=== PATIENT | male | born 1945 | race Caucasian/White ===

== ENCOUNTER 2019-08-20 17:01 | Inpatient (IN) | payer MEDICARE, OTHER ==
[~2019-08-20] VITALS: Ht 167.6 cm; Wt 78.2 kg
[2019-08-20] MEDS ORDERED: ARTIDRO2 OU (17:12)
[2019-08-20] MEDS ORDERED: MM S100C PO (17:12)
[2019-08-20] MEDS ORDERED: TOBROPO OD (17:12)
[2019-08-20] MEDS ORDERED: FLOM0.4C39 PO (17:12)
[2019-08-20] MEDS ORDERED: SIMV40TA20 PO (17:12)
[2019-08-20] MEDS ORDERED: ASPI81TA85 PO (17:12)
[2019-08-20] MEDS ORDERED: WARF05TA PO (17:12)
[2019-08-20] MEDS ORDERED: NEUR600T PO (17:12)
[2019-08-20 18:06] LABS: BASO % 0.3 % (0.0-1.0); EOS % 0.3 % (0.0-3.0); HEMATOCRIT 36.8 % (42.0-52.0); HEMOGLOBIN 12.7 g/dl (13.5-17.5); LYMPH # 0.6 10^3/uL (1.5-5.0); LYMPH % 4.4 % (24.0-44.0); MEAN CORPUSCULAR HGB CONC 34.5 g/dl (32.0-36.5); MEAN CORPUSCULAR VOLUME 101.4 fl (80.0-96.0); MONO # 1.6 10^3/uL (0.0-0.8); MONO % 11.2 % (0.0-5.0); NEUTROPHILS # 11.7 10^3/uL (1.5-8.5); NEUTROPHILS % 82.3 % (36.0-66.0); PLATELET COUNT, AUTOMATED 171 10^3/uL (150-450); RED BLOOD COUNT 3.63 10^6/uL (4.30-6.10); WHITE BLOOD COUNT 14.3 10^3/uL (4.0-10.0)
[2019-08-20 18:32] LABS: ALBUMIN 3.8 GM/DL (3.2-5.2); ALT/SGPT 31 U/L (12-78); BILIRUBIN,DIRECT 0.4 MG/DL (0.0-0.2); BLOOD UREA NITROGEN 25 MG/DL (7-18); CALCIUM LEVEL 8.6 MG/DL (8.8-10.2); CARBON DIOXIDE LEVEL 26 MEQ/L (21-32); CHLORIDE LEVEL 95 MEQ/L (98-107); CREATININE FOR GFR 1.19 MG/DL (0.70-1.30); GLOMERULAR FILTRATION RATE > 60.0 (>42); GLUCOSE, FASTING 93 MG/DL (70-100); LIPASE 61 U/L (73-393); POTASSIUM SERUM 4.4 MEQ/L (3.5-5.1); SODIUM LEVEL 132 MEQ/L (136-145); TOTAL PROTEIN 7.9 GM/DL (6.4-8.2)
[2019-08-20] MEDS ORDERED: ONDANSETRON 4MG/2ML VIAL (J2405) IV ONE (19:00)
[2019-08-20] MEDS ORDERED: PANTOPRAZOLE 40MG INJ (PROTONIX) (C9113) IV ONE (19:00)
[2019-08-20] MEDS ORDERED: NS 1,000 ML IV SCH (19:00)
--- NOTE | 2019-08-20 20:05 | REPVR ---
PROCEDURE INFORMATION: Exam: CT Abdomen And Pelvis Without Contrast Exam date and time: 08/20/2019 7:15 PM Age: 74 years old Clinical indication: Abdominal pain; Generalized; Additional info: Obstruction TECHNIQUE: Imaging protocol: Computed tomography of the abdomen and pelvis without contrast. Radiation optimization: All CT scans at this facility use at least one of these dose optimization techniques: automated exposure control; mA and/or kV adjustment per patient size (includes targeted exams where dose is matched to clinical indication); or iterative reconstruction. COMPARISON: CT ABD PELVIS WITH CONTRAST 12/10/2014 7:39 PM FINDINGS: Limited evaluation without enteric or IV contrast. Lungs: Mild subpleural reticular fibrosis suspected in the lung bases. Mediastinum: Miniscule hiatal hernia measuring less than 3 cm. Liver: Noncontrast liver shows no obvious lesion. Gallbladder and bile ducts: Gallbladder is present and shows no evidence of gallstone. Pancreas: Noncontrast pancreas shows no obvious mass or adjacent fluid. Spleen: Noncontrast spleen shows no obvious focal deformity. Adrenals: Adrenal glands are normal in appearance. Kidneys and ureters: Kidneys demonstrate vascular calculi and left kidney demonstrates an exophytic 1 cm simple cyst anterior upper pole, and 2 cm simple cyst anterior lower pole. Stomach and bowel: Diverticular changes are present within the colon without inflammation. : Left paramedian ventral hernia at the craniocaudal level of the umbilicus is demonstrated, measuring 10 x 4 cm, containing bowel. The small bowel proximal to the hernia appears distended and fluid-filled, measuring up to 3.5 cm, and the exiting loops appear decompressed, suggesting obstruction at the level of the hernia. The neck of the hernia appears wide, measuring 3 cm. Appendix: Normal caliber appendix is identified, with no adjacent inflammation. Intraperitoneal space: No pneumoperitoneum. Vasculature: Atherosclerotic change present in the aorta, without aneurysm. Lymph nodes: No enlarged lymph nodes. No abnormal pelvic sidewall lymph nodes. Bladder: Urinary bladder appears normal. Bones/joints: Bony structures show no acute fracture or destructive process. IMPRESSION: 1. Left paramedian ventral hernia at the level of the umbilicus measuring 10 x 4 cm, with a 3 cm wide neck. There appears to be at least partial small bowel obstruction at this level with a transition point at the exit loop of the hernia. 2. Colonic diverticulosis without active inflammation.. Electronically signed by: Tommie Tukr On 08/20/2019 20:05:04 PM
[2019-08-20 20:15] LABS: INR 2.6; PROTHROMBIN TIME 27.7 SECONDS (11.8-14.0)
[2019-08-20] MEDS: SIMVASTATIN 20 MG TAB PO SCH (21:00)
[2019-08-20] MEDS: GABAPENTIN 300 MG CAP PO SCH (21:00)
[2019-08-20] MEDS: VITAMIN D 1,000 INTERNATIONAL UNITS TABLET PO SCH (21:00)
[2019-08-20] MEDS: ASPIRIN 81 MG ENTERIC TAB PO SCH (21:00)
[2019-08-20] MEDS: TAMSULOSIN 0.4 MG CAP PO SCH (21:00)
[2019-08-20] MEDS ORDERED: VITA100066 PO (21:58)
[2019-08-20] MEDS ORDERED: EQL50TAB2 PO (21:58)
[2019-08-20] MEDS ORDERED: POLYVINYL ALCOHOL OPHTH SOLN 15 ML(LIQUITEARS) OU PRN (22:15)
[2019-08-20] MEDS ORDERED: HEPARIN SOD (PORCINE) 5000 UNITS/ML VIAL SC SCH (22:15)
[2019-08-20 23:00] VITALS: BP 125/81
[2019-08-20] MEDS: TOBRADEX OPHTH OINT 3.5 GM OD SCH (23:58)
[2019-08-20] MEDS: WARFARIN SOD 1 MG TAB PO SCH (23:59)
[2019-08-21] MEDS ORDERED: diphenhydrAMINE INJ 50MG/ML VIAL (J1200) IV ONE (00:15)
--- NOTE | 2019-08-21 00:33 | HPEPDOC ---
[facility] Medical History & Physical Date of Admission Aug 21, 2019 Date of Service: Aug 21, 2019 Attending Physician: JABARI KILPATRICK MD History and Physical CHIEF COMPLAINT: Abdominal pain HISTORY OF PRESENT ILLNESS: 74-year-old male with past medical history of BPH, hyperlipidemia and peripheral vascular disease (on Coumadin), presents from home with abdominal pain for the past few days. He has a paraumbilical hernia which causes intermittent abdominal pain but this time the pain is lasted longer than usual along with associated nausea, vomiting, constipation. Patient reports symptoms ongoing for the past 5 days with inability to tolerate any oral intake without vomiting, and back. In the ED, he was found to have partial small bowel obstruction on CT scan. General surgery consulted and it was recommended the patient be admitted for medical management and if stable and tolerating oral in take, plan for hernia repair in an outpatient setting. 10 point review of system is negative except for above PAST MEDICAL HISTORY: 1. BPH. 2. Peripheral vascular disease. 3. , Hyperlipidemia. PAST SURGICAL HISTORY: 1. Right lower extremity stent placement. 2. Hernia repair. SOCIAL HISTORY: Smoked 1.5 pack per day for 60 years. Drinks 3-5 beers per day. Occasional marijuana use FAMILY HISTORY: Family history positive for heart disease ALLERGIES: Please see below. HOME MEDICATIONS: Please see below. PHYSICAL EXAMINATION: VITAL SIGNS: Please see below. GENERAL: No distress HEENT: Normocephalic, atraumatic, moist mucous membranes NECK: Supple CARDIOVASCULAR EXAMINATION: S1, S2, no murmurs RESPIRATORY EXAMINATION: Clear to auscultation, no wheezing ABDOMINAL EXAMINATION: Soft, large (large left paraumbilical hernia, reducible, mild tenderness to palpation, nondistended, positive bowel sounds EXTREMITIES: Range of motion intact SKIN: No rash NEUROLOGICAL EXAMINATION: Alert and oriented 3, no focal deficits PSYCHIATRIC EXAMINATION: Calm and cooperative LABORATORY DATA: See below. IMAGING: CT abdomen showing ventral hernia with partial small bowel obstruction MICROBIOLOGY: Please see below. ASSESSMENT: 74-year-old male with past medical history of peripheral vascular disease, hyperlipidemia, BPH and ventral hernia presents with partial small bowel obstruction. PLAN: 1. Small bowel obstruction. Nothing by mouth, IV fluids, official surgical consultation pending, no immediate plan for surgery. 2. Peripheral vascular disease. Continue aspirin, statin and Coumadin, INR therapeutic. 3. Hyperlipidemia. Continue simvastatin DVT prophylaxis: On Coumadin. GI prophylaxis: Not needed Vital Signs Vital Signs Date Time Temp Pulse Resp B/P (MAP) Pulse Ox O2 Delivery O2 Flow Rate FiO2 08/20/19 23:00 98.2 87 16 125/81 (96) 95 Room Air Laboratory Data Labs 24H Laboratory Tests 2 08/20/19 18:00: Immature Granulocyte % (Auto) 1.5, Neutrophils (%) (Auto) 82.3H, Lymphocytes (%) (Auto) 4.4L, Monocytes (%) (Auto) 11.2H, Eosinophils (%) (Auto) 0.3, Basophils (%) (Auto) 0.3, Neutrophils # (Auto) 11.7H, Lymphocytes # (Auto) 0.6L, Monocytes # (Auto) 1.6H, Eosinophils # (Auto) 0.0, Basophils # (Auto) 0.0, Nucleated Red Blood Cells % (auto) 0.0, Anion Gap 11, Glomerular Filtration Rate > 60.0, Calcium Level 8.6L, Total Bilirubin 1.0, Direct Bilirubin 0.4H, Aspartate Amino Transf (AST/SGOT) 35, Alanine Aminotransferase (ALT/SGPT) 31, Alkaline Phosphatase 61, Total Protein 7.9, Albumin 3.8, Albumin/Globulin Ratio 0.93L, Lipase 61L 08/20/19 19:47: Urine Color KATHERIN, Urine Appearance HAZY, Urine pH 5.0, Urine Specific Hewitt 1.029, Urine Protein 1+H, Urine Glucose (UA) NEGATIVE, Urine Ketones 1+H, Urine Blood NEGATIVE, Urine Nitrite NEGATIVE, Urine Bilirubin NEGATIVE, Urine Urobilinogen 0.2, Urine Leukocyte Esterase NEGATIVE, Urine WBC (Auto) 2, Urine RBC (Auto) 6H, Urine Hyaline Casts (Auto) 12, Urine Bacteria (Auto) NEGATIVE, Urine Squamous Epithelial Cells 0, Urine Transitional Epithelial Cells <1, Urine Mucus (Auto) SMALL, Urine Sperm (Auto) 08/20/19 19:50: Prothrombin Time 27.7H, Prothromb Time International Ratio 2.60 08/20/19 21:30: Lactic Acid Level 0.9 CBC/BMP Laboratory Tests 08/20/19 18:00 Home Medications Scheduled Aspirin (Aspir 81) 81 Mg Tablet.dr, 81 MG PO QHS Cholecalciferol (Vitamin D3) (Vitamin D3) 1,000 Unit Tablet, 1,000 UNIT PO QHS Docusate Sodium (Stool Softener) 100 Mg Capsule, 200 MG PO BID Gabapentin (Neurontin) 600 Mg Tablet, 900 TAB PO BID Simvastatin (Simvastatin) 40 Mg Tablet, 20 MG PO QHS Tamsulosin HCl (Flomax) 0.4 Mg Capsule, 0.4 MG PO QHS Tobramycin/Dexamethasone (Tobradex Eye Ointment) 3.5 Gm Oint...g., 1 APLCT OD BID Vitamin B Complex (Vitamin B Complex) 1 Each Tablet, 1 TAB PO QHS Warfarin Sod (Coumadin) 1 Mg Tablet, 1 MG PO QHS Scheduled PRN Polyvinyl Alcohol (Artificial Tears) 15 Ml Drops, 1 DROP OU QID PRN for DRY EYES Allergies Coded Allergies: No Known Allergies (Unverified , 08/20/19) A-FIB/CHADSVASC A-FIB History Current/History of A-Fib/PAF?: No JABARI KILPATRICK MD Aug 21, 2019 00:33
[2019-08-21] MEDS: NS 1,000 ML IV SCH ×2 (01:12→13:00)
[2019-08-21 05:27] VITALS: BP 124/81
[2019-08-21] MEDS: TOBRADEX OPHTH OINT 3.5 GM OD SCH ×2 (09:16→21:04)
[2019-08-21] MEDS: GABAPENTIN 300 MG CAP PO SCH ×2 (09:16→21:04)
--- NOTE | 2019-08-21 13:19 | CR ---
DATE OF CONSULTATION: 08/21/2019 REASON FOR CONSULTATION: Incarcerated hernia. HISTORY OF PRESENT ILLNESS: The patient is a 74-year-old male who presented to the emergency room with complaints of mild abdominal pain and nausea, vomiting and unable to tolerate food for the past five days. His last bowel movement was about three days ago. No flatus. He has had a known hernia on the left side of his belly button for the past two years. Recently it has gotten hard and he is not able to push it back inside. H did have a history of hernia repair, which developed into a complication of some sort and about three weeks afterwards he had a recurrent hernia repair. No problems since that up until about two years ago when he noticed this lump on the left side of his belly. He has had pain with it when he coughs; otherwise, it has been soft and it does not bother him. PAST MEDICAL HISTORY: 1. Benign prostatic hypertrophy (BPH). 2. Peripheral vascular disease. 3. Hyperlipidemia. PAST SURGICAL HISTORY: 1. Right lower extremity stent placement. 2. Umbilical hernia repair x2. SOCIAL HISTORY: Used to smoke a pack and half a day for over 60 years. Drinks 3-5 beers daily. He uses marijuana. FAMILY HISTORY: Noncontributory. ALLERGIES: None. HOME MEDICATIONS: Please see med rec. REVIEW OF SYSTEMS: Per positives and negatives in the history of present illness (HPI). PHYSICAL EXAMINATION: GENERAL: Alert and oriented x3. No acute stress. VITAL SIGNS: Temperature 98.7, pulse 86, respirations 18, blood pressure 124/81, pulse oximetry 98% room air. HEENT: Pupils equal round react to light accommodation. HEART: S1, S2. Regular rate and rhythm. LUNGS: Clear to auscultation bilaterally. ABDOMEN: Soft, nontender, nondistended. There is a palpable hernia defect just to left of the umbilicus, about 3 cm in dimension. Currently it is completely reduced but any coughing or movement and the bulge is back out again. EXTREMITIES: Bilateral lower extremity edema. LABORATORY DATA: White count 14.3, hemoglobin 12.7, platelets 171. Potassium 4.4, lactic acid 0.9, creatinine 1.19. INR 2.6. IMAGING STUDIES: CT abdomen and pelvis in the emergency room showed a left midabdomen ventral hernia that is low in the umbilicus, measuring 10 x 4 cm with a 3 cm. neck. There is some partial small bowel obstruction at this level with a transition point colonic diverticulosis ASSESSMENT AND PLAN: The patient is a 74-year-old male with a recurrent incarcerated left-sided periumbilical hernia that was also resulting in a small bowel obstruction. Overnight with nasogastric (NG) tube decompression, the obstruction has passed and the hernia has reduced itself. At this point, with his peripheral vascular disease, he is currently on Coumadin. The abdomen is soft. He has been passing tons of flatus this morning. Recommendation is to remove the NG tube, start him on a diet. As long as he tolerates a diet, we will plan to discharge him home tomorrow. He can get a referral to my office and also clearance from his primary, and we can plan for elective surgery once he has had a chance to get his coagulopathy under control. I explained this in detail with him. He understands and agrees, and I will continue to follow up with him in the morning to see if he is stable enough for discharge.
[2019-08-21 14:00] VITALS: BP 115/78
--- NOTE | 2019-08-21 15:00 | IPNPDOC ---
Text Note Date of Service The patient was seen on 08/21/19. NOTE Subjective: Patient stated that he feels better today, nausea or vomiting re solved. Intermittent suction was stopped. Objective: GENERAL: No distress HEENT: Normocephalic, atraumatic, moist mucous membranes NECK: Supple CARDIOVASCULAR EXAMINATION: S1, S2, no murmurs RESPIRATORY EXAMINATION: Clear to auscultation, no wheezing ABDOMINAL EXAMINATION: Nontender, nondistended, left paraumbilical reducible, no rigidity EXTREMITIES: Range of motion intact SKIN: No rash NEUROLOGICAL EXAMINATION: Alert and oriented 3, no focal deficits PSYCHIATRIC EXAMINATION: Calm and cooperative ASSESSMENT: 74-year-old male with past medical history of peripheral vascular disease, hyperlipidemia, BPH and ventral hernia presents with partial small bowel obstruction. PLAN: 1. Small bowel obstruction. Resolved after intermittent suction Dr Caldwell recommended regular diet. Anticipated discharge tomorrow, possible surgical intervention in the outpatient settings 2. Peripheral vascular disease. Continue home meds 3. Hyperlipidemia. Continue simvastatin VS,Fishbone, I+O VS, Fishbone, I+O Laboratory Tests 08/20/19 18:00 Vital Signs Date Time Temp Pulse Resp B/P (MAP) Pulse Ox O2 Delivery O2 Flow Rate FiO2 08/21/19 14:00 98.1 88 18 115/78 (90) 97 08/21/19 05:27 Room Air I&O- Last 24 Hours up to 6 AM 08/21/19 06:00 Intake Total 400 ml Output Total 375 ml Balance 25 ml KAROL SMALLS DO Aug 21, 2019 15:00
[2019-08-21] MEDS: WARFARIN SOD 1 MG TAB PO SCH (17:41)
[2019-08-21 19:59] LABS: ALBUMIN 3.7 GM/DL (3.2-5.2); ALT/SGPT 28 U/L (12-78); BILIRUBIN,TOTAL 0.6 MG/DL (0.2-1.0); BLOOD UREA NITROGEN 20 MG/DL (7-18); CALCIUM LEVEL 8.3 MG/DL (8.8-10.2); CARBON DIOXIDE LEVEL 25 MEQ/L (21-32); CHLORIDE LEVEL 99 MEQ/L (98-107); CREATININE FOR GFR 0.78 MG/DL (0.70-1.30); GLOMERULAR FILTRATION RATE > 60.0 (>42); GLUCOSE, FASTING 95 MG/DL (70-100); POTASSIUM SERUM 4.6 MEQ/L (3.5-5.1); SODIUM LEVEL 132 MEQ/L (136-145); TOTAL PROTEIN 7.7 GM/DL (6.4-8.2)
[2019-08-21] MEDS: SIMVASTATIN 20 MG TAB PO SCH (21:04)
[2019-08-21] MEDS: VITAMIN D 1,000 INTERNATIONAL UNITS TABLET PO SCH (21:04)
[2019-08-21] MEDS: ASPIRIN 81 MG ENTERIC TAB PO SCH (21:04)
[2019-08-21] MEDS: TAMSULOSIN 0.4 MG CAP PO SCH (21:04)
[2019-08-21 22:00] VITALS: BP 130/43
[2019-08-22 06:00] VITALS: BP 99/65
[2019-08-22 06:40] LABS: INR 2.05
[2019-08-22 07:26] LABS: HEMATOCRIT 37.3 % (42.0-52.0); HEMOGLOBIN 12.5 g/dl (13.5-17.5); MEAN CORPUSCULAR HEMOGLOBIN 35.1 pg (27.0-33.0); MEAN CORPUSCULAR HGB CONC 33.5 g/dl (32.0-36.5); MEAN CORPUSCULAR VOLUME 104.8 fl (80.0-96.0); PLATELET COUNT, AUTOMATED 161 10^3/uL (150-450); RED BLOOD COUNT 3.56 10^6/uL (4.30-6.10); WHITE BLOOD COUNT 12.2 10^3/uL (4.0-10.0)
[2019-08-22] MEDS: TOBRADEX OPHTH OINT 3.5 GM OD SCH (09:52)
[2019-08-22] MEDS: GABAPENTIN 300 MG CAP PO SCH (09:52)
--- NOTE | 2019-08-22 11:02 | IPNPDOC ---
Text Note Date of Service The patient was seen on 08/22/19. NOTE No acute events overnight. Tolerating diet. No nausea, emesis, or pain. Still passing lots of flatus, and feels like he has to have a BM this am. VSSAF NAD abd - soft, NT, ND, large reduced incisional hernia on the left abdomen lateral to the umbilicus A) 74 y/o male with incarcerated incisional hernia and SBO that has resolved with NG decompression P) reg diet ambulate ok for d/c f/u with me in office to schedule elective surgery in the near future Ron Caldwell DO VS,Rafi, I+O VS, Rafi, I+O Laboratory Tests 08/21/19 19:22 08/22/19 06:05 Vital Signs Date Time Temp Pulse Resp B/P (MAP) Pulse Ox O2 Delivery O2 Flow Rate FiO2 08/22/19 06:00 99.2 88 19 99/65 (76) 94 Room Air I&O- Last 24 Hours up to 6 AM 08/22/19 06:00 Intake Total 1080 ml Output Total 200 ml Balance 880 ml WALKER CALDWELL DO Aug 22, 2019 11:02
--- NOTE | 2019-08-22 20:44 | DS.PDOC ---
Discharge Summary General Date of Admission Aug 20, 2019 at 22:01 Date of Discharge 08/22/19 Discharge Summary PROCEDURES PERFORMED DURING STAY: [None]. ADMITTING DIAGNOSES: Small bowel obstruction. Peripheral vascular disease. Hyperlipidemia. DISCHARGE DIAGNOSES: Small bowel obstruction. Peripheral vascular disease. Hyperlipidemia. COMPLICATIONS/CHIEF COMPLAINT: Bph;Hld;Pvd;Sbo. HISTORY OF PRESENT ILLNESS: 74-year-old male with past medical history of BPH, hyperlipidemia and peripheral vascular disease (on Coumadin), presents from home with abdominal pain for the past few days. He has a paraumbilical hernia which causes intermittent abdominal pain but this time the pain is lasted longer than usual along with associated nausea, vomiting, constipation. Patient reports symptoms ongoing for the past 5 days with inability to tolerate any oral intake without vomiting, and back. In the ED, he was found to have partial small bowel obstruction on CT scan. General surgery consulted and it was recommended the patient be admitted for medical management and if stable and tolerating oral intake, plan for hernia repair in an outpatient setting. HOSPITAL COURSE: During hospital stay patient repeat intermittent suction, small bowel obstruction resolved. Dr. Caldwell recommended hernia repair in the outpatient settings DISCHARGE MEDICATIONS: Please see below. ALLERGIES: Please see below. PHYSICAL EXAMINATION ON DISCHARGE: VITAL SIGNS: Please see below. GENERAL: No distress HEENT: Normocephalic, atraumatic, moist mucous membranes NECK: Supple CARDIOVASCULAR EXAMINATION: S1, S2, no murmurs RESPIRATORY EXAMINATION: Clear to auscultation, no wheezing ABDOMINAL EXAMINATION: Soft, large (large left paraumbilical hernia, reducible, mild tenderness to palpation, nondistended, positive bowel sounds EXTREMITIES: Range of motion intact SKIN: No rash NEUROLOGICAL EXAMINATION: Alert and oriented 3, no focal deficits PSYCHIATRIC EXAMINATION: Calm and cooperative LABORATORY DATA: Please see below. IMAGING:PROCEDURE INFORMATION: Exam: CT Abdomen And Pelvis Without Contrast Exam date and time: 08/20/2019 7:15 PM Age: 74 years old Clinical indication: Abdominal pain; Generalized; Additional info: Obstruction TECHNIQUE: Imaging protocol: Computed tomography of the abdomen and pelvis without contrast. Radiation optimization: All CT scans at this facility use at least one of these dose optimization techniques: automated exposure control; mA and/or kV adjustment per patient size (includes targeted exams where dose is matched to clinical indication); or iterative reconstruction. COMPARISON: CT ABD PELVIS WITH CONTRAST 12/10/2014 7:39 PM FINDINGS: Limited evaluation without enteric or IV contrast. Lungs: Mild subpleural reticular fibrosis suspected in the lung bases. Mediastinum: Miniscule hiatal hernia measuring less than 3 cm. Liver: Noncontrast liver shows no obvious lesion. Gallbladder and bile ducts: Gallbladder is present and shows no evidence of gallstone. Pancreas: Noncontrast pancreas shows no obvious mass or adjacent fluid. Spleen: Noncontrast spleen shows no obvious focal deformity. Adrenals: Adrenal glands are normal in appearance. Kidneys and ureters: Kidneys demonstrate vascular calculi and left kidney demonstrates an exophytic 1 cm simple cyst anterior upper pole, and 2 cm simple cyst anterior lower pole. Stomach and bowel: Diverticular changes are present within the colon without inflammation. : Left paramedian ventral hernia at the craniocaudal level of the umbilicus is demonstrated, measuring 10 x 4 cm, containing bowel. The small bowel proximal to the hernia appears distended and fluid-filled, measuring up to 3.5 cm, and the exiting loops appear decompressed, suggesting obstruction at the level of the hernia. The neck of the hernia appears wide, measuring 3 cm. Appendix: Normal caliber appendix is identified, with no adjacent inflammation. Intraperitoneal space: No pneumoperitoneum. Vasculature: Atherosclerotic change present in the aorta, without aneurysm. Lymph nodes: No enlarged lymph nodes. No abnormal pelvic sidewall lymph nodes. Bladder: Urinary bladder appears normal. Bones/joints: Bony structures show no acute fracture or destructive process. IMPRESSION: 1. Left paramedian ventral hernia at the level of the umbilicus measuring 10 x 4 cm, with a 3 cm wide neck. There appears to be at least partial small bowel obstruction at this level with a transition point at the exit loop of the hernia. 2. Colonic diverticulosis without active inflammation.. PROGNOSIS: Favorable ACTIVITY: As tolerated DIET: Cardiac DISCHARGE PLAN: Home DISPOSITION: 01 Home, Self-Care. ITEMS TO FOLLOWUP ON ON OUTPATIENT: Follow-up with surgeon DISCHARGE CONDITION: Stable TIME SPENT ON DISCHARGE: Greater than 20 minutes. Vital Signs/I&Os Vital Signs Date Time Temp Pulse Resp B/P (MAP) Pulse Ox O2 Delivery O2 Flow Rate FiO2 08/22/19 06:00 99.2 88 19 99/65 (76) 94 Room Air I&O- Last 24 Hours up to 6 AM 08/22/19 06:00 Intake Total 1080 ml Output Total 200 ml Balance 880 ml Laboratory Data Labs 24H Laboratory Tests 2 08/22/19 06:05: Nucleated Red Blood Cells % (auto) 0.0, Prothrombin Time 23.0H, Prothromb Time International Ratio 2.05 CBC/BMP Laboratory Tests 08/22/19 06:05 Discharge Medications Scheduled Aspirin (Aspir 81) 81 Mg Tablet.dr, 81 MG PO QHS, (Reported) Cholecalciferol (Vitamin D3) (Vitamin D3) 1,000 Unit Tablet, 1,000 UNIT PO QHS, (Reported) Docusate Sodium (Stool Softener) 100 Mg Capsule, 200 MG PO BID, (Reported) Gabapentin (Neurontin) 600 Mg Tablet, 900 TAB PO BID, (Reported) Simvastatin (Simvastatin) 40 Mg Tablet, 20 MG PO QHS, (Reported) Tamsulosin HCl (Flomax) 0.4 Mg Capsule, 0.4 MG PO QHS, (Reported) Tobramycin/Dexamethasone (Tobradex Eye Ointment) 3.5 Gm Oint...g., 1 APLCT OD BID, (Reported) Vitamin B Complex (Vitamin B Complex) 1 Each Tablet, 1 TAB PO QHS, (Reported) Warfarin Sod (Coumadin) 1 Mg Tablet, 1 MG PO QHS, (Reported) Scheduled PRN Polyvinyl Alcohol (Artificial Tears) 15 Ml Drops, 1 DROP OU QID PRN for DRY EYES, (Reported) Allergies Coded Allergies: No Known Allergies (Unverified , 08/20/19) KAROL SMALLS DO Aug 22, 2019 20:44
== END 2019-08-22 11:30 | disposition home or self-care (01) | DRG 395 ==
LOC: M ED 17:01 → M ED INP 22:01 → M MS5PR 23:10
PROVIDERS: ADMIT Internal Medicine; ATTEND Internal Medicine
DX: K43.0 Incisional hernia with obstruction, without gangrene (principal); I73.9 Peripheral vascular disease, unspecified; E78.5 Hyperlipidemia, unspecified; N40.0 Benign prostatic hyperplasia without lower urinary tract symptoms; Z79.01 Long term (current) use of anticoagulants; K57.30 Diverticulosis of large intestine without perforation or abscess without bleeding; Z79.82 Long term (current) use of aspirin; Z79.899 Other long term (current) drug therapy; F17.200 Nicotine dependence, unspecified, uncomplicated; F12.90 Cannabis use, unspecified, uncomplicated

== ENCOUNTER 2019-10-18 09:27 | Day surgery (SDC) | payer OTHER ==
[~2019-10-18] VITALS: Ht 167.6 cm; Wt 81.2 kg
[~2019-10-18 09:27] MED LIST: ACET-683 PO; ASPI81TA85 PO; DIPH50CA PO; EQL50TAB2 PO; FLOM0.4C39 PO; GABA600T4 PO; LIDOCAINE 2% 100MG/5ML SDV (FOR ANES.) As Ordered ONE; LR 1,000 ML IV ONE; MIDAZOLAM INJ 2MG/2ML VIAL (J2250 PER 1MG) As Ordered ONE; MM S100C PO; NEUR600T PO; POLYOPD OU; ROCURONIUM BROMIDE 50 MG/5 ML VIAL As Ordered ONE; SIMV40TA20 PO; TOBROPO OD; VITA100054 PO; VITA100066 PO; VITATAB74 PO; WARF05TA PO; ceFAZolin SOD 2 GM in IV 1 EA IV ONE; fentaNYL 250 MCG/5 ML INJECTION (J3010) As Ordered ONE; propofoL 200 MG/20 ML VIAL As Ordered ONE
[2019-10-18 10:25] LABS: INR 1.32; PROTHROMBIN TIME 16.1 SECONDS (11.8-14.0)
[2019-10-18] MEDS ORDERED: BUPIVACAINE/EPIN 0.25% 30 ML VIAL As Ordered ONE ×2 (10:51→12:07)
[2019-10-18] MEDS ORDERED: ETOMIDATE INJ 20MG/10ML VIAL As Ordered ONE (11:05)
[2019-10-18] MEDS ORDERED: PHENYLephrine HCL 500 MCG/5 ML (100MCG/ML) SYRINGE (J2370) As Ordered ONE ×2 (11:53→12:28)
[2019-10-18] MEDS ORDERED: ROCURONIUM BROMIDE 50 MG/5 ML VIAL As Ordered ONE ×2 (12:17→13:19)
[2019-10-18] MEDS ORDERED: PHENYLEPHRINE 10MG/ML 1ML VIAL (J2370 PER 1) As Ordered ONE (12:31)
[2019-10-18] MEDS ORDERED: dexameTHASONE 4 MG/ML 1ML VIAL (J1100 PER 1MG) As Ordered ONE (13:48)
[2019-10-18] MEDS ORDERED: ONDANSETRON 4MG/2ML VIAL As Ordered ONE (13:48)
[2019-10-18] MEDS ORDERED: ACETAMINOPHEN 1000MG 100ML IV BTL (OFIRMEV) (J0131 PER 10MG) As Ordered ONE (13:48)
[2019-10-18] MEDS ORDERED: KETOROLAC 60 MG/2 ML VIAL As Ordered ONE (13:48)
[2019-10-18] MEDS ORDERED: METOCLOPRAMIDE INJ 10MG/2ML VIAL (J2765 PER 1) As Ordered ONE (13:54)
[2019-10-18] MEDS ORDERED: SUGAMMADEX SODIUM 500 MG/5 ML VIAL (BRIDION) As Ordered ONE (14:10)
[2019-10-18] MEDS ORDERED: fentaNYL 100 MCG/2 ML INJECTION (J3010) As Ordered ONE (14:18)
[2019-10-18] MEDS: fentaNYL 100 MCG/2 ML INJECTION (J3010) IV PRN ×4 (14:57→15:14)
[2019-10-18] MEDS: oxyCODONE 5MG TAB PO PRN ×2 (14:57→15:28)
[2019-10-18] MEDS ORDERED: LR 1,000 ML IV SCH (15:00)
[2019-10-18] MEDS ORDERED: ONDANSETRON 4MG/2ML VIAL IV PRN (15:00)
[2019-10-18] MEDS ORDERED: MORPHINE 2 MG/ML 1ML VIAL (J2270) IV PRN (16:00)
[2019-10-18 17:45] VITALS: BP 132/77
--- NOTE | 2019-10-19 07:39 | RO ---
DATE OF PROCEDURE: PREOPERATIVE DIAGNOSES: Incarcerated incisional and a recurrent incarcerated umbilical hernias. POSTOPERATIVE DIAGNOSES: Incarcerated recurrent umbilical and multiple incarcerated incisional hernias. PROCEDURE: Robotic repair of incarcerated recurrent umbilical and seven other incarcerated incisional hernias. SURGEON: Dr. Reinaldo Caldwell. FENCE BUILDER: WILY Estevez. ANESTHESIA: General. ESTIMATED BLOOD LOSS: 5 cc COMPLICATIONS: None. INDICATIONS FOR PROCEDURE: The patient is a 74-year-old male whom I met in the hospital when he was in a for small bowel obstruction that was secondary to this large incarcerated incisional hernia. Recommendation to proceed with robotic repair. Risks and benefits of procedure are not limited but including bleeding, infection, hernia formation, hernia recurrence, damage to surrounding structures, need for further surgery were discussed in detail with the patient. Informed was obtained and the procedure was planned. DESCRIPTION OF OPERATION: The patient brought back to operating room 7. After sufficient sedation, the abdomen sterilely prepped and draped. Next time-out was done to confirm proper patient and proper procedure. Following that a stab incision made in left lower quadrant, Veress needle inserted and was insufflated 2 mmHg. Once that was completed an 8 mm incision was made in the left upper quadrant. The 8 mm robotic OptiView port was used to gain access to the abdomen. Once the abdomen was entered, I was unable to see anything due to the extensive adhesions. Because of the concern for possible bowel injury, I left that port alone and attempted placement of another port, superior to that one. That port was placed. I was able to see inside the abdomen but could not see enough from there to the region another port. Using the camera was able to bluntly move enough of the adhesions away from the superior abdomen to reach a second port in the midline epigastric area through that 5 mm port and using scissors, I was able to take down adhesions along the left upper quadrant sufficient enough to get another port in where the Veress needle was. Once I had those two ports and I was able to continue taking down adhesions all on the left side to the point where I able to get three robotic ports in place along the left side. Once that was completed, the robot was docked. The adhesions were taken down from midline and superiorly down towards the right lower quadrant until I was able to find the initial port site that I had placed in the right midabdomen. That port was very close to a loop of small bowel. However, there was no signs of any injury to it. That port was then left in place at the time. The rest of the omentum and small bowel was dissected free. Once all of the adhesions and hernias had been completely reduced and freed up, the plan was made for closure. There were innumerable hernias ranging in size from 2 mm to 4 cm. The largest hernias of which were the initial ones that we planned on fixing at the umbilicus and just lateral to that. Those defects were both closed with running 0 Stratafix sutures. Once the two larger ones were closed, there was another larger one that was towards the right midabdomen that was closed using a Stratafix as well. There are three other small ones that were closed with interrupted [id number] 0 Vicryl sutures, all closed robotically and then there were three more medium sized ones in the row along the midline superior to the umbilicus that were all closed together with a low Stratafix. Once all those large holes were closed; I closed everyone that was larger than 5 mm. Once that was completed I took a 9 cm round Parietex mesh, placed over top of the two largest ones next to the umbilicus and then tacked that in place using two secure strap tackers. Once that was completed the abdomen was desufflated. Skin incisions were closed with #4-0 Vicryl subcuticular sutures. The abdomen was cleaned and dried, 4x4s and tape were applied thus ending the procedure.
== END 2019-10-18 17:45 | disposition home or self-care (01) ==
LOC: M SDC 09:27
PROVIDERS: ATTEND Surgery
DX: K43.0 Incisional hernia with obstruction, without gangrene (principal); K42.0 Umbilical hernia with obstruction, without gangrene; K66.0 Peritoneal adhesions (postprocedural) (postinfection); N40.0 Benign prostatic hyperplasia without lower urinary tract symptoms; I73.9 Peripheral vascular disease, unspecified; I48.91 Unspecified atrial fibrillation; K59.00 Constipation, unspecified; M19.90 Unspecified osteoarthritis, unspecified site; I25.2 Old myocardial infarction; I50.42 Chronic combined systolic (congestive) and diastolic (congestive) heart failure; I25.5 Ischemic cardiomyopathy; I49.3 Ventricular premature depolarization; E78.00 Pure hypercholesterolemia, unspecified; R94.31 Abnormal electrocardiogram [ECG] [EKG]; I08.0 Rheumatic disorders of both mitral and aortic valves; E66.3 Overweight; R55 Syncope and collapse; F10.10 Alcohol abuse, uncomplicated; Z87.891 Personal history of nicotine dependence; Z79.899 Other long term (current) drug therapy; Z79.01 Long term (current) use of anticoagulants; Z79.82 Long term (current) use of aspirin
CPT/HCPCS: 49652; 49654; 85610; C1781; J0131; J0690; J1100; J1885; J2250; J2370; J2405; J2765; J3010

== ENCOUNTER → 2020-08-20 | Outpatient (REF) | payer OTHER ==
[~2020-08-20] MED LIST changes: -ASPI81TA85 PO; +ASPI81TA86 PO; -LIDOCAINE 2% 100MG/5ML SDV (FOR ANES.) As Ordered ONE; -LR 1,000 ML IV ONE; -MIDAZOLAM INJ 2MG/2ML VIAL (J2250 PER 1MG) As Ordered ONE; -ROCURONIUM BROMIDE 50 MG/5 ML VIAL As Ordered ONE; -ceFAZolin SOD 2 GM in IV 1 EA IV ONE; -fentaNYL 250 MCG/5 ML INJECTION (J3010) As Ordered ONE; -propofoL 200 MG/20 ML VIAL As Ordered ONE
[2020-08-20 17:32] LABS: BASO % 0.3 % (0.0-1.0); EOS # 0.3 10^3/uL (0.0-0.5); EOS % 4.5 % (0.0-3.0); HEMATOCRIT 39.7 % (42.0-52.0); HEMOGLOBIN 13.1 g/dl (13.5-17.5); LYMPH # 0.7 10^3/uL (1.5-5.0); LYMPH % 10.8 % (24.0-44.0); MEAN CORPUSCULAR HEMOGLOBIN 30.5 pg (27.0-33.0); MEAN CORPUSCULAR VOLUME 92.3 fl (80.0-96.0); MONO # 0.9 10^3/uL (0.0-0.8); MONO % 14.4 % (0.0-5.0); NEUTROPHILS # 4.3 10^3/uL (1.5-8.5); NEUTROPHILS % 68.1 % (36.0-66.0); PLATELET COUNT, AUTOMATED 132 10^3/uL (150-450); WHITE BLOOD COUNT 6.4 10^3/uL (4.0-10.0)
[2020-08-20 17:44] LABS: PROTHROMBIN TIME 54.6 SECONDS (12.5-14.3)
[2020-08-20 17:56] LABS: INR 5.95
[2020-08-20 18:12] LABS: ALT/SGPT 35 U/L (12-78); BILIRUBIN,DIRECT 0.3 MG/DL (0.0-0.2); BILIRUBIN,TOTAL 0.7 MG/DL (0.2-1.0); BLOOD UREA NITROGEN 15 MG/DL (7-18); CALCIUM LEVEL 8.2 MG/DL (8.8-10.2); CARBON DIOXIDE LEVEL 26 MEQ/L (21-32); CHLORIDE LEVEL 99 MEQ/L (98-107); CREATININE FOR GFR 0.98 MG/DL (0.70-1.30); GLOMERULAR FILTRATION RATE > 60.0 (>42); GLUCOSE, FASTING 89 MG/DL (70-100); POTASSIUM SERUM 4.5 MEQ/L (3.5-5.1); SODIUM LEVEL 134 MEQ/L (136-145); TOTAL PROTEIN 6.8 GM/DL (6.4-8.2)
== END ==
LOC: M LAB REF 17:12
DX: I50.42 Chronic combined systolic (congestive) and diastolic (congestive) heart failure (principal)

== ENCOUNTER → 2020-08-22 | Outpatient (REF) | payer MEDICARE, OTHER ==
[2020-08-22 13:45] LABS: PROTHROMBIN TIME 73.7 SECONDS (12.5-14.3)
[2020-08-22 13:46] LABS: INR 8.71
== END ==
LOC: M LAB REF 12:11
PROVIDERS: ATTEND Nurse Practitioner Adult Health
DX: Z48.812 Encounter for surgical aftercare following surgery on the circulatory system (principal); Z79.01 Long term (current) use of anticoagulants

== ENCOUNTER 2020-09-13 15:58 | Emergency (ER) | payer MEDICARE, OTHER ==
[~2020-09-13] VITALS: Ht 167.6 cm; Wt 70.9 kg
--- OUTSIDE RECORDS SUMMARY | 2020-09-13 16:13 | CCD ---
Author Author [facility] Organization [facility] Address Unknown Phone Unavailable Care Team Providers Care Document Examiner Name Role Phone PETROFF, JERRY PA Unavailable Unavailable PETROFF, JERRY PA Unavailable Unavailable PETROFF, JERRY PA Unavailable Unavailable PETROFF, JERRY PA Unavailable Unavailable PETROFF, JERRY PA Unavailable Unavailable PETROFF, JERRY PA Unavailable Unavailable PETROFF, JERRY PA Unavailable Unavailable PETROFF, JERRY PA Unavailable Unavailable DEGRE, A NASIR CNC SERVICE ENGINEER Unavailable Unavailable DEGRE, A NASIR CNC SERVICE ENGINEER Unavailable Unavailable DEGRE, A NASIR CNC SERVICE ENGINEER Unavailable Unavailable KATHLEEN, E POLLO CNC SERVICE ENGINEER Unavailable Unavailable KATHLEEN, E POLLO CNC SERVICE ENGINEER Unavailable Unavailable KATHLEEN, E POLLO CNC SERVICE ENGINEER Unavailable Unavailable KATHLEEN, E POLLO CNC SERVICE ENGINEER Unavailable Unavailable KATHLEEN, E POLLO CNC SERVICE ENGINEER Unavailable Unavailable KATHLEEN, E POLLO CNC SERVICE ENGINEER Unavailable Unavailable KATHLEEN, E POLLO CNC SERVICE ENGINEER Unavailable Unavailable KATHLEEN, E POLLO CNC SERVICE ENGINEER Unavailable Unavailable KATHLEEN, E POLLO CNC SERVICE ENGINEER Unavailable Unavailable KATHLEEN, E POLLO CNC SERVICE ENGINEER Unavailable Unavailable KATHLEEN, E POLLO CNC SERVICE ENGINEER Unavailable Unavailable KATHLEEN, E POLLO CNC SERVICE ENGINEER Unavailable Unavailable KATHLEEN, E POLLO CNC SERVICE ENGINEER Unavailable Unavailable KATHLEEN, E POLLO CNC SERVICE ENGINEER Unavailable Unavailable KATHLEEN, E POLLO CNC SERVICE ENGINEER Unavailable Unavailable KATHLEEN, E POLLO CNC SERVICE ENGINEER Unavailable Unavailable KATHLEEN, E POLLO CNC SERVICE ENGINEER Unavailable Unavailable KATHLEEN, E POLLO CNC SERVICE ENGINEER Unavailable Unavailable KATHLEEN, E POLLO CNC SERVICE ENGINEER Unavailable Unavailable KATHLEEN, E POLLO CNC SERVICE ENGINEER Unavailable Unavailable KATHLEEN, E POLLO CNC SERVICE ENGINEER Unavailable Unavailable KATHLEEN, E POLLO CNC SERVICE ENGINEER Unavailable Unavailable KATHLEEN, E POLLO CNC SERVICE ENGINEER Unavailable Unavailable KATHLEEN, E POLLO CNC SERVICE ENGINEER Unavailable Unavailable KATHLEEN, E POLLO CNC SERVICE ENGINEER Unavailable Unavailable KATHLEEN, E POLLO CNC SERVICE ENGINEER Unavailable Unavailable KATHLEEN, E POLLO CNC SERVICE ENGINEER Unavailable Unavailable KATHLEEN, E POLLO CNC SERVICE ENGINEER Unavailable Unavailable KATHLEEN, E POLLO CNC SERVICE ENGINEER Unavailable Unavailable KATHLEEN, E POLLO CNC SERVICE ENGINEER Unavailable Unavailable MD LILO HERNÁNDEZ Unavailable Unavailable Sah, P Birendra Unavailable Unavailable Sah, P Birendra MD Unavailable Unavailable Sah, P Birendra MD Unavailable Unavailable Sah, P Birendra MD Unavailable Unavailable Sah, P Birendra MD Unavailable Unavailable Sah, P Birendra MD Unavailable Unavailable Sah, P Birendra MD Unavailable Unavailable Sah, P Birendra MD Unavailable Unavailable Sah, P Birendra MD Unavailable Unavailable Sah, P Birendra MD Unavailable Unavailable Sah, P Birendra MD Unavailable Unavailable Sah, P Birendra MD Unavailable Unavailable Sah, P Birendra MD Unavailable Unavailable Sah, P Birendra MD Unavailable Unavailable Sah, P Birendra MD Unavailable Unavailable Sah, P Birendra MD Unavailable Unavailable Sah, P Birendra MD Unavailable Unavailable Sah, P Birendra MD Unavailable Unavailable Sah, P Birendra MD Unavailable Unavailable Sah, P Birendra MD Unavailable Unavailable Sah, P Birendra MD Unavailable Unavailable Sah, P Birendra MD Unavailable Unavailable Sah, P Birendra MD Unavailable Unavailable Sah, P Birendra MD Unavailable Unavailable Sah, P Birendra MD Unavailable Unavailable Sah, P Birendra MD Unavailable Unavailable Sah, P Birendra MD Unavailable Unavailable Sah, P Birendra MD Unavailable Unavailable Sah, P Birendra MD Unavailable Unavailable Sah, P Birendra MD Unavailable Unavailable Sah, P Birendra MD Unavailable Unavailable Sah, P Birendra MD Unavailable Unavailable Sah, P Birendra MD Unavailable Unavailable Sah, P Birendra MD Unavailable Unavailable Sah, P Birendra MD Unavailable Unavailable Sah, P Birendra MD Unavailable Unavailable Sah, P Birendra MD Unavailable Unavailable Sah, P Birendra MD Unavailable Unavailable Sah, P Birendra MD Unavailable Unavailable Sah, P Birendra MD Unavailable Unavailable Sah, P Birendra MD Unavailable Unavailable Sah, P Birendra MD Unavailable Unavailable Sah, P Birendra MD Unavailable Unavailable Sah, P Birendra MD Unavailable Unavailable Sah, P Birendra MD Unavailable Unavailable VERWILY MARLOW Unavailable Unavailable Julia Hill MD Unavailable Unavailable Julia Hill MD Unavailable Unavailable Julia Hill MD Unavailable Unavailable Julia Hill MD Unavailable Unavailable Julia Hill MD Unavailable Unavailable Julia Hill MD Unavailable Unavailable Lalor, H Wagner MD Unavailable Unavailable Lalor, H Wagner MD Unavailable Unavailable Lalor, H Wagner MD Unavailable Unavailable Lalor, H Wagner MD Unavailable Unavailable Lalor, H Wagner MD Unavailable Unavailable Lalor, H Wagner MD Unavailable Unavailable Lalor, H Wagner MD Unavailable Unavailable Lalor, H Wagner MD Unavailable Unavailable Lalor, H Wagner MD Unavailable Unavailable Lalor, H Wagner MD Unavailable Unavailable Lalor, H Wagner MD Unavailable Unavailable Lalor, H Wagner MD Unavailable Unavailable Lalor, H Wagner MD Unavailable Unavailable Lalor, H Wagner MD Unavailable Unavailable Lalor, H Wagner MD Unavailable Unavailable Lalor, H Wagner MD Unavailable Unavailable Lalor, H Wagner MD Unavailable Unavailable Lalor, H Wagner MD Unavailable Unavailable Lalor, H Wagner MD Unavailable Unavailable Lalor, H Wagner MD Unavailable Unavailable Lalor, H Wagner MD Unavailable Unavailable Lalor, H Wagner MD Unavailable Unavailable Lalor, H Wagner MD Unavailable Unavailable Lalor, H Wagner MD Unavailable Unavailable Lalor, H Wagner MD Unavailable Unavailable Lalor, H Wagner MD Unavailable Unavailable Lalor, H Wagner MD Unavailable Unavailable Lalor, H Wagner MD Unavailable Unavailable Lalor, H Wagner MD Unavailable Unavailable Lalor, H Wagner MD Unavailable Unavailable Lalor, H Wagner MD Unavailable Unavailable Lalor, H Wagner MD Unavailable Unavailable Lalor, H Wagner MD Unavailable Unavailable Lalor, H Wagner MD Unavailable Unavailable Lalor, H Wagner MD Unavailable Unavailable Lalor, H Wagner MD Unavailable Unavailable Lalor, H Wagner MD Unavailable Unavailable Lalor, H Wagner MD Unavailable Unavailable Lalor, H Wagner MD Unavailable Unavailable Lalor, H Wagner MD Unavailable Unavailable Lalor, H Wagner MD Unavailable Unavailable Lalor, H Wagner MD Unavailable Unavailable Lalor, H Wagner MD Unavailable Unavailable Lalor, H Wagner MD Unavailable Unavailable NegritoOumou MD Unavailable Unavailable NegritoOumou MD Unavailable Unavailable NegritoOumou MD Unavailable Unavailable NegritoOumou MD Unavailable Unavailable NegritoOumou MD Unavailable Unavailable NegritoOumou MD Unavailable Unavailable NegritoOumou MD Unavailable Unavailable NegritoOumou MD Unavailable Unavailable NegritoOumou MD Unavailable Unavailable NegritoOumou MD Unavailable Unavailable NegritoOumou MD Unavailable Unavailable Negrito, Oumou MD Unavailable Unavailable Negrito, Oumou MD Unavailable Unavailable NegritoOumou MD Unavailable Unavailable Negrito, Noroderick MD Unavailable Unavailable Negrito, Noroderick GUEVARA Unavailable Unavailable Negrito Noroderick GUEVARA Unavailable Unavailable Negrito, Noroderick GUEVARA Unavailable Unavailable NegritoOumou MD Unavailable Unavailable Negrito, Noaman MD Unavailable Unavailable Oumou Mahan MD Unavailable Unavailable Oumou Mahan MD Unavailable Unavailable Oumou Mahan MD Unavailable Unavailable Oumou Mahan MD Unavailable Unavailable Oumou Mahan MD Unavailable Unavailable Oumou Mahan MD Unavailable Unavailable Oumou Mahan MD Unavailable Unavailable Oumou Mahan MD Unavailable Unavailable Oumou Mahan MD Unavailable Unavailable Dombek-Lang, V Nithya MD Unavailable Unavailable Dombek-Lang, V Nithya MD Unavailable Unavailable Dombek-Lang, V Nithya MD Unavailable Unavailable Dombek-Lang, V Nithya MD Unavailable Unavailable Dombek-Lang, V Nithya MD Unavailable Unavailable Dombek-Lang, V Nithya MD Unavailable Unavailable Dombek-Lang, V Nithya MD Unavailable Unavailable Dombek-Lang, V Nithya MD Unavailable Unavailable Dombek-Lang, V Nithya MD Unavailable Unavailable Dombek-Lang, V Nithya MD Unavailable Unavailable Dombek-Lang, V Nithya MD Unavailable Unavailable Dombek-Lang, V Nithya MD Unavailable Unavailable Dombek-Lang, V Nithya MD Unavailable Unavailable Dombek-Lang, V Nithya MD Unavailable Unavailable Dombek-Lang, V Nithya MD Unavailable Unavailable Dombek-Lang, V Nithya MD Unavailable Unavailable Dombek-Lang, V Nithya MD Unavailable Unavailable Dombek-Lang, V Nithya MD Unavailable Unavailable Dombek-Lang, V Nithya MD Unavailable Unavailable Dombek-Lang, V Nithya MD Unavailable Unavailable Dombek-Lang, V Nithya MD Unavailable Unavailable Dombek-Lang, V Nithya MD Unavailable Unavailable Dombek-Lang, V Nithya MD Unavailable Unavailable Dombek-Lang, V Nithya MD Unavailable Unavailable Dombek-Lang, V Nithya MD Unavailable Unavailable Dombek-Lang, V Nithya MD Unavailable Unavailable Dombek-Lang, V Nithya MD Unavailable Unavailable Dombek-Lang, V Nithya MD Unavailable Unavailable Dombek-Lang, V Nithya MD Unavailable Unavailable Dombek-Lang, V Nithya MD Unavailable Unavailable Dombek-Lang, V Nithya MD Unavailable Unavailable Dombek-Lang, V Nithya MD Unavailable Unavailable Dombek-Lang, V Nithya MD Unavailable Unavailable Tanner Lees MD Unavailable Unavailable Tanner Lees MD Unavailable Unavailable Tanner Lees MD Unavailable Unavailable ANTECOL, Julia YU MD Unavailable Unavailable ANTECOL, Julia YU MD Unavailable Unavailable ANTECOL, Julia YU MD Unavailable Unavailable ANTECOL, Julia YU MD Unavailable Unavailable ANTECOL, Julia YU MD Unavailable Unavailable ANTECOL, Julia YU MD Unavailable Unavailable ANTECOL, Julia YU MD Unavailable Unavailable ANTECOL, Julia YU MD Unavailable Unavailable ANTECOL, Julia YU MD Unavailable Unavailable ANTECOL, Julia YU MD Unavailable Unavailable ANTECOL, Julia YU MD Unavailable Unavailable ANTECOL, Julia YU MD Unavailable Unavailable ANTECOL, Julia YU MD Unavailable Unavailable ANTECOL, Julia YU MD Unavailable Unavailable ANTECOL, Julia YU MD Unavailable Unavailable ANTECOL, Julia YU MD Unavailable Unavailable ANTECOL, Julia YU MD Unavailable Unavailable ANTECOL, Julia YU MD Unavailable Unavailable ANTECOL, Julia YU MD Unavailable Unavailable ANTECOL, Julia YU MD Unavailable Unavailable ANTECOL, Julia YU MD Unavailable Unavailable ANTECOL, Julia YU MD Unavailable Unavailable ANTECOL, Julia YU MD Unavailable Unavailable ANTECOL, Julia YU MD Unavailable Unavailable ANTECOL, Julia YU MD Unavailable Unavailable ANTECOL, Julia YU MD Unavailable Unavailable ANTECOL, Julia YU MD Unavailable Unavailable ANTECOL, Julia YU MD Unavailable Unavailable ANTECOL, Julia YU MD Unavailable Unavailable ANTECOL, Julia YU MD Unavailable Unavailable ANTECOL, Julia YU MD Unavailable Unavailable ANTECOL, Julia YU MD Unavailable Unavailable ANTECOL, Julia YU MD Unavailable Unavailable ANTECOL, Julia YU MD Unavailable Unavailable ANTECOL, Julia YU MD Unavailable Unavailable ANTECOL, Julia YU MD Unavailable Unavailable ANTECOL, Julia YU MD Unavailable Unavailable ANTECOL, Julia YU MD Unavailable Unavailable ANTECOL, Julia YU MD Unavailable Unavailable ANTECOL, Julia YU MD Unavailable Unavailable ANTECOL, Julia YU MD Unavailable Unavailable ANTECOL, Julia YU MD Unavailable Unavailable ANTECOL, Julia YU MD Unavailable Unavailable ANTECOL, Julia YU MD Unavailable Unavailable ANTECOL, Julia YU MD Unavailable Unavailable ANTECOL, Julia YU MD Unavailable Unavailable ANTECOL, Julia YU MD Unavailable Unavailable ANTECOL, Julia YU MD Unavailable Unavailable ANTECOL, Julia YU MD Unavailable Unavailable ANTECOL, Julia YU MD Unavailable Unavailable ANTECOL, Julia YU MD Unavailable Unavailable ANTECOL, Julia YU MD Unavailable Unavailable ANTECOL, uJlia YU MD Unavailable Unavailable ANTECOL, Julia YU MD Unavailable Unavailable ANTECOL, Julia YU MD Unavailable Unavailable CASI MOYER JR Unavailable Unavailable Mbame, SILO EPOSI MD Unavailable Unavailable Mbame, SILO EPOSI MD Unavailable Unavailable Mbame, SILO EPOSI MD Unavailable Unavailable Mbame, SILO EPOSI MD Unavailable Unavailable Mbame, SILO EPOSI MD Unavailable Unavailable Mbame, SILO EPOSI MD Unavailable Unavailable DENISE, PRATISHTHA Unavailable Unavailable DEGRE, A NASIR CNC SERVICE ENGINEER Unavailable Unavailable DEGRE, A NASIR CNC SERVICE ENGINEER Unavailable Unavailable MIRI, R DORYS MD Unavailable Unavailable MIRI, R DORYS MD Unavailable Unavailable MIRI, R DORYS MD Unavailable Unavailable MIRI, R DORYS MD Unavailable Unavailable MIRI, R DORYS MD Unavailable Unavailable MIRI, R DORYS MD Unavailable Unavailable MIRI, R DORYS MD Unavailable Unavailable MIRI, R DORYS MD Unavailable Unavailable MIRI, R DORYS MD Unavailable Unavailable MD NANO IVERSON Unavailable Unavailable BRYDEN, A WALKER DO Unavailable Unavailable BRYDEN, A WALKER DO Unavailable Unavailable BRYDEN, A WALKER DO Unavailable Unavailable BRYDEN, A WALKER DO Unavailable Unavailable BRYDEN, A WALKER DO Unavailable Unavailable BRYDEN, A WALKER DO Unavailable Unavailable BRYDEN, A WALKER DO Unavailable Unavailable BRYDEN, A WALKER DO Unavailable Unavailable BRYDEN, A WALKER DO Unavailable Unavailable BRYDEN, A WALKER DO Unavailable Unavailable BRYDEN, A WALKER DO Unavailable Unavailable BRYDEN, A WALKER DO Unavailable Unavailable BRYDEN, A WALKER DO Unavailable Unavailable BRYDEN, A WALKER DO Unavailable Unavailable BRYDEN, A WALKER DO Unavailable Unavailable BRYDEN, A WALKER DO Unavailable Unavailable BRYDEN, A WALKER DO Unavailable Unavailable BRYDEN, A WALKER DO Unavailable Unavailable BRYDEN, A WALKER DO Unavailable Unavailable BRYDEN, A WALKER DO Unavailable Unavailable BRYDEN, A WALKER DO Unavailable Unavailable BRYDEN, A WALKER DO Unavailable Unavailable BRYDEN, A WALKER DO Unavailable Unavailable BRYDEN, A WALKER DO Unavailable Unavailable BRYDEN, A WALKER DO Unavailable Unavailable BRYDEN, A WALKER DO Unavailable Unavailable BRYDEN, A WALKER DO Unavailable Unavailable NO, PCP Unavailable Unavailable Re-disclosure Warning The records that you are about to access may contain information from federally-assisted alcohol or drug abuse programs. If such information is present, then the following federally mandated warning applies: This information has been disclosed to you from records protected by federal confidentiality rules (42 CFR part 2). The federal rules prohibit you from making any further disclosure of this information unless further disclosure is expressly permitted by the written consent of the person to whom it pertains or as otherwise permitted by 42 CFR part 2. A general authorization for the release of medical or other information is NOT sufficient for this purpose. The Federal rules restrict any use of the information to criminally investigate or prosecute any alcohol or drug abuse patient.The records that you are about to access may contain highly sensitive health information, the redisclosure of which is protected by Article 27-F of the [facility] Public Health law. If you continue you may have access to information: Regarding HIV / AIDS; Provided by facilities licensed or operated by the [facility] Office of Mental Health; or Provided by the [facility] Office for People With Developmental Disabilities. If such information is present, then the following [facility] mandated warning applies: This information has been disclosed to you from confidential records which are protected by state law. State law prohibits you from making any further disclosure of this information without the specific written consent of the person to whom it pertains, or as otherwise permitted by law. Any unauthorized further disclosure in violation of state law may result in a fine or assisted sentence or both. A general authorization for the release of medical or other information is NOT sufficient authorization for further disc losure. Allergies and Adverse Reactions Type Description Substance Reaction Status Data Source(s ) Drug Class NO KNOWN ALLERGIES NO KNOWN ALLERGIES [facility] No Known Drug Allergies No Known Drug Allergies [facility] No Known Environmental Allergies No Known Environmental Al [facility] No Known Food Allergies No Known Food Allergies [facility] Drug Class NO KNOWN ALLERGIES NO KNOWN ALLERGIES [facility] Encounters Encounter Providers Location Date Indications Data Source(s ) Outpatient Attender: NASIR Davis nder: NASIR SALCIDO NPReferrer: Wagner Hill MD EMERGENCY ROOM-LAB REFOTH 09/12/2020 10:13:00 AM EST - 09/12/2020 10:13:00 AM [facility] Outpatient Attender: NASIR Davis nder: NASIR SINGHeferrer: Wagner Hill MD EMERGENCY ROOM-LAB REFOTH 09/03/2020 10:31:00 AM EST - 09/03/2020 10:31:00 AM [facility] Outpatient Attender: NASIR Davis nder: NASIR SALCIDO NPReferrer: Wagner Hill MD EMERGENCY ROOM-LAB REFOTH 08/27/2020 12:18:00 PM EST - 08/27/2020 12:18:00 PM [facility] Outpatient Attender: MD PIPER HERNÁNDEZ [id number] 08/27 07:38:26 AM EST - 08/27/2020 10:36:22 AM [facility] Patient discharged. Inpatient Attender: MD NANO IVERSONAdmitter: MD NANO IVERSON [facility] 07/31/2020 10:31:00 AM EST - 08/12/2020 06:30:00 PM [facility] Patient discharged. Inpatient Admitter: MD NANO IVERSONReferrer: WILY Valerio 07/31/2020 10:31:00 AM [facility] Outpatient Attender: MD NANO IVERSON [id number] 11:31:09 AM [facility] - 07/16/2020 11:32:25 AM [facility] Patient discharged. Outpatient Attender: MD PIPER HERNÁNDEZ [facility]-[id number] 07/12 10:24:19 AM EST - 07/12/2020 12:20:09 PM [facility] Patient discharged. Outpatient Attender: Oumou Mahan MDConsultant: PCP NO 07/11/2020 10:41:44 AM EST - 07/31/2020 09:58:00 AM [facility] Patient discharged. Outpatient Attender: Oumou Mahan MDConsultant: PCP NO 07/11/2020 10:39:43 AM EST - 07/13/2020 10:15:00 AM [facility] Patient discharged. Emergency 06/03/2020 03:42:00 PM EDT - 020 04:25:19 PM EDT [facility] Stroke Emergency Attender: GUERDA MOYER JRReferrer: Wagner Hill MD EMERGENCY ROOM-ER 06/03/2020 03:09:00 PM EDT - 06/03/2020 04:15:00 PM EDT [facility] Patient discharged. Inpatient Attender: SYLVIA Ewing MDAtte nder: DORYS CHERY MDAttender: KEENA DENISEAttender: Raya Barnhart MDAdmitter: Raya Barnhart MDReferrer: Raya Barnhart MD [id number] 06/03/2020 12:00:00 AM EDT - 06/07/2020 06:01:00 PM EDT Chronic systolic (congestive) heart failure [facility] Chronic systolic (congestive) heart fail ure Patient discharged. Outpatient Attender: AIMEE RESENDIZ MD Main Office 05/15/2020 09:30:00 AM EDT [facility]) Outpatient Attender: AIMEE RESENDIZ MD Main Office 04/05/2020 12:15:00 PM EDT [facility] ([facility]) Outpatient Attender: AIMEE RESENDIZ MD Main Office 02/21/2020 12:00:00 PM EDT [facility] ([facility]) Outpatient Attender: AIMEE RESENDIZ MD Main Office 12/06/2019 11:30:00 AM EDT [facility] ([facility]) Outpatient Attender: AIMEE RESENDIZ MD Main Office 10/06/2019 11:30:00 AM EST [facility] ([facility]) Outpatient Referrer: POLLO WANG NP 09/23/2019 12:14:00 PM EST [facility] Outpatient Referrer: POLLO WANG NP 09/23/2019 12:13:00 PM EST [facility] Outpatient Referrer: POLLO WANG NP 09/23/2019 11:45:00 AM EST [facility] Outpatient Attender: WALKER Bishop/Lianna/Fre[place]/Mehdi nddavid 08/30/2019 10:30:00 AM EST [facility] ([facility] ) Inpatient Attender: Nithya Lees MDAdmitter: Nithya Lees MD EMERGENCY ROOM-2N 08/16/2017 11:00:00 AM [facility] - 08/19/2017 11:34:00 AM [facility] Inpatient Attender: JERRY RUBIO PAAdmitter: Jonah Lees MD EMERGENCY ROOM-2N 08/15/2017 06:11:00 PM [facility] - 08/16/2017 10:59:00 AM [facility] Medications Medication Brand Name Start Date Product Form Dose Route Admi nistrative Instructions Pharmacy Instructions Status Indications Reaction Description Data Source(s) Folic Acid 1 MG Oral Tablet Folic Acid 1 MG Oral Table t (FOLVITE) Folic Acid 1 MG Oral Tablet (FOLVITE) 06/08/2020 12:00:00 AM EDT 1 mg Oral aborted Take 1 tablet by mouth daily [facility] Thiamine 100 MG Oral Tablet Thiamine HCl 100 MG Oral T ablet (B-1) Thiamine HCl 100 MG Oral Tablet (B-1) 06/08/2020 12:00:00 AM EDT 100 mg Oral aborted Take 1 tablet by mouth daily [facility] Folic Acid 1 MG Oral Tablet Folic Acid 1 MG Oral Table t (FOLVITE) Folic Acid 1 MG Oral Tablet (FOLVITE) 06/08/2020 12:00:00 AM EDT 1 mg Oral active Take 1 tablet by mouth daily [facility] Thiamine 100 MG Oral Tablet Thiamine HCl 100 MG Oral T ablet (B-1) Thiamine HCl 100 MG Oral Tablet (B-1) 06/08/2020 12:00:00 AM EDT 100 mg Oral active Take 1 tablet by mouth daily [facility] NaCl infusion 0.9 % 6480-3642-64 06/07/2020 09:00:00 AM EDT Intravenous completed at 125 mL/hr, Intrav enous, Continuous, Starting Deandra 06/07/20 at 0900, For 4 hours [facility] Medication administered onsite potassium phosphate infusion 6 mmol/100 mL (premix) 06/07/2020 05:45:00 AM EDT 6 mmol Intravenous completed 6 mmol, Intravenous, at 25 mL/hr, Once, Deandra 06/07/20 at 0545, For 1 dose
Slower infusion rates (e.g. over 4 hours) are recommended in patients with renal impairment and/or less severe hypophosphatemia. Product contains 8.8 mEq of potassium.
[facility] Medication administered onsite magnesium sulfate in dextrose 5 % infusion (premix) 1 g 0409 -[id number] 06/07/2020 05:45:00 AM EDT 1 g Intravenous completed 1 g, Intravenous, Administer over 60 Minutes, Once, Deandra 06/07/20 at 0545, For 1 dose [facility] Medication administered onsite Metoprolol Succinate 25 MG Oral Capsule ER 24 Hour Sprinkle [id number] 06/07/2020 12:00:00 AM EDT 12.5 mg Oral aborted Take 1 2.5 mg by mouth daily [facility] Warfarin Sodium 1 MG Oral Tablet Warfarin Sodium 1 MG Oral Tablet (COUMADIN) Warfarin Sodium 1 MG Oral Tablet (COUMADIN) 06/07/2020 12:00:00 AM EDT 2.5 mg Oral aborted Take 2.5 tablets by mouth daily [facility] Docusate Sodium 100 MG Oral Capsule Docu sate Sodium 100 MG Oral Capsule (COLACE) Docusate Sodium 100 MG Oral Capsule (COLACE) 06/07/2020 12:00:00 AM EDT 100 mg Oral aborted Take 1 cap luana by mouth Two times daily as needed for Constipation [facility] Docusate Sodium 100 MG Oral Capsule Docu sate Sodium 100 MG Oral Capsule (COLACE) Docusate Sodium 100 MG Oral Capsule (COLACE) 06/07/2020 12:00:00 AM EDT 100 mg Oral active Take 1 cap luana by mouth Two times daily as needed for Constipation [facility] Metoprolol Succinate 25 MG Oral Capsule ER 24 Hour Sprinkle [id number] 06/07/2020 12:00:00 AM EDT 12.5 mg Oral active Take 12 .5 mg by mouth daily [facility] Warfarin Sodium 1 MG Oral Tablet Warfarin Sodium 1 MG Oral Tablet (COUMADIN) Warfarin Sodium 1 MG Oral Tablet (COUMADIN) 06/07/2020 12:00:00 AM EDT 2.5 mg Oral active Take 2.5 tablets by mouth daily [facility] gabapentin 600 MG Oral Tablet gabapentin (NEURONTIN) t ablet 600 mg gabapentin (NEURONTIN) tablet 600 mg 06/06/2020 09:00:00 PM EDT 600 mg Oral active 600 mg, Oral, Three Times Daily Standar d, First dose on Thu06/06/20 at 2100, For 3 days [facility] Medication administered onsite Warfarin Sodium 2.5 MG Oral Tablet warfarin (COUMADIN) tablet 2.5 mg warfarin (COUMADIN) tablet 2.5 mg 06/06/2020 09:00:00 PM EDT 2.5 mg Oral active Thromboembolic Disease 2.5 mg, Oral, Every evening, Indications: Thromboembolic Disease, First dose (after last modification) on Thu06/06/20 at 2100, For 4 doses [facility] Thromboembolic Disease Medication administered onsite Sodium Chloride 0.111 MEQ/ML Nasal Solut ion sodium chloride (OCEAN) 0.65 % nasal spray 2 spray sodium chloride (OCEAN) 0.65 % nasal spray 2 spray 12:16:32 PM EDT 2 {spray} Each Nare active 2 spray, Each Nare, Every 1 hour PRN, Congestion, Starting Thu06/06/20 at 1216, For 30 days [facility] Medication administered onsite 24 HR metoprolol succinate 25 MG Extende d Release Oral Tablet metoprolol (TOPROL-XL) 24 hr tablet 12.5 mg metoprolol (TOPROL-XL) 24 hr tablet 12.5 mg 06/06/2020 09:00:00 AM EDT 12.5 mg Oral active 12.5 mg, Oral, Daily Standard, First dose (after last modification) on Thu06/06/20 at 0900, For 28 doses [facility] Medication administered onsite POLYETHYLENE GLYCOL 3350 142 MG/ML Oral Solution polyethylene glycol (MIRALAX) packet 17 g polyethylene glycol (MIRALAX) packet 17 g 06/06/2020 0 9:00:00 AM EDT 17 g Oral active 17 g, Or al, Daily Standard, First dose on Thu06/06/20 at 0900, For 30 days
Mix in 8 ounces of water, juice or milk. Avoid use in patients who require thickened liquids due to potential increased risk for aspiration.
[facility] Medication administered onsite calcium gluconate in NaCl 0.9 % infusion 1 g/50 mL [id number] -[id number] 06/06/2020 06:00:00 AM EDT 1 g Intravenous completed 1 g, Intravenous, Administer over 1 Hours, Once, Thu06/06/20 at 0600, For 1 dose
1 g calcium gluconate = 90 mg elemental Ca++ = 4.5 mEq Ca++. Dosed on mg of calcium gluconate.
[facility] Medication administered onsite potassium phosphate infusion 6 mmol/100 mL (premix) 06/06/2020 05:15:00 AM EDT 6 mmol Intravenous completed 6 mmol, Intravenous, at 25 mL/hr, Once, Thu06/06/20 at 0515, For 1 dose
Slower infusion rates (e.g. over 4 hours) are recommended in patients with renal impairment and/or less severe hypophosphatemia. Product contains 8.8 mEq of potassium.
[facility] Medication administered onsite magnesium sulfate in dextrose 5 % infusion (premix) 1 g 0409 -[id number] 06/06/2020 02:15:00 AM EDT 1 g Intravenous completed 1 g, Intravenous, Administer over 60 Minutes, Once, Thu06/06/20 at 0215, For 1 dose [facility] Medication administered onsite sennosides, PENITENTIARY 8.6 MG Oral Tablet senna tablet 2 tablet sen na tablet 2 tablet 06/05/2020 10:00:00 PM EDT 2 {tbl} Oral active 2 tablet, Oral, Nightly, First dose on Thu06/05/20 at 2200, For 30 days [facility] Medication administered onsite Sodium Chloride 1000 MG Oral Tablet sodium chloride ta blet 1 g sodium chloride tablet 1 g 06/05/2020 09:00:00 AM EDT 1 g Oral active 1 g, Oral, 2 Times Daily With Meals, First dose (after last modification) on Thu06/05/20 at 0900, For 59 doses [facility] Medication administered onsite calcium gluconate in NaCl 0.9 % infusion 1 g/50 mL [id number] 06/05/2020 05:15:00 AM EDT 1 g Intravenous completed 1 g, Intravenous, Administer over 1 Hours, Once, Thu06/05/20 at 0515, For 1 dose
1 g calcium gluconate = 90 mg elemental Ca++ = 4.5 mEq Ca++. Dosed on mg of calcium gluconate.
[facility] Medication administered onsite magnesium sulfate in dextrose 5 % infusion (premix) 1 g 0409 -[id number] 06/05/2020 05:15:00 AM EDT 1 g Intravenous completed 1 g, Intravenous, Administer over 60 Minutes, Once, Thu06/05/20 at 0515, For 1 dose [facility] Medication administered onsite calcium gluconate in NaCl 0.9 % infusion 1 g/50 mL [id number] 06/04/2020 05:15:00 PM EDT 1 g Intravenous completed 1 g, Intravenous, Administer over 1 Hours, Once, [facility] 06/04/20 at 1715, For 1 dose
1 g calcium gluconate = 90 mg elemental Ca++ = 4.5 mEq Ca++. Dosed on mg of calcium gluconate.
[facility] Medication administered onsite sodium chloride 0.9 % bolus 250 mL [id number] 06/04/2020 01:30:00 PM EDT 250 mL Intravenous completed 250 mL, Intravenous, Once, Thu06/04/20 at 1330, For 1 dose [facility] Medication administered onsite Sodium Chloride 1000 MG Oral Tablet sodium chloride ta blet 1 g sodium chloride tablet 1 g 06/04/2020 11:00:00 AM EDT 1 g Oral aborted 1 g, Oral, 2 Times Daily With Meals, First dose (after last modification) on Thu06/04/20 at 1100, For 30 days [facility] Medication administered onsite Folic Acid 1 MG Oral Tablet folic acid (FOLVITE) table t 1 mg folic acid (FOLVITE) tablet 1 mg 06/04/2020 11:00:00 AM EDT 1 mg Oral active 1 mg, Oral, Daily Standard, First dose (after last modification) on Thu06/04/20 at 1100, For 30 days [facility] Medication administered onsite Thiamine 100 MG Oral Tablet thiamine (B-1) tablet 100 mg thiamine (B-1) tablet 100 mg 06/04/2020 11:00:00 AM EDT 100 mg Oral active 100 mg, Oral, Daily Standard, First dose on Thu06/04/20 at 1100, For 30 days [facility] Medication administered onsite atorvastatin 40 MG Oral Tablet atorvastatin (LIPITOR) tablet 80 mg atorvastatin (LIPITOR) tablet 80 mg 06/04/2020 09:00:00 AM EDT 80 mg Oral active 80 mg, Oral, Daily Standard, First dose on Thu06/04/20 at 0900, For 30 doses [facility] Medication administered onsite Aspirin 81 MG Chewable Tablet aspirin chewable tablet 81 mg aspirin chewable tablet 81 mg 06/04/2020 09:00:00 AM EDT 81 mg Oral activ e 81 mg, Oral, Daily Standard, First dose on Thu06/04/20 at 0900, For 30 days
Chew tablet before swallowing.
[facility] Medication administered onsite 24 HR metoprolol succinate 25 MG Extende d Release Oral Tablet metoprolol (TOPROL-XL) 24 hr tablet 25 mg metoprolol (TOPROL-XL) 24 hr tablet 25 mg 06/04/2020 09:00:00 AM EDT 25 mg Oral aborted 25 mg, Oral, Daily Standard, First dose on Thu06/04/20 at 0900, For 30 doses [facility] Medication administered onsite sacubitril 24 MG / valsartan 26 MG Oral Tablet sacubitril-valsartan (ENTRESTO) 24-26 MG per tablet 1 tablet sacubitril-valsartan (ENTRESTO) 24-26 MG per tablet 1 tablet 06/04/2020 09:00:00 AM EDT 1 {tbl} Oral active 1 tablet, Oral, 2 Times Daily, First dose on 06/04/20 at 0900, For 30 days [facility] Medication administered onsite warfarin (COUMADIN) partial tablet 1 mg [id number] 06/03/2020 09:45:00 PM EDT 1 mg Oral aborted Thromboembolic Disease 1 mg, Oral, Every evening, Indications: Thromboembolic Disease, First dose (after last modification) on [place] 06/03/20 at 2145, For 7 doses [facility] Thromboembolic Disease Medication administered onsite heparin (porcine) 5000 UNIT/ML injection 5,000 Units [id number] 06/03/2020 09:00:00 PM EDT 5000 U Subcutaneous aborted 5,000 Units, Subcutaneous, 2 Times Daily, First dose on [place] 06/03/20 at 2100, For 30 days [facility] Medication administered onsite NaCl infusion 0.9 % [id number] 06/03/2020 08:30:00 PM EDT Intravenous aborted at 75 mL/hr, Intrave nous, Continuous, Starting [place] 06/03/20 at 2030, For 30 days [facility] Medication administered onsite calcium gluconate in NaCl 0.9 % infusion 2 g/50 mL 06/03/2020 08:04:54 PM EDT 2 g Intravenous aborted 2 g, Intrave nous, Every 1 hour PRN, for ionized calcium < 1.13 mmol/L (4.51 mg/dL), Starting [place] 06/03/20 at 2004, For 7 days
Ionized Calcium 1 - 1.12 mmol/L (4.01 - 4.5 mg/dL): give 2 g q1h x 1
Ionized Calcium less than 1 mmol/L (less than 4.01 mg/dL): give 2 g q1h x2
[facility] Medication administered onsite 50 ML Magnesium Sulfate 40 MG/ML Injecti on magnesium sulfate infusion 2 g/50 mL (premix) magnesium sulfate infusion 2 g/50 mL (premix) 06/03/20 08:04:53 PM EDT 16 meq Intravenous aborted 16 m Eq, Intravenous, Every 1 hour PRN, for serum magnesium < 2 mEq/L, Starting 06/03/20 at 2004, For 7 days
Serum Magnesium 1.6 - 1.9: give 16 mEq (2 g) q1h x 2
Serum Magnesium 1.5 and less: give 16 mEq (2 g) q1h x 3
[facility] Medication administered onsite cefepime (MAXIPIME) 2 g - vancomycin (VA NCOCIN) 1 g in sodium chloride 0.9% 1,000 mL IVPB mixture 06/03/2020 06:30:00 PM EDT 1000 mL Intrave nous completed 1,000 mL, Intravenou s, Administer over 61 Minutes, Once, [place] 06/03/20 at 1830, For 1 dose [facility] Medication administered onsite sacubitril 49 MG / valsartan 51 MG Oral Tablet [Entresto] En tresto 05/20/2020 12:00:00 AM EDT ORAL active M [facility]ENT ([facility]) atorvastatin 80 MG Oral Tablet Atorvastatin Calcium 05/20/2020 1 2:00:00 AM EDT ORAL active [facility] ( [facility]) gabapentin 600 MG Oral Tablet Gabapentin 05/20/2020 12:00:00 AM EDT ORAL active [facility] ([facility] Spironolactone 25 MG Oral Tablet Spironolactone 05/20/2020 12:00:00 A M EDT ORAL active [facility] ([facility] 24-26 mg 04/11/2020 12:00:00 AM EDT tablet 60 TAKE ONE TABLET BY MOUTH TWICE A DAY TAKE ONE TABLET BY MOUTH TWICE A DAY SOLD: 04/11/2020 [facility] 25 mg 04/10/2020 12:00:00 AM EDT tablet 90 TAKE ONE TABLET BY MOUTH EVERY DAY TAKE ONE TABLET BY MOUTH EVERY DAY SOLD: 04/11/2020 [facility] atorvastatin 80 MG Oral Tablet ATORVASTATIN CALCIUM 04/09/2020 1 2:00:00 AM EDT tablet 90 TAKE ONE TABLET BY MOUTH AT BEDT HUY TAKE ONE TABLET BY MOUTH AT BEDTIME SOLD: 04/11/2020 [facility] 25 mg 04/05/2020 12:00:00 AM EDT tablet extended release 24 hr 30 TAKE ONE TABLET BY MOUTH EVERY DAY TAKE ONE TABLET BY MOUTH EVERY DAY SOLD: 05/09/2020 [facility] 25 mg 04/05/2020 12:00:00 AM EDT tablet extended release 24 hr 30 TAKE ONE TABLET BY MOUTH EVERY DAY TAKE ONE TABLET BY MOUTH EVERY DAY SOLD: 04/11/2020 [facility] 24 HR metoprolol succinate 25 MG Extended Release Oral Tablet Metoprolol Succinate ER 04/05/2020 12:00:00 AM EDT ORAL active [facility] ([facility]) 25 mg 02/22/2020 12:00:00 AM EDT tablet extended release 24 hr 30 TAKE ONE- HALF TABLET BY MOUTH EVERY DAY TAKE ONE-HALF TABLET BY MOUTH EVERY DAY SOLD: 02/29/2020 [facility] 2.5 mg 02/22/2020 12:00:00 AM EDT tablet 60 TAKE ONE TABLET BY MOUTH TWICE A DAY TAKE ONE TABLET BY MOUTH TWICE A DAY SOLD: 02/29/2020 [facility] 24 HR metoprolol succinate 25 MG Extended Release Oral Tablet Metoprolol Succinate ER 02/21/2020 12:00:00 AM EDT ORAL completed [facility] ([facility]) Enalapril Maleate 2.5 MG Oral Tablet Enalapril Maleate 12:00:00 AM EDT ORAL active [facility] ([facility] Enalapril Maleate 5 MG Oral Tablet Enalapril Maleate 12/09/2019 12:00:00 AM EDT ORAL completed [facility] ([facility]) 24 HR metoprolol succinate 25 MG Extended Release Oral Tablet Metoprolol Succinate ER 12/06/2019 12:00:00 AM EDT ORAL completed [facility] ([facility]) sacubitril 24 MG / valsartan 26 MG Oral Tablet [Entresto] En tresto 12/06/2019 12:00:00 AM EDT ORAL completed [facility] ([facility]) 5-325 mg 10/18/2019 12:00:00 AM EST tablet 10 TAKE ONE TABLET BY MOUTH EVERY 6 HOURS NEEDED FOR PAIN AFTER SURGERY MAXIMUM DAILY DOSE = 4 TAKE ONE TABLET BY MOUTH EVERY 6 HOURS NEEDED FOR PAIN AFTER SURGERY MAXIMUM DAILY DOSE = 4 SOLD: 10/18/2019 [facility] Docusate Sodium 100 MG Oral Capsule Docusate Sodium 10/05/2019 1 2:00:00 AM EST ORAL active [facility] ( [facility]) Cholecalciferol 1000 UNT Oral Tablet Vitamin D (Cholecalcife rol) 10/05/2019 12:00:00 AM EST ORAL active M EDENT ([facility]) Vitamin B Complex 10/05/2019 12:00:00 AM EST ORAL active [facility] ([facility]) Tamsulosin hydrochloride 0.4 MG Oral Capsule Tamsulosin HCL 10/05/2019 12:00:00 AM EST ORAL active [facility] ([facility] Warfarin Sodium 1 MG Oral Tablet Warfarin Sodium 10/05/2019 12:00:00 AM EST ORAL active [facility] ([facility] Aspirin 81 MG Delayed Release Oral Tablet Aspirin 81 2019 12:00:00 AM EST ORAL active [facility] ( [facility]) Simvastatin 40 MG Oral Tablet Simvastatin 10/05/2019 12:00:00 AM EST ORAL active [facility] ([facility]) gabapentin 600 MG Oral Tablet Gabapentin 10/05/2019 12:00:00 AM EST ORAL active [facility] ([facility]) Dexamethasone 0.001 MG/MG / Neomycin 0.0 035 MG/MG / Polymyxin B 10 UNT/MG Ophthalmic Ointment Neomycin/Polymyxin/Dexamethasone 10/05/2019 12:00:00 AM EST OPHTHALMIC active MEDEN T ([facility]) Glycerin 3 MG/ML / Propylene glycol 10 MG/ML Ophthalmi c Solution Artificial Tears 10/05/2019 12:00:00 AM EST active [facility] ([facility]) Acetaminophen 325 MG / Hydrocodone Bitartrate 5 MG Oral Tabl et [Solano] Solano 09/23/2019 12:00:00 AM EST ORAL completed [facility] ([facility]) Enalapril Maleate 2.5 MG Oral Tablet Claire lapril Maleate 2.5 MG Oral Tablet (VASOTEC) Enalapril Maleate 2.5 MG Oral Tablet (VASOTEC) 2.5 mg Oral aborted Take 2.5 mg by mouth daily [facility] Docusate Sodium 100 MG Oral Capsule Docu sate Sodium 100 MG Oral Capsule (COLACE) Docusate Sodium 100 MG Oral Capsule (COLACE) 100 mg Oral aborted Take 100 mg by mouth Two Times Daily [facility] Spironolactone 25 MG Oral Tablet Spironolactone 25 MG Oral Tablet (ALDACTONE) Spironolactone 25 MG Oral Tablet (ALDACTONE) 25 mg Oral aborted Take 25 mg by mouth daily [facility] Metoprolol Succinate 25 MG Oral Capsule ER 24 Hour Sprinkle [id number] Oral aborted Take by mouth [facility] Warfarin Sodium 1 MG Oral Tablet Warfarin Sodium 1 MG Oral Tablet (COUMADIN) Warfarin Sodium 1 MG Oral Tablet (COUMADIN) 1 mg Oral aborted Take 1 mg by mouth daily [facility] Insurance Providers Payer name Policy type / Coverage type Policy ID Covered alliance party ID Covered alliance party's relationship to heredia Policy Heredia Plan Information [facility] [id number] SP [id number] MEDICARE [id number] SP [id number] [employer] [id number] S [id number] [place] [id number] S [id number] [employer] [id number] S [id number] [place] [id number] S [id number] [employer] [id number] Self [id number] MEDICARE [id number] Self [id number] ADMINSTRATION -O/P [id number] 18 [id number] OTHER B [id number] Self [id number] MEDICARE A [id number] Self [id number] [employer] [id number] S [id number] [place] [id number] S [id number] [employer] [id number] S [id number] [place]IC[place] [id number] S [id number] ADMINISTRATION [id number] SP [id number] [facility] [id number] SP [id number] [facility] O [id number] S [id number] [facility] PART B C [id number] S [id number] [facility] [place] CHOICE O [id number] S [id number] MEDICARE [id number] SP [id number] [facility] [id number] S [id number] Problems, Conditions, and Diagnoses Code Display Name Description Problem Type Effective Dates Data Source(s) 434365121 Drug-induced hypotension Drug-induced hypotension Prob alexus 05/15/2020 12:00:00 AM EDT [facility] ([facility]) [id number] Syncope and collapse Syncope and collapse Problem 10/06/2019 12:00:00 AM EST [facility] ([facility]) [id number] Premature beats Premature beats Problem 10/06/2019 12:0 0:00 AM EST [facility] ([facility]) [id number] 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 Problem 10/06/2019 12:00:00 AM EST [facility] ([facility]) [id number] Dietary management surveillance Dietary manageme nt surveillance Problem 10/06/2019 12:00:00 AM EST [facility] ([facility] [id number] Overweight Overweight Problem 10/06/2019 12:00:00 AM ES T [facility] ([facility]) [id number] Pure hypercholesterolemia Pure hypercholesterolemia Pr oblem 10/06/2019 12:00:00 AM EST [facility] ([facility]) [id number] Preoperative cardiovascular examination Preoperative cardiovascular examination Problem 10/06/2019 12:00:00 AM EST [facility] ([facility] [id number] Chronic ischemic heart disease Chronic ischemic heart disease Problem 10/06/2019 12:00:00 AM EST [facility] ([facility]) [id number] 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 Problem 10/06/19 20 12:00:00 AM EST [facility] ([facility]) [id number] Old myocardial infarction Old myocardial infarction Pr oblem 10/06/2019 12:00:00 AM EST [facility] ([facility]) [id number] Electrocardiogram abnormal Electrocardiogram abnormal Problem 10/06/2019 12:00:00 AM EST [facility] ([facility]) Z79.01 FPC (current) use of anticoagulant s [facility] (CURRENT) USE OF ANTICOAGULANTS Diagnosis 09/12/2020 10:13:00 AM EST [facility] I48.0 Paroxysmal atrial fibrillation PAROXYSMAL ATRIAL FIBRI LLATION Diagnosis 09/03/2020 10:31:00 AM [facility] I50.23 Acute on chronic systolic (congestive) h eart failure Acute on chronic systolic (congestive) heart failure Diagnosis 08/27/2020 07:38:26 AM E [facility] Z95.1 Presence of aortocoronary bypass graft P resence of aortocoronary bypass graft Diagnosis 08/12/2020 11:27:25 AM EST [facility] CAD CAD Diagnosis 07/31/2020 10:31:00 AM [facility] I50.20 Unspecified systolic (congestive) heart failure Unspecified systolic (congestive) heart failure Diagnosis 07/31/2020 10:31:00 AM [facility] I50.22 Chronic systolic (congestive) heart fail ure Chronic systolic (congestive) heart failure Diagnosis 07/31/2020 10:31:00 AM [facility] R99 Ill-defined and unknown cause of mortali ty Ill-defined and unknown cause of mortality Diagnosis 07/31/2020 09:58:00 AM [facility] [id number] Encounter for other preprocedural examin ation Encounter for other preprocedural examination Diagnosis 07/13/2020 09:15:00 AM [facility] Follow-up Follow-up Diagnosis 07/12/2020 10:24:19 AM [facility] I21.9 Acute myocardial infarction, unspecified Acute myocardial infarction, unspecified Diagnosis 07/12/2020 10:24:19 AM [facility] Stroke Stroke Diagnosis 06/04/2020 04:25:19 PM ED [facility] I50.22 Chronic systolic (congestive) heart fail ure Chronic systolic (congestive) heart failure Diagnosis 06/04/2020 03:21:42 PM EDT [facility] E87.1 Hypo-osmolality and hyponatremia Hypo-osmolality and hyponatremia Diagnosis 06/03/2020 05:34:00 PM EDT [facility] AMS AMS Diagnosis 06/03/2020 05:34:00 PM ED [facility] Z79.899 Other oysterman (current) drug therapy O THER [facility] (CURRENT) DRUG THERAPY Diagnosis 06/03/2020 03:09:00 PM EDT [facility] 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 Z79.2 exterminator helper termite (current) use of antibiotics L IKM TERM (CURRENT) USE OF ANTIBIOTICS Diagnosis 06/03/2020 03:09:00 PM [facility] Z20.828 Contact with and (suspected) exposure to other viral communicable diseases CONTACT W AND EXPOSURE TO OTH VIRAL COMMUNICABLE D Diagnosis 06/03/2020 03:09:[address] [facility] E78.00 PURE HYPERCHOLESTEROLEMIA, UNSPECIFIED P URE HYPERCHOLESTEROLEMIA, UNSPECIFIED Diagnosis 06/03/2020 03:09:00 PM [facility] I10 Essential (primary) hypertension ESSENTIAL (PRIMARY) H YPERTENSION Diagnosis 06/03/2020 03:09:[address] 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 I63.50 Cerebral infarction due to u nspecified occlusion or stenosis of unspecified cerebral artery CEREB INFRC DUE TO UNSP OCCLS OR STENOS OF UNSP CE Diagnosis 06/03/2020 03:09:[address] [facility] R41.82 Altered mental status, unspecified ALTERED MENTA L STATUS, UNSPECIFIED Diagnosis 06/03/2020 03:09:[address] [facility] Surgeries/Procedures Procedure Description Date Indications Data Source(s) PROTHROMBIN TIME PROTIME INR Routine 06/07/2020 3:45 AM EDT 06/07/2020 03:45:00 AM [facility] PHOSPHORUS INORGANIC PHOSPHORUS LEVEL Routine 06/07/2020 3:45 AM E DT 06/07/2020 03:45:00 AM [facility] MAGNESIUM MAGNESIUM LEVEL Routine 06/07/2020 3:45 AM EDT 06/07/2020 03:45:00 AM [facility] CALCIUM IONIZED CALCIUM, IONIZED Routine 06/07/2020 3:45 AM EDT 06/07/2020 03:45:00 AM [facility] BASIC METABOLIC PANEL CALCIUM TOTAL BASIC METABOLIC PANEL Routi ne 06/07/2020 3:45 AM EDT 06/07/2020 03:45:00 AM EDT [facility] BASIC METABOLIC PANEL CALCIUM TOTAL BASIC METABOLIC PANEL Timed 06/06/2020 5:45 PM EDT 06/06/2020 05:45:00 PM EDT [facility] PROTHROMBIN TIME PROTIME INR Routine 06/06/2020 4:28 AM EDT 06/06/2020 04:28:00 AM [facility] BLOOD COUNT COMPLETE AUTOMATED CBC Routine 06/06/2020 4:28 A M EDT 06/06/2020 04:28:00 AM [facility] PHOSPHORUS INORGANIC PHOSPHORUS LEVEL Routine 06/06/2020 4:28 AM E DT 06/06/2020 04:28:00 AM [facility] MAGNESIUM MAGNESIUM LEVEL Routine 06/06/2020 4:28 AM EDT 06/06/2020 04:28:00 AM [facility] CALCIUM IONIZED CALCIUM, IONIZED Routine 06/06/2020 4:28 AM EDT 06/06/2020 04:28:00 AM [facility] HEPATIC FUNCTION PANEL HEPATIC FUNCTION PANEL A Routine 06/06/2020 4:28 AM EDT 06/06/2020 04:28:00 AM EDT [facility] PHOSPHORUS INORGANIC PHOSPHORUS LEVEL Routine 06/06/2020 12:35 AM E DT 06/06/2020 12:35:00 AM [facility] MAGNESIUM MAGNESIUM LEVEL Routine 06/06/2020 12:35 AM EDT 06/06/2020 12:35:00 AM [facility] CALCIUM IONIZED CALCIUM, IONIZED Routine 06/06/2020 12:35 AM EDT 06/06/2020 12:35:00 AM [facility] HEPATIC FUNCTION PANEL HEPATIC FUNCTION PANEL A Routine 06/06/2020 12:35 AM EDT 06/06/2020 12:35:00 AM EDT [facility] BASIC METABOLIC PANEL CALCIUM TOTAL BASIC METABOLIC PANEL Timed 06/06/2020 12:35 AM EDT 06/06/2020 12:35:00 AM EDT [facility] PHOSPHORUS INORGANIC PHOSPHORUS LEVEL Routine 06/05/2020 4:19 PM E DT 06/05/2020 04:19:00 PM [facility] MAGNESIUM MAGNESIUM LEVEL Routine 06/05/2020 4:19 PM EDT 06/05/2020 04:19:00 PM [facility] BASIC METABOLIC PANEL CALCIUM TOTAL BASIC METABOLIC PANEL Timed 06/05/2020 4:19 PM EDT 06/05/2020 04:19:00 PM EDT [facility] PHOSPHORUS INORGANIC PHOSPHORUS LEVEL Routine 06/05/2020 9:02 AM E DT 06/05/2020 09:02:00 AM [facility] BASIC METABOLIC PANEL CALCIUM TOTAL BASIC METABOLIC PANEL Timed 06/05/2020 9:02 AM EDT 06/05/2020 09:02:00 AM EDT [facility] PROTHROMBIN TIME PROTIME INR Routine 06/05/2020 4:13 AM EDT 06/05/2020 04:13:00 AM [facility] BLOOD COUNT COMPLETE AUTOMATED CBC Routine 06/05/2020 4:13 A M EDT 06/05/2020 04:13:00 AM [facility] PHOSPHORUS INORGANIC PHOSPHORUS LEVEL Routine 06/05/2020 4:13 AM E DT 06/05/2020 04:13:00 AM [facility] [facility] MAGNESIUM MAGNESIUM LEVEL Routine 06/05/2020 4:13 AM EDT 06/05/2020 04:13:00 AM [facility] CALCIUM IONIZED CALCIUM, IONIZED Routine 06/05/2020 4:13 AM EDT 06/05/2020 04:13:00 AM [facility] HEPATIC FUNCTION PANEL HEPATIC FUNCTION PANEL A Routine 06/05/2020 4:13 AM EDT 06/05/2020 04:13:00 AM EDT [facility] BASIC METABOLIC PANEL CALCIUM TOTAL BASIC METABOLIC PANEL Timed 06/05/2020 4:13 AM EDT 06/05/2020 04:13:00 AM EDT [facility] BASIC METABOLIC PANEL CALCIUM TOTAL BASIC METABOLIC PANEL Timed 06/04/2020 9:51 PM EDT 06/04/2020 09:51:00 PM EDT [facility] PHOSPHORUS INORGANIC PHOSPHORUS LEVEL Timed 06/04/2020 4:06 PM E DT 06/04/2020 04:06:00 PM [facility] MAGNESIUM MAGNESIUM LEVEL Timed 06/04/2020 4:06 PM EDT 06/04/2020 04:06:00 PM [facility] BASIC METABOLIC PANEL CALCIUM TOTAL BASIC METABOLIC PANEL Timed 06/04/2020 4:06 PM EDT 06/04/2020 04:06:00 PM EDT [facility] PHOSPHORUS INORGANIC PHOSPHORUS LEVEL Timed 06/04/2020 11:50 AM E DT 06/04/2020 11:50:00 AM [facility] MAGNESIUM MAGNESIUM LEVEL Timed 06/04/2020 11:50 AM EDT 06/04/2020 11:50:00 AM [facility] BASIC METABOLIC PANEL CALCIUM TOTAL BASIC METABOLIC PANEL Timed 06/04/2020 11:50 AM EDT 06/04/2020 11:50:00 AM EDT [facility] UREA NITROGEN URINE UREA NITROGEN, URINE Routine 06/04/2020 11:10 A M EDT 06/04/2020 11:10:00 AM [facility] SODIUM URINE SODIUM, URINE, RANDOM Routine 06/04/2020 11:10 AM EDT 06/04/2020 11:10:00 AM [facility] OSMOLALITY URINE OSMOLALITY, URINE Routine 06/04/2020 11:10 AM EDT 06/04/2020 11:10:00 AM [facility] CREATININE OTHER SOURCE CREATININE, URINE, RANDOM Routine 06/04/2020 11:10 AM EDT 06/04[facility] CHLORIDE, URINE, RANDOM Routine 06/04/2020 11:10 AM EDT 06/04/2020 11:10:00 AM [facility] PHOSPHORUS INORGANIC PHOSPHORUS LEVEL Timed 06/04/2020 8:22 AM E DT 06/04/2020 08:22:00 AM [facility] MAGNESIUM MAGNESIUM LEVEL Timed 06/04/2020 8:22 AM EDT 06/04/2020 08:22:00 AM [facility] BASIC METABOLIC PANEL CALCIUM TOTAL BASIC METABOLIC PANEL Timed 06/04/2020 8:22 AM EDT 06/04/2020 08:22:00 AM [facility] PROTHROMBIN TIME PROTIME INR Routine 06/04/2020 4:28 AM EDT 06/04/2020 04:28:00 AM [facility] BLOOD COUNT COMPLETE AUTOMATED CBC Routine 06/04/2020 4:28 A M EDT 06/04/2020 04:28:00 AM [facility] PHOSPHORUS INORGANIC PHOSPHORUS LEVEL Timed 06/04/2020 4:28 AM E DT 06/04/2020 04:28:00 AM [facility] MAGNESIUM MAGNESIUM LEVEL Timed 06/04/2020 4:28 AM EDT 06/04/2020 04:28:00 AM [facility] CYANOCOBALAMIN VITAMIN B-12 VITAMIN B12 Routine 06/04/2020 4:28 AM EDT 06/04/2020 04:28:00 AM [facility] CALCIUM IONIZED CALCIUM, IONIZED Routine 06/04/2020 4:28 AM EDT 06/04/2020 04:28:00 AM [facility] HEPATIC FUNCTION PANEL HEPATIC FUNCTION PANEL A Routine 06/04/2020 4:28 AM EDT 06/04/2020 04:28:00 AM EDT [facility] BASIC METABOLIC PANEL CALCIUM TOTAL BASIC METABOLIC PANEL Timed 06/04/2020 4:28 AM EDT 06/04/2020 04:28:00 AM EDT [facility] EKG 12-LEAD - CMAXX REPORT EKG 12-LEAD - CMAXX REPORT 06/04/2020 1:39 AM EDT 06/04/2020 01:39:13 AM EDT [facility] EKG 12-LEAD - CMAXX REPORT EKG 12-LEAD - CMAXX REPORT 06/04/2020 1:39 AM EDT 06/04/2020 01:39:13 AM EDT [facility] EKG 12-LEAD EKG 12-LEAD Routine 06/04/2020 1:39 AM EDT 06/04/2020 01:39:13 AM [facility] EKG 12-LEAD EKG 12-LEAD Routine 06/04/2020 1:39 AM EDT 06/04/2020 01:39:13 AM [facility] HEPATITIS C ANTIBODY HEPATITIS C ANTIBODY Routine 06/03/2020 11:41 PM EDT 06/03/2020 11:41:00 PM [facility] PHOSPHORUS INORGANIC PHOSPHORUS LEVEL Timed 06/03/2020 11:41 PM E DT 06/03/2020 11:41:00 PM [facility] MAGNESIUM MAGNESIUM LEVEL Timed 06/03/2020 11:41 PM EDT 06/03/2020 11:41:00 PM [facility] FOLIC ACID SERUM FOLATE Routine 06/03/2020 11:41 PM EDT 06/03/2020 11:41:00 PM [facility] BASIC METABOLIC PANEL CALCIUM TOTAL BASIC METABOLIC PANEL Timed 06/03/2020 11:41 PM EDT 06/03/2020 11:41:00 PM EDT [facility] CORTISOL TOTAL CORTISOL Routine 06/03/2020 9:47 PM EDT 06/03/2020 09:47:00 PM [facility] BASIC METABOLIC PANEL CALCIUM TOTAL BASIC METABOLIC PANEL Timed 06/03/2020 9:47 PM EDT 06/03/2020 09:47:00 PM EDT [facility] POCT GLUCOSE, DOCKED POCT GLUCOSE, DOCKED Routine 06/03/2020 9:19 PM EDT 06/03/2020 [facility]:19:[facility]INE SODIUM, URINE, RANDOM STAT 06/03/2020 6:22 PM EDT 06/03/2020 06:22:00 PM [facility] OSMOLALITY URINE OSMOLALITY, URINE STAT 06/03/2020 6:22 PM EDT 06/03/2020 06:22:00 PM [facility] CREATININE OTHER SOURCE CREATININE, URINE, RANDOM STAT 06/2020 6:22 PM EDT 06/03/2020 06:22:00 PM EDT [facility] CHLORIDE URINE CHLORIDE, URINE, RANDOM STAT 06/03/2020 6:22 PM EDT 06/03/2020 06:22:00 PM [facility] CULTURE BACTERIAL BLOOD AEROBIC W/ID ISOLATES BLOOD CULTURE S TAT 06/03/2020 6:22 PM EDT 06/03/2020 06:22:00 PM EDT [facility] CULTURE BACTERIAL BLOOD AEROBIC W/ID ISOLATES BLOOD CULTURE S TAT 06/03/2020 6:22 PM EDT 06/03/2020 06:22:00 PM EDT [facility] URNLS DIP STICK/TABLET REAGENT AUTO MICROSCOPY URINALYSIS W ITH MICROSCOPIC Routine 06/03/2020 6:22 PM EDT 06/03/2020 06:22:00 PM [facility] CULTURE BCT ISOL&PRSMPTV ID ISOLATE EA URINE URINE CULTURE Ro utine 06/03/2020 6:22 PM EDT 06/03/2020 06:22:00 PM EDT [facility] SEPSIS WORKUP SEPSIS WORKUP Routine 06/03/2020 6:14 PM EDT 06/03/2020 06:14:31 PM [facility] TROPONIN QUANTITATIVE POCT ISTAT TROPONIN Routine 06/03/2020 6:03 PM EDT 06/03/2020 06:03:00 PM [facility] LACTATE LACTIC ACID LEVEL, PLASMA STAT 06/03/2020 5:56 PM EDT 06/03/2020 05:56:00 PM [facility] BLOOD COUNT COMPLETE AUTO&AUTO DIFRNTL WBC COUNT CBC AND DIFFER ENTIAL Routine 06/03/2020 5:55 PM EDT 06/03/2020 05:55:00 PM [facility] TROPONIN QUANTITATIVE TROPONIN T Routine 06/03/2020 5:55 PM EDT 06/03/2020 05:55:[facility] THYROID STIMULATING HORMONE TSH TSH STAT 06/03/2020 5:55 PM EDT 06/03/2020 05:55:[facility] BILIRUBIN DIRECT BILIRUBIN, DIRECT STAT 06/03/2020 5:55 PM EDT 06/03/2020 05:55:[facility] COMPREHENSIVE METABOLIC PANEL COMPREHENSIVE METABOLIC PANEL STA T 06/03/2020 5:55 PM EDT 06/03/2020 05:55:00 PM EDT [facility] XR CHEST FRONTAL ONLY [id number] XR CHEST FRONTAL ONLY [id number] STAT 06/03/2020 5:53 PM EDT 06/03/2020 05:53:00 PM EDT [facility] BASIC METABOLIC PANEL CALCIUM IONIZED POCT ISTAT CHEM8 Routine 06/03/2020 5:52 PM EDT 06/03/2020 05:52:00 PM EDT [facility] BLOOD GASES ANY COMBINATION PH PCO2 PO2 CO2 HCO3 POCT ISTAT VBG /LAC Routine 06/03/2020 5:48 PM EDT 06/03/2020 05:48:00 PM EDT [facility] EKG 12 LEAD (UNSOLICITED COMPUTER ORDER) EKG 12 LEAD (UNSOLICITED COMPUTER ORDER) Routine 06/03/2020 5:41 PM EDT 06/03/2020 05:41 :[facility] - CMAXX REPORT EKG 12-LEAD - CMAXX REPORT 06/03/2020 5:41 PM EDT 06/03/2020 05:41:00 PM EDT [facility] EKG 12-LEAD - CMAXX REPORT EKG 12-LEAD - CMAXX REPORT 06/03/2020 5:41 PM EDT 06/03/2020 05:41:00 PM EDT [facility] EKG 12-LEAD - CMAXX REPORT EKG 12-LEAD - CMAXX REPORT 06/03/2020 5:41 PM EDT 06/03/2020 05:41:00 PM EDT [facility] EKG 12-LEAD EKG 12-LEAD STAT 06/03/2020 5:41 PM EDT 06/03/2020 05:41:00 PM [facility] Monitor 48HR-21Days; Recording(Connection+Recording) 05/21/2020 12:00:00 AM EDT [facility] ([facility]) [id number]; review + interpretation 05/21/2020 12:00:00 AM EDT [facility] ([facility]) MYOCRD IMAGE PET PERFUS MULTPL STUDY REST/STRESS 01/03 12:00:00 AM EDT [facility] ([facility]) CV STRS TST XERS&/OR RX CONT ECG I&R ONLY 01/04/2020 1 2:00:00 AM EDT [facility] ([facility]) Lap Repair Vent Umb Spig Epig W/ Mesh, Incarcerated 10/18/2019 12:00:00 AM EST [facility] ([facility], ) Lap Repair Incisional Hernia W/ Mesh, Incarcerated 10/18/2019 12:00:00 AM EST [facility] ([facility], ) ECG ROUTINE ECG W/LEAST 12 LDS W/I&R 10/06/2019 12:00: 00 AM EST [facility] ([facility]) Results ID Date Data Source [id number] 09/12/2020 10:38:00 AM EST [facility] FA[facility] [phone] Name Value Range Interpretation Code Description Data Danuta rce(s) Supporting Document(s) PROTHROMBIN TIME (PATIENT) 39.8 SECONDS 9.1-11.6 H [facility] INR 3.88 0.87-1.06 H [facility] ID Date Data Source [id number] 09/03/2020 11:13:00 AM EST [facility] FA[facility] Name Value Range Interpretation Code Description Data Danuta rce(s) Supporting Document(s) PROTHROMBIN TIME (PATIENT) 29.7 SECONDS 9.1-11.6 [facility] INR 2.89 0.87-1.06 [facility] ID Date Data Source [id number] 08/27/2020 12:33:00 PM EST [facility] Name Value Range Interpretation Code Description Data Danuta rce(s) Supporting Document(s) PROTHROMBIN TIME (PATIENT) 23.9 SECONDS 9.1-11.6 [facility] INR 2.32 0.87-1.06 [facility] ID Date Data Source [id number] 08/15/2020 10:38:17 AM [facility] PATIENT INFORMATIONPatient MRN Name Date of [id number] Montana Waller 1945 75 y.o. Weight Gender PT Class 77.1 kg M InpatientPT Location Admission Date/Time Visit ID Attending [id number] 07/31/20 1031 --- --- EPI ID CSN Admitting Provider [id number] Nano Iverson MD([id number])Patient Name: Montana JeanoDOB: 1945MRN: [id number]: [id number] of Admission: 07/31/2020Date of Discharge: 08/12/2020Surgeon: Nano Iverson MDSurgeries & Dates:RADHA PRE AND POST, CORONARY ARTERY BYPASS GRAFTNG, NAVA TO LAD, EVH OF RIGHT LEGGSV, GSVG TO DIAGONAL, GSVG TO PDA, RF MAZE PROCEDURE WITH CLIPPING OF LEFTATRIAL APPENDAGE, ON CARDIOPULMONARY BYPASS on 08/01/202011 Days Post-OpHPI: 75 yo male with hx of CAD, ischemic cardiomyopathy with EF 15%, PAF oncoumadin, PAD s/p stent to his right iliac has been following with the heartfailure team. He had angiogram with Dr. Stovall that shows significant CAD. Hehad a viability study which revealed significant areas of viability. Hes beenreferred for surgical revascularization.Home Medications:Medications Prior to AdmissionMedication Sig Dispense Refill aspirin 81 MG Oral EC tablet Take 81 mg by mouth daily. atorvastatin (LIPITOR) 80 MG Oral tablet Take 1 tablet by mouth at bedtime. 90tablet 3 cholecalciferol, Vitamin D3, 1000 Units Oral Tab Take by mouth daily. dextran 70-hypromellose (ARTIFICIAL TEARS,[id number],) 0.1-0.3 % Opht DropApply to eye 2 (two) times daily as needed. docusate sodium 100 MG Oral capsule Take 1 capsule by mouth 2 (two) timesdaily. 60 capsule 11 gabapentin 600 MG Oral tablet Take 600 mg by mouth 2 (two) times daily. 1/2tab QAM and 1 tab QHS ovqswywl-nsfzptqmh-wjgsukincwnmn Opht ophthalmic ointment Place 0.5 inchesinto the right eye 4 (four) times daily. spironolactone (ALDACTONE) 25 MG Oral tablet Take 1 tablet by mouth daily. 90tablet 11 tamsulosin 0.4 mg Oral 24 hr capsule Take 0.8 mg by mouth daily. vitamin B complex Oral capsule Take 1 capsule by mouth daily. warfarin 1 MG Oral tablet Take 1 mg by mouth daily. Or as directed [DISCONTINUED] metoprolol SUCCINATE 25 MG Oral 24 hr EXT REL tab Take 1 tabletby mouth 2 (two) times a day. 90 tablet 11 [DISCONTINUED] sacubitriL-valsartan (ENTRESTO) 49-51 mg Oral Tab Take 1 tabletby mouth 2 (two) times daily. 180 tablet 11 [DISCONTINUED] torsemide 10 MG Oral tablet Take 1 tablet by mouth as needed.For worsening breathing or leg swelling 90 tablet 11 (NOTE: Any meds labeled as "DISCONTD" are medications that the patient wastaking prior to admission, but will not be continued at discharge)Past Medical / Surgical History:Past Medical History:Diagnosis Date Arthritis Atrial fibrillation ([facility] HCC Code) BPH (benign prostatic hyperplasia) Clotting disorder ([facility] HCC Code) Dyslipidemia Ischemic cardiomyopathy EF 40% PAD (peripheral artery disease) ([facility] HCC Code) Smoking hx Varicose vein of legPast Surgical History:Procedure Laterality Date CORONARY ARTERY BYPASS GRAFT 08/01/2020 nava-lad, vg-rca, vg-diag HERNIA REPAIR umbilical x 3 SAPHENOUS VEIN GRAFT RESECTION Right 08/01/2020 stent Bilateral peripheral vascular diseaseSocial History:Social HistorySocioeconomic History Marital status: Spouse name: Not on file Number of children: Not on file Years of education: Not on file Highest education level: Not on fileOccupational History Not on fileSocial Needs Financial resource strain: Not on file Food insecurity Worry: Not on file Inability: Not on file Transportation needs Medical: Not on file Non-medical: Not on fileTobacco Use Smoking status: Former Smoker Packs/day: 2.00 Years: 53.00 Pack years: 106.00 Quit date: 04/09/2010 Years since quittin.3 Smokeless tobacco: Never Used Tobacco comment: quit 10 years agoSubstance and Sexual Activity Alcohol use: Yes Frequency: 2-3 times a week Drinks per session: 3 or 4 Binge frequency: Monthly Comment: 2-3 beers a day Drug use: Yes Types: Marijuana Comment: once in a while Sexual activity: Not on fileLifestyle Physical activity Days per week: Not on file Minutes per session: Not on file Stress: Not on fileRelationships Social connections Talks on phone: Not on file Gets together: Not on file Attends samaritan service: Not on file Active member of club or organization: Not on file Attends meetings of clubs or organizations: Not on file Relationship status: Not on file Intimate partner violence Fear of current or ex partner: Not on file Emotionally abused: Not on file Physically abused: Not on file Forced sexual activity: Not on fileOther Topics Concern Not on fileSocial History Narrative Not on fileHospital Course:HOSPITAL COURSE: The patient was admitted from home on the . He was seen byDr. Iverson on this day, was taken to the operating room the following day where heunderwent CABG with NAVA to the LAD, vein graft to the diagonal, vein graft tothe PDA. He had the RF maze procedure with clipping of the left atrialappendage. He weaned from bypass without difficulty, [facility] Upon admission in the ICU, he was intubatedand sedated. He remained hemodynamically stable on some pressor support. Herequired blood transfusions for acute postoperative bleeding secondary to acuteblood loss. He also required platelets for acute thrombocytopenia. Sedationwas weaned. He was noted to be awake and moving all extremities. He wasextubated later that evening and placed on supplemental oxygen. Epinephrine,Levophed and vasopressin were weaned as was milrinone. He has been followed bythe heart failure team. They have made recommendations for his medications. Hehad several chest tubes discontinued on the . He transferred to 4400 on [id number] to continue rehabilitation. On 4400, the patient has had a somewhatprolonged hospital course. He was seen by physical and occupational therapy andwas recommended for Home for home discharge pending progress. He has had someintermittent hypotension. All the remaining chest tubes and pacing wires werediscontinued. Repeat echocardiogram has continued to show a low ejectionfraction. He has been referred for LifeVest placement. This has been improved.He is on a heart failure regimen at this time. He unfortunately has testedpositive for COVID-19 as of 08/08/2020. A repeat test on the , continues toshow a positive test. He has diuresed nicely and is otherwise ready fordischarge to home today 08/12/2020. Upon discharge, he is ambulatingindependently, tolerating an oral diet well, remains in a sinus rhythm and is onroom air.Confirmation # [id number] Medication List: Montana Waller Medication Instructions VIKTORIYA:[id number] Printed on:08/12/20 1142Medication Informationamiodarone 200 MG Oral tabletTake 1 tablet by mouth daily.aspirin 81 MG Oral EC tabletTake 81 mg by mouth daily.atorvastatin (LIPITOR) 80 MG Oral tabletTake 1 tablet by mouth at bedtime.cholecalciferol, Vitamin D3, 1000 Units Oral TabTake by mouth daily.dapagliflozin (FARXIGA) 10 mg Oral TabTake 10 mg by mouth daily.dextran 70-hypromellose (ARTIFICIAL TEARS,[id number],) 0.1-0.3 % Opht DropApply to eye 2 (two) times daily as needed.digoxin 0.125 MG Oral tabletTake 1 tablet by mouth daily.docusate sodium 100 MG Oral capsuleTake 1 capsule by mouth 2 (two) times daily.gabapentin 600 MG Oral tabletTake 600 mg by mouth 2 (two) times daily. 1/2 tab QAM and 1 tab QHSmetoprolol SUCCINATE 25 MG Oral 24 hr EXT REL tabTake 0.5 tablets by mouth 2 (two) times a day.xdgnmflg-pcpjdbewl-lglwmwzvamewa Opht ophthalmic ointmentPlace 0.5 inches into the right eye 4 (four) times daily.sacubitriL-valsartan 24-26 mg OralTake 0.5 tablets by mouth 2 (two) times daily.spironolactone (ALDACTONE) 25 MG Oral tabletTake 1 tablet by mouth daily.tamsulosin 0.4 mg Oral 24 hr capsuleTake 0.8 mg by mouth daily.torsemide 10 MG Oral tabletTake 2 tablets by mouth daily. For worsening breathing or leg swellingvitamin B complex Oral capsuleTake 1 capsule by mouth daily.warfarin 1 MG Oral tabletTake 1 mg by mouth daily. Or as directedFollow UP appiontments:Aimee Resendiz MD[address] [phone] be seen this weekSpecial Considerations:See discharge instructionsCoumadin Information:Last INR date: 08/12/20Last INR result: 2.8Goal INR range: 2.0-3.0Suggested Coumadin (Warfarin) dose: 0.5-1mgAnticipated duration of Coumadin: indefinitelyNext lab draw: 08/13/2020MD to manage Coumadin: Dr. Resendiz Fax#: [phone] Confirmed by: not confirmedDate Dose Coumadin INR Hflimdg22/11 3mg 1.812/12 3mg 1.712/13 0 2.912/14 0 3.612/15 2mg 2.212/16 2mg 1.912/17 0.5mg 2.812/18 0 4.5 Amiodarone unzqdtp13/19 0 3.9Core Measure Checklist: 1. Aspirin: Yes 2. Beta Jayda: Yes 3. Statin: Yes 4. MARIA DE JESUS-I / ARB: Yes 5. Smoking: N/A Patient is not a smoker 6. Beta Jayda Recieved within 48 hrs of OR: Antonio Coyne NP Name Value Range Interpretation Code Description Data Danuta rce(s) Supporting Document(s) ID Date Data Source [id number] 08/12/2020 03:37:00 AM [facility] Release to patient->ImmediateUnit [facility] Name Value Range Interpretation Code Description Data Danuta rce(s) Supporting Document(s) PROTIME 10.2-12.9 Above high normal [facility] INR 0.9-1.1 Above high normal [facility] [Therapeutic Range 2 .0-3.0]The INR should be used to monitor patients on long termWarfarin. Selected patients may require higher levels ofanticoagulation.The PT/INR should not be used to monitor the coagulationstatus of patients taking Pradaxa, Eliquis, Xarelto or Savaysa. ID Date Data Source [id number] 08/12/2020 04:03:00 AM [facility] Release to patient->ImmediateUnit [facility] Name Value Range Interpretation Code Description Data Danuta rce(s) Supporting Document(s) MAGNESIUM 1.5-2.4 Normal (applies to non-numeric resul ts) [facility] ID Date Data Source [id number] 08/12/2020 04:03:00 AM EST [facility] Release to patient->ImmediateUnit [facility] Name Value Range Interpretation Code Description Data Danuta rce(s) Supporting Document(s) SODIUM 135-145 Below low normal [facility] POTASSIUM 3.5-5.1 Normal (applies to non-numeric resul ts) [facility] CHLORIDE 98-108 Below low normal [facility] CO2 22-30 Normal (applies to non-numeric results) [facility] ANION GAP 4-16 Normal (applies to non-numeric resul ts) [facility] BUN 8-20 Above high normal [facility] CREATININE 0.7-1.2 Normal (applies to non-numeric resul ts) [facility] GLUCOSE 65-100 Normal (applies to non-numeric resul ts) [facility] CALCIUM 8.5-10.2 Below low normal [facility] ID Date Data Source [id number] 08/12/2020 04:03:00 AM EST [facility] Release to patient->ImmediateUnit [facility] t Name Value Range Interpretation Code Description Data Danuta rce(s) Supporting Document(s) eGFR [facility] ID Date Data Source [id number] 08/12/2020 04:03:00 AM EST [facility] Release to patient->ImmediateUnit [facility] t Name Value Range Interpretation Code Description Data Danuta rce(s) Supporting Document(s) eGFR BLACK [facility] For both eGFR and eGFR BLACK, the accuracy of theeGFR calculation is contingent on a stable level of serumcreatinine. The eGFR calculation is based on an IDMS-Traceablecreatinine assay and is normalized to 1.73 "meters squared"body surface area. An eGFR less than 60 may alter clinicalmanagement decisions. An eGFR greater than or equal to 60 doesnot exclude kidney disease. ID Date Data Source [id number] 08/12/2020 03:25:00 AM EST [facility] Unit Collect Name Value Range Interpretation Code Description Data Danuta rce(s) Supporting Document(s) PH 7.32-7.42 Above high normal [facility] CA, IONIZED (joe) 4.5-5.3 Below low normal [facility] The Ionized Calcium is normalized to pH 7.40. ID Date Data Source [id number] 08/11/2020 01:54:00 AM EST [facility] Name Value Range Interpretation Code Description Data Danuta rce(s) Supporting Document(s) SARS coronavirus 2 RNA [Presence] in Uns pecified specimen by F[facility]HAT with probe detection [facility] This lab was ordered by [facility] and reported by [facility] ID Date Data Source [id number] 08/11/2020 01:55:00 PM EST [facility] Release to patient->ImmediateUnit [facility] tSource->NasalReason for COVID-19 test- >Previously COVID-19 positivepatientUnit Collect Name Value Range Interpretation Code Description Data Danuta rce(s) Supporting Document(s) SOURCE NASAL [facility] ealth SARS-CoV-2 BY RT-PCR Detected Abnormal (applies to non-n umeric results) [facility] POSITIVE RESULTA negative ("Not detected ") result does not baempzueWBSX-ZeJ-2 infection, and a negative result should not beused as the only basis for patient management decisions.A positive ("Detected") result indicates the presenceof SARS-CoV-2 RNA, the virus linked to COVID-19 disease.Patient guidance: If your result is positive, self-isolateuntil you receive further instructions. Even if your resultis negative you should continue to follow all public healthmandates for social distancing, masking etc. If you havequestions about your result, contact your health care provider;if at any time you develop severe symptoms, go to an EmergencyDepartment or call 911. For additional information please [email or web address] es: Coronavirus in [facility]www.[email or web address]’s hospitalGet the latest reopening updates, travel guidelines, and learn howbuscommunity hospital of san bernardinoes and schools are impacted.[email or web address] was performed on the [employer] System using the[employer] SARS-CoV-2 Reagents. This is a real-time RT-PCR assaywhich qualitatively detects nucleic acid from severe acuterespiratory syndrome coronavirus 2 (SARS-CoV-2) in suitablerespiratory specimens such as nasopharyngeal swabs.This assay has been approved for use under anEmergency Use Authorization (EUA) by the Food and DrugAdministration (FDA). ID Date Data Source [id number] 08/11/2020 03:15:00 AM [facility] Release to patient->ImmediateUnit Colle tSource->NasalReason for COVID-19 test- >Previously COVID-19 positivepatientUnit Collect Name Value Range Interpretation Code Description Data Danuta rce(s) Supporting Document(s) eGFR BLACK [facility] For both eGFR and eGFR BLACK, the accuracy of theeGFR calculation is contingent on a stable level of serumcreatinine. The eGFR calculation is based on an IDMS-Traceablecreatinine assay and is normalized to 1.73 "meters squared"body surface area. An eGFR less than 60 may alter clinicalmanagement decisions. An eGFR greater than or equal to 60 doesnot exclude kidney disease. ID Date Data Source [id number] 08/11/2020 03:15:00 AM [facility] Release to patient->ImmediateUnit [facility] tSource->NasalReason for COVID-19 test- >Previously COVID-19 positivepatientUnit Collect Name Value Range Interpretation Code Description Data Danuta rce(s) Supporting Document(s) eGFR [facility] ID Date Data Source [id number] 08/11/2020 03:15:00 AM [facility] Release to patient->ImmediateUnit [facility] tSource->NasalReason for COVID-19 test- >Previously COVID-19 positivepatientUnit Collect Name Value Range Interpretation Code Description Data Danuta rce(s) Supporting Document(s) MAGNESIUM 1.5-2.4 Normal (applies to non-numeric resul ts) [facility] ID Date Data Source [id number] 08/11/2020 03:15:00 AM [facility] Release to patient->ImmediateUnit [facility] tSource->NasalReason for COVID-19 test- >Previously COVID-19 positivepatientUnit Collect Name Value Range Interpretation Code Description Data Danuta rce(s) Supporting Document(s) SODIUM 135-145 Below low normal [facility] POTASSIUM 3.5-5.1 Below low normal [facility] CHLORIDE 98-108 Below low normal [facility] CO2 22-30 Above high normal [facility] ANION GAP 4-16 Normal (applies to non-numeric resul ts) [facility] BUN 8-20 Above high normal [facility] CREATININE 0.7-1.2 Normal (applies to non-numeric resul ts) [facility] GLUCOSE 65-100 Normal (applies to non-numeric resul ts) [facility] CALCIUM 8.5-10.2 Below low normal [facility] ID Date Data Source [id number] 08/11/2020 02:30:00 AM EST [facility] Unit Collect Name Value Range Interpretation Code Description Data Danuta rce(s) Supporting Document(s) PROTIME 10.2-12.9 Above high normal [facility] INR 0.9-1.1 Above high normal [facility] [Therapeutic Range 2 .0-3.0]The INR should be used to monitor patients on long termWarfarin. Selected patients may require higher levels ofanticoagulation.The PT/INR should not be used to monitor the coagulationstatus of patients taking Pradaxa, Eliquis, Xarelto or Savaysa. ID Date Data Source [id number] 08/11/2020 02:21:00 AM EST [facility] Unit Collect Name Value Range Interpretation Code Description Data Danuta rce(s) Supporting Document(s) PH 7.32-7.42 Above high normal [facility] CA, IONIZED (joe) 4.5-5.3 Below low normal [facility] The Ionized Calcium is normalized to pH 7.40. ID Date Data Source [id number] 08/11/2020 02:21:00 AM EST [facility] Unit Collect Name Value Range Interpretation Code Description Data Danuta rce(s) Supporting Document(s) WBC 4.0-11.0 Below low normal [facility] RBC 4.40-6.20 Below low normal [facility] HGB 13.0-18.0 Normal (applies to non-numeric resul ts) [facility] HCT 40-52 Below low normal [facility] MCV 80-100 Normal (applies to non-numeric resul ts) [facility] MCH 26.0-34.0 Normal (applies to non-numeric resul ts) [facility] MCHC 32.0-37.5 Normal (applies to non-numeric resul ts) [facility] RDW 0.0-15.2 Above high normal [facility] PLATELET COUNT 150-450 Below low normal [facility] ID Date Data Source [id number] 08/10/2020 06:46:00 AM EST [facility] Release to patient->ImmediateUnit [facility] t Name Value Range Interpretation Code Description Data Danuta rce(s) Supporting Document(s) eGFR BLACK [facility] For both eGFR and eGFR BLACK, the accuracy of theeGFR calculation is contingent on a stable level of serumcreatinine. The eGFR calculation is based on an IDMS-Traceablecreatinine assay and is normalized to 1.73 "meters squared"body surface area. An eGFR less than 60 may alter clinicalmanagement decisions. An eGFR greater than or equal to 60 doesnot exclude kidney disease. ID Date Data Source [id number] 08/10/2020 06:46:00 AM EST [facility] Name Value Range Interpretation Code Description Data Daunta rce(s) Supporting Document(s) SODIUM 135-145 Below low normal [facility] POTASSIUM 3.5-5.1 Normal (applies to non-numeric resul ts) [facility] CHLORIDE 98-108 Below low normal [facility] CO2 22-30 Above high normal [facility] ANION GAP 4-16 Normal (applies to non-numeric resul ts) [facility] BUN 8-20 Above high normal [facility] CREATININE 0.7-1.2 Normal (applies to non-numeric resul ts) [facility] GLUCOSE 65-100 Normal (applies to non-numeric resul ts) [facility] CALCIUM 8.5-10.2 Below low normal [facility] ID Date Data Source [id number] 08/10/2020 06:46:00 AM EST [facility] Release to patient->Immediateit [facility] t Name Value Range Interpretation Code Description Data Danuta rce(s) Supporting Document(s) MAGNESIUM 1.5-2.4 Normal (applies to non-numeric resul ts) [facility] ID Date Data Source [id number] 08/10/2020 06:46:00 AM EST [facility] Release to patient->ImmediateUnit [facility] t Name Value Range Interpretation Code Description Data Danuta rce(s) Supporting Document(s) eGFR [facility] ID Date Data Source [id number] 08/10/2020 06:46:00 AM [facility] Release to patient->[facility] t Name Value Range Interpretation Code Description Data Danuta rce(s) Supporting Document(s) PROTIME 10.2-12.9 Above high normal [facility] INR 0.9-1.1 Above high normal [facility] [Therapeutic Range 2 .0-3.0]The INR should be used to monitor patients on long termWarfarin. Selected patients may require higher levels ofanticoagulation.The PT/INR should not be used to monitor the coagulationstatus of patients taking Pradaxa, Eliquis, Xarelto or Savaysa. ID Date Data Source [id number] 08/09/2020 04:01:00 PM [facility] Release to patient->[facility] Name Value Range Interpretation Code Description Data Danuta rce(s) Supporting Document(s) CRP HIGH SENSITIVITY 0.0-3.0 Above high normal [facility] CRP Level Relative Car diac Riskless than 1.0 mg/L Low1.0 to 3.0 mg/L Averagegreater than 3.0 mg/L HighMinor elevations in CRP are associated with risk of myocardialinfarction (AL) in patients with stable and unstable angina,and are an independent risk factor for future AL and ischemicstroke in apparently healthy individuals. The higher the CRPvalue, the greater the risk, starting at about 1.0 mg/L.Values above 10.0 mg/L are indicative of an acuteinflammatory response. ID Date Data Source [id number] 08/09/2020 04:01:00 PM [facility] Release to patient->[facility] t Name Value Range Interpretation Code Description Data Danuta rce(s) Supporting Document(s) LDH 120-246 Above high normal [facility] ID Date Data Source [id number] 08/09/2020 03:55:00 PM [facility] Release to patient->[facility] t Name Value Range Interpretation Code Description Data Danuta rce(s) Supporting Document(s) PROCALCITONIN 0.00-1.99 Normal (applies to non-numeric re sults) [facility] The normal value corresponding to the 99 th percentile cutofffor procalcitonin is considered to be 0.1 ng/mL.A concentration of < 0.5 ng/mL represents a low risk of severesepsis and/or septic shock.A concentration of > 2.0 ng/mL represents a high risk of severesepsis and/or septic shock.Concentrations of < 0.5 ng/mL do not exclude an infection,procalcitonin levels should be interpreted taking into accountthe patient's clinical situation. ID Date Data Source [id number] 08/09/2020 02:34:00 PM EST [facility] Release to patient->[facility]mediate[facility] t Name Value Range Interpretation Code Description Data Danuta rce(s) Supporting Document(s) SEDIMENTATION RATE 0-23 Normal (applies to non-numer ic results) [facility] ID Date Data Source [id number] 08/09/2020 01:58:00 PM EST [facility] Release to patient->[facility]mediate[facility] t Name Value Range Interpretation Code Description Data Danuta rce(s) Supporting Document(s) D-DIMER <500 Above high normal [facility] This d-dimer test has been demonstrated to effectively excludevenous thromboembolism (VTE) in outpatients with low andintermediate clinical probability for VTE. Its efficacy hasnot been shown in outpatients with high probability of VTEor in any inpatients. ID Date Data Source [id number] 08/09/2020 02:53:00 AM EST [facility] Release to patient->[facility] t Name Value Range Interpretation Code Description Data Danuta rce(s) Supporting Document(s) eGFR [facility] ID Date Data Source [id number] 08/09/2020 02:53:00 AM EST [facility] Release to patient->[facility]mediate[facility] t Name Value Range Interpretation Code Description Data Danuta rce(s) Supporting Document(s) SODIUM 135-145 Below low normal [facility] POTASSIUM 3.5-5.1 Normal (applies to non-numeric resul ts) [facility] CHLORIDE 98-108 Below low normal [facility] CO2 22-30 Normal (applies to non-numeric results) [facility] ANION GAP 4-16 Normal (applies to non-numeric resul ts) [facility] BUN 8-20 Normal (applies to non-numeric results) [facility] CREATININE 0.7-1.2 Normal (applies to non-numeric resul ts) [facility] GLUCOSE 65-100 Normal (applies to non-numeric resul ts) [facility] CALCIUM 8.5-10.2 Below low normal [facility] ID Date Data Source [id number] 08/09/2020 02:53:00 AM EST [facility] Release to patient->[facility]mediate[facility] t Name Value Range Interpretation Code Description Data Danuta rce(s) Supporting Document(s) eGFR BLACK [facility] For both eGFR and eGFR BLACK, the accuracy of theeGFR calculation is contingent on a stable level of serumcreatinine. The eGFR calculation is based on an IDMS-Traceablecreatinine assay and is normalized to 1.73 "meters squared"body surface area. An eGFR less than 60 may alter clinicalmanagement decisions. An eGFR greater than or equal to 60 doesnot exclude kidney disease. ID Date Data Source [id number] 08/09/2020 02:53:00 AM [facility] Release to patient->[facility]mediate[facility] t Name Value Range Interpretation Code Description Data Danuta rce(s) Supporting Document(s) MAGNESIUM 1.5-2.4 Normal (applies to non-numeric resul ts) [facility] ID Date Data Source [id number] 08/09/2020 02:40:00 AM [facility] Release to patient->[facility] t Name Value Range Interpretation Code Description Data Danuta rce(s) Supporting Document(s) PROTIME 10.2-12.9 Above high normal [facility] INR 0.9-1.1 Above high normal [facility] [Therapeutic Range 2 .0-3.0]The INR should be used to monitor patients on long termWarfarin. Selected patients may require higher levels ofanticoagulation.The PT/INR should not be used to monitor the coagulationstatus of patients taking Pradaxa, Eliquis, Xarelto or Savaysa. ID Date Data Source [id number] 08/08/2020 04:56:00 PM EST [facility] Unit Collect Name Value Range Interpretation Code Description Data Danuta rce(s) Supporting Document(s) eGFR BLACK [facility] For both eGFR and eGFR BLACK, the accuracy of theeGFR calculation is contingent on a stable level of serumcreatinine. The eGFR calculation is based on an IDMS-Traceablecreatinine assay and is normalized to 1.73 "meters squared"body surface area. An eGFR less than 60 may alter clinicalmanagement decisions. An eGFR greater than or equal to 60 doesnot exclude kidney disease. ID Date Data Source [id number] 08/08/2020 04:56:00 PM EST [facility] Unit Collect Name Value Range Interpretation Code Description Data Danuta rce(s) Supporting Document(s) SODIUM 135-145 Below low normal [facility] POTASSIUM 3.5-5.1 Normal (applies to non-numeric resul ts) [facility] CHLORIDE 98-108 Below low normal [facility] CO2 22-30 Normal (applies to non-numeric results) [facility] ANION GAP 4-16 Normal (applies to non-numeric resul ts) [facility] BUN 8-20 Normal (applies to non-numeric results) [facility] CREATININE 0.7-1.2 Normal (applies to non-numeric resul ts) [facility] GLUCOSE 65-100 Normal (applies to non-numeric resul ts) [facility] CALCIUM 8.5-10.2 Below low normal [facility] ID Date Data Source [id number] 08/08/2020 04:56:00 PM EST [facility] Unit Collect Name Value Range Interpretation Code Description Data Danuta rce(s) Supporting Document(s) eGFR [facility] ID Date Data Source [id number] 08/08/2020 04:56:00 PM EST [facility] Unit Collect Name Value Range Interpretation Code Description Data Danuta rce(s) Supporting Document(s) MAGNESIUM 1.5-2.4 Normal (applies to non-numeric resul ts) [facility] ID Date Data Source [id number] 08/08/2020 04:55:00 PM [facility] Release to patient->ImmediateUnit Collec t Name Value Range Interpretation Code Description Data Danuta rce(s) Supporting Document(s) WBC 4.0-11.0 Normal (applies to non-numeric resul ts) [facility] RBC 4.40-6.20 Below low normal [facility] HGB 13.0-18.0 Normal (applies to non-numeric resul ts) [facility] HCT 40-52 Normal (applies to non-numeric results) [facility] MCV 80-100 Normal (applies to non-numeric resul ts) [facility] MCH 26.0-34.0 Normal (applies to non-numeric resul ts) [facility] MCHC 32.0-37.5 Normal (applies to non-numeric resul ts) [facility] RDW 0.0-15.2 Above high normal [facility] PLATELET COUNT 150-450 Below low normal [facility] ID Date Data Source [id number] 08/08/2020 07:49:00 AM EST [facility] Name Value Range Interpretation Code Description Data Danuta rce(s) Supporting Document(s) SARS coronavirus 2 RNA [Presence] in Uns pecified specimen by FARAHT with probe detection [facility] This lab was ordered by [facility] and reported by [facility] ID Date Data Source [id number] 08/09/2020 12:13:00 AM EST [facility] Release to patient->Immediate[facility] tSource->NasopharyngealUnit CollectSource->NasopharyngealReason for COVID-19 test->Symptomatic patientUnit Collect Name Value Range Interpretation Code Description Data Danuta rce(s) Supporting Document(s) INFLUENZA A PCR Not detected Not detected Normal (applies to non-numeric results) [facility] Influenza A Sensitivity: >90% Specificit y: >90%The performance characteristics of the PCR assay aredependent on the circulating strain of Influenza virus.The PCR assay compares closely to culture. INFLUENZA B PCR Not detected Not detected Normal (applies to non-numeric results) [facility] Influenza B Sensitivity: >80% Specificit y: >90%The performance characteristics of the PCR assay aredependent on the circulating strain of Influenza virus.The PCR assay compares closely to culture. ID Date Data Source [id number] 08/08/2020 12:12:00 PM EST [facility] Release to patient->ImmediateUnit Colle tSource->NasopharyngealUnit CollectSource->NasopharyngealReason for COVID-19 test->Symptomatic patientUnit Collect Name Value Range Interpretation Code Description Data Danuta rce(s) Supporting Document(s) SOURCE Nasopharyngeal [facility] SARS-CoV-2 BY RT-PCR Detected Abnormal (applies to non-n umeric results) [facility] POSITIVE RESULTA negative ("not detected ") result does not jpmwbygmIYGI-AcO-3 infection, and a negative result should not beused as the only basis for patient management decisions.A positive ("detected") result indicates the presenceof SARS-CoV-2 RNA, the virus linked to COVID-19 disease.Patient guidance: If your result is positive, self-isolateuntil you receive further instructions. Even if your resultis negative you should continue to follow all public healthmandates for social distancing, masking etc. If you havequestions about your result, contact your health care provider;if at any time you develop severe symptoms, go to an EmergencyDepartment or call 911. For additional information please [email or web address] es: Coronavirus in [email or web address]’s hospitalGet the latest reopening updates, travel guidelines, and learn howel camino hospitales and schools are impacted.[email or web address] was performed on the [employer]?COVID-19 Direct real-time RT-PCR assay. This is a qhxk-wirsGA-MGK assay which qualitatively detects nucleic acid fromsevere acute respiratory syndrome coronavirus 2 (SARS-CoV-2)in suitable respiratory specimens such as nasopharyngeal swabs.This assay has been approved for use under an Emergency UseAuthorization (EUA) by the Food and Drug Administration (FDA). ID Date Data Source [id number] 08/08/2020 08:31:00 AM EST [facility] Release to patient->ImmediateUnit Colle tSource->NasopharyngealUnit CollectSource->NasopharyngealReason for COVID-19 test->Symptomatic patientUnit Collect Name Value Range Interpretation Code Description Data Danuta rce(s) Supporting Document(s) eGFR [facility] ID Date Data Source [id number] 08/08/2020 08:31:00 AM EST [facility] Release to patient->[facility]mediate[facility] tSource->NasopharyngealUnit CollectSource->NasopharyngealReason for COVID-19 test->Symptomatic patientUnit Collect Name Value Range Interpretation Code Description Data Danuta rce(s) Supporting Document(s) eGFR BLACK [facility] For both eGFR and eGFR BLACK, the accuracy of theeGFR calculation is contingent on a stable level of serumcreatinine. The eGFR calculation is based on an IDMS-Traceablecreatinine assay and is normalized to 1.73 "meters squared"body surface area. An eGFR less than 60 may alter clinicalmanagement decisions. An eGFR greater than or equal to 60 doesnot exclude kidney disease. ID Date Data Source [id number] 08/08/2020 08:31:00 AM EST [facility] Release to patient->ImmediateUnit Collec tSource->NasopharyngealUnit CollectSource->NasopharyngealReason for COVID-19 test->Symptomatic patientUnit Collect Name Value Range Interpretation Code Description Data Danuta rce(s) Supporting Document(s) SODIUM 135-145 Below low normal [facility] POTASSIUM 3.5-5.1 Normal (applies to non-numeric resul ts) [facility] CHLORIDE 98-108 Normal (applies to non-numeric resul ts) [facility] CO2 22-30 Normal (applies to non-numeric results) [facility] ANION GAP 4-16 Normal (applies to non-numeric resul ts) [facility] BUN 8-20 Normal (applies to non-numeric results) [facility] CREATININE 0.7-1.2 Normal (applies to non-numeric resul ts) [facility] GLUCOSE 65-100 Normal (applies to non-numeric resul ts) [facility] CALCIUM 8.5-10.2 Below low normal [facility] ID Date Data Source [id number] 08/08/2020 07:28:00 AM EST [facility] 1 hour after packed red blood cell trans fusionRelease to patient->ImmediateUnit Collect Name Value Range Interpretation Code Description Data Danuta rce(s) Supporting Document(s) WBC 4.0-11.0 Normal (applies to non-numeric resul ts) [facility] RBC 4.40-6.20 Below low normal [facility] HGB 13.0-18.0 Below low normal [facility] HCT 40-52 Below low normal [facility] MCV 80-100 Normal (applies to non-numeric resul ts) [facility] MCH 26.0-34.0 Normal (applies to non-numeric resul ts) [facility] MCHC 32.0-37.5 Normal (applies to non-numeric resul ts) [facility] RDW 0.0-15.2 Above high normal [facility] PLATELET COUNT 150-450 Below low normal [facility] ID Date Data Source [id number] 08/08/2020 04:51:00 AM [facility] Release to patient->ImmediateUnit Colle t Name Value Range Interpretation Code Description Data Danuta rce(s) Supporting Document(s) PROTIME 10.2-12.9 Above high normal [facility] INR 0.9-1.1 Above high normal [facility] [Therapeutic Range 2 .0-3.0]The INR should be used to monitor patients on long termWarfarin. Selected patients may require higher levels ofanticoagulation.The PT/INR should not be used to monitor the coagulationstatus of patients taking Pradaxa, Eliquis, Xarelto or Savaysa. ID Date Data Source [id number] 08/08/2020 04:39:00 AM [facility] 1 hour after packed red blood cell trans fusionRelease to patient->ImmediateUnit Collect Name Value Range Interpretation Code Description Data Danuta rce(s) Supporting Document(s) HCT 40-52 Below low normal [facility] ID Date Data Source [id number] 08/08/2020 07:04:00 AM [facility] TxHx UNKUnit CollectPRBC's will be held in Blood Bank until a Nursing Order toTransfuse has been placed. In CRISIS (near code) situationBlood Bank will prepare crossmatched if available, or typespecific or un-crossmatched.Reason for Transfusion->Hemoglobin => 8, symptomaticUnit Collect Name Value Range Interpretation Code Description Data Danuta rce(s) Supporting Document(s) BLOOD BANK SEE BELOW Normal (applies to non-numeric resul ts) [facility] Product: RBC LR, Status: Transfused, Uni t: [id number], Type: A Pos, Code:[id number].Product: RBC LR, Status: Transfused, Unit: [id number], Type: A Pos, Code:[id number]. ID Date Data Source [id number] 08/07/2020 09:11:00 AM EST [facility] TxHx UNKUnit CollectPRBC's will be held in Blood Bank until a Nursing Order toTransfuse has been placed. In CRISIS (near code) situationBlood Bank will prepare crossmatched if available, or typespecific or un-crossmatched.Reason for Transfusion->Hemoglobin => 8, symptomaticUnit Collect Name Value Range Interpretation Code Description Data Danuta rce(s) Supporting Document(s) ABO RH A Rh Positive Normal (applies to non-numeric re sults) [facility] ANTIBODY SCREEN Negative Normal (applies to non-numeric results) [facility] ID Date Data Source [id number] 08/07/2020 08:48:00 AM EST [facility] TxHx UNKUnit CollectPRBC's will be held in Blood Bank until a Nursing Order toTransfuse has been placed. In CRISIS (near code) situationBlood Bank will prepare crossmatched if available, or typespecific or un-crossmatched.Reason for Transfusion->Hemoglobin => 8, symptomaticUnit Collect Name Value Range Interpretation Code Description Data Danuta rce(s) Supporting Document(s) PACKED RBC UNITS [facility] DATE REQUIRED, PRBC 08/07/2020 Normal (applies to non-nume heydi results) [facility] ID Date Data Source [id number] 08/08/2020 07:48:00 AM [facility] Release to patient->ImmediateUnit Collec t Name Value Range Interpretation Code Description Data Danuta rce(s) Supporting Document(s) PROCALCITONIN 0.00-1.99 Normal (applies to non-numeric re sults) [facility] The normal value corresponding to the 99 th percentile cutofffor procalcitonin is considered to be 0.1 ng/mL.A concentration of < 0.5 ng/mL represents a low risk of severesepsis and/or septic shock.A concentration of > 2.0 ng/mL represents a high risk of severesepsis and/or septic shock.Concentrations of < 0.5 ng/mL do not exclude an infection,procalcitonin levels should be interpreted taking into accountthe patient's clinical situation. ID Date Data Source [id number] 08/07/2020 05:22:00 AM EST [facility] Name Value Range Interpretation Code Description Data Danuta rce(s) Supporting Document(s) eGFR [facility] ID Date Data Source [id number] 08/07/2020 05:22:00 AM EST [facility] t Name Value Range Interpretation Code Description Data Danuta rce(s) Supporting Document(s) eGFR BLACK [facility] For both eGFR and eGFR BLACK, the accuracy of theeGFR calculation is contingent on a stable level of serumcreatinine. The eGFR calculation is based on an IDMS-Traceablecreatinine assay and is normalized to 1.73 "meters squared"body surface area. An eGFR less than 60 may alter clinicalmanagement decisions. An eGFR greater than or equal to 60 doesnot exclude kidney disease. ID Date Data Source [id number] 08/07/2020 05:22:00 AM EST [facility] Release to patient->[facility] t Name Value Range Interpretation Code Description Data Danuta rce(s) Supporting Document(s) SODIUM 135-145 Below low normal [facility] POTASSIUM 3.5-5.1 Normal (applies to non-numeric resul ts) [facility] CHLORIDE 98-108 Below low normal [facility] CO2 22-30 Normal (applies to non-numeric results) [facility] ANION GAP 4-16 Normal (applies to non-numeric resul ts) [facility] BUN 8-20 Normal (applies to non-numeric results) [facility] CREATININE 0.7-1.2 Normal (applies to non-numeric resul ts) [facility] GLUCOSE 65-100 Normal (applies to non-numeric resul ts) [facility] CALCIUM 8.5-10.2 Below low normal [facility] ID Date Data Source [id number] 08/07/2020 05:04:00 AM EST [facility] Release to patient->ImmediateUnit [facility] t Name Value Range Interpretation Code Description Data Danuta rce(s) Supporting Document(s) PROTIME 10.2-12.9 Above high normal [facility] INR 0.9-1.1 Above high normal [facility] [Therapeutic Range 2 .0-3.0]The INR should be used to monitor patients on long termWarfarin. Selected patients may require higher levels ofanticoagulation.The PT/INR should not be used to monitor the coagulationstatus of patients taking Pradaxa, Eliquis, Xarelto or Savaysa. ID Date Data Source [id number] 08/07/2020 04:52:00 AM [facility] Release to patient->ImmediateUnit [facility] t Name Value Range Interpretation Code Description Data Danuta rce(s) Supporting Document(s) WBC 4.0-11.0 Normal (applies to non-numeric resul ts) [facility] RBC 4.40-6.20 Below low normal [facility] HGB 13.0-18.0 Below low normal [facility] HCT 40-52 Below low normal [facility] MCV 80-100 Normal (applies to non-numeric resul ts) [facility] MCH 26.0-34.0 Normal (applies to non-numeric resul ts) [facility] MCHC 32.0-37.5 Normal (applies to non-numeric resul ts) [facility] RDW 0.0-15.2 Above high normal [facility] PLATELET COUNT 150-450 Below low normal [facility] ID Date Data Source [id number] 08/06/2020 05:53:00 AM [facility] Release to patient->ImmediateUnit [facility] t Name Value Range Interpretation Code Description Data Danuta rce(s) Supporting Document(s) eGFR [facility] ID Date Data Source [id number] 08/06/2020 05:53:00 AM [facility] Release to patient->ImmediateUnit [facility] t Name Value Range Interpretation Code Description Data Danuta rce(s) Supporting Document(s) eGFR BLACK [facility] For both eGFR and eGFR BLACK, the accuracy of theeGFR calculation is contingent on a stable level of serumcreatinine. The eGFR calculation is based on an IDMS-Traceablecreatinine assay and is normalized to 1.73 "meters squared"body surface area. An eGFR less than 60 may alter clinicalmanagement decisions. An eGFR greater than or equal to 60 doesnot exclude kidney disease. ID Date Data Source [id number] 08/06/2020 05:53:00 AM EST [facility] Release to patient->ImmediateUnit Colle t Name Value Range Interpretation Code Description Data Danuta rce(s) Supporting Document(s) SODIUM 135-145 Below low normal [facility] POTASSIUM 3.5-5.1 Normal (applies to non-numeric resul ts) [facility] CHLORIDE 98-108 Normal (applies to non-numeric resul ts) [facility] CO2 22-30 Normal (applies to non-numeric results) [facility] ANION GAP 4-16 Normal (applies to non-numeric resul ts) [facility] BUN 8-20 Normal (applies to non-numeric results) [facility] CREATININE 0.7-1.2 Normal (applies to non-numeric resul ts) [facility] GLUCOSE 65-100 Normal (applies to non-numeric resul ts) [facility] CALCIUM 8.5-10.2 Below low normal [facility] ID Date Data Source [id number] 08/06/2020 05:19:00 AM EST [facility] Release to patient->ImmediateUnit [facility] t Name Value Range Interpretation Code Description Data Danuta rce(s) Supporting Document(s) PROTIME 10.2-12.9 Above high normal [facility] INR 0.9-1.1 Above high normal [facility] [Therapeutic Range 2 .0-3.0]The INR should be used to monitor patients on long termWarfarin. Selected patients may require higher levels ofanticoagulation.The PT/INR should not be used to monitor the coagulationstatus of patients taking Pradaxa, Eliquis, Xarelto or Savaysa. ID Date Data Source [id number] 08/06/2020 05:11:00 AM EST [facility] Release to patient->ImmediateUnit [facility] t Name Value Range Interpretation Code Description Data Danuta rce(s) Supporting Document(s) WBC 4.0-11.0 Normal (applies to non-numeric resul ts) [facility] RBC 4.40-6.20 Below low normal [facility] HGB 13.0-18.0 Below low normal [facility] HCT 40-52 Below low normal [facility] MCV 80-100 Normal (applies to non-numeric resul ts) [facility] MCH 26.0-34.0 Normal (applies to non-numeric resul ts) [facility] MCHC 32.0-37.5 Normal (applies to non-numeric resul ts) [facility] RDW 0.0-15.2 Above high normal [facility] PLATELET COUNT 150-450 Below low normal [facility] ID Date Data Source [id number] 08/05/2020 05:38:00 AM EST [facility] Release to patient->ImmediateUnit [facility] t Name Value Range Interpretation Code Description Data Danuta rce(s) Supporting Document(s) eGFR [facility] ID Date Data Source [id number] 08/05/2020 05:38:00 AM EST [facility] Release to patient->ImmediateUnit [facility] t Name Value Range Interpretation Code Description Data Danuta rce(s) Supporting Document(s) eGFR BLACK [facility] For both eGFR and eGFR BLACK, the accuracy of theeGFR calculation is contingent on a stable level of serumcreatinine. The eGFR calculation is based on an IDMS-Traceablecreatinine assay and is normalized to 1.73 "meters squared"body surface area. An eGFR less than 60 may alter clinicalmanagement decisions. An eGFR greater than or equal to 60 doesnot exclude kidney disease. ID Date Data Source [id number] 08/05/2020 05:38:00 AM EST [facility] Release to patient->Immediate[facility] t Name Value Range Interpretation Code Description Data Danuta rce(s) Supporting Document(s) SODIUM 135-145 Below low normal [facility] POTASSIUM 3.5-5.1 Normal (applies to non-numeric resul ts) [facility] CHLORIDE 98-108 Normal (applies to non-numeric resul ts) [facility] CO2 22-30 Normal (applies to non-numeric results) [facility] ANION GAP 4-16 Normal (applies to non-numeric resul ts) [facility] BUN 8-20 Normal (applies to non-numeric results) [facility] CREATININE 0.7-1.2 Normal (applies to non-numeric resul ts) [facility] GLUCOSE 65-100 Normal (applies to non-numeric resul ts) [facility] CALCIUM 8.5-10.2 Below low normal [facility] ID Date Data Source [id number] 08/05/2020 04:59:00 AM [facility] Release to patient->ImmediateUnit [facility] t Name Value Range Interpretation Code Description Data Danuta rce(s) Supporting Document(s) WBC 4.0-11.0 Normal (applies to non-numeric resul ts) [facility] RBC 4.40-6.20 Below low normal [facility] HGB 13.0-18.0 Below low normal [facility] HCT 40-52 Below low normal [facility] MCV 80-100 Normal (applies to non-numeric resul ts) [facility] MCH 26.0-34.0 Normal (applies to non-numeric resul ts) [facility] MCHC 32.0-37.5 Normal (applies to non-numeric resul ts) [facility] RDW 0.0-15.2 Above high normal [facility] PLATELET COUNT 150-450 Below low normal [facility] ID Date Data Source [id number] 08/05/2020 05:15:00 AM [facility] Release to patient->ImmediateUnit [facility] t Name Value Range Interpretation Code Description Data Danuta rce(s) Supporting Document(s) PROTIME 10.2-12.9 Above high normal [facility] INR 0.9-1.1 Above high normal [facility] [Therapeutic Range 2 .0-3.0]The INR should be used to monitor patients on long termWarfarin. Selected patients may require higher levels ofanticoagulation.The PT/INR should not be used to monitor the coagulationstatus of patients taking Pradaxa, Eliquis, Xarelto or Savaysa. ID Date Data Source [id number] 08/06/2020 07:04:00 AM [facility] PRBC's will be held in Blood Bank until a Nursing Order toTransfuse has been placed. In CRISIS (near code) situationBlood Bank will prepare crossmatched if available, or typespecific or un-crossmatched.Reason for Transfusion->Other (specify)Unit Collect Name Value Range Interpretation Code Description Data Danuta rce(s) Supporting Document(s) BLOOD BANK SEE BELOW Normal (applies to non-numeric resul ts) [facility] Product: RBC LR, Status: Transfused, Uni t: [id number], Type: A Pos, Code:[id number]. ID Date Data Source [id number] 08/05/2020 04:21:00 AM [facility] PRBC's will be held in Blood Bank until a Nursing Order toTransfuse has been placed. In CRISIS (near code) situationBlood Bank will prepare crossmatched if available, or typespecific or un-crossmatched.Reason for Transfusion->Other (specify)Unit Collect Name Value Range Interpretation Code Description Data Danuta rce(s) Supporting Document(s) PACKED RBC UNITS Normal (applies to non-numeric results) [facility] DATE REQUIRED, PRBC 08/04/2020 Normal (applies to non-nume heydi results) [facility] ID Date Data Source [id number] 08/04/2020 11:02:08 AM [facility] Indication: SOB; evaluate for pneumotho rax s/p chest tube removal. Comparison: 08/03/2020.Technique: AP portable chest radiograph is obtained at approximately 0937 hours.Findings: The patient is status post median sternotomy. There are midline surgical dina. Left atrial appendage closure device is again evident. Right jugular catheter terminates in the region of the superior vena cava.Left chest tube has been removed without convincing pneumothorax.There is mild vascular congestion, moderate cardiomegaly, and small bilateral pleural effusions.Impression: 1. Left chest tube has been removed without convincing pneumothorax.2. Unchanged mild pulmonary vascular congestion.Signed by Attending: Rolly Underwood MD, PhD, FACR on 08/04/2020 11:02 AM Name Value Range Interpretation Code Description Data Danuta rce(s) Supporting Document(s) ID Date Data Source [id number] 08/04/2020 06:11:00 AM [facility] Release to patient->ImmediateUnit Collec t Name Value Range Interpretation Code Description Data Danuta rce(s) Supporting Document(s) SODIUM 135-145 Below low normal [facility] POTASSIUM 3.5-5.1 Normal (applies to non-numeric resul ts) [facility] CHLORIDE 98-108 Normal (applies to non-numeric resul ts) [facility] CO2 22-30 Normal (applies to non-numeric results) [facility] ANION GAP 4-16 Normal (applies to non-numeric resul ts) [facility] BUN 8-20 Above high normal [facility] CREATININE 0.7-1.2 Normal (applies to non-numeric resul ts) [facility] GLUCOSE 65-100 Normal (applies to non-numeric resul ts) [facility] CALCIUM 8.5-10.2 Below low normal [facility] ID Date Data Source [id number] 08/04/2020 06:11:00 AM EST [facility] Release to patient->ImmediateUnit [facility] t Name Value Range Interpretation Code Description Data Danuta rce(s) Supporting Document(s) MAGNESIUM 1.5-2.4 Normal (applies to non-numeric resul ts) [facility] ID Date Data Source [id number] 08/04/2020 06:11:00 AM EST [facility] Release to patient->ImmediateUnit [facility] t Name Value Range Interpretation Code Description Data Danuta rce(s) Supporting Document(s) eGFR [facility] ID Date Data Source [id number] 08/04/2020 06:11:00 AM EST [facility] Release to patient->ImmediateUnit [facility] t Name Value Range Interpretation Code Description Data Danuta rce(s) Supporting Document(s) eGFR BLACK [facility] For both eGFR and eGFR BLACK, the accuracy of theeGFR calculation is contingent on a stable level of serumcreatinine. The eGFR calculation is based on an IDMS-Traceablecreatinine assay and is normalized to 1.73 "meters squared"body surface area. An eGFR less than 60 may alter clinicalmanagement decisions. An eGFR greater than or equal to 60 doesnot exclude kidney disease. ID Date Data Source [id number] 08/04/2020 05:39:00 AM EST [facility] Release to patient->Immediate[facility] t Name Value Range Interpretation Code Description Data Danuta rce(s) Supporting Document(s) PROTIME 10.2-12.9 Above high normal [facility] INR 0.9-1.1 Above high normal [facility] [Therapeutic Range 2 .0-3.0]The INR should be used to monitor patients on long termWarfarin. Selected patients may require higher levels ofanticoagulation.The PT/INR should not be used to monitor the coagulationstatus of patients taking Pradaxa, Eliquis, Xarelto or Savaysa. ID Date Data Source [id number] 08/03/2020 04:24:00 PM EST [facility] Name Value Range Interpretation Code Description Data Danuta rce(s) Supporting Document(s) GLUCOSE,METER 65-100 Normal (applies to non-numeric re sults) [facility] ID Date Data Source [id number] 08/03/2020 03:05:00 PM EST [facility] Release to patient->ImmediateUnit Colle t Name Value Range Interpretation Code Description Data Danuta rce(s) Supporting Document(s) HPLT4 PATIENT [facility] HPLT4 CUTOFF [facility] HPLT4 INTERPRETATION NEG [NEGATIVE] Normal (applies to non-nu meric results) [facility] ID Date Data Source [id number] 08/03/2020 09:24:47 AM [facility] Indication: Pulmonary Congestion. Andrew rison: 08/02/2020Technique: AP portable chest radiographFindings: Interval removal of the pulmonary artery catheter and a mediastinal drain. Right IJ catheter terminates in the region of the SVC. Left chest tube is stable. There is mild opacity in the left lower lung zone along the chest tube. Mild pulmonaryvascular congestion. Tiny left pleural effusion with associated airspace opacity. No pneumothorax is identified. The cardiomediastinal silhouette is stable. The osseous structures are unchanged. Median sternotomy wires remain aligned.Impression: Mild pulmonary vascular congestion, decreased from prior.Signed by Attending: Bradley Osorio MD on 08/03/2020 9:24 AM Name Value Range Interpretation Code Description Data Danuta rce(s) Supporting Document(s) ID Date Data Source [id number] 08/10/2020 03:26:00 PM EST [facility] Source->SputumRelease to patient->Immedi ateUnit Collect Name Value Range Interpretation Code Description Data Danuta rce(s) Supporting Document(s) LEGIONELLA CULTURE [facility] ID Date Data Source [id number] 08/05/2020 10:20:00 AM EST [facility] Source->SputumRelease to patient->Immedi ateUnit Collect Name Value Range Interpretation Code Description Data Danuta rce(s) Supporting Document(s) RESPIRATORY CULTURE [facility] GRAM STAIN [facility] ID Date Data Source [id number] 08/03/2020 06:37:00 AM EST [facility] Name Value Range Interpretation Code Description Data Danuta rce(s) Supporting Document(s) GLUCOSE,METER 65-100 Normal (applies to non-numeric re sults) [facility] ID Date Data Source [id number] 08/03/2020 03:51:00 AM [facility] 1 hour after packed red blood cell trans fusionRelease to patient->ImmediateUnit Collect Name Value Range Interpretation Code Description Data Danuta rce(s) Supporting Document(s) HCT 40-52 Below low normal [facility] ID Date Data Source [id number] 08/04/2020 07:04:00 AM [facility] PRBC's will be held in Blood Bank until a Nursing Order toTransfuse has been placed. In CRISIS (near code) situationBlood Bank will prepare crossmatched if available, or typespecific or un-crossmatched.Reason for Transfusion->Hemoglobin => 8, symptomaticUnit Collect Name Value Range Interpretation Code Description Data Danuta rce(s) Supporting Document(s) BLOOD BANK SEE BELOW Normal (applies to non-numeric resul ts) [facility] Product: RBC LR, Status: Transfused, Uni t: [id number], Type: A Pos, Code:[id number]. ID Date Data Source [id number] 08/03/2020 07:39:00 AM [facility] PRBC's will be held in Blood Bank until a Nursing Order toTransfuse has been placed. In CRISIS (near code) situationBlood Bank will prepare crossmatched if available, or typespecific or un-crossmatched.Reason for Transfusion->Hemoglobin => 8, symptomaticUnit Collect Name Value Range Interpretation Code Description Data Danuta rce(s) Supporting Document(s) PACKED RBC UNITS Normal (applies to non-numeric results) [facility] DATE REQUIRED, PRBC 08/03/20 Normal (applies to non-nume heydi results) [facility] ID Date Data Source [id number] 08/03/2020 12:53:00 AM EST [facility] For anticoagulation patientsUnit Collect Name Value Range Interpretation Code Description Data Danuta rce(s) Supporting Document(s) eGFR BLACK [facility] For both eGFR and eGFR BLACK, the accuracy of theeGFR calculation is contingent on a stable level of serumcreatinine. The eGFR calculation is based on an IDMS-Traceablecreatinine assay and is normalized to 1.73 "meters squared"body surface area. An eGFR less than 60 may alter clinicalmanagement decisions. An eGFR greater than or equal to 60 doesnot exclude kidney disease. ID Date Data Source [id number] 08/03/2020 12:53:00 AM EST [facility] For anticoagulation patientsUnit Collect Name Value Range Interpretation Code Description Data Danuta rce(s) Supporting Document(s) eGFR [facility] ID Date Data Source [id number] 08/03/2020 12:53:00 AM EST [facility] For anticoagulation patientsUnit Collect Name Value Range Interpretation Code Description Data Danuta rce(s) Supporting Document(s) MAGNESIUM 1.5-2.4 Normal (applies to non-numeric resul ts) [facility] ID Date Data Source [id number] 08/03/2020 12:53:00 AM EST [facility] For anticoagulation patientsUnit Collect Name Value Range Interpretation Code Description Data Danuta rce(s) Supporting Document(s) SODIUM 135-145 Normal (applies to non-numeric resul ts) [facility] POTASSIUM 3.5-5.1 Normal (applies to non-numeric resul ts) [facility] CHLORIDE 98-108 Normal (applies to non-numeric resul ts) [facility] CO2 22-30 Normal (applies to non-numeric results) [facility] ANION GAP 4-16 Normal (applies to non-numeric resul ts) [facility] BUN 8-20 Normal (applies to non-numeric results) [facility] CREATININE 0.7-1.2 Normal (applies to non-numeric resul ts) [facility] GLUCOSE 65-100 Above high normal [facility] CALCIUM 8.5-10.2 Below low normal [facility] ID Date Data Source [id number] 08/03/2020 12:40:00 AM EST [facility] For anticoagulation patientsUnit Collect Name Value Range Interpretation Code Description Data Danuta rce(s) Supporting Document(s) PROTIME 10.2-12.9 Above high normal [facility] INR 0.9-1.1 Above high normal [facility] [Therapeutic Range 2 .0-3.0]The INR should be used to monitor patients on long termWarfarin. Selected patients may require higher levels ofanticoagulation.The PT/INR should not be used to monitor the coagulationstatus of patients taking Pradaxa, Eliquis, Xarelto or Savaysa. ID Date Data Source [id number] 08/03/2020 12:27:00 AM [facility] Two hours after potassium supplement inf usion has beencompleted.Release to patient->ImmediateUnit Collect Name Value Range Interpretation Code Description Data Danuta rce(s) Supporting Document(s) POTASSIUM, WHOLE BLOOD 3.2-4.7 Normal (applies to non-n umeric results) [facility] ID Date Data Source [id number] 08/03/2020 12:33:00 AM [facility] For anticoagulation patientsUnit Collect Name Value Range Interpretation Code Description Data Danuta rce(s) Supporting Document(s) WBC 4.0-11.0 Above high normal [facility] RBC 4.40-6.20 Below low normal [facility] HGB 13.0-18.0 Below low normal [facility] HCT 40-52 Below low normal [facility] MCV 80-100 Normal (applies to non-numeric resul ts) [facility] MCH 26.0-34.0 Normal (applies to non-numeric resul ts) [facility] MCHC 32.0-37.5 Normal (applies to non-numeric resul ts) [facility] RDW 0.0-15.2 Above high normal [facility] PLATELET COUNT 150-450 Below low [facility] Date Data Source [id number] 08/02/2020 08:41:00 PM EST [facility] Name Value Range Interpretation Code Description Data Danuta rce(s) Supporting Document(s) GLUCOSE,METER 65-100 Normal (applies to non-numeric re sults) [facility] ID Date Data Source [id number] 08/02/2020 07:43:00 PM EST [facility] Two hours after magnesium supplement inf usion has beencompletedRelease to patient->ImmediateUnit Collect Name Value Range Interpretation Code Description Data Danuta rce(s) Supporting Document(s) MAGNESIUM 1.5-2.4 Normal (applies to non-numeric resul ts) [facility] ID Date Data Source [id number] 08/02/2020 05:05:00 PM EST [facility] 30 minutes after any ventilator change e xcept after PEEPincrease for bleeding.Unit Collect Name Value Range Interpretation Code Description Data Danuta rce(s) Supporting Document(s) FIO2 1L [facility] ealth DELIVERY MODE [facility] PH 7.36-7.45 Above high normal [facility] PCO2 35-45 Below low normal [facility] PO2 80-100 Below low normal [facility] BICARBONATE 21-28 Normal (applies to non-numeric resu lts) [facility] BASE EXCESS -2.0-3.0 Normal (applies to non-numeric resu lts) [facility] The base excess calculation assumes a he moglobinconcentration of 15.0 g/dL. When hemoglobin concentrationssignificantly vary from 15.0 g/dL, the base excesscalculation may be erroneous. O2 SAT.(calc) 95-99 Normal (applies to non-numeric re sults) [facility] ID Date Data Source [id number] 08/02/2020 04:24:00 PM [facility] Name Value Range Interpretation Code Description Data Danuta rce(s) Supporting Document(s) GLUCOSE,METER 65-100 Above high normal [facility] ID Date Data Source [id number] 08/02/2020 03:12:00 PM EST [facility] Two hours after potassium supplement inf usion has beencompleted.Release to patient->ImmediateUnit CollectTwo hours after magnesium supplement infusion has beencompletedRelease to patient->ImmediateUnit Collect Name Value Range Interpretation Code Description Data Danuta rce(s) Supporting Document(s) MAGNESIUM 1.5-2.4 Normal (applies to non-numeric resul ts) [facility] ID Date Data Source [id number] 08/02/2020 02:46:00 PM EST [facility] Two hours after potassium supplement inf usion has beencompleted.Release to patient->ImmediateUnit CollectTwo hours after magnesium supplement infusion has beencompletedRelease to patient->ImmediateUnit Collect Name Value Range Interpretation Code Description Data Danuta rce(s) Supporting Document(s) POTASSIUM, WHOLE BLOOD 3.2-4.7 Normal (applies to non-n umeric results) [facility] ID Date Data Source [id number] 08/02/2020 12:18:00 PM [facility] Name Value Range Interpretation Code Description Data Danuta rce(s) Supporting Document(s) GLUCOSE,METER 65-100 Above high normal [facility] ID Date Data Source [id number] 08/02/2020 11:08:00 AM [facility] Name Value Range Interpretation Code Description Data Danuta rce(s) Supporting Document(s) GLUCOSE,METER 65-100 Normal (applies to non-numeric re sults) [facility] ID Date Data Source [id number] 08/02/2020 10:13:00 AM [facility] Name Value Range Interpretation Code Description Data Danuta rce(s) Supporting Document(s) GLUCOSE,METER 65-100 Normal (applies to non-numeric re sults) [facility] ID Date Data Source [id number] 08/02/2020 09:06:00 AM [facility] Name Value Range Interpretation Code Description Data Danuta rce(s) Supporting Document(s) GLUCOSE,METER 65-100 Above high normal [facility] ID Date Data Source [id number] 08/02/2020 08:51:00 AM [facility] Name Value Range Interpretation Code Description Data Danuta rce(s) Supporting Document(s) GLUCOSE,METER 65-100 Above high normal [facility] ID Date Data Source [id number] 08/02/2020 08:28:38 AM [facility] PATIENT INFORMATIONPatient MRN Name Date of [id number] Montana Waller 1945 75 y.o. Weight Gender PT Class 78 kg M InpatientPT Location Admission Date/Time Visit ID Attending ProviderCTIC-03 07/31/20 1031 --- Nano Iverson MD([id number]) EPI ID CSN Admitting Provider [id number] Nano Iverson MD([id number])Surgeon:DATE OF SERVICE: 08/01/2020SURGEON: Nano Iverson M.D.TELESCOPE MAINTENANCE: JOAQUINA Glass and Jagdeep Fink N.P.PREOPERATIVE DIAGNOSES:1. Ischemic cardiomyopathy with LVEF of about 30%.2. Acute on chronic congestive heart failure secondary to #1. 3. Ischemicheart disease.4. History of myocardial infarction.5. Atrial fibrillation, chronic.6. Peripheral vascular disease.POSTOPERATIVE DIAGNOSES:1. Ischemic cardiomyopathy with LVEF of about 30%.2. Acute on chronic congestive heart failure secondary to #1. 3. Ischemicheart disease.4. History of myocardial infarction.5. Atrial fibrillation, chronic6. Peripheral vascular disease.PROCEDURE PERFORMED:1. Coronary bypass grafting surgery x3, left internal mammary artery to leftanterior descending artery, saphenous vein graft to the diagonal and saphenousvein graft to the posterior descending artery. 2. Pulmonary vein isolationwith radiofrequency catheter and obliteration of the left atrial appendage withepicardial TigerPaw device.BRIEF HISTORY: The patient is a very pleasant 75-year-old gentleman patienthaving acute on chronic congestive heart failure. The patient was referred too advanced heart failure clinic. Upon evaluation, patient was found to haveischemic heart disease. Upon review of the patient's coronary angiogram, thepatient is seen to have significant disease involving large proximal leftanterior descending artery. The patient also had a totally occluded rightcoronary artery. Given the coronary anatomy, the patient was recommended toundergo surgical correction. Risks and benefits were discussed and his informedconsent was obtained.OPERATIVE FINDINGS: The patient's left internal mammary artery was procured aspedicle. He had good pulse and flow. Left anterior descending artery wasidentified at the distal third. The vessel measured about 1.75 mm in diameter.The beveled end of internal mammary artery was anastomosed to this. We wereable to identify diagonal branch and the vessel measured about 1.25 mm indiameter. Beveled end of saphenous vein graft was anastomosed to this. Thepatient's posterior descending artery was identified. The vessel measured about1.25 mm in diameter. Beveled end of saphenous vein graft was anastomosed tothis and 2 proximal anastomoses were constructed to the ascending aorta.Patient's obtuse marginal branch was heavily calcified and was leading intosmall branch vessels, therefore it was left alone.Pulmonary veins were bluntly dissected and we were able to apply radiofrequencycatheter to isolate pulmonary veins. Left atrial appendage was identified andmeasured and we placed a 40 mm TigerPaw epicardial left atrial appendageocclusion device. The patient was able to be weaned off cardiopulmonary bypass.OPERATIVE PROCEDURE: Under satisfactory endotracheal tube general anesthetic,the patient was prepped and draped in the usual fashion. Vein was procured fromthe patient's right leg using endoscopic vein harvesting tools and vein wasacceptable.Median sternotomy incision was made and the patient's left internal mammary wasprocured as pedicle. Pericardium was incised. Patient's ascending aorta andright atrium were cannulated and cardiopulmonary bypass was initiated. Targetvessels were identified. Ascending aorta was crossclamped and antegradecardioplegia was delivered. We were able to arrest the heart well.Patient had the infarct involving the right coronary artery territory. Thepatient had some patchy areas of myocardium interspersed with scar tissue. Weproceeded with 3 bypass grafts as mentioned above. We also isolate pulmonaryveins with a radiofrequency catheter and applied left atrial appendage occlusiondevice. The aortic crossclamp was released. Myocardium was restored toorganized rhythm. The patient was still in atrial fibrillation with junctionalrate of about 70 to 80. We were able to wean the patient off cardiopulmonarybypass well. Protamine was given and cannulas were removed. Left pleural spaceand mediastinum were drained with chest tubes. Sternum was approximatedtogether with sternal wires and soft tissues were closed. Given his very [place] quality, skin was stapled. Name Value Range Interpretation Code Description Data Danuta rce(s) Supporting Document(s) ID Date Data Source [id number] 08/02/2020 08:31:00 AM EST [facility] For anticoagulation patientsUnit Collect Name Value Range Interpretation Code Description Data Danuta rce(s) Supporting Document(s) WBC 4.0-11.0 Above high normal [facility] RBC 4.40-6.20 Below low normal [facility] HGB 13.0-18.0 Below low normal [facility] HCT 40-52 Below low normal [facility] MCV 80-100 Normal (applies to non-numeric resul ts) [facility] MCH 26.0-34.0 Normal (applies to non-numeric resul ts) [facility] MCHC 32.0-37.5 Normal (applies to non-numeric resul ts) [facility] RDW 0.0-15.2 Above high normal [facility] PLATELET COUNT 150-450 Below low normal [facility] ID Date Data Source [id number] 08/02/2020 08:06:00 AM [facility] Name Value Range Interpretation Code Description Data Danuta rce(s) Supporting Document(s) GLUCOSE,METER 65-100 Above high normal [facility] ID Date Data Source [id number] 08/02/2020 08:29:41 AM [facility] Indication: Pulmonary Congestion. Andrew rison: Chest radiograph from 08/01/2020.Technique: Single frontal portable chest radiograph is obtained.Findings: There is a right internal jugular line with tip at the cavoatrial junction. There is a right [place] catheter with tip at the right main pulmonary outflow tract. Endotracheal tube has been removed. Multiple mediastinal drains are unchanged.The lungs are less well-expanded when compared to the prior exam. There is mild diffuse interstitial opacity which appears slightly progressed suggestive of mild edema. There are trace bilateral pleural effusions with adjacent airspace disease, likelynot significantly changed.The cardiomediastinal silhouette is stable. There are sequela of median sternotomy with multiple intact sternal wires and surgical dian again seen in placeThere is no acute osseous abnormality.Impression: 1. Less well-expanded lungs with compared to the prior exam.2. Mild diffuse bilateral interstitial opacity, slightly progressed and suggestive of mild edema.3. Trace bilateral pleural effusions with adjacent airspace disease, likely not significantly changed.Signed by Attending: Radha Smith MD on 08/02/2020 8:29 AM Name Value Range Interpretation Code Description Data Danuta rce(s) Supporting Document(s) ID Date Data Source [id number] 08/02/2020 06:56:00 AM [facility] Name Value Range Interpretation Code Description Data Danuta rce(s) Supporting Document(s) GLUCOSE,METER 65-100 Above high normal [facility] ID Date Data Source [id number] 08/02/2020 06:39:00 AM [facility] Name Value Range Interpretation Code Description Data Danuta rce(s) Supporting Document(s) GLUCOSE,METER 65-100 Above high normal [facility] ID Date Data Source [id number] 08/02/2020 04:13:00 AM EST [facility] Release to patient->ImmediateUnit [facility] Name Value Range Interpretation Code Description Data Danuta rce(s) Supporting Document(s) HCT 40-52 Below low normal [facility] ID Date Data Source [id number] 08/02/2020 05:05:00 AM [facility] Name Value Range Interpretation Code Description Data Danuta rce(s) Supporting Document(s) GLUCOSE,METER 65-100 Normal (applies to non-[facility] re [facility]) [facility] ID Date Data Source [id number] 08/02/2020 03:34:00 AM EST [facility] Release to patient->ImmediateUnit [facility] Name Value Range Interpretation Code Description Data Danuta rce(s) Supporting Document(s) O2 SAT., CARLOS MX, SVO2 70-80 Below low normal [facility] ID Date Data Source [id number] 08/02/2020 02:21:00 AM EST [facility] Release to patient->ImmediateUnit [facility] Name Value Range Interpretation Code Description Data Dantua rce(s) Supporting Document(s) O2 SAT., CARLOS MX, SVO2 70-80 Above high normal [facility] ID Date Data Source [id number] 08/02/2020 02:17:00 AM [facility] Name Value Range Interpretation Code Description Data Danuta rce(s) Supporting Document(s) GLUCOSE,METER 65-100 Above high [facility] Date Data Source [id number] 08/02/2020 12:25:00 AM [facility] Name Value Range Interpretation Code Description Data Danuta rce(s) Supporting Document(s) GLUCOSE,METER 65-100 Above high normal [facility] ID Date Data Source [id number] 08/02/2020 12:43:00 AM [facility] 30 minutes after any ventilator change e xcept after PEEPincrease for bleeding.Unit CollectTwo hours after potassium supplement infusion has beencompleted.Release to patient->ImmediateUnit Collect Name Value Range Interpretation Code Description Data Danuta rce(s) Supporting Document(s) FIO2 NOT SPECIFIED [facility] DELIVERY MODE NOT SPECIFIED [facility] PH 7.36-7.45 Normal (applies to non-numeric resul ts) [facility] PCO2 35-45 Normal (applies to non-numeric resul ts) [facility] PO2 80-100 Normal (applies to non-numeric resul ts) [facility] BICARBONATE 21-28 Normal (applies to non-numeric resu lts) [facility] BASE EXCESS -2.0-3.0 Normal (applies to non-numeric resu lts) [facility] The base excess calculation assumes a he moglobinconcentration of 15.0 g/dL. When hemoglobin concentrationssignificantly vary from 15.0 g/dL, the base excesscalculation may be erroneous. O2 SAT.(calc) 95-99 Normal (applies to non-numeric re sults) [facility] ID Date Data Source [id number] 08/02/2020 12:43:00 AM EST [facility] 30 minutes after any ventilator change e xcept after PEEPincrease for bleeding.Unit CollectTwo hours after potassium supplement infusion has beencompleted.Release to patient->ImmediateUnit Collect Name Value Range Interpretation Code Description Data Danuta rce(s) Supporting Document(s) POTASSIUM, WHOLE BLOOD 3.2-4.7 Normal (applies to non-n umeric results) [facility] ID Date Data Source [id number] 08/02/2020 01:33:00 AM EST [facility] For anticoagulation patientsUnit Collect Name Value Range Interpretation Code Description Data Danuta rce(s) Supporting Document(s) SODIUM 135-145 Normal (applies to non-numeric resul ts) [facility] POTASSIUM 3.5-5.1 Normal (applies to non-numeric resul ts) [facility] CHLORIDE 98-108 Normal (applies to non-numeric resul ts) [facility] CO2 22-30 Normal (applies to non-numeric results) [facility] ANION GAP 4-16 Normal (applies to non-numeric resul ts) [facility] BUN 8-20 Normal (applies to non-numeric results) [facility] CREATININE 0.7-1.2 Below low normal [facility] GLUCOSE 65-100 Above high normal [facility] CALCIUM 8.5-10.2 Below low normal [facility] ID Date Data Source [id number] 08/02/2020 01:33:00 AM EST [facility] For anticoagulation patientsUnit Collect Name Value Range Interpretation Code Description Data Danuta rce(s) Supporting Document(s) MAGNESIUM 1.5-2.4 Normal (applies to non-numeric resul ts) [facility] ID Date Data Source [id number] 08/02/2020 01:33:00 AM EST [facility] For anticoagulation patientsUnit Collect Name Value Range Interpretation Code Description Data Danuta rce(s) Supporting Document(s) eGFR [facility] ID Date Data Source [id number] 08/02/2020 01:33:00 AM EST [facility] For anticoagulation patientsUnit Collect Name Value Range Interpretation Code Description Data Danuta rce(s) Supporting Document(s) eGFR BLACK [facility] For both eGFR and eGFR BLACK, the accuracy of theeGFR calculation is contingent on a stable level of serumcreatinine. The eGFR calculation is based on an IDMS-Traceablecreatinine assay and is normalized to 1.73 "meters squared"body surface area. An eGFR less than 60 may alter clinicalmanagement decisions. An eGFR greater than or equal to 60 doesnot exclude kidney disease. ID Date Data Source [id number] 08/02/2020 01:11:00 AM [facility] For anticoagulation patientsUnit Collect Name Value Range Interpretation Code Description Data Danuta rce(s) Supporting Document(s) WBC 4.0-11.0 Above high normal [facility] RBC 4.40-6.20 Below low normal [facility] HGB 13.0-18.0 Below low normal [facility] HCT 40-52 Below low normal [facility] MCV 80-100 Normal (applies to non-numeric resul ts) [facility] MCH 26.0-34.0 Normal (applies to non-numeric resul ts) [facility] MCHC 32.0-37.5 Normal (applies to non-numeric resul ts) [facility] RDW 0.0-15.2 Above high normal [facility] PLATELET COUNT 150-450 Below low normal [facility] ID Date Data Source [id number] 08/02/2020 12:37:00 AM EST [facility] For anticoagulation patientsUnit Collect Name Value Range Interpretation Code Description Data Danuta rce(s) Supporting Document(s) PROTIME 10.2-12.9 Above high normal [facility] INR 0.9-1.1 Above high normal [facility] [Therapeutic Range 2 .0-3.0]The INR should be used to monitor patients on long termWarfarin. Selected patients may require higher levels ofanticoagulation.The PT/INR should not be used to monitor the coagulationstatus of patients taking Pradaxa, Eliquis, Xarelto or Savaysa. ID Date Data Source [id number] 08/01/2020 10:16:00 PM [facility] Name Value Range Interpretation Code Description Data Danuta rce(s) Supporting Document(s) GLUCOSE,METER 65-100 Above high normal [facility] ID Date Data Source [id number] 08/01/2020 09:02:00 PM [facility] Name Value Range Interpretation Code Description Data Danuta rce(s) Supporting Document(s) GLUCOSE,METER 65-100 Above high normal [facility] ID Date Data Source [id number] 08/01/2020 08:14:00 PM [facility] 30 minutes after extubationUnit Collect Name Value Range Interpretation Code Description Data Danuta rce(s) Supporting Document(s) FIO2 4L [facility] ealth DELIVERY MODE Canceled [facility] PH 7.36-7.45 Normal (applies to non-numeric resul ts) [facility] PCO2 35-45 Normal (applies to non-numeric resul ts) [facility] PO2 80-100 Above high normal [facility] BICARBONATE 21-28 Normal (applies to non-numeric resu lts) [facility] BASE EXCESS -2.0-3.0 Normal (applies to non-numeric resu lts) [facility] The base excess calculation assumes a he moglobinconcentration of 15.0 g/dL. When hemoglobin concentrationssignificantly vary from 15.0 g/dL, the base excesscalculation may be erroneous. O2 SAT.(calc) 95-99 Normal (applies to non-numeric re sults) [facility] ID Date Data Source [id number] 08/01/2020 08:14:00 PM [facility] 30 minutes after extubationUnit Collect Name Value Range Interpretation Code Description Data Danuta rce(s) Supporting Document(s) POTASSIUM, WHOLE BLOOD 3.2-4.7 Normal (applies to non-n umeric results) [facility] ID Date Data Source [id number] 08/01/2020 08:40:00 PM EST [facility] Two hours after magnesium supplement inf usion has beencompletedRelease to patient->ImmediateUnit Collect Name Value Range Interpretation Code Description Data Danuta rce(s) Supporting Document(s) MAGNESIUM 1.5-2.4 Normal (applies to non-numeric resul ts) [facility] ID Date Data Source [id number] 08/01/2020 08:31:00 PM EST [facility] Two hours after magnesium supplement inf usion has beencompletedRelease to patient->ImmediateUnit Collect Name Value Range Interpretation Code Description Data Danuta rce(s) Supporting Document(s) WBC 4.0-11.0 Above high normal [facility] RBC 4.40-6.20 Below low normal [facility] HGB 13.0-18.0 Below low normal [facility] HCT 40-52 Below low normal [facility] MCV 80-100 Normal (applies to non-numeric resul ts) [facility] MCH 26.0-34.0 Normal (applies to non-numeric resul ts) [facility] MCHC 32.0-37.5 Normal (applies to non-numeric resul ts) [facility] RDW 0.0-15.2 Above high normal [facility] PLATELET COUNT 150-450 Below low normal [facility] Date Data Source [id number] 08/01/2020 06:23:00 PM EST [facility] On admissionUnit Collect Name Value Range Interpretation Code Description Data Danuta rce(s) Supporting Document(s) FIO2 NOT SPECIFIED [facility] DELIVERY MODE NOT SPECIFIED [facility] PH 7.36-7.45 Normal (applies to non-numeric resul ts) [facility] PCO2 35-45 Normal (applies to non-numeric resul ts) [facility] PO2 80-100 Above high normal [facility] BICARBONATE 21-28 Normal (applies to non-numeric resu lts) [facility] BASE EXCESS -2.0-3.0 Normal (applies to non-numeric resu lts) [facility] The base excess calculation assumes a he moglobinconcentration of 15.0 g/dL. When hemoglobin concentrationssignificantly vary from 15.0 g/dL, the base excesscalculation may be erroneous. O2 SAT.(calc) 95-99 Normal (applies to non-numeric re sults) [facility] ID Date Data Source [id number] 08/01/2020 05:41:00 PM [facility] Name Value Range Interpretation Code Description Data Danuta rce(s) Supporting Document(s) GLUCOSE,METER 65-100 Above high normal [facility] ID Date Data Source [id number] 08/01/2020 04:19:00 PM [facility] Name Value Range Interpretation Code Description Data Danuta rce(s) Supporting Document(s) GLUCOSE,METER 65-100 Above high normal [facility] ID Date Data Source [id number] 08/01/2020 04:39:00 PM [facility] Two hours after potassium supplement inf usion has beencompleted.Release to patient->ImmediateUnit Collect1 hour after packed red blood cell transfusionRelease to patient->ImmediateUnit [id number] minutes after any ventilator change except after PEEPincrease for bleeding.Unit Collect Name Value Range Interpretation Code Description Data Danuta rce(s) Supporting Document(s) HCT 40-52 Below low normal [facility] ID Date Data Source [id number] 08/01/2020 04:26:00 PM [facility] Two hours after potassium supplement inf usion has beencompleted.Release to patient->ImmediateUnit Collect1 hour after packed red blood cell transfusionRelease to patient->ImmediateUnit [id number] minutes after any ventilator change except after PEEPincrease for bleeding.Unit Collect Name Value Range Interpretation Code Description Data Dnauta rce(s) Supporting Document(s) POTASSIUM, WHOLE BLOOD 3.2-4.7 Normal (applies to non-n umeric results) [facility] ID Date Data Source [id number] 08/01/2020 04:26:00 PM [facility] Two hours after potassium supplement inf usion has beencompleted.Release to patient->ImmediateUnit Collect1 hour after packed red blood cell transfusionRelease to patient->ImmediateUnit Sqfslxc42 minutes after any ventilator change except after PEEPincrease for bleeding.Unit Collect Name Value Range Interpretation Code Description Data Danuta rce(s) Supporting Document(s) FIO2 NOT SPECIFIED [facility] DELIVERY MODE NOT SPECIFIED [facility] PH 7.36-7.45 Normal (applies to non-numeric resul ts) [facility] PCO2 35-45 Normal (applies to non-numeric resul ts) [facility] PO2 80-100 Above high normal [facility] BICARBONATE 21-28 Normal (applies to non-numeric resu lts) [facility] BASE EXCESS -2.0-3.0 Normal (applies to non-numeric resu lts) [facility] The base excess calculation assumes a he moglobinconcentration of 15.0 g/dL. When hemoglobin concentrationssignificantly vary from 15.0 g/dL, the base excesscalculation may be erroneous. O2 SAT.(calc) 95-99 Normal (applies to non-numeric re sults) [facility] ID Date Data Source [id number] 08/01/2020 02:26:00 PM EST [facility] Name Value Range Interpretation Code Description Data Danuta rce(s) Supporting Document(s) GLUCOSE,METER 65-100 Normal (applies to non-numeric [facility] ID Date Data Source [id number] 08/01/2020 02:00:00 PM [facility] You must also place a Nursing Order to T [facility].Reason for Transfusion->50- 100K Active BleedingUnit Collect Name Value Range Interpretation Code Description Data Danuta rce(s) Supporting Document(s) SINGLE DONOR PLATELETS BLOOD BANK Normal (applies to non-n umeric results) [facility] ID Date Data Source [id number] 08/02/2020 07:04:00 AM [facility] You must also place a Nursing Order to T [facility].Reason for Transfusion->50- 100K Active BleedingUnit Collect Name Value Range Interpretation Code Description Data Danuta rce(s) Supporting Document(s) BLOOD BANK SEE BELOW Normal (applies to non-numeric resul ts) [facility] Product: SDP PASC LR-2, Status: Transfus ed, Unit: [id number], Type: B Pos,Code: [id number].Product: SDP PASC LR-3, Status: Transfused, Unit: [id number], Type: O Pos,Code: [id number]. ID Date Data Source [id number] 08/01/2020 01:30:00 PM [facility] Release to patient->ImmediateUnit Colle t Name Value Range Interpretation Code Description Data Danuta rce(s) Supporting Document(s) HCT 40-52 Below low normal [facility] ID Date Data Source [id number] 08/01/2020 12:36:00 PM [facility] 30 minutes after any ventilator change e xcept after PEEPincrease for bleeding.Unit Collect Name Value Range Interpretation Code Description Data Danuta rce(s) Supporting Document(s) FIO2 40% [facility]alt DELIVERY MODE VENT [facility] PH 7.36-7.45 Normal (applies to non-numeric resul ts) [facility] PCO2 35-45 Normal (applies to non-numeric resul ts) [facility] PO2 80-100 Above high normal [facility] BICARBONATE 21-28 Normal (applies to non-numeric resu lts) [facility] BASE EXCESS -2.0-3.0 Below low normal [facility] The base excess calculation assumes a he moglobinconcentration of 15.0 g/dL. When hemoglobin concentrationssignificantly vary from 15.0 g/dL, the base excesscalculation may be erroneous. O2 SAT.(calc) 95-99 Normal (applies to non-numeric re sults) [facility] ART/ALVEO RATIO [facility] ID Date Data Source [id number] 08/01/2020 01:03:00 PM EST [facility] Name Value Range Interpretation Code Description Data Danuta rce(s) Supporting Document(s) GLUCOSE,METER 65-100 Normal (applies to non-numeric re sults) [facility] ID Date Data Source [id number] 08/01/2020 11:53:07 AM [facility] On admissionIndication: Line/tube place ment. ET tube. Comparison: 07/31/2020Technique: Single frontal portable chest radiograph is obtained.Findings: Endotracheal tube is noted just below the level of the clavicular head 6.1 cm above the mauro. There is a right-sided central venous catheter with tip in the SVC. There is a right-sided pulmonary arterial catheter with tip projecting in theregion of the right hilum. There are midline surgical drains. Sternotomy wires are midline. Overlying cutaneous dina are noted. There is a left atrial appendage clip. There is a left-sided chest tube, which p rojects in the lateral left midlung zone.There is a catheter, which projects in the region of the right axillary vasculature. There is no unexpected radiopaque foreign body.There are minimal interstitial opacities. There is bibasilar atelectasis. There is a small left pleural effusion. There is no pneumothorax. There is suspected postoperative appearance of the mediastinal silhouette. Cardiac silhouette is stable. Osseousstructures are stable.Impression: 1. No pneumothorax.2. Lines and tubes as above.3. Minimal pulmonary edema. Bibasilar atelectasis. Small left pleural effusion.Corrected by: Mckayla Duncan on 08/01/2020 11:23 AMSigned by Attending: Basil Cagle MD on 08/01/2020 11:53 AM Name Value Range Interpretation Code Description Data Danuta rce(s) Supporting Document(s) ID Date Data Source [id number] 08/01/2020 01:03:00 PM [facility] Name Value Range Interpretation Code Description Data Danuta rce(s) Supporting Document(s) GLUCOSE,METER 65-100 Normal (applies to non-[facility]) [facility] ID Date Data Source [id number] 08/01/2020 11:33:00 AM [facility] Release to patient->ImmediateUnit [facility] Name Value Range Interpretation Code Description Data Danuta rce(s) Supporting Document(s) APTT 25.1-36.5 Above high normal [facility] Dosage guidelines for full dose heparin are available on theContinuous Intravenous Heparin Anticoagulation Patient CareOrder Form.The aPTT should not be used to monitor the coagulation statusof patients taking Pradaxa, Eliquis, Xarelto or Savaysa. ID Date Data Source [id number] 08/01/2020 11:44:00 AM [facility] After 30 minutes on CPAPUnit CollectOn a dmissionRelease to patient- >ImmediateUnit CollectObtain 6 hours post-opRelease to patient->ImmediateUnit CollectUpon admissionRelease to patient->ImmediateUnit Collect Name Value Range Interpretation Code Description Data Danuta rce(s) Supporting Document(s) MAGNESIUM 1.5-2.4 Normal (applies to non-numeric resul ts) [facility] ID Date Data Source [id number] 08/01/2020 11:44:00 AM EST [facility] After 30 minutes on CPAPUnit CollectOn a dmissionRelease to patient- >ImmediateUnit CollectObtain 6 hours post-opRelease to patient->ImmediateUnit CollectUpon admissionRelease to patient->ImmediateUnit Collect Name Value Range Interpretation Code Description Data Danuta rce(s) Supporting Document(s) GLUCOSE 65-100 Normal (applies to non-numeric resul ts) [facility] SODIUM 135-145 Normal (applies to non-numeric resul ts) [facility] POTASSIUM 3.5-5.1 Normal (applies to non-numeric resul ts) [facility] Slightly Hemolyzed Specimen CHLORIDE 98-108 Above high normal [facility] CO2 22-30 Normal (applies to non-numeric results) [facility] ANION GAP 4-16 Normal (applies to non-numeric resul ts) [facility] BUN 8-20 Normal (applies to non-numeric results) [facility] CREATININE 0.7-1.2 Normal (applies to non-numeric resul ts) [facility] CALCIUM 8.5-10.2 Normal (applies to non-numeric resul ts) [facility] ID Date Data Source [id number] 08/01/2020 11:44:00 AM EST [facility] After 30 minutes on CPAPUnit CollectOn a dmissionRelease to patient- >ImmediateUnit CollectObtain 6 hours post-opRelease to patient->ImmediateUnit CollectUpon admissionRelease to patient->ImmediateUnit Collect Name Value Range Interpretation Code Description Data Danuta rce(s) Supporting Document(s) LDL DIRECT 30-100 Normal (applies to non-numeric resul ts) [facility] ID Date Data Source [id number] 08/01/2020 11:44:00 AM EST [facility] After 30 minutes on CPAPUnit CollectOn a dmissionRelease to patient- >ImmediateUnit CollectObtain 6 hours post-opRelease to patient->ImmediateUnit CollectUpon admissionRelease to patient->ImmediateUnit Collect Name Value Range Interpretation Code Description Data Danuta rce(s) Supporting Document(s) eGFR [facility] ID Date Data Source [id number] 08/01/2020 11:44:00 AM [facility] After 30 minutes on CPAPUnit CollectOn a dmissionRelease to patient- >ImmediateUnit CollectObtain 6 hours post-opRelease to patient->ImmediateUnit CollectUpon admissionRelease to patient->ImmediateUnit Collect Name Value Range Interpretation Code Description Data Danuta rce(s) Supporting Document(s) eGFR BLACK [facility] For both eGFR and eGFR BLACK, the accuracy of theeGFR calculation is contingent on a stable level of serumcreatinine. The eGFR calculation is based on an IDMS-Traceablecreatinine assay and is normalized to 1.73 "meters squared"body surface area. An eGFR less than 60 may alter clinicalmanagement decisions. An eGFR greater than or equal to 60 doesnot exclude kidney disease. ID Date Data Source [id number] 08/01/2020 11:28:00 AM [facility] Release to patient->ImmediateUnit Collec t Name Value Range Interpretation Code Description Data Danuta rce(s) Supporting Document(s) PROTIME 10.2-12.9 Above high normal [facility] INR 0.9-1.1 Above high normal [facility] [Therapeutic Range 2 .0-3.0]The INR should be used to monitor patients on long termWarfarin. Selected patients may require higher levels ofanticoagulation.The PT/INR should not be used to monitor the coagulationstatus of patients taking Pradaxa, Eliquis, Xarelto or Savaysa. ID Date Data Source [id number] 08/01/2020 11:20:00 AM [facility] After 30 minutes on CPAPUnit CollectOn a dmissionRelease to patient- >ImmediateUnit CollectObtain 6 hours post-opRelease to patient->ImmediateUnit CollectUpon admissionRelease to patient->ImmediateUnit Collect Name Value Range Interpretation Code Description Data Danuta rce(s) Supporting Document(s) WBC 4.0-11.0 Above high normal [facility] RBC 4.40-6.20 Normal (applies to non-numeric resul ts) [facility] HGB 13.0-18.0 Normal (applies to non-numeric resul ts) [facility] HCT 40-52 Normal (applies to non-numeric results) [facility] MCV 80-100 Normal (applies to non-numeric resul ts) [facility] MCH 26.0-34.0 Normal (applies to non-numeric resul ts) [facility] MCHC 32.0-37.5 Normal (applies to non-numeric resul ts) [facility] RDW 0.0-15.2 Above high normal [facility] PLATELET COUNT 150-450 Below low normal [facility] ID Date Data Source [id number] 08/01/2020 11:11:00 AM EST [facility] After 30 minutes on CPAPUnit CollectOn a dmissionRelease to patient- >ImmediateUnit CollectObtain 6 hours post-opRelease to patient->ImmediateUnit CollectUpon admissionRelease to patient->ImmediateUnit Collect Name Value Range Interpretation Code Description Data Danuta rce(s) Supporting Document(s) POTASSIUM, WHOLE BLOOD 3.2-4.7 Normal (applies to non-n umeric results) [facility] ID Date Data Source [id number] 08/01/2020 11:11:00 AM EST [facility] After 30 minutes on CPAPUnit CollectOn a dmissionRelease to patient- >ImmediateUnit CollectObtain 6 hours post-opRelease to patient->ImmediateUnit CollectUpon admissionRelease to patient->ImmediateUnit Collect Name Value Range Interpretation Code Description Data Danuta rce(s) Supporting Document(s) FIO2 [facility] ealth DELIVERY MODE PRVC [facility] PH 7.36-7.45 Normal (applies to non-numeric resul ts) [facility] PCO2 35-45 Normal (applies to non-numeric resul ts) [facility] PO2 80-100 Above high normal [facility] BICARBONATE 21-28 Normal (applies to non-numeric resu lts) [facility] BASE EXCESS -2.0-3.0 Normal (applies to non-numeric resu lts) [facility] The base excess calculation assumes a he moglobinconcentration of 15.0 g/dL. When hemoglobin concentrationssignificantly vary from 15.0 g/dL, the base excesscalculation may be erroneous. O2 SAT.(calc) 95-99 Normal (applies to non-numeric re sults) [facility] ART/ALVEO RATIO [facility] ID Date Data Source [id number] 08/01/2020 10:14:00 AM [facility] Name Value Range Interpretation Code Description Data Danuta rce(s) Supporting Document(s) HPT Hep Conc [facility] R PERF HPT Pt Prot [facility] ACT Avg [facility] R PERFHR-ACT (POC) Normal/Therapeutic Re ference Ranges: Cardiac Air Chipper...........................200-300 secs OR Vascular................................200-400 secs OR Pump.................. ...............> or = 400 secs OR Insertion of Impella....................200- 300 secs Interventional Radiology...................200-300 secs Impella Management.........................160-180 secs Sheath Stevan bobby..............................70-170 secs OR Baseline/No OR Therapeutic Heparin On Board.......................................80-180 secs ID Date Data Source [id number] 08/01/2020 10:11:00 AM EST [facility] Name Value Range Interpretation Code Description Data Danuta rce(s) Supporting Document(s) PH -POC 7.36-7.45 Normal (applies to non-numeric resul ts) [facility] PCO2 -POC 35-45 Below low normal [facility] PO2 -POC 80-100 Above high normal [facility] BICARBONATE -POC 21-28 Normal (applies to non-numeric results) [facility] BASE EXCESS -POC -2.0-3.0 Normal (applies to non-numeric results) [facility] OXYHEMOGLOBIN -POC 95.0-99.0 Above high normal [facility] CARBOXYHGB -POC 0.5-1.5 Below low normal [facility] METHEMOGLOBIN, -POC 0.4-1.2 Below low normal [facility] HEMATOCRIT -POC 40-52 Below low normal [facility] HEMOGLOBIN -POC 13.0-18.0 Below low normal [facility] SODIUM, WB -POC 135-145 Normal (applies to non-numeric results) [facility] POTASSIUM, WB -POC 3.2-4.7 Normal (applies to non-numer ic results) [facility] CALCIUM, IONIZED -POC 4.5-5.3 Normal (applies to non-nu meric results) [facility] CHLORIDE, WB -POC 98-108 Normal (applies to non-numeri c results) [facility] GLUCOSE, WB -POC 65-100 Above high normal [facility] LACTATE -POC 0.5-2.2 Above high normal [facility] ID Date Data Source [id number] 08/01/2020 10:01:00 AM EST [facility] Name Value Range Interpretation Code Description Data Danuta rce(s) Supporting Document(s) PH -POC 7.36-7.45 Above high normal [facility] PCO2 -POC 35-45 Below low normal [facility] PO2 -POC 80-100 Above high normal [facility] BICARBONATE -POC 21-28 Normal (applies to non-numeric results) [facility] BASE EXCESS -POC -2.0-3.0 Normal (applies to non-numeric results) [facility] OXYHEMOGLOBIN -POC 95.0-99.0 Normal (applies to non-numer ic results) [facility] CARBOXYHGB -POC 0.5-1.5 Below low normal [facility] METHEMOGLOBIN, -POC 0.4-1.2 Below low normal [facility] HEMATOCRIT -POC 40-52 Below low normal [facility] HEMOGLOBIN -POC 13.0-18.0 Below low normal [facility] SODIUM, WB -POC 135-145 Normal (applies to non-numeric results) [facility] POTASSIUM, WB -POC 3.2-4.7 Normal (applies to non-numer ic results) [facility] CALCIUM, IONIZED -POC 4.5-5.3 Normal (applies to non-nu meric results) [facility] CHLORIDE, WB -POC 98-108 Normal (applies to non-numeri c results) [facility] GLUCOSE, WB -POC 65-100 Above high normal [facility] LACTATE -POC 0.5-2.2 Above high normal [facility] ID Date Data Source [id number] 08/01/2020 09:39:00 AM EST [facility] Name Value Range Interpretation Code Description Data Danuta rce(s) Supporting Document(s) PH -POC 7.36-7.45 Normal (applies to non-numeric resul ts) [facility] PCO2 -POC 35-45 Normal (applies to non-numeric resul ts) [facility] PO2 -POC 80-100 Above high normal [facility] BICARBONATE -POC 21-28 Normal (applies to non-numeric results) [facility] BASE EXCESS -POC -2.0-3.0 Below low normal [facility] OXYHEMOGLOBIN -POC 95.0-99.0 Normal (applies to non-numer ic results) [facility] CARBOXYHGB -POC 0.5-1.5 Below low normal [facility] METHEMOGLOBIN, -POC 0.4-1.2 Below low normal [facility] HEMATOCRIT -POC 40-52 Below low normal [facility] HEMOGLOBIN -POC 13.0-18.0 Below low normal [facility] SODIUM, WB -POC 135-145 Below low normal [facility] POTASSIUM, WB -POC 3.2-4.7 Normal (applies to non-numer ic results) [facility] CALCIUM, IONIZED -POC 4.5-5.3 Below low normal [facility] CHLORIDE, WB -POC 98-108 Normal (applies to non-numeri c results) [facility] GLUCOSE, WB -POC 65-100 Above high normal [facility] LACTATE -POC 0.5-2.2 Above high normal [facility] ID Date Data Source [id number] 08/01/2020 09:36:00 AM [facility] Name Value Range Interpretation Code Description Data Danuta rce(s) Supporting Document(s) ACT Avg [facility] e[facility] R PERFHR-ACT (POC) Normal/Therapeutic Re ference Ranges: Cardiac Air Chipper...........................200-300 secs OR Vascular................................200-400 secs OR Pump.................. ...............> or = 400 secs OR Insertion of Impella....................200- 300 secs Interventional Radiology...................200-300 secs Impella Management.........................160-180 secs Sheath Stevan bobby..............................70-170 secs OR Baseline/No OR Therapeutic Heparin On Board.......................................80-180 secs ID Date Data Source [id number] 08/01/2020 09:24:00 AM EST [facility] Name Value Range Interpretation Code Description Data Danuta rce(s) Supporting Document(s) HPT Hep Conc [facility] R PERFError Hep Conc may be < indicated value HPT Pt Prot [facility] ID Date Data Source [id number] 08/01/2020 09:22:00 AM [facility] Name Value Range Interpretation Code Description Data Danuta rce(s) Supporting Document(s) PH -POC 7.36-7.45 Normal (applies to non-numeric resul ts) [facility] PCO2 -POC 35-45 Normal (applies to non-numeric resul ts) [facility] PO2 -POC 80-100 Above high normal [facility] BICARBONATE -POC 21-28 Normal (applies to non-numeric results) [facility] BASE EXCESS -POC -2.0-3.0 Normal (applies to non-numeric results) [facility] OXYHEMOGLOBIN -POC 95.0-99.0 Normal (applies to non-numer ic results) [facility] CARBOXYHGB -POC 0.5-1.5 Below low normal [facility] METHEMOGLOBIN, -POC 0.4-1.2 Below low normal [facility] HEMATOCRIT -POC 40-52 Below low normal [facility] HEMOGLOBIN -POC 13.0-18.0 Below low normal [facility] SODIUM, WB -POC 135-145 Normal (applies to non-numeric results) [facility] POTASSIUM, WB -POC 3.2-4.7 Normal (applies to non-numer ic results) [facility] CALCIUM, IONIZED -POC 4.5-5.3 Below low normal [facility] CHLORIDE, WB -POC 98-108 Normal (applies to non-numeri c results) [facility] GLUCOSE, WB -POC 65-100 Above high normal [facility] LACTATE -POC 0.5-2.2 Above high normal [facility] ID Date Data Source [id number] 08/01/2020 09:20:00 AM EST [facility] Name Value Range Interpretation Code Description Data Danuta rce(s) Supporting Document(s) ACT Avg [facility] ealth R PERFHR-ACT (POC) Normal/Therapeutic Re ference Ranges: Cardiac Air Chipper...........................200-300 secs OR Vascular................................200-400 secs OR Pump.................. ...............> or = 400 secs OR Insertion of Impella....................200- 300 secs Interventional Radiology...................200-300 secs Impella Management.........................160-180 secs Sheath Stevan bobby..............................70-170 secs OR Baseline/No OR Therapeutic Heparin On Board.......................................80-180 secs ID Date Data Source [id number] 08/01/2020 09:06:00 AM [facility] Name Value Range Interpretation Code Description Data Danuta rce(s) Supporting Document(s) PH -POC 7.36-7.45 Normal (applies to non-numeric resul ts) [facility] PCO2 -POC 35-45 Normal (applies to non-numeric resul ts) [facility] PO2 -POC 80-100 Above high normal [facility] BICARBONATE -POC 21-28 Normal (applies to non-numeric results) [facility] BASE EXCESS -POC -2.0-3.0 Normal (applies to non-numeric results) [facility] OXYHEMOGLOBIN -POC 95.0-99.0 Normal (applies to non-numer ic results) [facility] CARBOXYHGB -POC 0.5-1.5 Below low normal [facility] METHEMOGLOBIN, -POC 0.4-1.2 Below low normal [facility] HEMATOCRIT -POC 40-52 Below low normal [facility] HEMOGLOBIN -POC 13.0-18.0 Below low normal [facility] SODIUM, WB -POC 135-145 Below low normal [facility] POTASSIUM, WB -POC 3.2-4.7 Normal (applies to non-numer ic results) [facility] CALCIUM, IONIZED -POC 4.5-5.3 Below low normal [facility] CHLORIDE, WB -POC 98-108 Normal (applies to non-numeri c results) [facility] GLUCOSE, WB -POC 65-100 Above high normal [facility] LACTATE -POC 0.5-2.2 Above high normal [facility] ID Date Data Source [id number] 08/01/2020 08:51:00 AM EST [facility] Name Value Range Interpretation Code Description Data Danuta rce(s) Supporting Document(s) HR ACT Average [facility] R PERFHR-ACT (POC) Normal/Therapeutic Re ference Ranges: Cardiac Air Chipper...........................200-300 secs OR Vascular................................200-400 secs OR Pump.................. ...............> or = 400 secs OR Insertion of Impella....................200- 300 secs Interventional Radiology...................200-300 secs Impella Management.........................160-180 secs Sheath Stevan bobby..............................70-170 secs OR Baseline/No OR Therapeutic Heparin On Board.......................................80-180 secs ID Date Data Source [id number] 08/01/2020 09:04:00 AM EST [facility] Name Value Range Interpretation Code Description Data Danuta rce(s) Supporting Document(s) ACT Avg [facility] ealth R PERFHR-ACT (POC) Normal/Therapeutic Re ference Ranges: Cardiac Air Chipper...........................200-300 secs OR Vascular................................200-400 secs OR Pump.................. ...............> or = 400 secs OR Insertion of Impella....................200- 300 secs Interventional Radiology...................200-300 secs Impella Management.........................160-180 secs Sheath Stevan bobby..............................70-170 secs OR Baseline/No OR Therapeutic Heparin On Board.......................................80-180 secs ID Date Data Source [id number] 08/01/2020 08:51:00 AM [facility] Name Value Range Interpretation Code Description Data Danuta rce(s) Supporting Document(s) PH -POC 7.36-7.45 Normal (applies to non-numeric resul ts) [facility] PCO2 -POC 35-45 Normal (applies to non-numeric resul ts) [facility] PO2 -POC 80-100 Above high normal [facility] BICARBONATE -POC 21-28 Normal (applies to non-numeric results) [facility] BASE EXCESS -POC -2.0-3.0 Normal (applies to non-numeric results) [facility] OXYHEMOGLOBIN -POC 95.0-99.0 Normal (applies to non-numer ic results) [facility] CARBOXYHGB -POC 0.5-1.5 Below low normal [facility] METHEMOGLOBIN, -POC 0.4-1.2 Below low normal [facility] HEMATOCRIT -POC 40-52 Below low normal [facility] HEMOGLOBIN -POC 13.0-18.0 Below low normal [facility] SODIUM, WB -POC 135-145 Below low normal [facility] POTASSIUM, WB -POC 3.2-4.7 Normal (applies to non-numer ic results) [facility] CALCIUM, IONIZED -POC 4.5-5.3 Below low normal [facility] CHLORIDE, WB -POC 98-108 Normal (applies to non-numeri c results) [facility] GLUCOSE, WB -POC 65-100 Above high normal [facility] LACTATE -POC 0.5-2.2 Above high normal [facility] ID Date Data Source [id number] 08/01/2020 09:06:00 AM [facility] PRBC's will be held in Blood Bank until an Order to Transfusehas been placed. In CRISIS (near code) situation Blood Bankwill prepare crossmatched if available, or type specific orun-crossmatched.Reason for Transfusion->Surgical Blood LossUnit Collect Name Value Range Interpretation Code Description Data Danuta rce(s) Supporting Document(s) PACKED RBC UNITS Normal (applies to non-numeric results) [facility] DATE REQUIRED, PRBC 08/01/2020 Normal (applies to non-nume heydi results) [facility] ID Date Data Source [id number] 08/02/2020 05:54:00 PM EST [facility] PRBC's will be held in Blood Bank until an Order to Transfusehas been placed. In CRISIS (near code) situation Blood Bankwill prepare crossmatched if available, or type specific orun-crossmatched.Reason for Transfusion->Surgical Blood LossUnit Collect Name Value Range Interpretation Code Description Data Danuta rce(s) Supporting Document(s) BLOOD BANK SEE BELOW Normal (applies to non-numeric resul ts) [facility] Product: RBC LR, Status: Canceled, Unit: [id number], Type: A Pos, Code:Q2422S54.Product: RBC LR, Status: Canceled, Unit: [id number], Type: A Pos, Code:V9736Y11.Product: RBC LR, Status: Canceled, Unit: [id number], Type: A Pos, Code:T6483L04.Product: RBC LR, Status: Transfused, Unit: [id number], Type: A Pos, Code:[id number]. ID Date Data Source [id number] 08/01/2020 08:36:00 AM EST [facility] Name Value Range Interpretation Code Description Data Danuta rce(s) Supporting Document(s) PH -POC 7.36-7.45 Below low normal [facility] -POC 35-45 Normal (applies to non-numeric resul ts) [facility] PO2 -POC 80-100 Above high normal [facility] BICARBONATE -POC 21-28 Normal (applies to non-numeric results) [facility] BASE EXCESS -POC -2.0-3.0 Below low normal [facility] OXYHEMOGLOBIN -POC 95.0-99.0 Normal (applies to non-numer ic results) [facility] CARBOXYHGB -POC 0.5-1.5 Below low normal [facility] METHEMOGLOBIN, -POC 0.4-1.2 Below low normal [facility] HEMATOCRIT -POC 40-52 Below low normal [facility] HEMOGLOBIN -POC 13.0-18.0 Below low normal [facility] SODIUM, WB -POC 135-145 Below low normal [facility] POTASSIUM, WB -POC 3.2-4.7 Normal (applies to non-numer ic results) [facility] CALCIUM, IONIZED -POC 4.5-5.3 Below low normal [facility] CHLORIDE, WB -POC 98-108 Normal (applies to non-numeri c results) [facility] GLUCOSE, WB -POC 65-100 Above high normal [facility] LACTATE -POC 0.5-2.2 Above high normal [facility] ID Date Data Source [id number] 08/01/2020 08:23:00 AM EST [facility] Name Value Range Interpretation Code Description Data Danuta rce(s) Supporting Document(s) PH -POC 7.36-7.45 Below low normal [facility] PCO2 -POC 35-45 Normal (applies to non-numeric resul ts) [facility] PO2 -POC 80-100 Above high normal [facility] BICARBONATE -POC 21-28 Normal (applies to non-numeric results) [facility] BASE EXCESS -POC -2.0-3.0 Normal (applies to non-numeric results) [facility] OXYHEMOGLOBIN -POC 95.0-99.0 Above high normal [facility] CARBOXYHGB -POC 0.5-1.5 Below low normal [facility] METHEMOGLOBIN, -POC 0.4-1.2 Below low normal [facility] HEMATOCRIT -POC 40-52 Below low normal [facility] HEMOGLOBIN -POC 13.0-18.0 Below low normal [facility] SODIUM, WB -POC 135-145 Below low normal [facility] POTASSIUM, WB -POC 3.2-4.7 Normal (applies to non-numer ic results) [facility] CALCIUM, IONIZED -POC 4.5-5.3 Below low normal [facility] CHLORIDE, WB -POC 98-108 Normal (applies to non-numeri c results) [facility] GLUCOSE, WB -POC 65-100 Above high normal [facility] LACTATE -POC 0.5-2.2 Above high normal [facility] ID Date Data Source [id number] 08/01/2020 08:20:00 AM [facility] Name Value Range Interpretation Code Description Data Danuta rce(s) Supporting Document(s) PH, MILANA -POC 7.32-7.42 Below low normal [facility] PCO2, MILANA -POC 40-52 Above high normal [facility] PO2, MILANA -POC 40-50 Above high normal [facility] BICARBONATE, MILANA -POC 23-28 Normal (applies to non-nu meric results) [facility] BASE EXCESS, MILANA -POC -2.0-3.0 Normal (applies to non-nu meric results) [facility] OXYHEMOGLOBIN, MILANA-POC [facility] There is no established Oxyhemoglobin re ference range for venous samples.Interpretation of results is at the discretion of the ordering physician. CARBOXYHGB, MILANA-POC [facility] There is no established Carboxyhemoglobi n reference range for venoussamples. Interpretation of results is at the discretion of the orderingphysician METHEMOGLOBIN, MILANA-POC [facility] There is no established Methemoglobin re ference range for venous samples.Interpretation of results is at the discretion of the ordering physician. HEMATOCRIT -POC 40-52 Below low normal [facility] HEMOGLOBIN -POC 13.0-18.0 Below low normal [facility] SODIUM, WB -POC 135-145 Below low normal [facility] POTASSIUM, WB -POC 3.2-4.7 Normal (applies to non-numer ic results) [facility] CALCIUM, IONIZED -POC 4.5-5.3 Below low [facility] CHL[facility], [facility] -POC 98-108 Normal (applies to non-numeri c results) [facility] GLUCOSE, WB -POC 65-100 Above high normal [facility] LACTATE -POC 0.5-2.2 Above high normal [facility] ID Date Data Source [id number] 08/01/2020 08:17:00 AM EST [facility] Name Value Range Interpretation Code Description Data Danuta rce(s) Supporting Document(s) ACT Avg [facility] ealth R PERFHR-ACT (POC) Normal/Therapeutic Re ference Ranges: Cardiac Air Chipper...........................200-300 secs OR Vascular................................200-400 secs OR Pump.................. ...............> or = 400 secs OR Insertion of Impella....................200- 300 secs Interventional Radiology...................200-300 secs Impella Management.........................160-180 secs Sheath Stevan bobby..............................70-170 secs OR Baseline/No OR Therapeutic Heparin On Board.......................................80-180 secs ID Date Data Source [id number] 08/01/2020 07:21:00 AM [facility] Name Value Range Interpretation Code Description Data Danuta rce(s) Supporting Document(s) ACT Avg [facility] ealth R PERFHR-ACT (POC) Normal/Therapeutic Re ference Ranges: Cardiac Air Chipper...........................200-300 secs OR Vascular................................200-400 secs OR Pump.................. ...............> or = 400 secs OR Insertion of Impella....................200- 300 secs Interventional Radiology...................200-300 secs Impella Management.........................160-180 secs Sheath Stevan bobby..............................70-170 secs OR Baseline/No OR Therapeutic Heparin On Board.......................................80-180 secs ID Date Data Source [id number] 08/01/2020 07:19:00 AM [facility] Name Value Range Interpretation Code Description Data Danuta rce(s) Supporting Document(s) PH -POC 7.36-7.45 Normal (applies to non-numeric resul ts) [facility] PCO2 -POC 35-45 Normal (applies to non-numeric resul ts) [facility] PO2 -POC 80-100 Above high normal [facility] BICARBONATE -POC 21-28 Normal (applies to non-numeric results) [facility] BASE EXCESS -POC -2.0-3.[address] low [address] [facility] OXYHEMOGLOBIN -POC 95.0-99.0 Above high normal [facility] CARBOXYHGB -POC 0.5-1.5 Below low normal [facility] METHEMOGLOBIN, -POC 0.4-1.2 Below low normal [facility] HEMATOCRIT -POC 40-52 Below low normal [facility] HEMOGLOBIN -POC 13.0-18.0 Below low normal [facility] SODIUM, WB -POC 135-145 Normal (applies to non-numeric results) [facility] POTASSIUM, WB -POC 3.2-4.7 Normal (applies to non-numer ic results) [facility] CALCIUM, IONIZED -POC 4.5-5.3 Normal (applies to non-nu meric results) [facility] CHLORIDE, WB -POC 98-108 Normal (applies to non-numeri c results) [facility] GLUCOSE, WB -POC 65-100 Normal (applies to non-numeric results) [facility] LACTATE -POC 0.5-2.2 Normal (applies to non-numeric res ults) [facility] ID Date Data Source [id number] 07/31/2020 05:23:00 PM EST [facility] Provider/service name (and contact chaparrita posadas if possible) tocall, if results will be delayed due to need for repeattesting->gino fink [phone] for COVID- 19 test->Surgery or other invasive procedure(Emergent, unscheduled)Unit Collect Name Value Range Interpretation Code Description Data Danuta rce(s) Supporting Document(s) SOURCE Nasopharyngeal [facility] SARS-CoV-2 BY RT-PCR Not Detected Normal (applies to non-n umeric results) [facility] NEGATIVE RESULTA negative ("Not detected ") result does not hswmmsvzEVLS-RsJ-9 infection, and a negative result should not beused as the only basis for patient management decisions.A positive ("Detected") result indicates the presenceof SARS-CoV-2 RNA, the virus linked to COVID-19 disease.Patient guidance: If your result is positive, self-isolateuntil you receive further instructions. Even if your resultis negative you should continue to follow all public healthmandates for social distancing, masking etc. If you havequestions about your result, contact your health care provider;if at any time you develop severe symptoms, go to an EmergencyDepartment or call 911. For additional information please [email or web address] es: Coronavirus in [email or web address] the latest reopening updates, travel guidelines, and learn howel camino hospitales and schools are impacted.[email or web address] was performed on the My[employer]ia?COVID-19 Direct real-time RT-PCR assay. This is a iwty-pvfvIT-DEQ assay which qualitatively detects nucleic acid fromsevere acute respiratory syndrome coronavirus 2 (SARS-CoV-2)in suitable respiratory specimens such as nasopharyngeal swabs.This assay has been approved for use under an Emergency UseAuthorization (EUA) by the Food and Drug Administration (FDA). ID Date Data Source [id number] 07/31/2020 03:08:00 PM [facility] Txx NOUnit CollectPRBC's will be held i n Blood Bank until a Nursing Order toTransfuse has been placed. In CRISIS (near code) situationBlood Bank will prepare crossmatched if available, or typespecific or un-crossmatched.Reason for Transfusion->Other (specify)Unit CollectRelease to patient->ImmediateUnit Collect Name Value Range Interpretation Code Description Data Danuta rce(s) Supporting Document(s) FERRITIN 22-322 Normal (applies to non-numeric resul ts) [facility] ID Date Data Source [id number] 07/31/2020 03:00:00 PM [facility] Txx NOUnit CollectPRBC's will be held i n Blood Bank until a Nursing Order toTransfuse has been placed. In CRISIS (near code) situationBlood Bank will prepare crossmatched if available, or typespecific or un-crossmatched.Reason for Transfusion->Other (specify)Unit CollectRelease to patient->ImmediateUnit Collect Name Value Range Interpretation Code Description Data Danuta rce(s) Supporting Document(s) IRON 65-175 Normal (applies to non-numeric resul ts) [facility] IRON and TIBC values may be falsely elev ated in the presence oftherapeutic iron- containing compounds such as iron dextranor in the presence of heparin. TIBC 250-450 Normal (applies to non-numeric resul ts) [facility] IRON SAT 15-55 Normal (applies to non-numeric resul ts) [facility] ID Date Data Source [id number] 07/31/2020 01:50:00 PM EST [facility] Name Value Range Interpretation Code Description Data Danuta rce(s) Supporting Document(s) SARS coronavirus 2 RNA [Presence] in Uns pecified specimen by [facility]AT with probe detection [facility] This lab was ordered by [facility] and reported by [facility] ID Date Data Source [id number] 08/01/2020 07:04:00 AM EST [facility] Txx NOUnit CollectPRBC's will be held i n Blood Bank until a Nursing Order toTransfuse has been placed. In CRISIS (near code) situationBlood Bank will prepare crossmatched if available, or typespecific or un-crossmatched.Reason for Transfusion->Other (specify)Unit CollectRelease to patient->ImmediateUnit Collect Name Value Range Interpretation Code Description Data Danuta rce(s) Supporting Document(s) BLOOD BANK SEE BELOW Normal (applies to non-numeric resul ts) [facility] Product: RBC LR, Status: Transfused, Uni t: [id number], Type: A Pos, Code:H4929O62.Product: RBC LR, Status: Transfused, Unit: [id number], Type: A Pos, Code:U0515H09. ID Date Data Source [id number] 07/31/2020 01:18:00 PM EST [facility] Txx NOUnit CollectPRBC's will be held i n Blood Bank until a Nursing Order toTransfuse has been placed. In CRISIS (near code) situationBlood Bank will prepare crossmatched if available, or typespecific or un-crossmatched.Reason for Transfusion->Other (specify)Unit CollectRelease to patient->ImmediateUnit Collect Name Value Range Interpretation Code Description Data Danuta rce(s) Supporting Document(s) PACKED RBC UNITS [facility] DATE REQUIRED, PRBC 07/31/2020 Normal (applies to non-nume heydi results) [facility] ID Date Data Source [id number] 07/31/2020 12:00:45 PM EST [facility] If not done in the past 30 daysIndicatio n: Congestive heart failure. Comparison: None.Technique: Single frontal portable chest radiograph is obtained.Findings: The lungs are underinflated. There is bibasilar atelectasis. There is no pneumothorax. There is no pleural effusion. There is mild cardiomegaly. There are degenerative changes of the shoulders and spine. There is no acute bony abnormality.Impression: Cardiomegaly. Bibasilar atelectasis.Corrected by: Mckayla Duncan on 07/31/2020 11:47 AMSigned by Attending: Basil Cagle MD on 07/31/2020 12:00 PM Name Value Range Interpretation Code Description Data Danuta rce(s) Supporting Document(s) ID Date Data Source [id number] 08/01/2020 11:44:00 AM [facility] On admission and every Tuesdayspecimen T ype->NasalUnit Collect Name Value Range Interpretation Code Description Data Danuta rce(s) Supporting Document(s) MRSA SURVEILLANCE [facility] ID Date Data Source [id number] 07/31/2020 10:05:00 PM [facility] TxHx NOUnit CollectRelease to patient->I mmediateUnit CollectSpecify reason for transfusion->Pre-opUnit CollectAll patients with congestive heart failureRelease to patient->ImmediateUnit Collect Name Value Range Interpretation Code Description Data Danuta rce(s) Supporting Document(s) eAVERAGE GLUCOSE 68-126 [facility] Testing Performed By:[facility] [employer] [place] [id number] HEMOGLOBIN A1C 4.2-5.6 [facility] VERIFIED BY REPEAT ANALYSIS.Per ADA 2018 Guidelines, HbA1c values should be interpreted as follows: Normal: less than 5.7% Prediabetes: 5.7%- 6.4% Diabetes: 6.5% or higherSamples containing high amounts of HbF (>7%) may yield lower inrwwozhqflaGmW2U results. Additional testing that is not affected by HbF can beconsidered and requested if clinically indicated. Please [id number] for more information.Please note new reference range effective 2018. Previous range4.0% - 6.0% changed to 4.2% - 5.6%. ID Date Data Source [id number] 07/31/2020 12:09:00 PM EST [facility] TxHx NOUnit CollectRelease to patient->I mmediateUnit CollectSpecify reason for transfusion->Pre-opUnit CollectAll patients with congestive heart failureRelease to patient->ImmediateUnit Collect Name Value Range Interpretation Code Description Data Danuta rce(s) Supporting Document(s) ABO RH A Rh Positive Normal (applies to non-numeric re sults) [facility] ANTIBODY SCREEN Negative Normal (applies to non-numeric results) [facility] ID Date Data Source [id number] 07/31/2020 11:50:00 AM [facility] TxHx NOUnit CollectRelease to patient->I mmediateUnit CollectSpecify reason for transfusion->Pre-opUnit CollectAll patients with congestive heart failureRelease to patient->ImmediateUnit Collect Name Value Range Interpretation Code Description Data Danuta rce(s) Supporting Document(s) PREALBUMIN 18.0-35.7 Below low normal [facility] ID Date Data Source [id number] 07/31/2020 11:50:00 AM [facility] Txx NOUnit CollectRelease to patient->I mmediateUnit CollectSpecify reason for transfusion->Pre-opUnit CollectAll patients with congestive heart failureRelease to patient->ImmediateUnit Collect Name Value Range Interpretation Code Description Data Danuta rce(s) Supporting Document(s) eGFR BLACK [facility] For both eGFR and eGFR BLACK, the accuracy of theeGFR calculation is contingent on a stable level of serumcreatinine. The eGFR calculation is based on an IDMS-Traceablecreatinine assay and is normalized to 1.73 "meters squared"body surface area. An eGFR less than 60 may alter clinicalmanagement decisions. An eGFR greater than or equal to 60 doesnot exclude kidney disease. ID Date Data Source [id number] 07/31/2020 11:50:00 AM [facility] TxHx NOUnit CollectRelease to patient->I mmediateUnit CollectSpecify reason for transfusion->Pre-opUnit CollectAll patients with congestive heart failureRelease to patient->ImmediateUnit Collect Name Value Range Interpretation Code Description Data Danuta rce(s) Supporting Document(s) eGFR [facility] ID Date Data Source [id number] 07/31/2020 11:50:00 AM EST [facility] TxHx NOUnit CollectRelease to patient->I mmediateUnit CollectSpecify reason for transfusion->Pre-opUnit CollectAll patients with congestive heart failureRelease to patient->ImmediateUnit Collect Name Value Range Interpretation Code Description Data Danuta rce(s) Supporting Document(s) SODIUM 135-145 Below low normal [facility] POTASSIUM 3.5-5.1 Normal (applies to non-numeric resul ts) [facility] CHLORIDE 98-108 Normal (applies to non-numeric resul ts) [facility] CO2 22-30 Normal (applies to non-numeric results) [facility] ANION GAP 4-16 Normal (applies to non-numeric resul ts) [facility] BUN 8-20 Above high normal [facility] CREATININE 0.7-1.2 Normal (applies to non-numeric resul ts) [facility] GLUCOSE 65-100 Normal (applies to non-numeric resul ts) [facility] CALCIUM 8.5-10.2 Normal (applies to non-numeric resul ts) [facility] TOTAL PROTEIN 5.7-8.2 Normal (applies to non-numeric re sults) [facility] ALBUMIN 3.2-4.8 Normal (applies to non-numeric resul ts) [facility] GLOBULIN 2.4-4.3 Normal (applies to non-numeric resul ts) [facility] A/G RATIO 1.1-1.8 Normal (applies to non-numeric resul ts) [facility] BILI, TOTAL 0.3-1.2 Normal (applies to non-numeric resu lts) [facility] AST 7-37 Normal (applies to non-numeric results) [facility] ALT 10-49 Normal (applies to non-numeric results) [facility] ALK PHOS 46-116 Normal (applies to non-numeric resul ts) [facility] ID Date Data Source [id number] 07/31/2020 11:50:00 AM EST [facility] TxHx NOUnit CollectRelease to patient->I mmediateUnit CollectSpecify reason for transfusion->Pre-opUnit CollectAll patients with congestive heart failureRelease to patient->ImmediateUnit Collect Name Value Range Interpretation Code Description Data Danuta rce(s) Supporting Document(s) LDH 120-246 Normal (applies to non-numeric resul ts) [facility] ID Date Data Source [id number] 07/31/2020 11:46:00 AM [facility] TxHx NOUnit CollectRelease to patient->I mmediateUnit CollectSpecify reason for transfusion->Pre-opUnit CollectAll patients with congestive heart failureRelease to patient->ImmediateUnit Collect Name Value Range Interpretation Code Description Data Danuta rce(s) Supporting Document(s) BNP 0-100 Above high normal [facility] BNP Ref. Range:..pg/mLNegative:......... <=100Positive:........>100High correlation with left heart failure:........>200 ID Date Data Source [id number] 07/31/2020 11:40:00 AM [facility] TxHx NOUnit CollectRelease to patient->I mmediateUnit CollectSpecify reason for transfusion->Pre-opUnit CollectAll patients with congestive heart failureRelease to patient->ImmediateUnit Collect Name Value Range Interpretation Code Description Data Danuta rce(s) Supporting Document(s) PROTIME 10.2-12.9 Above high normal [facility] INR 0.9-1.1 Above high normal [facility] [Therapeutic Range 2 .0-3.0]The INR should be used to monitor patients on long termWarfarin. Selected patients may require higher levels ofanticoagulation.The PT/INR should not be used to monitor the coagulationstatus of patients taking Pradaxa, Eliquis, Xarelto or Savaysa. ID Date Data Source [id number] 07/31/2020 11:40:00 AM [facility] TxHx NOUnit CollectRelease to patient->I mmediateUnit CollectSpecify reason for transfusion->Pre-opUnit CollectAll patients with congestive heart failureRelease to patient->ImmediateUnit Collect Name Value Range Interpretation Code Description Data Danuta rce(s) Supporting Document(s) APTT 25.1-36.5 Below low normal [facility] Dosage guidelines for full dose heparin are available on theContinuous Intravenous Heparin Anticoagulation Patient CareOrder Form.The aPTT should not be used to monitor the coagulation statusof patients taking Pradaxa, Eliquis, Xarelto or Savaysa. ID Date Data Source [id number] 07/31/2020 11:32:00 AM EST [facility] TxHx NOUnit CollectRelease to patient->I mmediateUnit CollectSpecify reason for transfusion->Pre-opUnit CollectAll patients with congestive heart failureRelease to patient->ImmediateUnit Collect Name Value Range Interpretation Code Description Data Danuta rce(s) Supporting Document(s) WBC 4.0-11.0 Normal (applies to non-numeric resul ts) [facility] RBC 4.40-6.20 Below low normal [facility] HGB 13.0-18.0 Below low normal [facility] HCT 40-52 Below low normal [facility] MCV 80-100 Above high normal [facility] MCH 26.0-34.0 Above high normal [facility] MCHC 32.0-37.5 Normal (applies to non-numeric resul ts) [facility] RDW 0.0-15.2 Above high normal [facility] PLATELET COUNT 150-450 Normal (applies to non-numeric r esults) [facility] ID Date Data Source [id number] 07/31/2020 11:30:00 AM EST [facility] TxHx NOUnit CollectRelease to patient->I mmediateUnit CollectSpecify reason for transfusion->Pre-opUnit CollectAll patients with congestive heart failureRelease to patient->ImmediateUnit Collect Name Value Range Interpretation Code Description Data Danuta rce(s) Supporting Document(s) PACKED RBC UNITS Normal (applies to non-numeric results) [facility] DATE REQUIRED, PRBC 08/01/20 Normal (applies to non-nume heydi results) [facility] ID Date Data Source [id number] 08/02/2020 03:09:00 PM EST [facility] TxHx NOUnit CollectRelease to patient->I mmediateUnit CollectSpecify reason for transfusion->Pre-opUnit CollectAll patients with congestive heart failureRelease to patient->ImmediateUnit Collect Name Value Range Interpretation Code Description Data Danuta rce(s) Supporting Document(s) BLOOD BANK SEE BELOW Normal (applies to non-numeric resul ts) [facility] Product: RBC LR, Status: Canceled, Unit: [id number], Type: A Pos, Code:U8025H32.Product: RBC LR, Status: Transfused, Unit: [id number], Type: A Pos, Code:E8702M62.Product: RBC LR, Status: Transfused, Unit: [id number], Type: A Pos, Code:J4396R13.Product: RBC LR, Status: Transfused, Unit: [id number], Type: A Pos, Code:B4192M64. ID Date Data Source [id number] 06/13/2020 06:46:38 AM EDT [facility] Name Value Range Interpretation Code Description Data Danuta rce(s) Supporting Document(s) ED Provider Note [facility] RAZSLr2dTgRAYzMo05/ALRjjUCPjq7MyARapLDi6WNkzCFHaM9WfWPX3uD8fEJZ9VUuAKlLgFqFjHWIy lbm [file] AgICAgICAgICAgICAgICAgICAgICAgICAgICAgICAgICAgICAgICAgICAgICAgICAgICAgICAgICAgIC AgICAgICAgICAgICAgICAgICAgICAgICAgICAgDQogICAgICAgICAgICAgICAgICAgICAgICAgICAgIC AgICAgICAgICAgICAgICAgICAgICAgICAgICAgICAg ICAgICAgICAgICAgICAgICAgICAgICAgICAgICAgICAgICAgICAgDQogICAgICAgICAgICAgICAgICAg ICAgICAgICAgICAgICAgICAgICAgICAgICAgICAgICAgICAgICAgICAgICAgICAgICAgICAgICAgICAg ICAgICAgICAgICAgICAgICAgICAgDQogICAgICAgIC AgICAgICAgICAgICAgICAgICAgICAgICAgICAgICAgICAgICAgICAgICAgICAgICAgICAgICAgICAgIC AgICAgICAgICAgICAgICAgICAgICAgICAgICAgICAgDQogICAgICAgICAgICAgICAgICAgICAgICAgIC AgICAgICAgICAgICAgICAgICAgICAgICAgICAgICAg ICAgICAgICAgICAgICAgICAgICAgICAgICAgICAgICAgICAgICAgICAgDQogICAgICAgICAgICAgICAg ICAgICAgICAgICAgICAgICAgICAgICAgICAgICAgICAgICAgICAgICAgICAgICAgICAgICAgICAgICAg ICAgICAgICAgICAgICAgICAgICAgICAgDQogICAgIC AgICAgICAgICAgICAgICAgICAgICAgICAgICAgICAgICAgICAgICAgICAgICAgICAgICAgICAgICAgIC AgICAgICAgICAgICAgICAgICAgICAgICAgICAgICAgICAgDQogICAgICAgICAgICAgICAgICAgICAgIC AgICAgICAgICAgICAgICAgICAgICAgICAgICAgICAg ICAgICAgICAgICAgICAgICAgICAgICAgICAgICAgICAgICAgICAgICAgICAgDQogICAgICAgICAgICAg ICAgICAgICAgICAgICAgICAgICAgICAgICAgICAgICAgICAgICAgICAgICAgICAgICAgICAgICAgICAg ICAgICAgICAgICAgICAgICAgICAgICAgICAgDQogIC AgICAgICAgICAgICAgICAgICAgICAgICAgICAgICAgICAgICAgICAgICAgICAgICAgICAgICAgICAgIC FcICZjRWSkMUNqYJCsEAMvSNEvBPCnSRQrCEJdROKxKTKsOUAzDKd5Y8jrCKYhVLMfKH4mPIw6Vy2+DQ pQCcXzRIE6ulWxgV9OXN6bf0GjASsdEIBln9LbYKs3 HN8SXWBlQYdhSU4ILLrheu0DZRXzDEQgjCBYl0dhPaBlQBP2XHNuRjchAG3OEIGzC1ofpaYaGVUyTTZJ WBlpACVVZVgwAKTWZMKuQFXcYdBcSbBqKFVhKOJnCDAIRWC8YZUvMoEzMMOjVUEbMjUjVTSPLGFoDGLb NgXmYEUhTSLcElhpNQSXEAU6MJObAvNeSKwsXA3Ja1 SklWUmTc1MFn7ZAzGnPE4xhu6VRGpgVRQcMesRSfi2WHalIT3QnLTobMT9FTHhLFXRSwIrX6zjp1HsMm CtFHXLARtaJA2Ic8ChjCMbCU8OMa1MPiQkQT8zwx3IKKJrBJDrExkQCkk6TLefSC6PuDXeVYeAUEXWfp 69aWKlegSFf2XyjhRyzYQQTVUdcVWwSAXkLYSrb0Xe IIFBFZBswGIbEM4xWT0rBQBnAQF2HdI2WJRMFW7HWIIoQXFhwAZiVPRzWDKLPW9FAMgpHBS6HwFoceTj rRZnHHxsST6QCWMoufWoKMurXQMXUBciLN2PpIDtbHU2CPUjZZYBAhBeV5yac7VtQTYrHMEUBLaiYI6D r1ZamVAqNR9FIUUrLyI6uPG0QrJxTVDAEg6+DQplbm QvEhjXKrRgVQJbs9HxSZr0DP0PNEHcBIk2tAQaOiUwx3zttcPdBP2QRJKcCSWvqXHpFCGdLUIkSfQvMI qgZDXtDeN2IL73rFalKD7PSINvATRnYE65ULEeWIJqOo9NHw9VWwLmOY7nlq0VECUdWIAkBcaVKhf3DU maXR8LoXLwZXeYVGNTth87jBAkrbGSv4FurzQbfJUL MTEhzNQuZNCxFQPbp7WyVODYIWRxpKFlET0iGW7pQMApJSH3LqY1SJMQCX8NTLAvSOTyrGMbHKW9MGAk KuKoRDsvAKUgGcu9KG49oWhzPC7XKUUlAOIcIP09DLS2WSRfIb9OTROxRLIsnuU4JOHvKFELNhExQ34g eHQgNTMgMCBSDQo+Cl7NVP8oi5GsSBb0ZgDqGG7mal 6BOXxEWkChD0DtvYqfKQBWFE9icXCsNSP3TWdpwc5aLhKwIPfsTvFgNK0rjkmmXi5aKVOpWMGjGYJoVw VnHENlKWsdHVYSRMiQYfIeD9Mps1SdJrZtWfUlNZVtP2nODiQxUMA7WrDyqVtiVB4EAgPnH6ZsktFfjB Y2BUXgVJLNIxVjF9ZoITPxZDSjVOIVKEwvVN8JTIl9 HRO7MKXjBe4HUv4BSrNcKV3aba9RFHDvZSCeRomNPub4SReiBN1UuHCyDViCBIMWg8AjkiVqwTKFIE1n mTHowiMEPQJdAPEeCJ6vARAVMIU7GVFjRvBzIiZoJjUwZUo6JXEsZG9bMSarPN9HAPD1MOltThjiHDDM WJ3ZLCysHAMaPYhaxqDoeDEbNDttQQ6GTFJkyeRaHF hpTUVGAEpwMG1TupX4WPLmDLNkJa5IMSDfLqS9tNW3HFJsGCIFSw1+URxngbCzUgiKLwL2ELNad7XjFE b6IM3CMGPxXSp3hUShDLQiLg63TGIhQulqFrCumeafQLOmCZDFifSqtTEnWMHBMzMgfROcGN7tBE7qIC QqWLL7DsQ6SOUCSH9HHEItULZcfXQoMHY7WJNjRoLz TTkiUNOtRgDaWH04qEnrTY6LWBRhBIDoVS92MCK4OQRhLo6OUELuYAQjuoR7ZKCsPUASThZgZ96pcSRp NTYgMCBSDQo+Qn2IRS8wl2YeAZn2OdXdBR2xxi5XOEiKRyBbR6VolUgtVZNGAK2ygUPnLDO5QSsukn2f IpNhPPrkItOcBR5hqznpMw8cCECbPLSvEVJbJpIwQN RbBkdkCLLSKUyDGpXzF7Qdm0HpDzYlZbKaDDHdY7hMUwTyXWU9WMDwhWkzIK1MEgUcH2YiiyIyoGZ1PR EgWSFSNiVpS5OxUKGzTNMzEWYPJUeuIY5PMOp8IGN5BRHqPh0BEz3ZIpCdNK6zrk7ATLjpKMGlBvbIFm m8BThyWO2IcGYuOSwKSLPAc3ZjmgJnnSBDRW4xvNCn slCAMOEjUYOdMT8fWQCUCZV3GKQmKcWoLbUiFqDbWWk4JTIfLJ9vDLacYT0UDBU6WDxvNfvwAHMWLZ4L URbvKWQ0EWDlvFdiFJ3KOnFvX7TcuhFsrUJ8GAZpZKYJWlQiB4PhMNKoIOAaBWXZORsjNH1FGRb3FYZ6 QUXwDh3HBp3YSyYwZS3eka8OIWzpRBZpVftSJto1FV kuYT7KtWHgUBoSFIOCg9XpjrBexIZFGV7nlwWbSHEDvXMoeKjodkndRd0vZIVhDCWwBGVoAvRcCJGrIt uvIAIZITnDInUuN7Umm9OcUvAdBAWsPTNzN5uBKbUvWXKwWKJmlJbgHG4TAdWiN5GwsbJrfUP4DOKsAK GUWlKyA9PxFHFgMSjhIAKPDWmoVF3KRLl6FWL6BPAx Xu2RNw7WPpTiYW7fuy6HJHzoJZBdMioMRrx5VVegGL9CzSKyYBiXYHDZzyecS8NrOw49JIUiYmscQBpd bILjcMXzAUundTIbVCBWVkXjyTViFG0eDK2aHMKzKLV6XbX6MHASYH4DFLIiDKDecKKrMTX4COFyQaKc ROfpRLIcWSB6EX56qAxdSP3MZFJwJRMaKX05OCZ9JU OiIo2PVNRtCUGchzR1HQWhLXPGBxUoS52ysWYjTxRwTYTSLAv+Fs4AYZ1ms2FpMBs1BKInBV8yqr8VGE dZAlEqN4HbhBvjCJPKXI4yoBNcZCB4DObafGPwPUXvlFLkb9cxpcuyUf0bGLBrDZVcMCZwAqKbMDYlGR ixWZFLEFrREzHaL8Bmq2YcNjUaFGKeGOJuX0dSDaFl YYC9RWYmpMjtES9DXjQhM2QvayBfmBG9VDNjYUKAHfZuY3DcYAHrRUgzNDJVPAt+Sp4KAQ6ju9NtWYj5 OKAvCX8thz7XJXuQFcZiL9O6xSUhG1E1WJaaSi6TEAJmKWQzMHeeOAEMSFolWD3MII6euzX0MA9IbIAo KDTbLHXdtMEuXAt7J37llUJcBJcfXZ7WWMN+Gian+Pg 5HMDEpCTPdWYMbUkVqDQWDDqSnS7ZjS0ITj0IyZ2YuME27fEeopfYpFNlnEY2DGH7vSYYrUXRZHP3InZ MbcW8looM7NUVfGMPLZoKqZ51lfXIdSXXrXZV4RXItBq5HZMFeA1LwssHzeCjprkUaPZDgKHLPVF0YQE twrsNdiHPbfBetPO78pYfwNN1DIp3LGvWsTU4ivz2X cFBiZr4CBFR4Ox3UMTZsLXAiTCClOZP2WMRmZqVdPWusNZJsTQKaJUK8YXObNAFfWF9XBxFvKTWoLqNf TOLyAKLfJZGouq0QWCCjKZQ3VzVqHNCsJMQvHMEhRQqdPBDbVJUfTGZ2FIYpWKElLH8CVbVzNWLcGWI0 DtSrJAKzGMXbzl8ZQCCfOMDxTrShLnIlCLErTLNqCN jjQUWoFDH2GdD3MFYaVLUjQH5VNpYnOAMnMET5AmIhIMIhFIZhok1QTXMdVHSoGEK8DwGfFKMlYOVtZQ tgULTmGKShZUk4FPOxYNIaZI4MNsLoCMSgGOR4IsMrDINwBBAojc4BSCCvZCSsSeb0MXNqSQTmDJCjKB rsGPYbJIU9JnJ3WSFtTYMlDO3WXrEdZYAaLPW3GmIn XVPwESEobk1WMGTiGMVgUUCvVLVgYROsCKVqIKevBZOsKQEjNGX0VBXuPNDnYQ1LRwByBOHrZnW7ZGCu GDJcHZWlti9GRDNdWYHmSEQpDtFsWPHrDAKnKVynEIZeRTX3CBe9QZWsXTDzOA3GKyBbRATgLno9WKWy HFUmPWCvsv6PRPIqSXGdXNR1YEYtCSZjFCRaXJfnDB NhWJYcXca5UIQgIOMtXE8NKeToCFWwWwH5ZzPcJBZoMTChit9GRPRcZXJyVdG5QBGoVRRyHAOdIPmkSM JsJMO7IIu8ZORcTVTzXE8HKdEeVISqPhU0HVJeFSSwBOKdjj0OYYEkTGQsIFE3JRQiCULkWNStAOxwDJ AwRCD2EST3RCEyQHMwYC2UYbJfWZWeWRM9CzYfVTDs ILOdji2KPEAmVWJ4PqU4AzVlLBEpMSKdSSyvIGWuRCZsZuH6ZDUdWLGfHK9EGlTgXRYjSNZ5CxAwJYZa QNVzar7GDPZvOOB4DPVeOaSzBPEhMFCyWNhkMTGdXEM3WFv1KTUxCDYcKE9ATnRmIVBwCRFlPhzxFLOl OIHabi6BTEElIRY4LZP4RfMhOKJgODTsQDijGGTfRO J9Qps5WMDcSZIzJT7KMkHeDCYmKJniUvTsGBBgWWAvmi2ZXSNyILR1DlGwVSBeRMXdPVReOEpmZAPxGU L2EMgpGREnPEGsQO5PYeQhJVAsLEt1AqExZBEdFKNqks4JGTOgTWN6XOB5QZNmUQElMWEuKGlfNCGdDA I8KEIwPXNvYWLqPG6FJsKkRQBpJTimTuIcKCMaZSYw bz6NXALrCGL5QTg3GyRtXJRxMAZtGKpoTOXhOQRlAVL7XZEiEECyIM7MRcGcLFYdXoQcBdZzUWPwGVNo za4PJEPpLWT0WLm4VJNwXKCvJSViBYqbVWYmBJNbWgp1AMOhAMElJB5FBaVfEUVjTfPgSOefTYQjZUKj sr2SUNEhPUJ5GeJ1DLKhBREjLGXwVLeyTBEfHABcRb k8OQBdCHUiBX9TUeNsQMLzUmB8HpKiBAXoNZCgbh2YMPBtOIV3FsJ2WRGpOTFtMAKpFXesMTIsRGGsTp R1SPFkNNTdZX8AQyDjBQJaMnG5QIrqHHMvOBJmox5VXSYvKDU8IuY4HHLkNQUjUATtJYemTGYhVHVwEh I2WMOhGESfEK3RIoXqPEJzCiB6QHjcDCHsIWXwrb6Y OMWtSBH2HPWuWdWbMSFpHJGmMTzlRKGgJKG7Tmn3NFYwUPMtTH8XWmMaFFupMMPKDbt8YCyiZ3v0QYO2 Gq3EJ0Ezz6YmLzYyJXHRXXkgTR0ohiFsIAVvAu3QS9bBYyscDBqiDKPfQJc2TnfpIxC4ScH6WDjdSPA3 TFJ1NFrcRp8xQVQtAuQxV0O2YBs0PXDuBqKlAlCaH7 T4SeUlVdI4LXD7AvZkPV5BUs7PVdS7PRC7jZYxSz8TQnA4OztZRsLyJZ7IMSa= ID Date Data Source [id number] 06/08/2020 06:01:10 PM EDT [facility] Name Value Range Interpretation Code Description Data Danuta rce(s) Supporting Document(s) Discharge Summary [facility] IYVWKm4vJrIPToDv15/YQMucEPDom1QiDWidQSk2NDjeMFKtT7FvKAW3dQ7nFKI3DFdHRpXpPfFzNVM9 lbm [file] BLr8mn+lqU/S3di9yMKfwckwkzP7purylOj+ [file] 7jBOQZDv6+HOkmtTLefJesGJORRiG7GBU6VLbcXMKWJw6W ID Date Data Source [id number] 06/07/2020 04:38:36 AM EDT [facility] Name Value Range Interpretation Code Description Data Danuta rce(s) Supporting Document(s) Prothrombin time (PT) 17.4 s 12.5-14.9 [facility] INR in Platelet poor plasma by Coagulation assay 1.40 [facility] Routine intensity oral anticoagulation I NR is typically 2.0-3.0. Target INR must be clinically individualized. ID Date Data Source [id number] 06/07/2020 04:47:24 AM EDT [facility] Name Value Range Interpretation Code Description Data Danuta rce(s) Supporting Document(s) Magnesium [Mass/volume] in Serum or Plasma 1.6 mg/dL 1.6-2.4 [facility] ID Date Data Source [id number] 06/07/2020 04:47:24 AM [facility] Name Value Range Interpretation Code Description Data Danuta rce(s) Supporting Document(s) Phosphate [Mass/volume] in Serum or Plasma 2.6 mg/dL 2.5-4.5 [facility] ID Date Data Source [id number] 06/07/2020 09:34:15 AM [facility] Name Value Range Interpretation Code Description Data Danuta rce(s) Supporting Document(s) Bicarbonate [Moles/volume] in Serum 21 mmol/L 22-29 L [facility] Chloride [Moles/volume] in Serum or Plasma 94 mmol/L 98-107 L [facility] Creatinine [Mass/volume] in Serum or Plasma 0.62 mg/dL 0.70-1.20 L [facility] Glucose [Mass/volume] in Serum or Plasma 95 mg/dL 70-140 [facility] Potassium [Moles/volume] in Serum or Plasma 4.4 mmol/L 3.4-5.1 [facility] Sodium [Moles/volume] in Serum or Plasma 123 mmol/L 136-145 L [facility] Urea nitrogen [Mass/volume] in Serum or Plasma 7 mg/dL 8-23 L [facility] Anion gap 3 in Serum or Plasma 8 mmol/L 8-15 [facility] Osmolality of Serum or Plasma by calculation 254 mosm/kg 275-300 L [facility] Creatinine/Urea nitrogen [Mass Ratio] in Serum or Plasma 11 [facility] Calcium [Mass/volume] in Serum or Plasma 7.8 mg/dL 8.8-10.2 L [facility] Glomerular filtration rate/1.73 sq M pre dicted among non-blacks [Volume Rate/Area] in Serum or Plasma by Creatinine-based formula (MDRD) >6 0 [facility] Glomerular filtration rate/1.73 sq M pre dicted among blacks [Volume Rate/Area] in Serum or Plasma by Creatinine-based formula (MDRD) >60 [facility] ID Date Data Source [id number] 06/07/2020 04:37:58 AM [facility] Name Value Range Interpretation Code Description Data Danuta rce(s) Supporting Document(s) Calcium.ionized [Moles/volume] in Arterial blood 1.12 mmol/L 1.13-1.3 2 L [facility] ID Date Data Source [id number] 06/06/2020 06:45:12 PM [facility] Name Value Range Interpretation Code Description Data Danuta rce(s) Supporting Document(s) Bicarbonate [Moles/volume] in Serum 22 mmol/L 22-29 [facility] Chloride [Moles/volume] in Serum or Plasma 93 mmol/L 98-107 [facility] Creatinine [Mass/volume] in Serum or Plasma 0.69 mg/dL 0.70-1.20 [facility] Glucose [Mass/volume] in Serum or Plasma 121 mg/dL 70-140 [facility] Potassium [Moles/volume] in Serum or Plasma 4.2 mmol/L 3.4-5.1 [facility] Hemolyzed Sodium [Moles/volume] in Serum or Plasma 124 mmol/L 136-145 [facility] Urea nitrogen [Mass/volume] in Serum or Plasma 6 mg/dL 8-23 [facility] Anion gap 3 in Serum or Plasma 9 mmol/L 8-15 [facility] Osmolality of Serum or Plasma by calculation 257 mosm/kg 275-300 [facility] Creatinine/Urea nitrogen [Mass Ratio] in Serum or Plasma 9 [facility] Calcium [Mass/volume] in Serum or Plasma 7.8 mg/dL 8.8-10.2 [facility] Glomerular filtration rate/1.73 sq M pre dicted among non-blacks [Volume Rate/Area] in Serum or Plasma by Creatinine-based formula (MDRD) >6 0 [facility] Glomerular filtration rate/1.73 sq M pre dicted among blacks [Volume Rate/Area] in Serum or Plasma by Creatinine-based formula (MDRD) >60 [facility] ID Date Data Source [id number] 06/06/2020 05:11:35 AM [facility] Name Value Range Interpretation Code Description Data Danuta rce(s) Supporting Document(s) Leukocytes [#/volume] in Blood by Automated count 9.6 10*3/uL 4-10 [facility] Erythrocytes [#/volume] in Blood by Automated count 2.29 10*6/uL 4.6- 6.1 [facility] Hemoglobin [Mass/volume] in Blood 8.1 g/dL 13.5-18 L [facility] Hematocrit [Volume Fraction] of Blood by Automated count 22.8 % 4 1-53 [facility] Erythrocyte mean corpuscular volume [Entitic volume] b y Automated count 100.0 fL 80-96 [facility] Erythrocyte mean corpuscular hemoglobin [Entitic mass] by Automated count 35.5 pg 27-33 [facility] Erythrocyte mean corpuscular hemoglobin concentration [Mass/volume] by Automated count 35.5 g/dL 32.0-36.0 [facility] Erythrocyte distribution width [Ratio] by Automated count 16.3 % 11.5-14.5 [facility] Platelets [#/volume] in Blood by Automated count 135 10*3/uL 150-400 L [facility] ID Date Data Source [id number] 06/06/2020 05:18:11 AM [facility] Name Value Range Interpretation Code Description Data Danuta rce(s) Supporting Document(s) Prothrombin time (PT) 16.9 s 12.5-14.9 [facility] INR in Platelet poor plasma by Coagulation assay 1.35 [facility] Routine intensity oral anticoagulation I NR is typically 2.0-3.0. Target INR must be clinically individualized. ID Date Data Source [id number] 06/06/2020 05:28:23 AM [facility] Value Range Interpretation Code Description Data Danuta rce(s) Supporting Document(s) Albumin [Mass/volume] in Serum or Plasma by Bromocresol green (BCG) dye binding method 3.4 g/dL 3.5-5.2 L [facility] Bilirubin.total [Mass/volume] in Serum or Plasma 1.1 mg/dL <1.2 [facility] Bilirubin.direct [Mass/volume] in Serum or Plasma 0.2 mg/dL <0.3 [facility] Hemolyzed Alkaline phosphatase [Enzymatic activity/volume] in Serum or Plasma 48 U/L 40-129 [facility] Aspartate aminotransferase [Enzymatic activity/volume] in Serum or Plasma 29 U/L <40 [facility] Hemolyzed Alanine aminotransferase [Enzymatic activity/volume] in Seru m or Plasma 16 U/L <41 [facility] Hemolyzed Protein [Mass/volume] in Serum or Plasma 6.2 g/dL 6.4-8.3 [facility] ID Date Data Source [id number] 06/06/2020 05:28:23 AM [facility] Name Value Range Interpretation Code Description Data Danuta rce(s) Supporting Document(s) Phosphate [Mass/volume] in Serum or Plasma 2.5 mg/dL 2.5-4.5 [facility] ID Date Data Source [id number] 06/06/2020 05:28:23 AM [facility] Value Range Interpretation Code Description Data Danuta rce(s) Supporting Document(s) Magnesium [Mass/volume] in Serum or Plasma 2.1 mg/dL 1.6-2.4 [facility] ID Date Data Source [id number] 06/06/2020 05:03:26 AM [facility] Value Range Interpretation Code Description Data Danuta rce(s) Supporting Document(s) Calcium.ionized [Moles/volume] in Arterial blood 1.05 mmol/L 1.13-1.3 2 L [facility] ID Date Data Source [id number] 06/06/2020 01:14:57 AM [facility] Value Range Interpretation Code Description Data Danuta rce(s) Supporting Document(s) Albumin [Mass/volume] in Serum or Plasma by Bromocresol green (BCG) dye binding method 3.4 g/dL 3.5-5.[address] [facility] Bilirubin.total [Mass/volume] in Serum or Plasma 1.1 mg/dL <1.2 [facility] Bilirubin.direct [Mass/volume] in Serum or Plasma 0.3 mg/dL <0.3 [facility] Alkaline phosphatase [Enzymatic activity/volume] in Serum or Plasma 49 U/L 40-129 [facility] Aspartate aminotransferase [Enzymatic activity/volume] in Serum or Plasma 21 U/L <40 [facility] Alanine aminotransferase [Enzymatic activity/volume] in Seru m or Plasma 14 U/L <41 [facility] Protein [Mass/volume] in Serum or Plasma 5.6 g/dL 6.4-8.3 L [facility] ID Date Data Source [id number] 06/06/2020 01:14:57 AM [facility] Value Range Interpretation Code Description Data Danuta rce(s) Supporting Document(s) Phosphate [Mass/volume] in Serum or Plasma 2.5 mg/dL 2.5-4.5 [facility] ID Date Data Source [id number] 06/06/2020 01:14:57 AM [facility] Value Range Interpretation Code Description Data Danuta rce(s) Supporting Document(s) Bicarbonate [Moles/volume] in Serum 23 mmol/L 22-29 [facility] Chloride [Moles/volume] in Serum or Plasma 93 mmol/L 98-107 [facility] Creatinine [Mass/volume] in Serum or Plasma 0.58 mg/dL 0.70-1.20 [facility] Glucose [Mass/volume] in Serum or Plasma 106 mg/dL 70-140 [facility] Potassium [Moles/volume] in Serum or Plasma 4.1 mmol/L 3.4-5.1 [facility] Sodium [Moles/volume] in Serum or Plasma 123 mmol/L 136-145 [facility] Urea nitrogen [Mass/volume] in Serum or Plasma 5 mg/dL 8-23 [facility] Anion gap 3 in Serum or Plasma 7 mmol/L 8-15 [facility] Osmolality of Serum or Plasma by calculation 254 mosm/kg 275-300 [facility] Creatinine/Urea nitrogen [Mass Ratio] in Serum or Plasma 9 [facility] Calcium [Mass/volume] in Serum or Plasma 7.7 mg/dL 8.8-10.2 L [facility] Glomerular filtration rate/1.73 sq M pre dicted among non-blacks [Volume Rate/Area] in Serum or Plasma by Creatinine-based formula (MDRD) >6 0 [facility] Glomerular filtration rate/1.73 sq M pre dicted among blacks [Volume Rate/Area] in Serum or Plasma by Creatinine-based formula (MDRD) >60 [facility] ID Date Data Source [id number] 06/06/2020 01:14:57 AM [facility] Name Value Range Interpretation Code Description Data Danuta rce(s) Supporting Document(s) Magnesium [Mass/volume] in Serum or Plasma 1.6 mg/dL 1.6-2.4 [facility] ID Date Data Source [id number] 06/06/2020 12:53:56 AM [facility] Value Range Interpretation Code Description Data Danuta rce(s) Supporting Document(s) Calcium.ionized [Moles/volume] in Arterial blood 1.07 mmol/L 1.13-1.3 2 [facility] ID Date Data Source [id number] 06/05/2020 05:25:29 PM [facility] Name Value Range Interpretation Code Description Data Danuta rce(s) Supporting Document(s) Bicarbonate [Moles/volume] in Serum 22 mmol/L 22-29 [facility] Chloride [Moles/volume] in Serum or Plasma 95 mmol/L 98-107 L [facility] Creatinine [Mass/volume] in Serum or Plasma 0.59 mg/dL 0.70-1.20 [facility] Glucose [Mass/volume] in Serum or Plasma 105 mg/dL 70-140 [facility] Potassium [Moles/volume] in Serum or Plasma 3.8 mmol/L 3.4-5.1 [facility] Sodium [Moles/volume] in Serum or Plasma 127 mmol/L 136-145 [facility] Urea nitrogen [Mass/volume] in Serum or Plasma 5 mg/dL 8-23 [facility] Anion gap 3 in Serum or Plasma 10 mmol/L 8-15 [facility] Osmolality of Serum or Plasma by calculation 261 mosm/kg 275-300 [facility] Creatinine/Urea nitrogen [Mass Ratio] in Serum or Plasma 8 [facility] Calcium [Mass/volume] in Serum or Plasma 8.0 mg/dL 8.8-10.2 [facility] Glomerular filtration rate/1.73 sq M pre dicted among non-blacks [Volume Rate/Area] in Serum or Plasma by Creatinine-based formula (MDRD) >6 0 [facility] Glomerular filtration rate/1.73 sq M pre dicted among blacks [Volume Rate/Area] in Serum or Plasma by Creatinine-based formula (MDRD) >60 [facility] ID Date Data Source [id number] 06/05/2020 06:42:36 PM [facility] Value Range Interpretation Code Description Data Danuta rce(s) Supporting Document(s) Magnesium [Mass/volume] in Serum or Plasma 1.6 mg/dL 1.6-2.4 [facility] ID Date Data Source [id number] 06/05/2020 06:42:36 PM [facility] Value Range Interpretation Code Description Data Danuta rce(s) Supporting Document(s) Phosphate [Mass/volume] in Serum or Plasma 2.7 mg/dL 2.5-4.5 [facility] ID Date Data Source [id number] 06/05/2020 01:28:13 PM EDT [facility] Name Value Range Interpretation Code Description Data Danuta rce(s) Supporting Document(s) Consultation [facility] [id number]/CPUzaJCDbr6AoSZjlRNt9OBpdDFMaB0UzIQA1nO0mPRM0OUlFUeUdNlWmPDDe lbm [file] [id number] ID Date Data Source [id number] 06/05/2020 10:07:33 AM EDT [facility] Name Value Range Interpretation Code Description Data Danuta rce(s) Supporting Document(s) [facility] IELYMp6zCkZMAgAvs6LhNpLyVPGgXA6wwdq7L6A8yVRdH0FbfVEcj8mlX5GlU7OsPCVeXTXRGM1UfVBm jb2 [file] yTgr3EiLqIkC+z3/cy+7X/j6//bxmUzoaK3K++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 pP/0Xf7+vfW/dr9/vp4DIcjszB1tq+CwLw89J/H8jEdP+u8uyYJP67VwdootLPgE/aPnz/i1EJ/X0TfG v6A0qfM70Kyos+PasjveLb/j4Zl1Ttqq+cTzGH+jDRh/F/RdR9+ycS4XrbjwO9+61t2h17pX+2942th8 ++1fu99+tMftX/dfj4xNpfGilLT2pqcJgjf++uZv5h 2i5bB1M797dx/3+TlDnuWcI+RZ/jlBnrqfA+Rpk3N+PG11jo+nDc/p9OvD50Jqy90uD/hQ7nu5A2Wes9 2L31gjbmUaiP3qqIy6oMPe/H2+14n8Rti/eQ+/etNvnDynxZ+8Im8/PWfFbxq/3ozou9N1lIP/2nz41Z F9jm6xfI/fdh5+9aSh7+UJC35B2gzlj+d0+K5m19if 5sfxtR94qzw9z5+dCHpQo5XfSTnmMM3F5fS5bLXU29Ke4IyE+dv1dfoN81/xRBxhU5ffeJc1b5czjywA pV5bNhE3/Op5Lq//n9Sed666dpa5FKA++PcAZ1q5j8s/M226fC1QRa/78eeiX16+0Z47/thlz6oe+977 tpzo7It11sn00vhaa7BteSEyhQ7Y3Qn28dH4cov5+N Wbxu/zmhObhWlL8APXM5OzMkol7pvm8d2pRkS+n1z0krnGnkGhmumjaYOOl5/5wqpqoocHggNnpllTZ9 5w+Zh83u9gdQEwL+iJ97Q8zj5vvndQftiTg/7pO0ec/s4yO9QtM2+K+xt00v5g/jp0zKf57hfaotN9/C mJjLlqG13B1W1eM1J708qIla2+1Z9z3b/ue7jsd0ii 85++W5hkNP76ky01/GNbPyIi7WvZ016y0E1Imf3/ivnjOcCd4+85v/2005Nk0z842y/hV+kbh1+lPxx+ tcImh1+48si19Ga1g0qjhU8ud59lfn1Czo/nesuZeus9/Ak3uQ99eXHtzdGi6G9J/know7EoEomoR8u1 ifbM42/MCycoyn2xpxP3IRllni/wq/Srw6/Srw6/et Jy/zIlw2n9wk0h/fIlBb/S4Fdhh+BXlumrb/NhnEPAajuMWC7Qx2ytf3196GnZhCc7uLzMzqB8fm1hh7 Joni+tL27E4bp49Gf2q+FXmPfxq5+lnueUffhUc+opRzfAsSDrx26x+q22bt1ZGf+OLer6bsttfB85mpu abdjx3/P7o+1ZoqJY9Qrx2zXLE2+/04c2u5TVCe+f7 kWU8DBM2/F0iZSdl5+D094b1P/eb1Vgsk4pALJ7669Cj1fj0qE++WebRN+aq3St8ZxG7fEwGlGqRs+cW 5W883/a93r14Gr6Kdq7m9DvdoOgh7rgkeext0o7oy7n427R46GiyO67tjB/LnQ/22SlDf3vdirwDVidw TqbKennXOVad/aKDX/SaIjiTdK60yIr/HyNJ7og/6s Aj9n0EydgdwudDyzpmbW0ofEY1wyAdq1R1AYrv3/xRM50N2n/7OgIcZHRr6sEpmX0Z+75dEdaP7Hu9Ir bUpgws5jWve0zue2/24SfK6u7+puP3A+AjjpRDpxs4GD6+8mAqeDC7npYOov+0Z6Od+l9amx5Jx71N1a T6X29htBgld/7bg1/Fuwh+sloffr7g/ZpsS3nTokKW Hn/5cA9+jdW8E2v+0IQ2Rh7a8/O1Ht7q0QP+DTyuhOWn7O6Oze5S23+B2LjM265oRf/xfg3v9/CrtK3d +e85C/23K6hudM78o68gM2A+/Moxh759pnEqPW/xaknI9f/6ZI/1qyd9y/i6QhzDe870j/SS3rAMP99s kwy8e6Mqh/OJ39/5Qg9+Fe89+FW8R7/z/e53vt/nnS +g046fOl0st1p+9QUrOX3Wx38xvpB6l+3NNtjRYe6T7MnFubwHejB/UzJtGS4Jz3S2Lpm8Vjd8Qez9Bz q0Vod4SX+LYsn3Hd4A+wS/CpuvO98/A3gcm9F37JDI+259u8vaF/271fc4umbz4AK+PbfV6BkHBNk/3/ lXj/JcFFc53FMIv+y719mUw/YjyH6Di+yJx8tp1Wxv 93c+2LehXrtxbF/+5DU7FdKfpbPvatPKgZDx7nAZoLm33ckwjUr20LqhbYFtd1Z2t4+cA7pn/crPezwH yp6DuEx7q7q97anH3eK2al7dCW64ez/mR3m6+Kfv8+fAf/r2GfX+1X3oMxsh2wQj3n56r8I4t+849j+H xC1ocOfLV+M00Fm/5mdOjL312y1WK5T42Le+NfNA8u 60aGp2viQqh7/Oux5y+uQFwlXYhmNN38tc0cfT/GpF+hNuTptr13y/ZQS/djDA9dol4/nCkIXn++XV5z Trd0M6tzwls6oQ4w5/xxeEZ5SGj6/FvGDE+dV4wz03fVCpB1exioN7exG87JnmNgD+nhwu6Oi/B9avht 70fKH4h3p12Ymrjlt+MmJ/HRb94N0Fwuwvx868bG63 OvSN/pIK3h8i2aix8fW39/d76ev4s3eW/qBm+tHQk0Ua3JgpR/2u141+07Hgu57iOY/Y9BdpS52R620M KoeTVrlNisJAG7i6+9HdGV54/H0Zw5Rn+r9Hufog355/v2CZxpQochxWdxfU+s0sO4Fr9m/GuHxyjMsn h10+FpDqfx172uH3/X0Yu155pF/wqzNejOBXoWPwqx MDg5036vSIa6i9L25gqa/bRiRnT93pz9/mFj4O90REk9/p4Yzt5/BunvSA1oJA3lcb3Xs+63Uj+FX+/q 1drKJZge596dH38KiZUNX1HqL3ta/6qHT5pqLNU4S58vnV291na/1qzDs/BmLuAc11Otfd558xiqlWbY KCOl94sywOM583z01oS15jO+8X/GrMu/05jg00aWfW P0/03+SX7MlXmeS87pn1yMdwZ/Bi1WvnY9jPUEy11ytcb/y7/jxi/Gt5iqWgH78ea744HT/K4UQkty5T 3wV9F/gn1qkC6z1dBw2wlak3gh/GvvuhI/xKLJbi1l/Vn6YLlu180ofkcc3dz2a4T+2k12FgOIazke76 X3i+0vlfV5fOT5c2lGIbc2Cy+tXLYn/wSb/tNOwPGv PWPjdA9xojX1+2dt+vtTv/csM4InR31cy7fivgH7e3u/0l0xoigD6/mjQ8v/Mjk+yYDb2a1Dm/45dhf9 QykqAYB73Fgig3bb6GnHm5r8ez2HQyCC/kAtlo8DyD3i/Dtl314l3eOH/1IVh8BoP+oGF/0LA/aKoop+ P3/bZf7/iclb7cYJ7bEFr+zmyzv5aaloS9P3Tvcun7 g+GTsT+A2ysWqgm/Wr/jr/U7/loXPBf8/v6RTsJNVidDhv8Gb/Wr+M1dr7N+38DeM783vowfOguskG7/ Z7B+x1/rG/Wi/l1849L+O+73hDbu+DxV7js80bbNl/Wtpyd836vQadw/NKkpri4jWZKDo+tB2uA4JpqN 5QfbijG5d+egfW3aVaWn1hxeDEi9+2X3LG5+E3iO4v dmuMarv6JwUE822h5Zs+1KP5dVu1WJl51jmx7En//gV5xa4scsC+hjT0zP9MjGZmkeuqERfbF+4JlHGN avLL6/mu/D06qNy5/7bmmg9pI3kpdX6i12b4J3r/E59MsjF4a5q05/yol6z/lu5gj3v7/gHLnN+d05cZ dl4PtZsg46ijme33fwlG3Z8/0GQ49M04n/poF5fr0p GqulIN4g/GnZ59344Fc/M4rskK7m/arqnf7fkJX8w3U7rh8Gj2kwc8SKswdogU79lsT0epk9ZyhrmtMQ 1Jmss2UcexqzjfzbgSegI5UXS+itU21QaYa/Z7swuckRJ83/a35042yvVd/8Txi84Kfj9V0Cb5Lzir/X /I8M8b8ozCl3AAy84wBng5uLnBDOlcfo8xs6J4aabk 2kg35kzr5RY7N7+cYlo29kOMnmzY28o12q/lu55rqWbfB/E12PMw3Q/f39J6j6mUzO4Oy+1Mff9u85LI O/bl0G106P4110P3ko5mbG40bO/QvCd3m4RnZwF8s8cqjjsw9eax9LwQE6qdbe4FoM0tpud2lAyte35N 78KtP4/pPKOl3bwxG4s5+3+4248czvst3efi33O+dM pFy9CQo48srB1/0Ap13IjeFfz38Zv8f3GEXbxv6/bc9+omy29zn6v+ZLS0t483GI1eqWh6/lc0N7/Lbz 7HahnPdfN1d//uzBr+IvOwa/NgzZt3a28Oty/fYvx/3nX72rMe7dpofGk2arkkk0a3w0x1mnvpmX810p Jsqf+J9W8uwuuqc/dBS83DamW80M5535q8sz/TLvd/ 7rwa+e9LUb+JXn/mCk4c+4Tkobg8CT90z9k//2drjb5b/45sscM97V52U/V/Oz97VWd2pRvN58/f1+ww z8QxuEjq+iGdsx6IjgEky01QaFi527zvTm+gOQ3Z5AzVpf30yjDf55jl7gO+h2x1+B2naeau8OFwS6qj j93V/wNG3a7Qg7Q3NnHyeBl7sKgp5NJt1jwoihkKtC 4L438J300lya+4Oe+4Maabtpub+S49bhrAun+D1wR1FrG9i6411/Pom12pbN6+596S4WBr2Nz538db/7 [file] bLTq4Cd3DgkzT6tbNnMbv7WYS5AmXxKT3C ID Date Data Source [id number] 06/05/2020 10:07:11 AM EDT [facility] Name Value Range Interpretation Code Description Data Danuta rce(s) Supporting Document(s) [facility] RHAKKb0cHoLUHqCbw9EzYzRsGHOhZK5xuta4M6X0aFHaV3ClzEHah6ezH7DnB7PkOJFbNXCVGC4EaOIv jb2 [file] TtvMPDWodCwRUBT9ZFq4xrbBjPuLKT4GQxV+hDXAB1GkH5mTXG3sr1JVo1axDPLof/[facility]//hf/2iKe/sT [file] D62f4r4c80J4/jW56Wa9F3FyEHvir+g0aoY3q5/X99 ++r7D+++/Qo/9BKn+ctvvvqirrs+4xZxwk67ha1Y+5L8F706vw/avYyGV6J/group home//xq5Fn7/w28+/O7t N7/+4dO7T+/fvnv/1Esgxby91Izdlgii+48/rMVrm90KI3+9vX38/jefvvnw/u3j+08fv3n/23ff/qw1 tzN7n+9nF1x7uaev+JW++fCbH94+sv90X38/91d+dn +AvZUf/v79x+9/5u2fty1+hsUwqpf81vsgsq/w9s//6biqSy0/6u11+P3Ht1+9//vvP75//fnT3n/+27 9y2hLt/PD9hx9+/f7Lb/7+my/nyjn02f8NV3+d4w1f6V/ex0442YjtE1134enKe4/+69746/77X79/99 /fn7/20u86a3/71etP3/Nnj3114/Gbdx8+iS714tPU 7z+9ffzNt+/fXjZ7+/p3v37/8b+/+/b9d9+8+zsid72J++BeBi3rt/kPf+Vndze/f/ZPX7//8Pbl99/9 +k4Y29593zjklz7/1D16e1mR3yd3lqG/+vPTeFFameLth2/+4cNtCr/nr999+If3f+X3t3tz//7LP//p 337/lz/+9K9v/+N/v/3293/4w49/+ctPP/7h1WF//N Pvf/aD35dE0a5/+/ecW478/S9L/sDz3wikdd//6i016068golL6zr8/sc//nKrhyP3RlZnksS//C3wul 9w7ZA50+v/D6BHdA+4/+15H94cxiOMd9WdhbVhAblrgT7H9h2ji1uH4+tZ86t1ug7aYd0Wm//g40//9t YJQgc5wby4+2/vfvjufnd+eHW5r3/zWWvrZ3+WZv7V /Svn5DM0/3Ia1fEQ+jZexLFfGWEs2wRG++yd/O1Pf/dAm3k6m8//1jHgF8641i9R3Kj+0R/4zDfyZYx8 88Nk1Nzq629/p//46S//73+6eZ3+4XAwpe13ZXR8+ekP+F7hp8b66//5uvnf//lPPz+/82z64xd9jpr2 x0+//MdP/3LAyZ1FBws8in4ZyzpFp8eSE4Wv+8z0L0 5weG6CPoSLd+Koy7CjN//i4y8+qx07f5659//78geT2bb/+G+/+sDP41s7dfWkmk///stn49/nT+K7H/ /q6PZzf8Ny/vg//+XHf//9j3/31b2qH5/x+5+Bj5E+/vnPf/ac1opM0yXaiUD3++d/+ZXimkzgO6xRLT 799C//959+/y+vW/drNoUBcw1rg418pb/++3+8+tW/ ajXj7Xvg/+7Ldx+/+vtj0Fv8L+NN+/79686/+PTDF/ys3h/r//XR4tYF5hTJ+3/8a228E97//ar9AtJk IxgefNJ90d34EQdco/imqweEt95swUdhv//xq/jtK9W5tiJjX/fdl19+/5sPr9++pkO7GtcmGlzm//9R XYT5LgXaADY8fpFzaBjtksGwMseJZZsjSYAqLni3KY 7YaRVdXOZfK0I8UREqum3kSSMiBYZtxLEsSqXwCYYBTV8UtHMaFN1BRRz2FOXrJVRdUgQgCSYxxtV7ZD WlJTJtLYJiN7JsmxVwsMCaYFAvZf9+TS5we7OeZdJgXJHpRdh3GN1KnLLmTF3TeNOvwM3qwiGoK919bl AtWNPdJymfs7FjGAgyIKNOGX3WWAM2FFA5OQJlIq5+ HH0st3TpNoObLRRpVzq0TM0LrFQxl1RdWV9CD0KfLCFiXHYPQCX4d9MdULEsbnwylasaN3UcJZN5jG4m PSH0BNAzDLljNYHrIXMsDyVkIKivJKjgHQXmMJElLDDzKISrQRt6cXJsCN2CK9VvJDPnVLDMKHCdumRr Ig6lGC5OMbUWGjJYXHIZL74GLETaQgw9ExK3PgizK9 I1VrleA6VuKU4OE2KuQTCiPNITPHNhmsSqFE9AfpBviM5wPXlLXRUVBHrNDAppHlZ7k25zycNPAFCbSN KnTArlRFAuGZUiKQDiOUSuRCCnUIBqMMBaZV4GF6GmYWTsXJZRMGS0p4VlCOTehgpmvavjJf8lmvUgWe o+MjphCEFle2PhAKerZ3Y3pUPrC9NmU1GpPG9BoDVx VKiaGAClYCDdFREsT782qxSpDF1+LM2yj8YmDqvvXJOOZDDtUJIdRMAgHGS3ZhWyXGJzNQCjHMAlXyZ2 FjLnMmXAFIWlLCI9CVN6OpAhUCXrVRZjENlgPHZmJSC5PfY2FRMzBDPbOH7qCxEpXZJbVutxIFLvAUMw KOKfrhMLTVFeMADaXKBhMQK7WNYpPARbOAzfOWJoWY ZpIGR6YGRkXWCmXR9nKhEkPPYgMRXrJynyBWPrRWEfjeZCNGXmJYSbCFL4VcJlLHJtIMCrCXfvBYPdIY KwSqt9BIDkYMZoLF0aOwUnJESdCIB2GSncRSWrITMfbfSPMIEkDRAbZJUmUcVgPTJeHKIsUEslVQIqXZ FvBeXhOGQuBYGkBN8mFxVuWZGuYTU4MZNyGOKfDUXx rjPOLOCpUDApCUz0XAWmPVLpBMSvCKeiINDtZYAuRBC0RRMfDPMzIN4iKbFkQZJlJDQmCBFcYEPtCGDh zkLUHIXoPYPbXJG2LNPoDRGrGKRgIMhqXEYeOPSxQhf4TUTjTDUuKB8kShSiNKRcGFQ8WESqZOXqECEv ioCZXQQyARK5ZXIfYTDeJLYnDRJtNFdjZYPoDUCeCo C1HLZfBHEvFU8vYeFtYDVjTVJ2MzIdIUHuCDOfkyGOXGQzKVRzVBY4XcEzPPLdXWBzHBwtIDSgISIhMG KlUTG6WGX1ACBqTgUpXCftXUANDIkDG5AfqaSvPxJHG2blId4jPbRwNCNYI7Fsm5RuFEJhFKQASn3+Cn M9EKZ6mFNiBxi5YJckXQiwXEFMJc== ID Date Data Source [id number] [facility]2020 09[facility]52[facility] Value Range Interpretation Code Description Data Danuta rce(s) Supporting Document(s) Bicarbonate [Moles/volume] in Serum 21 mmol/L 22-29 [facility] Chloride [Moles/volume] in Serum or Plasma 94 mmol/L 98-107 [facility] Creatinine [Mass/volume] in Serum or Plasma 0.64 mg/dL 0.70-1.20 [facility] Glucose [Mass/volume] in Serum or Plasma 157 mg/dL 70-140 [facility] Potassium [Moles/volume] in Serum or Plasma 4.0 mmol/L 3.4-5.1 [facility] Sodium [Moles/volume] in Serum or Plasma 124 mmol/L 136-145 [facility] Urea nitrogen [Mass/volume] in Serum or Plasma 5 mg/dL 8-23 [facility] Anion gap 3 in Serum or Plasma 9 mmol/L 8-15 [facility] Osmolality of Serum or Plasma by calculation 259 mosm/kg 275-300 [facility] Creatinine/Urea nitrogen [Mass Ratio] in Serum or Plasma 8 [facility] Calcium [Mass/volume] in Serum or Plasma 7.6 mg/dL 8.8-10.2 [facility] Glomerular filtration rate/1.73 sq M pre dicted among non-blacks [Volume Rate/Area] in Serum or Plasma by Creatinine-based formula (MDRD) >6 0 [facility] Glomerular filtration rate/1.73 sq M pre dicted among blacks [Volume Rate/Area] in Serum or Plasma by Creatinine-based formula (MDRD) >60 [facility] ID Date Data Source [id number] 06/05/2020 11:46:45 AM [facility] Name Value Range Interpretation Code Description Data Danuta rce(s) Supporting Document(s) Phosphate [Mass/volume] in Serum or Plasma 2.0 mg/dL 2.5-4.5 [facility] ID Date Data Source [id number] 06/05/2020 04:39:55 AM [facility] Value Range Interpretation Code Description Data Danuta rce(s) Supporting Document(s) Leukocytes [#/volume] in Blood by Automated count 9.0 10*3/uL 4-10 [facility] Erythrocytes [#/volume] in Blood by Automated count 2.23 10*6/uL 4.6- 6.1 [facility] Hemoglobin [Mass/volume] in Blood 7.9 g/dL 13.5-18 [facility] Hematocrit [Volume Fraction] of Blood by Automated count 22.3 % 4 1-53 [facility] Erythrocyte mean corpuscular volume [Entitic volume] b y Automated count 100.2 fL 80-96 [facility] Erythrocyte mean corpuscular hemoglobin [Entitic mass] by Automated count 35.3 pg 27-33 [facility] Erythrocyte mean corpuscular hemoglobin concentration [Mass/volume] by Automated count 35.2 g/dL 32.0-36.0 [facility] Erythrocyte distribution width [Ratio] by Automated count 15.9 % 11.5-14.5 [facility] Platelets [#/volume] in Blood by Automated count 95 10*3/uL 150-400 [facility] ID Date Data Source [id number] 06/05/2020 04:50:20 AM [facility] Value Range Interpretation Code Description Data Danuta rce(s) Supporting Document(s) Prothrombin time (PT) 19.4 s 12.5-14.9 [facility] INR in Platelet poor plasma by Coagulation assay 1.61 [facility] Routine intensity oral anticoagulation I NR is typically 2.0-3.0. Target INR must be clinically individualized. ID Date Data Source [id number] 06/05/2020 05:00:22 AM [facility] Value Range Interpretation Code Description Data Danuta rce(s) Supporting Document(s) Albumin [Mass/volume] in Serum or Plasma by Bromocresol green (BCG) dye binding method 3.1 g/dL 3.5-5.2 [facility] Bilirubin.total [Mass/volume] in Serum or Plasma 1.1 mg/dL <1.2 [facility] Bilirubin.direct [Mass/volume] in Serum or Plasma 0.3 mg/dL <0.3 [facility] Alkaline phosphatase [Enzymatic activity/volume] in Serum or Plasma 47 U/L 40-129 [facility] Aspartate aminotransferase [Enzymatic activity/volume] in Serum or Plasma 22 U/L <40 [facility] Alanine aminotransferase [Enzymatic activity/volume] in Seru m or Plasma 15 U/L <41 [facility] Protein [Mass/volume] in Serum or Plasma 5.6 g/dL 6.4-8.3 [facility] ID Date Data Source [id number] 06/05/2020 05:00:22 AM [facility] Name Value Range Interpretation Code Description Data Danuta rce(s) Supporting Document(s) Magnesium [Mass/volume] in Serum or Plasma 1.7 mg/dL 1.6-2.4 [facility] ID Date Data Source [id number] 06/05/2020 05:00:22 AM [facility] Name Value Range Interpretation Code Description Data Danuta rce(s) Supporting Document(s) Bicarbonate [Moles/volume] in Serum 21 mmol/L 22-29 [facility] Chloride [Moles/volume] in Serum or Plasma 93 mmol/L 98-107 [facility] Creatinine [Mass/volume] in Serum or Plasma 0.60 mg/dL 0.70-1.20 [facility] Glucose [Mass/volume] in Serum or Plasma 100 mg/dL 70-140 [facility] Potassium [Moles/volume] in Serum or Plasma 4.2 mmol/L 3.4-5.1 [facility] Sodium [Moles/volume] in Serum or Plasma 122 mmol/L 136-145 [facility] Urea nitrogen [Mass/volume] in Serum or Plasma 6 mg/dL 8-23 [facility] Anion gap 3 in Serum or Plasma 8 mmol/L 8-15 [facility] Osmolality of Serum or Plasma by calculation 252 mosm/kg 275-300 [facility] Creatinine/Urea nitrogen [Mass Ratio] in Serum or Plasma 10 [facility] Calcium [Mass/volume] in Serum or Plasma 8.0 mg/dL 8.8-10.2 [facility] Glomerular filtration rate/1.73 sq M pre dicted among non-blacks [Volume Rate/Area] in Serum or Plasma by Creatinine-based formula (MDRD) >6 0 [facility] Glomerular filtration rate/1.73 sq M pre dicted among blacks [Volume Rate/Area] in Serum or Plasma by Creatinine-based formula (MDRD) >60 [facility] ID Date Data Source [id number] 06/05/2020 05:00:22 AM [facility] Name Value Range Interpretation Code Description Data Danuta rce(s) Supporting Document(s) Phosphate [Mass/volume] in Serum or Plasma 2.7 mg/dL 2.5-4.5 [facility] ID Date Data Source [id number] 06/05/2020 04:34:39 AM [facility] Name Value Range Interpretation Code Description Data Danuta rce(s) Supporting Document(s) Calcium.ionized [Moles/volume] in Arterial blood 1.05 mmol/L 1.13-1.3 2 [facility] ID Date Data Source [id number] 06/04/2020 10:25:20 PM [facility] Name Value Range Interpretation Code Description Data Danuta rce(s) Supporting Document(s) Bicarbonate [Moles/volume] in Serum 23 mmol/L 22-29 [facility] Chloride [Moles/volume] in Serum or Plasma 92 mmol/L 98-107 [facility] Creatinine [Mass/volume] in Serum or Plasma 0.60 mg/dL 0.70-1.20 [facility] Glucose [Mass/volume] in Serum or Plasma 103 mg/dL 70-140 [facility] Potassium [Moles/volume] in Serum or Plasma 4.3 mmol/L 3.4-5.1 [facility] Sodium [Moles/volume] in Serum or Plasma 122 mmol/L 136-145 [facility] Urea nitrogen [Mass/volume] in Serum or Plasma 7 mg/dL 8-23 [facility] Anion gap 3 in Serum or Plasma 7 mmol/L 8-15 [facility] Osmolality of Serum or Plasma by calculation 252 mosm/kg 275-300 [facility] Creatinine/Urea nitrogen [Mass Ratio] in Serum or Plasma 12 [facility] Calcium [Mass/volume] in Serum or Plasma 7.5 mg/dL 8.8-10.2 [facility] Glomerular filtration rate/1.73 sq M pre dicted among non-blacks [Volume Rate/Area] in Serum or Plasma by Creatinine-based formula (MDRD) >6 0 [facility] Glomerular filtration rate/1.73 sq M pre dicted among blacks [Volume Rate/Area] in Serum or Plasma by Creatinine-based formula (MDRD) >60 [facility] ID Date Data Source [id number] 06/04/2020 07:00:13 PM EDT [facility] Name Value Range Interpretation Code Description Data Danuta [facility](s) Supporting Document(s) History and Physical [facility] [id number] [facility] [file] DQo= ID Date Data Source [id number] 06/04/2020 04:52:40 PM EDT [facility] Name Value Range Interpretation Code Description Data Danuta e(s) Supporting Document(s) Bicarbonate [Moles/volume] in Serum 21 mmol/L 22-29 [facility] Chloride [Moles/volume] in Serum or Plasma 95 mmol/L 98-107 [facility] Creatinine [Mass/volume] in Serum or Plasma 0.64 mg/dL 0.70-1.20 [facility] Glucose [Mass/volume] in Serum or Plasma 113 mg/dL 70-140 [facility] Potassium [Moles/volume] in Serum or Plasma 4.4 mmol/L 3.4-5.1 [facility] Sodium [Moles/volume] in Serum or Plasma 123 mmol/L 136-145 [facility] Urea nitrogen [Mass/volume] in Serum or Plasma 7 mg/dL 8-23 [facility] Anion gap 3 in Serum or Plasma 7 mmol/L 8-15 [facility] Osmolality of Serum or Plasma by calculation 255 mosm/kg 275-300 [facility] Creatinine/Urea nitrogen [Mass Ratio] in Serum or Plasma 11 [facility] Calcium [Mass/volume] in Serum or Plasma 7.4 mg/dL 8.8-10.2 [facility] Glomerular filtration rate/1.73 sq M pre dicted among non-blacks [Volume Rate/Area] in Serum or Plasma by Creatinine-based formula (MDRD) >6 0 [facility] Glomerular filtration rate/1.73 sq M pre dicted among blacks [Volume Rate/Area] in Serum or Plasma by Creatinine-based formula (MDRD) >60 [facility] ID Date Data Source [id number] 06/04/2020 04:52:40 PM [facility] Name Value Range Interpretation Code Description Data Danuta rce(s) Supporting Document(s) Magnesium [Mass/volume] in Serum or Plasma 2.1 mg/dL 1.6-2.4 [facility] ID Date Data Source [id number] 06/04/2020 04:52:40 PM [facility] Name Value Range Interpretation Code Description Data Danuta rce(s) Supporting Document(s) Phosphate [Mass/volume] in Serum or Plasma 3.1 mg/dL 2.5-4.5 [facility] ID Date Data Source [id number] 06/04/2020 12:33:57 PM [facility] Name Value Range Interpretation Code Description Data Danuta rce(s) Supporting Document(s) Bicarbonate [Moles/volume] in Serum 21 mmol/L 22-29 [facility] Chloride [Moles/volume] in Serum or Plasma 96 mmol/L 98-107 [facility] Creatinine [Mass/volume] in Serum or Plasma 0.60 mg/dL 0.70-1.20 [facility] Glucose [Mass/volume] in Serum or Plasma 94 mg/dL 70-140 [facility] Potassium [Moles/volume] in Serum or Plasma 4.4 mmol/L 3.4-5.1 [facility] Sodium [Moles/volume] in Serum or Plasma 124 mmol/L 136-145 [facility] Urea nitrogen [Mass/volume] in Serum or Plasma 8 mg/dL 8-23 [facility] Anion gap 3 in Serum or Plasma 7 mmol/L 8-15 [facility] Osmolality of Serum or Plasma by calculation 256 mosm/kg 275-300 [facility] Creatinine/Urea nitrogen [Mass Ratio] in Serum or Plasma 14 [facility] Calcium [Mass/volume] in Serum or Plasma 7.9 mg/dL 8.8-10.2 [facility] Glomerular filtration rate/1.73 sq M pre dicted among non-blacks [Volume Rate/Area] in Serum or Plasma by Creatinine-based formula (MDRD) >6 0 [facility] Glomerular filtration rate/1.73 sq M pre dicted among blacks [Volume Rate/Area] in Serum or Plasma by Creatinine-based formula (MDRD) >60 [facility] ID Date Data Source [id number] 06/04/2020 12:33:57 PM [facility] Value Range Interpretation Code Description Data Danuta rce(s) Supporting Document(s) Magnesium [Mass/volume] in Serum or Plasma 2.4 mg/dL 1.6-2.4 [facility] ID Date Data Source [id number] 06/04/2020 12:33:57 PM [facility] Value Range Interpretation Code Description Data Danuta rce(s) Supporting Document(s) Phosphate [Mass/volume] in Serum or Plasma 2.3 mg/dL 2.5-4.5 [facility] ID Date Data Source [id number] 06/04/2020 11:52:33 AM [facility] Value Range Interpretation Code Description Data Danuta rce(s) Supporting Document(s) Osmolality of Urine 439 mosm/kg 300-1000 [facility] ID Date Data Source [id number] 06/04/2020 12:13:07 PM [facility] Value Range Interpretation Code Description Data Danuta rce(s) Supporting Document(s) Creatinine [Mass/volume] in Urine 50.0 mg/dl [facility] ID Date Data Source [id number] 06/04/2020 12:13:07 PM [facility] Value Range Interpretation Code Description Data Danuta rce(s) Supporting Document(s) Sodium [Moles/volume] in Urine 110 mmol/L [facility] ID Date Data Source [id number] 06/04/2020 12:13:07 PM [facility] Name Value Range Interpretation Code Description Data Danuta rce(s) Supporting Document(s) Chloride [Moles/volume] in Urine 130 mmol/L [facility] ID Date Data Source [id number] 06/04/2020 12:13:07 PM [facility] Name Value Range Interpretation Code Description Data Danuta rce(s) Supporting Document(s) Urea nitrogen [Mass/volume] in Urine 307 mg/dL [facility] ID Date Data Source [id number] 06/04/2020 09:14:17 AM [facility] Name Value Range Interpretation Code Description Data Danuta rce(s) Supporting Document(s) Bicarbonate [Moles/volume] in Serum 20 mmol/L 22-29 L [facility] Chloride [Moles/volume] in Serum or Plasma 92 mmol/L 98-107 L [facility] Creatinine [Mass/volume] in Serum or Plasma 0.60 mg/dL 0.70-1.20 [facility] Glucose [Mass/volume] in Serum or Plasma 90 mg/dL 70-140 [facility] Potassium [Moles/volume] in Serum or Plasma 4.5 mmol/L 3.4-5.1 [facility] Hemolyzed Sodium [Moles/volume] in Serum or Plasma 121 mmol/L 136-145 L [facility] Urea nitrogen [Mass/volume] in Serum or Plasma 6 mg/dL 8-23 [facility] Anion gap 3 in Serum or Plasma 9 mmol/L 8-15 [facility] Osmolality of Serum or Plasma by calculation 249 mosm/kg 275-300 L [facility] Creatinine/Urea nitrogen [Mass Ratio] in Serum or Plasma 10 [facility] Calcium [Mass/volume] in Serum or Plasma 7.4 mg/dL 8.8-10.2 L [facility] Glomerular filtration rate/1.73 sq M pre dicted among non-blacks [Volume Rate/Area] in Serum or Plasma by Creatinine-based formula (MDRD) >6 0 [facility] Glomerular filtration rate/1.73 sq M pre dicted among blacks [Volume Rate/Area] in Serum or Plasma by Creatinine-based formula (MDRD) >60 [facility] ID Date Data Source [id number] 06/04/2020 09:14:17 AM [facility] Name Value Range Interpretation Code Description Data Danuta rce(s) Supporting Document(s) Magnesium [Mass/volume] in Serum or Plasma 2.8 mg/dL 1.6-2.4 H [facility] ID Date Data Source [id number] 06/04/2020 09:14:17 AM [facility] Value Range Interpretation Code Description Data Danuta rce(s) Supporting Document(s) Phosphate [Mass/volume] in Serum or Plasma 2.8 mg/dL 2.5-4.5 [facility] ID Date Data Source [id number] 06/04/2020 04:51:07 AM [facility] Value Range Interpretation Code Description Data Danuta rce(s) Supporting Document(s) Leukocytes [#/volume] in Blood by Automated count 15.2 10*3/uL 4-10 H [facility] Erythrocytes [#/volume] in Blood by Automated count 2.31 10*6/uL 4.6- 6.1 L [facility] Hemoglobin [Mass/volume] in Blood 8.1 g/dL 13.5-18 L [facility] Hematocrit [Volume Fraction] of Blood by Automated count 23.2 % 4 1-53 [facility] Erythrocyte mean corpuscular volume [Entitic volume] b y Automated count 100.7 fL 80-96 [facility] Erythrocyte mean corpuscular hemoglobin [Entitic mass] by Automated count 35.0 pg 27-33 H [facility] Erythrocyte mean corpuscular hemoglobin concentration [Mass/volume] by Automated count 34.8 g/dL 32.0-[facility] [place] [facility] Erythrocyte distribution width [Ratio] by Automated count 15.5 % 11.5-14.5 [facility] Platelets [#/volume] in Blood by Automated count 95 10*3/uL 150-400 L [facility] ID Date Data Source [id number] 06/04/2020 05:00:16 AM [facility] Value Range Interpretation Code Description Data Danuta rce(s) Supporting Document(s) Prothrombin time (PT) 22.8 s 12.5-14.9 H [facility] INR in Platelet poor plasma by Coagulation assay 1.97 [facility] Routine intensity oral anticoagulation I NR is typically 2.0-3.0. Target INR must be clinically individualized. ID Date Data Source [id number] 06/04/2020 05:10:55 AM [facility] Value Range Interpretation Code Description Data Danuta rce(s) Supporting Document(s) Albumin [Mass/volume] in Serum or Plasma by Bromocresol green (BCG) dye binding method 3.3 g/dL 3.5-5.[address] [facility] [place] Bilirubin.total [Mass/volume] in Serum or Plasma 1.2 mg/dL <1.2 H [facility] Bilirubin.direct [Mass/volume] in Serum or Plasma 0.4 mg/dL <0.3 H [facility] Alkaline phosphatase [Enzymatic activity/volume] in Serum or Plasma 49 U/L 40-129 [facility] Aspartate aminotransferase [Enzymatic activity/volume] in Serum or Plasma 27 U/L <40 [facility] Alanine aminotransferase [Enzymatic activity/volume] in Seru m or Plasma 14 U/L <41 [facility] Protein [Mass/volume] in Serum or Plasma 5.5 g/dL 6.4-8.3 L [facility] ID Date Data Source [id number] 06/04/2020 05:10:55 AM [facility] Value Range Interpretation Code Description Data Danuta rce(s) Supporting Document(s) Phosphate [Mass/volume] in Serum or Plasma 2.7 mg/dL 2.5-4.5 [facility] ID Date Data Source [id number] 06/04/2020 05:10:55 AM [facility] Value Range Interpretation Code Description Data Danuta rce(s) Supporting Document(s) Bicarbonate [Moles/volume] in Serum 19 mmol/L 22-29 L [facility] Chloride [Moles/volume] in Serum or Plasma 92 mmol/L 98-107 L [facility] Creatinine [Mass/volume] in Serum or Plasma 0.62 mg/dL 0.70-1.20 L [facility] Glucose [Mass/volume] in Serum or Plasma 90 mg/dL 70-140 [facility] Potassium [Moles/volume] in Serum or Plasma 4.8 mmol/L 3.4-5.1 [facility] Hemolyzed Sodium [Moles/volume] in Serum or Plasma 120 mmol/L 136-145 [facility] Urea nitrogen [Mass/volume] in Serum or Plasma 7 mg/dL 8-23 [facility] Anion gap 3 in Serum or Plasma 9 mmol/L 8-15 [facility] Osmolality of Serum or Plasma by calculation 247 mosm/kg 275-300 [facility] Creatinine/Urea nitrogen [Mass Ratio] in Serum or Plasma 12 [facility] Calcium [Mass/volume] in Serum or Plasma 7.9 mg/dL 8.8-10.2 L [facility] Glomerular filtration rate/1.73 sq M pre dicted among non-blacks [Volume Rate/Area] in Serum or Plasma by Creatinine-based formula (MDRD) >6 0 [facility] Glomerular filtration rate/1.73 sq M pre dicted among blacks [Volume Rate/Area] in Serum or Plasma by Creatinine-based formula (MDRD) >60 [facility] ID Date Data Source [id number] 06/04/2020 05:10:55 AM [facility] Name Value Range Interpretation Code Description Data Danuta rce(s) Supporting Document(s) Magnesium [Mass/volume] in Serum or Plasma 3.9 mg/dL 1.6-2.4 H [facility] ID Date Data Source [id number] 06/04/2020 07:23:07 AM [facility] Value Range Interpretation Code Description Data Danuta rce(s) Supporting Document(s) Cobalamin (Vitamin B12) [Mass/volume] in Serum or Plasma 649 pg/ml 2 11-946 [facility] ID Date Data Source [id number] 06/04/2020 04:47:13 AM [facility] Value Range Interpretation Code Description Data Danuta rce(s) Supporting Document(s) Calcium.ionized [Moles/volume] in Arterial blood 1.04 mmol/L 1.13-1.3 2 L [facility] ID Date Data Source [id number] 06/04/2020 09:52:56 AM [facility] Value Range Interpretation Code Description Data Danuta rce(s) Supporting Document(s) Folate [Mass/volume] in Serum or Plasma 19.40 ng/mL >4.77 [facility] ID Date Data Source [id number] 06/04/2020 12:22:32 AM [facility] Value Range Interpretation Code Description Data Danuta rce(s) Supporting Document(s) Hepatitis C virus Ab [Presence] in Serum or Plasma by Immuno assay Non Reactive [facility] No serological evidence of active infect ion. If recent exposure is suspected, test for HCV RNA. ID Date Data Source [id number] 06/04/2020 12:13:43 AM [facility] Name Value Range Interpretation Code Description Data Danuta rce(s) Supporting Document(s) Bicarbonate [Moles/volume] in Serum 19 mmol/L 22-29 L [facility] Chloride [Moles/volume] in Serum or Plasma 95 mmol/L 98-107 [facility] Creatinine [Mass/volume] in Serum or Plasma 0.55 mg/dL 0.70-1.20 [facility] Glucose [Mass/volume] in Serum or Plasma 89 mg/dL 70-140 [facility] Potassium [Moles/volume] in Serum or Plasma 4.8 mmol/L 3.4-5.1 [facility] Sodium [Moles/volume] in Serum or Plasma 121 mmol/L 136-145 [facility] Urea nitrogen [Mass/volume] in Serum or Plasma 7 mg/dL 8-23 [facility] Anion gap 3 in Serum or Plasma 7 mmol/L 8-15 [facility] Osmolality of Serum or Plasma by calculation 249 mosm/kg 275-300 [facility] Creatinine/Urea nitrogen [Mass Ratio] in Serum or Plasma 13 [facility] Calcium [Mass/volume] in Serum or Plasma 7.0 mg/dL 8.8-10.2 [facility] Glomerular filtration rate/1.73 sq M pre dicted among non-blacks [Volume Rate/Area] in Serum or Plasma by Creatinine-based formula (MDRD) >6 0 [facility] Glomerular filtration rate/1.73 sq M pre dicted among blacks [Volume Rate/Area] in Serum or Plasma by Creatinine-based formula (MDRD) >60 [facility] ID Date Data Source [id number] 06/04/2020 12:13:43 AM [facility] Value Range Interpretation Code Description Data Danuta rce(s) Supporting Document(s) Phosphate [Mass/volume] in Serum or Plasma 2.6 mg/dL 2.5-4.5 [facility] ID Date Data Source [id number] 06/04/2020 12:13:43 AM [facility] Name Value Range Interpretation Code Description Data Danuta rce(s) Supporting Document(s) Magnesium [Mass/volume] in Serum or Plasma 1.4 mg/dL 1.6-2.4 L [facility] ID Date Data Source [id number] 06/03/2020 10:38:43 PM [facility] Name Value Range Interpretation Code Description Data Danuta rce(s) Supporting Document(s) Cortisol [Mass/volume] in Serum or Plasma 16.3 ug/dL [facility] Ref range for 6-10 am samples: 6.0-18.4 ug/dLRef range for 4-8 pm samples: 2.7- 10.5 ug/dLRef range not established for other times. ID Date Data Source [id number] 06/03/2020 10:38:43 PM [facility] Value Range Interpretation Code Description Data Danuta rce(s) Supporting Document(s) Bicarbonate [Moles/volume] in Serum 20 mmol/L 22-29 [facility] Chloride [Moles/volume] in Serum or Plasma 92 mmol/L 98-107 [facility] Creatinine [Mass/volume] in Serum or Plasma 0.58 mg/dL 0.70-1.20 [facility] Glucose [Mass/volume] in Serum or Plasma 94 mg/dL 70-140 [facility] Potassium [Moles/volume] in Serum or Plasma 4.9 mmol/L 3.4-5.1 [facility] Sodium [Moles/volume] in Serum or Plasma 120 mmol/L 136-145 [facility] Urea nitrogen [Mass/volume] in Serum or Plasma 8 mg/dL 8-23 [facility] Anion gap 3 in Serum or Plasma 8 mmol/L 8-15 [facility] Osmolality of Serum or Plasma by calculation 248 mosm/kg 275-300 [facility] Creatinine/Urea nitrogen [Mass Ratio] in Serum or Plasma 14 [facility] Calcium [Mass/volume] in Serum or Plasma 7.5 mg/dL 8.8-10.2 L [facility] Glomerular filtration rate/1.73 sq M pre dicted among non-blacks [Volume Rate/Area] in Serum or Plasma by Creatinine-based formula (MDRD) >6 0 [facility] Glomerular filtration rate/1.73 sq M pre dicted among blacks [Volume Rate/Area] in Serum or Plasma by Creatinine-based formula (MDRD) >60 [facility] ID Date Data Source [id number] 06/03/2020 09:32:17 PM T [facility] Value Range Interpretation Code Description Data Danuta rce(s) Supporting Document(s) Glucose [Mass/volume] in Capillary blood by Glucometer 97 mg/dL 70- 140 [facility] ID Date Data Source [id number] 06/08/2020 11:47:42 AM EDT [facility] Service Cmnt XXX-Imp : R HANDMicroorgani sm XXX Cult : No growth 5 days Name Value Range Interpretation Code Description Data Danuta rce(s) Supporting Document(s) ID Date Data Source [id number] 06/08/2020 11:47:42 AM [facility] Cmnt XXX-Imp : L ARMMicroorganis m XXX Cult : No growth 5 days Name Value Range Interpretation Code Description Data Danuta rce(s) Supporting Document(s) ID Date Data Source [id number] 06/03/2020 09:31:51 PM [facility] Value Range Interpretation Code Description Data Danuta rce(s) Supporting Document(s) Creatinine [Mass/volume] in Urine 11.0 mg/dl [facility] ID Date Data Source [id number] 06/03/2020 08:10:53 PM [facility] Value Range Interpretation Code Description Data Danuta rce(s) Supporting Document(s) Osmolality of Urine 175 mosm/kg 300-1000 L [facility] ID Date Data Source [id number] 06/03/2020 09:31:51 PM [facility] Value Range Interpretation Code Description Data Danuta rce(s) Supporting Document(s) Sodium [Moles/volume] in Urine 55 mmol/L [facility] Confirmed ID Date Data Source [id number] 06/03/2020 09:31:51 PM [facility] Value Range Interpretation Code Description Data Danuta rce(s) Supporting Document(s) Chloride [Moles/volume] in Urine 63 mmol/L [facility] ID Date Data Source [id number] 06/03/2020 07:09:40 PM [facility] Value Range Interpretation Code Description Data Danuta rce(s) Supporting Document(s) Color of Urine [facility] Clarity of Urine [facility] Specific gravity of Urine by Refractometry automated 1.003 1.003 -1.030 [facility] pH of Urine by Automated test strip 5.0 5.0-8.0 [facility] Protein [Mass/volume] in Urine by Automated test strip Neg [facility] Glucose [Mass/volume] in Urine by Automated test strip Neg [facility] Ketones [Mass/volume] in Urine by Automated test strip 5 [facility] Bilirubin.total [Presence] in Urine by Automated test strip Negative [facility] Hemoglobin [Presence] in Urine by Automated test strip Neg [facility] Leukocyte esterase [Presence] in Urine by Automated test strip Negative [facility] Nitrite [Presence] in Urine by Automated test strip Negati ve [facility] Leukocytes [#/area] in Urine sediment by Automated count 0 -5 [facility] Erythrocytes [#/area] in Urine sediment by Automated count 0-3 [facility] Bacteria [#/area] in Urine sediment by Automated count Non e A [facility] ID Date Data Source [id number] 06/05/2020 07:46:21 AM [facility] Service Cmnt XXX-Imp : NoneMicroorganism XXX Cult : No growth 1 day Name Value Range Interpretation Code Description Data Danuta rce(s) Supporting Document(s) ID Date Data Source [id number] 06/03/2020 07:13:02 PM [facility] Value Range Interpretation Code Description Data Danuta rce(s) Supporting Document(s) Bilirubin.direct [Mass/volume] in Serum or Plasma 0.4 mg/dL <0.3 H [facility] ID Date Data Source [id number] 06/03/2020 07:07:53 PM [facility] Name Value Range Interpretation Code Description Data Danuta rce(s) Supporting Document(s) Leukocytes [#/volume] in Blood by Automated count 16.5 10*3/uL 4-10 [facility] Erythrocytes [#/volume] in Blood by Automated count 2.53 10*6/uL 4.6- 6.1 L [facility] Hemoglobin [Mass/volume] in Blood 8.9 g/dL 13.5-18 L [facility] Hematocrit [Volume Fraction] of Blood by Automated count 25.4 % 4 1-53 [facility] Erythrocyte mean corpuscular volume [Entitic volume] b y Automated count 100.3 fL 80-96 [facility] Erythrocyte mean corpuscular hemoglobin [Entitic mass] by Automated count 35.3 pg 27-33 H [facility] Erythrocyte mean corpuscular hemoglobin concentration [Mass/volume] by Automated count 35.2 g/dL 32.0-36.0 [facility] Erythrocyte distribution width [Ratio] by Automated count 15.8 % 11.5-14.5 [facility] Platelets [#/volume] in Blood by Automated count 106 10*3/uL 150-400 [facility] Differential cell count method - Blood [facility] Neutrophils/100 leukocytes in Blood by Automated count 91 % [facility] Lymphocytes/100 leukocytes in Blood by Automated count 2 % [facility] Monocytes/100 leukocytes in Blood by Automated count 7 % [facility] Eosinophils/100 leukocytes in Blood by Automated count 0 % [facility] Basophils/100 leukocytes in Blood by Automated count 0 % [facility] Neutrophils [#/volume] in Blood by Automated count 14.95 10*3/uL 1.8- 7.0 H [facility] Lymphocytes [#/volume] in Blood by Automated count 0.35 10*3/uL 1.2-4 .0 L [facility] Monocytes [#/volume] in Blood by Automated count 1.16 10*3/uL 0-0.8 H [facility] Eosinophils [#/volume] in Blood by Automated count 0.00 10*3/uL 0-0.5 [facility] Basophils [#/volume] in Blood by Automated count 0.03 10*3/uL 0-0.2 [facility] Nucleated erythrocytes/100 leukocytes [Ratio] in Blood by Automated count 0 /100{WBCs} 0-0 [facility] ID Date Data Source [id number] 06/03/2020 07:13:02 PM EDT [facility] Name Value Range Interpretation Code Description Data Danuta rce(s) Supporting Document(s) Albumin [Mass/volume] in Serum or Plasma by Bromocresol green (BCG) dye binding method 3.9 g/dL 3.5-5.2 [facility] al Bilirubin.total [Mass/volume] in Serum or Plasma 1.3 mg/dL <1.2 H [facility] Calcium [Mass/volume] in Serum or Plasma 8.0 mg/dL 8.8-10.2 L [facility] QA FLAGS AND/OR RANGES MODIFIED BY DEMOG RAPHIC UPDATE ON 06/03 AT 2116 Chloride [Moles/volume] in Serum or Plasma 87 mmol/L 98-107 [facility] Creatinine [Mass/volume] in Serum or Plasma 0.65 mg/dL 0.70-1.20 [facility] Glucose [Mass/volume] in Serum or Plasma 96 mg/dL 70-140 [facility] Alkaline phosphatase [Enzymatic activity/volume] in Serum or Plasma 56 U/L 40-129 [facility] Potassium [Moles/volume] in Serum or Plasma 5.3 mmol/L 3.4-5.1 [facility] Protein [Mass/volume] in Serum or Plasma 6.1 g/dL 6.4-8.3 [facility] Sodium [Moles/volume] in Serum or Plasma 116 mmol/L 136-145 [facility] Results called to and read back by [employer] INVESTIGATORMELISSA FERNANDES AT [phone]. [phone] Aspartate aminotransferase [Enzymatic activity/volume] in Serum or Plasma 29 U/L <40 [facility] Urea nitrogen [Mass/volume] in Serum or Plasma 8 mg/dL 8-23 [facility] Osmolality of Serum or Plasma by calculation 240 mosm/kg 275-300 [facility] Creatinine/Urea nitrogen [Mass Ratio] in Serum or Plasma 12 [facility] Bicarbonate [Moles/volume] in Serum 20 mmol/L 22-29 [facility] Alanine aminotransferase [Enzymatic activity/volume] in Seru m or Plasma 16 U/L <41 [facility] Anion gap 3 in Serum or Plasma 9 mmol/L 8-15 [facility] Glomerular filtration rate/1.73 sq M pre dicted among non-blacks [Volume Rate/Area] in Serum or Plasma by Creatinine-based formula (MDRD) >6 0 [facility] Glomerular filtration rate/1.73 sq M pre dicted among blacks [Volume Rate/Area] in Serum or Plasma by Creatinine-based formula (MDRD) >60 [facility] ID Date Data Source [id number] 06/03/2020 07:13:02 PM EDT [facility] Name Value Range Interpretation Code Description Data Danuta rce(s) Supporting Document(s) Troponin T.cardiac [Mass/volume] in Serum or Plasma <0.01 [facility] ID Date Data Source [id number] 06/03/2020 08:20:00 PM EDT [facility] Name Value Range Interpretation Code Description Data Danuta rce(s) Supporting Document(s) Thyrotropin [Units/volume] in Serum or Plasma 3.040 u[IU]/mL 0.270-4. 200 [facility] ID Date Data Source [id number] 06/03/2020 04:24:00 PM EDT [facility] Patient: MON[place]NA WALLER n Report - Physicians[facility].VisitID: [id number] [place] [address] [phone], MRegistration Date/Time: 06/03/2020 14:30 Weight:78.9 kg (E). Height/Length:66 inches (E). BMI:28.1 FAMILY HISTORYUnable to obtain family medical history. (Electronically signed by Guerda Moyer MD 06/03/2020 16:03) Name Value Range Interpretation Code Description Data [facility] rce(s) Supporting Document(s) ID Date Data Source [id number] 06/03/2020 04:21:00 PM EDT [facility] TSYSORDER [id number] Name Value Range Interpretation Code Description Data [facility] rce(s) Supporting Document(s) URINE AMPHETAMINES NEGATIVE <1000 ng/mL [facility] pital THC,URINE POSITIVE <50 ng/mL H [facility] URINE BARBITURATES NEGATIVE <300 ng/mL [facility] ital PCP,URINE NEGATIVE <25 ng/mL [facility] COCAINE, URINE NEGATIVE <300 ng/mL [facility] URINE,OPIATES NEGATIVE <300 ng/mL [facility] URINE,TCA NEGATIVE <1000 ng/mL [facility] IF A NEGATIVE RESULT IS OBTAINED AND ING ESTION OF TRICYCLICANTIDEPRESSANTS IS SUSPECTED, A SERUM SAMPLE SHOULD BEOBTAINED AND TESTED USING AN APPROPRIATE METHOD. URINE BENZODIAZEPINES NEGATIVE <300 ng/mL [facility] ospital THESE TESTS ARE PERFORMED USING AN IMMU NOASSAY FOR THEQUALITATIVE DETERMINATION OF THE PRESENCE OF THE MAJORMETABOLITES OF DRUGS OF ABUSE. THESE TESTS ARE ONLY ASCREENING AND NOT CONFIRMATORY. CLINICAL CONSIDERATION ANDPROFESSIONAL JUDGMENT MUST BE APPLIED TO ANY DRUG OF ABUSETEST RESULT. ID Date Data Source [id number] 06/03/2020 04:12:00 PM EDT [facility] ital TSYSORDER [id number] Name Value Range Interpretation Code Description Data Danuta rce(s) Supporting Document(s) URINE COLOR. YELLOW [facility] URINE APPEARANCE CLEAR [facility] l URINE GLUCOSE (UA) NEGATIVE mg/dL NEGATIVE [facility] URINE BILIRUBIN NEGATIVE NEGATIVE [facility] URINE KETONE NEGATIVE mg/dL NEGATIVE [facility] SPECIFIC GRAVITY,URINE 1.015 1.001-1.035 [facility] URINE BLOOD NEGATIVE NEGATIVE [facility] PH,URINE 5.5 5.0-9.0 [facility] URINE PROTEIN NEGATIVE mg/dL NEGATIVE [facility] yan URINE UROBILINOGEN NORMAL(0.2-1) mg/dL 0-1 [facility] URINE NITRATE NEGATIVE NEGATIVE [facility] URINE LEUKOCYTE ESTERASE NEGATIVE NEGATIVE [facility] ID Date Data Source [id number] 06/03/2020 03:18:[address] [facility] Name Value Range Interpretation Code Description Data Danuta rce(s) Supporting Document(s) SARS COV2 TRP [facility] This lab was ordered by [facility] and reported by [facility]. ID Date Data Source [id number] 06/03/2020 04:14:[address] [facility] l TSYSORDER [id number] Name Value Range Interpretation Code Description Data Danuta rce(s) Supporting Document(s) Adenovirus Not Detected Detected Not [facility] Coronavirus 229E Not Detected Detected Not [facility] Coronavirus HKU1 Not Detected Detected Not [facility] Coronavirus NL63 Not Detected Detected Not [facility] Coronavirus OC43 Not Detected Detected Not [facility] Sars Cov 2 Not Detected Detected Not [facility] Metapneumovirus Not Detected Detected [facility] Human Rhinovirus Not Detected Detected Not [facility] Influenza A Not Detected Detected [facility] Influenza B Not Detected Detected [facility] Parainfluenza Virus 1 Not Detected Detected [facility] Parainfluenza Virus 2 Not Detected Detected [facility] Parainfluenza Virus 3 Not Detected Detected [facility] Parainfluenza Virus 4 Not Detected Detected [facility] Respiratory Syncytial Virus Not Detected Detected Not [facility] Bordetella parapertus ([id number]) Not Detected Detected Not [facility] Bordetella pertussis (ptxP) Not Detected Detected Not [facility] Chlamydia pneumoniae Not Detected Detected Not [facility] Mycoplasma pneumoniae Not Detected Detected Not [facility] The Above results have been determined b y using the [facility] system.FilmArray is an automated in vitro diagnostic system thatutilizes nested multiplex Polymerase Chain Reaction (PCR)and high-resolution melting analysis to detect and identifymultiple nucleic acid targets from clinical specimens. ID Date Data Source [id number] 06/03/2020 02:53:00 PM EDT [facility] DATE OF EXAMINATION: 06/03/2020 14:37 E DT BRAIN W/O CONTRAST HISTORY: Altered mental status COMPARISON: 08/15/2017 TECHNIQUE: This CT exam was performed using the following dose reduction techniques:automatic exposure control, adjustment of mA and/or kV according to thepatient's size, and use of iterative reconstruction technique. Standard contiguous axial spiral imaging was obtained from the skull basethrough the vertex without contrast. FINDINGS: A small area of decreased attenuation is present in the posterior medial rightfrontal lobe. There is dilatation of the overlying cortical sulci. Thisrepresents encephalomalacia. Areas of decreased attenuation are present in theperiventricular white matter. This represents small vessel ischemic disease.There is no intraparenchymal hemorrhage, mass or midline shift. The ventricularsystem and cortical sulci are dilated consistent with moderate volume loss.There is no extracerebral fluid collection. There is no fracture. There isscalloping of the inner table of the left frontal bone unchanged compared to theprevious study. The visualized sinuses are clear. IMPRESSION: 1. Right frontal lobe encephalomalacia.2. Small vessel ischemic disease.3. Moderate volume loss. Electronically signed in PS360 by: Wagner Pelayo M.D. 06/03/2020 14:47 EDT Name Value Range Interpretation Code Description Data Danuta rce(s) Supporting Document(s) ID Date Data Source [id number] 06/03/2020 03:53:00 PM EDT [facility] [id number] Name Value Range Interpretation Code Description Data Danuta rce(s) Supporting Document(s) ETHYL ALCOHOL 0.00 % 0-0.01 [facility] ID Date Data Source [id number] 06/03/2020 03:31:00 PM EDT [facility] TSYSORDER [id number] Name Value Range Interpretation Code Description Data Danuta rce(s) Supporting Document(s) TROPONIN I 0.026 ng/mL 0.0-0.056 [facility] ID Date Data Source [id number] 06/03/2020 03:31:00 PM EDT [facility] TSYSORDER [id number] Name Value Range Interpretation Code Description Data Danuta rce(s) Supporting Document(s) CKMB 3.4 ng/ml 0.0-3.6 [facility] ID Date Data Source [id number] 06/03/2020 03:31:00 PM EDT [facility] TSYSORDER [id number] Name Value Range Interpretation Code Description Data Danuta rce(s) Supporting Document(s) CREATINE PHOSPHOKINASE 209 U/L 39-308 [facility] ID Date Data Source [id number] 06/03/2020 03:23:00 PM EDT [facility] TSYSORDER [id number] Name Value Range Interpretation Code Description Data Danuta rce(s) Supporting Document(s) LIPASE 96 U/L 73-393 [facility] ID Date Data Source [id number] 06/03/2020 03:23:00 PM EDT [facility] TSYSORDER [id number] Name Value Range Interpretation Code Description Data Danuta rce(s) Supporting Document(s) AST 31 U/L 15-37 [facility] ALT 28 U/L 12-78 [facility] ALKALINE PHOSPHATASE 66 U/L 46-116 [facility] pital TOTAL BILIRUBIN 1.3 mg/dL 0.2-1.0 H [facility] TOTAL PROTEIN 7.6 g/dl 6.4-8.2 [facility] ALBUMIN 4.5 gm/dL 3.4-5.0 [facility] ID Date Data Source [id number] 06/03/2020 03:23:00 PM EDT [facility] TSYSORDER [id number] Name Value Range Interpretation Code Description Data Danuta rce(s) Supporting Document(s) AMYLASE 109 U/L 25-115 [facility] ID Date Data Source [id number] 06/03/2020 03:23:00 PM EDT [facility] [id number] Name Value Range Interpretation Code Description Data Danuta rce(s) Supporting Document(s) MAGNESIUM 1.6 mg/dL 1.8-2.4 L [facility] ID Date Data Source [id number] 06/03/2020 03:23:[address] [facility] l TSYSORDER [id number] Name Value Range Interpretation Code Description Data Danuta rce(s) Supporting Document(s) GLUCOSE 152 mg/dL 74-106 H [facility] BLOOD UREA NITROGEN 9 mg/dL 7-18 [facility] [facility] CREATININE 1.2 mg/dL 0.7-1.3 [facility] SODIUM 119 mmol/L 136-145 *L [facility] CALLED TO ER (VERENA), BY Sena Alvarez, AT 1523. POTASSIUM 5.1 mmol/L 3.5-5.1 [facility] CHLORIDE 86 mmol/L 98-107 *L [facility] CO2 19 mmol/L 21-32 L [facility] CALCIUM 8.7 mg/dL 8.5-10.1 [facility] ANION GAP 14.0 mmol/L 5-12 H [facility] GLOMERULAR FILTRATION RATE 59 mL/min [facility] GFR IS CALCULATED IN mL/min/1.73m2 YAEL L FUNCTION: >90MILDLY DECREASED: 60-89MILDY TO MODERATELY DECREASED: 45-59 MODERATELY TO SEVERELY DECREASED: 30-44SEVERELY DECREASED: 15-29RENAL FAILURE: <15 ID Date Data Source [id number] 06/03/2020 03:13:00 PM EDT [facility] [id number] Name Value Range Interpretation Code Description Data Danuta rce(s) Supporting Document(s) AMMONIA 22 umol/L 11-32 [facility] ID Date Data Source [id number] 06/03/2020 03:13:00 PM EDT [facility] T[facility] [id number] Name Value Range Interpretation Code Description Data Danuta rce(s) Supporting Document(s) PARTIAL THROMBOPLASTIN TIME 30.5 SECONDS 21.4-30.2 H [facility] ID Date Data Source [id number] 06/03/2020 03:13:00 PM EDT [facility] T[facility] [id number] Name Value Range Interpretation Code Description Data Danuta rce(s) Supporting Document(s) PROTHROMBIN TIME (PATIENT) 22.5 SECONDS 9.2-11.6 H [facility] INR 2.21 0.87-1.06 H [facility] ID Date Data Source [id number] 06/03/2020 02:58:[address] [facility] l TSYSORDER [id number] Name Value Range Interpretation Code Description Data Danuta rce(s) Supporting Document(s) WHITE BLOOD COUNT 11.1 K/mm3 4.0-10.0 [facility] RED BLOOD COUNT 2.71 M/mm3 4.50-6.00 L [facility] HEMOGLOBIN 9.4 gm/dL 14.0-18.0 L [facility] HEMATOCRIT 25.4 % 42.0-54.0 L [facility] MEAN CELL VOLUME 93.7 fl 80-96 [facility] MEAN CORPUSCULAR HEMOGLOBIN 34.7 pg 27.0-31.0 H [facility] MEAN CORPUSCULAR HGB CONC 37.0 g/dl 32.0-36.0 H [facility] RED CELL DISTRIBUTION WIDTH 14.2 % 10.0-14.5 [facility] PLATELET COUNT 132 K/mm3 172-450 L [facility] MEAN PLATELET VOLUME 11.7 fl 9.0-13.0 [facility] pital GRAN % 84.0 % 50-80.0 H [facility] IG% 1.4 % 0.0-0.2 *H [facility] LYMPH % 5.2 % 25.0-50.0 L [facility] MONO % 8.8 % 2.0-10.0 [facility] EOS % 0.1 % 0-5.0 [facility] BASO % 0.5 % 0.0-2.0 [facility] GRAN # 9.3 K/mm3 2.0-8.00 H [facility] IG# 0.2 K/mm3 0.0-0.2 [facility] LYMPH # 0.6 K/mm3 1.0-5.0 L [facility] MONO # 1.0 K/mm3 0.10-1.20 [facility] EOS # 0.0 K/mm3 0.0-0.5 [facility] BASO # 0.1 K/mm3 0.0-0.2 [facility] ID Date Data Source [id number] 06/03/2020 12:00:[address] [facility] l Name Value Range Interpretation Code Description Data Danuta rce(s) Supporting Document(s) 2019 Novel Coronavirus RNA [facility] This lab was ordered by [facility] L aboratory and reported by [facility] Laboratory. ID Date Data Source [id number] 04/05/2020 01:02:00 PM EDT [facility] ([facility]) Name Value Range Interpretation Code Description Data Danuta rce(s) Supporting Document(s) Laboratory test finding (navigational concept) Laboratory test result [facility] ([facility]) ID Date Data Source [id number] 04/05/2020 01:02:00 PM EDT [facility] ([facility]) Name Value Range Interpretation Code Description Data Danuta rce(s) Supporting Document(s) Bilirubin.total [Mass/volume] in Serum or Plasma 0.9 mg/dL 0.0-1.2 [facility] ([facility]) Bilirubin.direct [Mass/volume] in Serum or Plasma 0.33 mg/dL 0.00-0.4 0 [facility] ([facility]) Bilirubin.indirect [Mass/volume] in Serum or Plasma 0.57 mg/dL 0.10-0 .80 [facility] ([facility]) ID Date Data Source [id number] 04/05/2020 01:02:00 PM EDT [facility] ([facility]) Name Value Range Interpretation Code Description Data Danuta rce(s) Supporting Document(s) Magnesium [Mass/volume] in Serum or Plasma 1.9 mg/dL 1.6-2.3 [facility] ([facility]) ID Date Data Source [id number] 04/05/2020 01:02:00 PM EDT [facility] ([facility]) Name Value Range Interpretation Code Description Data Danuta rce(s) Supporting Document(s) Glucose 84 mg/dL 65-99 [facility] ([facility]) Creatinine 0.77 mg/dL 0.76-1.27 [facility] ([facility]) Urea nitrogen [Mass/volume] in Serum or Plasma 8 mg/dL 8-27 [facility] ([facility]) eGFR If NonAfricn Am 89 mL/min/1.73 MEDE NT ([facility]) eGFR If Africn Am 103 mL/min/1.73 [facility] ([facility]) Sodium 127 mmol/L 134-144 [facility] ([facility]) Urea nitrogen/Creatinine [Mass Ratio] in Serum or Plasma 10 1 0-24 [facility] ([facility]) Chloride [Moles/volume] in Serum or Plasma 91 mmol/L 96-106 [facility] ([facility]) Carbon dioxide, total [Moles/volume] in Serum or Plasma 19 mmol/L 20 -29 [facility] ([facility]) Potassium [Moles/volume] in Serum or Plasma 5.2 mmol/L 3.5-5.2 [facility] ([facility]) Albumin [Mass/volume] in Serum or Plasma 4.7 g/dL 3.7-4.7 [facility] ([facility]) Calcium [Mass/volume] in Serum or Plasma 9.0 mg/dL 8.6-10.2 [facility] ([facility]) Phosphate [Moles/volume] in Serum or Plasma 3.8 mg/dL 2.8-4.1 [facility] ([facility]) ID Date Data Source [id number] 04/05/2020 01:02:00 PM EDT [facility] ([facility]) Name Value Range Interpretation Code Description Data Danuta rce(s) Supporting Document(s) Natriuretic peptide.B prohormone N-Terminal [Mass/volu me] in Serum or Plasma 2777 pg/mL 0-376 [facility] ([facility]) <content>The following cut-points have b een suggested for the</content>
<content>use of proBNP for the diagnostic evaluation of heart</content>
<content>failure (HF) in patients with acute dy spnea:</content>
<content>Modality Age Optimal Cut</content>
<content>(years) Point</content>
<content> ---</content>
<content>Diagnosis (rule in HF) <50 450 pg/mL</content>
<content>50 - 75 900 pg/mL</content>
<content>>75 1800 pg/mL</content>
<content> Exclusion (rule out HF) Age independent 300 pg/mL</content>
<content></content> ID Date Data Source [id number] 04/06/2020 08:06:00 AM EDT [facility] Name Value Range Interpretation Code Description Data Danuta rce(s) Supporting Document(s) Glucose 84 mg/dL 65-99 [facility] BUN 8 mg/dL 8-27 [facility] Creatinine 0.77 mg/dL 0.76-1.27 [facility] eGFR If NonAfricn Am 89 mL/min/1.73 >59 [facility] eGFR If Africn Am 103 mL/min/1.73 >59 [facility] BUN/Creatinine Ratio 10 10-24 [facility] Sodium 127 mmol/L 134-144 Below low normal [facility] Potassium 5.2 mmol/L 3.5-5.2 [facility] Chloride 91 mmol/L 96-106 Below low normal [facility] Carbon Dioxide, Total 19 mmol/L 20-29 Below low normal L [facility] Calcium 9.0 mg/dL 8.6-10.2 [facility] Phosphorus 3.8 mg/dL 2.8-4.1 [facility] Albumin 4.7 g/dL 3.7-4.7 [facility] ID Date Data Source [id number] 04/07/2020 06:05:00 AM EDT [facility] Name Value Range Interpretation Code Description Data Danuta rce(s) Supporting Document(s) NT-proBNP 2777 pg/mL 0-376 Above high normal [facility] The following cut-points have been suggested for the use of proBNP for the diagnostic evaluation of heart failure (HF) in patients with acute dyspnea: Modality Age Optimal Cut (years) Point Diagnosis (rule in HF) <50 450 pg/mL 50 - 75 900 pg/mL > 75 1800 pg/mL Exclusion (rule out HF) Age independent 300 pg/mL ID Date Data Source [id number] 04/06/2020 08:06:00 AM EDT [facility] Name Value Range Interpretation Code Description Data [facility] rce(s) Supporting Document(s) Bilirubin, Total 0.9 mg/dL 0.0-1.2 [facility] Bilirubin, Direct 0.33 mg/dL 0.00-0.40 [facility] Bilirubin, Indirect 0.57 mg/dL 0.10-0.80 [facility] ID Date Data Source [id number] 04/06/2020 08:06:00 AM EDT [facility] Name Value Range Interpretation Code Description Data Danuta e(s) Supporting Document(s) Magnesium 1.9 mg/dL 1.6-2.3 [facility] ID Date Data Source [id number] 10/18/2019 09:38:00 AM EST [facility] ([facility], ) Name Value Range Interpretation Code Description Data Danuta rce(s) Supporting Document(s) Prothrombin Time 16.1 s 11.8-14.0 Above high normal M EDENT ([facility], ) Inr 1.32 Normal (applies to non-numeric resul ts) [facility] ([facility]) THERAPUTIC HUMAN INR VALUES INDICATIONS NORMAL RANGES PROPHYLAXIS/TREATMENT OF: VENOUS THROMBOSIS 2.0-3.0 PULMONARY EMBOLISM 2.0-3.0 PREVENTION OF SYSTEMIC EMBOLISM FROM: TISSUE HEART VALVES 2.0-3.0 ACUTE MYOCARDIAL INFARCTION 2.0-3.0 VALVULAR HEART DISEASE 2.0-3.0 ATRIAL FIBRILLATION 2.0-3.0 MECHANICAL VALVES(HIGH RISK) 2.5-3.5 RECURRENT MYOCARDIAL INFARCTION 2.5-3.5 ID Date Data Source [id number] 10/03/2019 10:23:00 AM EST [facility] ([facility] Name Value Range Interpretation Code Description Data Danuta rce(s) Supporting Document(s) Albumin [Mass/volume] in Serum or Plasma 2.8 [facility] ([facility]) Alanine aminotransferase [Enzymatic activity/volume] in Serum or Pl asma 25 [facility] ([facility]) Carbon dioxide, total [Moles/volume] in Serum or Plasma 25 [facility] ([facility]) Chloride [Moles/volume] in Serum or Plasma 98 [facility] ([facility]) Calcium [Mass/volume] in Serum or Plasma 8.9 [facility] ([facility]) Potassium [Moles/volume] in Serum or Plasma 4.1 [facility] ([facility]) Alkaline phosphatase [Enzymatic activity/volume] in Serum or Plasma 6 3 [facility] ([facility]) Sodium 132 [facility] ([facility] Protein [Mass/volume] in Serum or Plasma 7.4 [facility] ([facility]) Urea nitrogen [Mass/volume] in Serum or Plasma 5 [facility] ([facility]) Aspartate aminotransferase [Enzymatic activity/volume] in Serum or Plasma 27 [facility] ([facility]) Glucose 75 [facility] ([facility] Creatinine For GFR 0.7 [facility] ([facility]) ID Date Data Source [id number] 10/03/2019 10:23:00 AM EST [facility] ([facility]) Name Value Range Interpretation Code Description Data Danuta rce(s) Supporting Document(s) Red Blood Count 3.30 [facility] ([facility]) White Blood Count 6.9 [facility] ([facility]) Hematocrit 33.8 [facility] ([facility]) Platelets 196 [facility] Hemoglobin 11.6 [facility] ([facility]) ID Date Data Source [id number] 08/20/2019 09:30:00 PM EST [facility] ([facility], ) Name Value Range Interpretation Code Description Data Danuta rce(s) Supporting Document(s) Lactate [Mass/volume] in Serum or Plasma 0.9 mmol/L 0.4-2.0 Normal (applies to non-numeric results) MEDKATHARINE ([facility], ) Comments: now please Comments: now please Y/N query for Sepsis Lactate Rule: Y ID Date Data Source [id number] 07/22/2019 10:30:00 AM EST [facility] ([facility]) Name Value Range Interpretation Code Description Data Danuta rce(s) Supporting Document(s) Triglycerides 66 [facility] ([facility]) Cholesterol 169 [facility] ([facility]) Cholesterol in LDL [Mass/volume] in Serum or Plasma by calculation 67 .8 [facility] ([facility]) HDL 88 [facility] Chol/HDL Ratio Laboratory test result [facility] ([facility]) ID Date Data Source [id number] 07/22/2019 10:30:00 AM EST [facility] Name Value Range Interpretation Code Description Data Danuta rce(s) Supporting Document(s) Thyroid Stimulating Hormone 4.05 ME DENT ([facility]) Procedure Social History Code Duration Value Status Description Data Source(s ) Alcohol intake 06/03/2020 12:00:00 AM EDT Current drinker of al cohol (finding) completed Current drinker of alcohol (finding) [facility] Tobacco use and exposure 06/03/2020 12:00:00 AM EDT Never used co mpleted Never used [facility] Smoking 06/03/2020 12:00:00 AM EDT Unknown if ever smoked comp leted Unknown if ever smoked [facility] Smoking 05/15/2020 12:00:00 AM EDT Patient is a former smoker completed Patient is a former smoker [facility] ([facility]) Vital Signs ID Date Data Source [id number] Name Value Range Interpretation Code Description Data Source(s) Diastolic blood pressure--standing 51 mm[Hg] 5 1 mm[Hg] [facility] ([facility]) Omron large cuff, Ra Systolic blood pressure--standing 72 mm[Hg] 72 mm[Hg] [facility] ([facility]) Omron large cuff, Ra Diastolic blood pressure--supine 58 mm[Hg] 58 mm[Hg] [facility] ([facility]) Omron large cuff, Ra Systolic blood pressure--supine 101 mm[Hg] 101 mm[Hg] [facility] ([facility]) Omron large cuff, Ra Diastolic blood pressure--sitting 57 mm[Hg] 57 mm[Hg] [facility] ([facility]) Omron large cuff, Ra Systolic blood pressure--sitting 112 mm[Hg] 112 mm[Hg] [facility] ([facility]) Omron large cuff, Ra Heart rate 67 /min 67 /min [facility] ([facility]) Body mass index (BMI) [Ratio] 27.3 kg/m2 27.3 k g/m2 [facility] ([facility]) Body height 66 [in_i] 66 [in_i] [facility] ([facility]) 5'6" Body weight 169.00 [lb_av] 169.00 [lb_av] MEDEN T ([facility]) Diastolic blood pressure--standing 62 mm[Hg] 6 2 mm[Hg] [facility] ([facility]) Omron, adult cuff/Ra HR: 78 bpm Systolic blood pressure--standing 105 mm[Hg] 10 5 mm[Hg] [facility] ([facility]) Omron, adult cuff/Ra HR: 78 bpm Diastolic blood pressure--supine 66 mm[Hg] 66 mm[Hg] [facility] ([facility]) Omron, adult cuff/Ra HR: 75 bpm Systolic blood pressure--supine 118 mm[Hg] 118 mm[Hg] [facility] ([facility]) Omron, adult cuff/Ra HR: 75 bpm Diastolic blood pressure--sitting 66 mm[Hg] 66 mm[Hg] [facility] ([facility]) Omron, adult cuff/Ra HR: 73 bpm Systolic blood pressure--sitting 117 mm[Hg] 117 mm[Hg] [facility] ([facility]) Omron, adult cuff/Ra HR: 73 bpm Heart rate 73 /min 73 /min [facility] ([facility]) Body mass index (BMI) [Ratio] 27.0 kg/m2 27.0 k g/m2 [facility] ([facility]) Body height 66 [in_i] 66 [in_i] [facility] 5'6" Body weight 167.00 [lb_av] 167.00 [lb_av] MEDEN T ([facility]) Diastolic blood pressure--standing 50 mm[Hg] 5 0 mm[Hg] [facility] ([facility]) Omron adult cuff, [place] HR 101 Systolic blood pressure--standing 69 mm[Hg] 69 mm[Hg] [facility] ([facility]) Omron adult cuff, [place] HR 101 Diastolic blood pressure--supine 62 mm[Hg] 62 mm[Hg] [facility] ([facility]) Omron adult cuff, [place] HR 87 Systolic blood pressure--supine 102 mm[Hg] 102 mm[Hg] [facility] ([facility]) Omron adult cuff, [place] HR 87 Diastolic blood pressure--sitting 75 mm[Hg] 75 mm[Hg] [facility] ([facility]) Omron adult cuff, [place] Systolic blood pressure--sitting 113 mm[Hg] 113 mm[Hg] [facility] ([facility]) Omron adult cuff, [place] Heart rate 83 /min 83 /min [facility] ([facility]) Body mass index (BMI) [Ratio] 27.0 kg/m2 27.0 k g/m2 [facility] ([facility]) Body height 66 [in_i] 66 [in_i] [facility] ([facility]) 5'6" Body weight 167.00 [lb_av] 167.00 [lb_av] MEDEN T ([facility]) Diastolic blood pressure--sitting 70 mm[Hg] 70 mm[Hg] [facility] ([facility]) Omron adult cuff, [place] Systolic blood pressure--sitting 112 mm[Hg] 112 mm[Hg] [facility] ([facility]) Omron adult cuff, [place] Heart rate 69 /min 69 /min [facility] ([facility] Body mass index (BMI) [Ratio] 28.4 kg/m2 28.4 k g/m2 [facility] ([facility]) Body height 66 [in_i] 66 [in_i] [facility] ([facility]) 5'6" Body weight 176.00 [lb_av] 176.00 [lb_av] [facility] T ([facility]) Body weight 79.097 kg 79.097 kg [facility]) Body mass index (BMI) [Ratio] 26.5 kg/m2 26.5 k g/m2 [facility]) Body weight 174.38 [lb_av] 174.38 [lb_av] MEDEN T ([facility]) Body height 68 [in_i] 68 [in_i] [facility] ([facility]) 5'8" Diastolic blood pressure 80 mm[Hg] 80 mm[Hg] [facility]) Systolic blood pressure 120 mm[Hg] 120 mm[Hg] M [facility]ENT ([facility]) Diastolic blood pressure--sitting 71 mm[Hg] 71 mm[Hg] [facility] ([facility]) Omron adult cuff, [place] Systolic blood pressure--sitting 119 mm[Hg] 119 mm[Hg] [facility] ([facility]) Omron adult cuff, [place] Heart rate 64 /min 64 /min [facility] ([facility]) Body mass index (BMI) [Ratio] 28.2 kg/m2 28.2 k g/m2 [facility] ([facility]) Body height 66 [in_i] 66 [in_i] [facility] ([facility]) 5'6" Body weight 175.00 [lb_av] 175.00 [lb_av] MED[facility] T ([facility]) Body weight 80.344 kg 80.344 kg [facility]) Body mass index (BMI) [Ratio] 26.9 kg/m2 26.9 k g/m2 [facility] ([facility]) Body weight 177.12 [lb_av] 177.12 [lb_av] MEDEN T ([facility]) Body height 68 [in_i] 68 [in_i] [facility]) 5'8" Diastolic blood pressure 64 mm[Hg] 64 mm[Hg] [facility] ([facility]) Systolic blood pressure 112 mm[Hg] 112 mm[Hg] M MICHAELA ([facility]) ID Date Data Source [id number] 06/04/2020 04:25:19 PM [facility] Name Value Range Interpretation Code Description Data Source(s) TRANSFER FROM [facility] ID Date Data Source [id number] 06/13/2020 06:46:38 AM [facility] Name Value Range Interpretation Code Description Data Source(s) WEIGHT RECORDED 173.94 lb 173.94 lb [facility] Body height Measured 66 in 66 in [facility] TRANSFER FROM [facility] ID Date Data Source [id number] 06/03/2020 03:09:00 PM [facility] Name Value Range Interpretation Code Description Data Source(s) WEIGHT 79.1 kilos 79.1 [facility] HEIGHT 168.91 centimeters 168.91 centimeter [facility] WEIGHT 79.1 kilos 79.1 [facility] HEIGHT 168.91 centimeters 168.91 centimeter [facility] Patient Treatment Plan of Care Planned Activity Planned Date Details Description Data Source (s) Thiamine 100 MG Oral Tablet 06/08/2020 12:00:00 AM [facility] Folic Acid 1 MG Oral Tablet 06/08/2020 12:00:00 AM [facility] Thiamine 100 MG Oral Tablet 06/08/2020 12:00:00 AM [facility] Folic Acid 1 MG Oral Tablet 06/08/2020 12:00:00 AM [facility] Warfarin Sodium 1 MG Oral Tablet 06/07/2020 12:00:00 AM [facility] Metoprolol Succinate 25 MG Oral Capsule ER 24 Hour Spr inkle 06/07/2020 12:00:00 AM [facility] Docusate Sodium 100 MG Oral Capsule 06/07/2020 12:00:00 AM [facility] Warfarin Sodium 1 MG Oral Tablet 06/07/2020 12:00:00 AM [facility] Metoprolol Succinate 25 MG Oral Capsule ER 24 Hour Spr inkle 06/07/2020 12:00:00 AM [facility] Docusate Sodium 100 MG Oral Capsule 06/07/2020 12:00:00 AM [facility] Warfarin Sodium 1 MG Oral Tablet [facility] Spironolactone 25 MG Oral Tablet [facility] Metoprolol Succinate 25 MG Oral Capsule ER 24 Hour Sprinkle [facility] Enalapril Maleate 2.5 MG Oral Tablet [facility] Docusate Sodium 100 MG Oral Capsule [facility]
[2020-09-13] MEDS ORDERED: DIGO0.123 PO (16:40)
[2020-09-13] MEDS ORDERED: METO1TAB32 PO (16:40)
[2020-09-13] MEDS ORDERED: SPIR-10 PO (16:40)
[2020-09-13] MEDS ORDERED: NEOM10OI OS (16:40)
[2020-09-13] MEDS ORDERED: DOCU100C16 PO (16:40)
[2020-09-13] MEDS ORDERED: ECOT81TA5 PO (16:40)
[2020-09-13] MEDS ORDERED: HYDR-3713 PO (16:40)
[2020-09-13] MEDS ORDERED: VITATAB74 PO (16:40)
[2020-09-13] MEDS ORDERED: FLOM0.4C39 PO (16:40)
[2020-09-13] MEDS ORDERED: FARX1TAB3 PO (16:40)
[2020-09-13] MEDS ORDERED: GRAL600T PO (16:40)
[2020-09-13] MEDS ORDERED: WARF4TAB52 PO ×2 (16:40)
[2020-09-13] MEDS ORDERED: ATOR80TA59 PO (16:40)
[2020-09-13] MEDS ORDERED: GNPSOL OP (16:40)
[2020-09-13] MEDS ORDERED: ENTR1TAB PO (16:40)
[2020-09-13] MEDS ORDERED: AMIO200T3 PO (16:40)
[2020-09-13] MEDS ORDERED: TORS10TA3 PO (16:40)
--- OUTSIDE RECORDS SUMMARY | 2020-09-13 17:05 | CCD ---
Author Author [facility] Organization [facility] Address Unknown Phone Unavailable Care Team Providers Care Construction Analyst Name Role Phone PETROFF, JERRY PA Unavailable Unavailable PETROFF, JERRY PA Unavailable Unavailable PETROFF, JERRY PA Unavailable Unavailable PETROFF, JERRY PA Unavailable Unavailable PETROFF, JERRY PA Unavailable Unavailable PETROFF, JERRY PA Unavailable Unavailable PETROFF, JERRY PA Unavailable Unavailable PETROFF, JERRY PA Unavailable Unavailable DEGRE, A NASIR ENVIRONMENTAL HEALTH INSPECTOR Unavailable Unavailable DEGRE, A NASIR ENVIRONMENTAL HEALTH INSPECTOR Unavailable Unavailable DEGRE, A NASIR ENVIRONMENTAL HEALTH INSPECTOR Unavailable Unavailable KATHLEEN, E POLLO ENVIRONMENTAL HEALTH INSPECTOR Unavailable Unavailable KATHLEEN, E POLLO ENVIRONMENTAL HEALTH INSPECTOR Unavailable Unavailable KATHLEEN, E POLLO ENVIRONMENTAL HEALTH INSPECTOR Unavailable Unavailable KATHLEEN, E POLLO ENVIRONMENTAL HEALTH INSPECTOR Unavailable Unavailable KATHLEEN, E POLLO ENVIRONMENTAL HEALTH INSPECTOR Unavailable Unavailable KATHLEEN, E POLLO ENVIRONMENTAL HEALTH INSPECTOR Unavailable Unavailable KATHLEEN, E POLLO ENVIRONMENTAL HEALTH INSPECTOR Unavailable Unavailable KATHLEEN, E POLLO ENVIRONMENTAL HEALTH INSPECTOR Unavailable Unavailable KATHLEEN, E POLLO ENVIRONMENTAL HEALTH INSPECTOR Unavailable Unavailable KATHLEEN, E POLLO ENVIRONMENTAL HEALTH INSPECTOR Unavailable Unavailable KATHLEEN, E POLLO ENVIRONMENTAL HEALTH INSPECTOR Unavailable Unavailable KATHLEEN, E POLLO ENVIRONMENTAL HEALTH INSPECTOR Unavailable Unavailable KATHLEEN, E POLLO ENVIRONMENTAL HEALTH INSPECTOR Unavailable Unavailable KATHLEEN, E POLLO ENVIRONMENTAL HEALTH INSPECTOR Unavailable Unavailable KATHLEEN, E POLLO ENVIRONMENTAL HEALTH INSPECTOR Unavailable Unavailable KATHLEEN, E POLLO ENVIRONMENTAL HEALTH INSPECTOR Unavailable Unavailable KATHLEEN, E POLLO ENVIRONMENTAL HEALTH INSPECTOR Unavailable Unavailable KATHLEEN, E POLLO ENVIRONMENTAL HEALTH INSPECTOR Unavailable Unavailable KATHLEEN, E POLLO ENVIRONMENTAL HEALTH INSPECTOR Unavailable Unavailable KATHLEEN, E POLLO ENVIRONMENTAL HEALTH INSPECTOR Unavailable Unavailable KATHLEEN, E POLLO ENVIRONMENTAL HEALTH INSPECTOR Unavailable Unavailable KATHLEEN, E POLLO ENVIRONMENTAL HEALTH INSPECTOR Unavailable Unavailable KATHLEEN, E POLLO ENVIRONMENTAL HEALTH INSPECTOR Unavailable Unavailable KATHLEEN, E POLLO ENVIRONMENTAL HEALTH INSPECTOR Unavailable Unavailable KATHLEEN, E POLLO ENVIRONMENTAL HEALTH INSPECTOR Unavailable Unavailable KATHLEEN, E POLLO ENVIRONMENTAL HEALTH INSPECTOR Unavailable Unavailable KATHLEEN, E POLLO ENVIRONMENTAL HEALTH INSPECTOR Unavailable Unavailable KATHLEEN, E POLLO ENVIRONMENTAL HEALTH INSPECTOR Unavailable Unavailable KATHLEEN, E POLLO ENVIRONMENTAL HEALTH INSPECTOR Unavailable Unavailable KATHLEEN, E POLLO ENVIRONMENTAL HEALTH INSPECTOR Unavailable Unavailable MD LILO HERNÁNDEZ Unavailable Unavailable [...] H Wagner MD Unavailable Unavailable Lalor, H Wagenr MD Unavailable Unavailable Lalor, H Wagner MD Unavailable Unavailable Lalor, H Wagner MD Unavailable Unavailable Lalor, H Wagner MD Unavailable Unavailable Lalor, H Wagner MD Unavailable Unavailable Lalor, H Wagner MD Unavailable Unavailable Lalor, H Wagner MD Unavailable Unavailable Lalor, H Wanger MD Unavailable Unavailable Lalor, H Wagner MD [...] DENISE, PRATISHTHA Unavailable Unavailable DEGRE, A NASIR ENVIRONMENTAL HEALTH INSPECTOR Unavailable Unavailable DEGRE, A NASIR ENVIRONMENTAL HEALTH INSPECTOR Unavailable Unavailable MIRI, R DORYS MD Unavailable [...] is protected by Article 27-F of the [facility] Public Health law. If you continue you may have access to information: Regarding HIV / AIDS; Provided by facilities licensed or operated by the [facility] Office of Mental Health; or Provided by the [facility] Office for People With Developmental Disabilities. If such information is present, then the following [facility] mandated warning applies: This information has been [...] law may result in a fine or longterm sentence or both. A general authorization for the release of medical or other information is NOT sufficient authorization for further disc losure. Allergies and Adverse Reactions Type Description Substance Reaction Status Data Source(s ) Drug Class NO KNOWN ALLERGIES NO KNOWN ALLERGIES [facility] No Known Drug Allergies No Known Drug Allergies [facility] No Known Environmental Allergies No Known Environmental Al [facility] No Known Food Allergies No Known Food Allergies [facility] Drug Class NO KNOWN ALLERGIES NO KNOWN ALLERGIES [facility] Encounters Encounter Providers Location Date Indications Data Source(s ) Outpatient Attender: NASIR Davis nder: NASIR SALCIDO NPReferrer: Wagner Hill MD EMERGENCY ROOM-LAB REFOTH 09/12/2020 10:13:00 AM EST - 09/12/2020 10:13:00 AM [facility] Outpatient Attender: NASIR Davis nder: NASIR SINGHeferrer: Wagner Hill MD EMERGENCY ROOM-LAB REFOTH 09/03/2020 10:31:00 AM EST - 09/03/2020 10:31:00 AM [facility] Outpatient Attender: NASIR Davis nder: NASIR SALCIDO NPReferrer: Wagner Hill MD EMERGENCY ROOM-LAB REFOTH 08/27/2020 12:18:00 PM EST - 08/27/2020 12:18:00 PM [facility] Outpatient Attender: MD PIPER HERNÁNDEZ [id number] 08/27 07:38:26 AM EST - 08/27/2020 10:36:22 AM [facility] Patient discharged. Inpatient Attender: MD NANO IVERSONAdmitter: MD NANO IVERSON [facility] 07/31/2020 10:31:00 AM EST - 08/12/2020 06:30:00 PM [facility] Patient discharged. Inpatient Admitter: MD NANO IVERSONReferrer: WILY Valerio 07/31/2020 10:31:00 AM [facility] Outpatient Attender: MD NANO IVERSON [id number] 11:31:09 AM [facility] - 07/16/2020 11:32:25 AM [facility] Patient discharged. Outpatient Attender: MD PIPER HERNÁNDEZ [facility]-RGHHRTFCLN 07/12 10:24:19 AM EST - 07/12/2020 12:20:09 PM [facility] Patient discharged. Outpatient Attender: Oumou Mahan MDConsultant: PCP NO 07/11/2020 10:41:44 AM EST - 07/31/2020 09:58:00 AM [facility] Patient discharged. Outpatient Attender: Oumou Mahan MDConsultant: PCP NO 07/11/2020 10:39:43 AM EST - 07/13/2020 10:15:00 AM [facility] Patient discharged. Emergency 06/03/2020 03:42:00 PM EDT - 020 04:25:19 PM EDT [facility] Stroke Emergency Attender: GUERDA MOYER JRReferrer: Wagner Hill MD EMERGENCY ROOM-ER 06/03/2020 03:09:00 PM EDT - 06/03/2020 04:15:00 PM EDT [facility] Patient discharged. Inpatient Attender: SYLVIA Ewing MDAtte nder: DORYS CHERY MDAttender: KEENA DENISEAttender: Raya Barnhart MDAdmitter: Raya Barnhart MDReferrer: Raya Barnhart MD [id number] 06/03/2020 12:00:00 AM EDT - 06/07/2020 06:01:00 PM EDT Chronic systolic (congestive) heart failure [facility] Chronic systolic (congestive) heart fail ure Patient discharged. Outpatient Attender: AIMEE RESENDIZ MD Main Office 05/15/2020 09:30:00 AM EDT [facility] ([facility]) Outpatient Attender: AIMEE RESENDIZ MD Main Office 04/05/2020 12:15:00 PM EDT [facility] ([facility]) Outpatient Attender: AIMEE RESENDIZ MD Main Office 02/21/2020 12:00:00 PM EDT [facility] ([facility]) Outpatient Attender: AIMEE RESENDIZ MD Main Office 12/06/2019 11:30:00 AM EDT [facility] ([facility]) Outpatient Attender: AIMEE RESENDIZ MD Main Office 10/06/2019 11:30:00 AM EST [facility] ([facility]) Outpatient Referrer: POLLO WANG NP 09/23/2019 12:14:00 PM EST [facility] Outpatient Referrer: POLLO WANG NP 09/23/2019 12:13:00 PM EST [facility] Outpatient Referrer: POLLO WANG NP 09/23/2019 11:45:00 AM EST [facility] Outpatient Attender: WALKER Bishop/Lianna/Freedom/Mehdi nddavid 08/30/2019 10:30:00 AM EST [facility] ([facility] ) Inpatient Attender: Nithya Lees MDAdmitter: Nithya Lees MD EMERGENCY ROOM-2N 08/16/2017 11:00:00 AM [facility] - 08/19/2017 11:34:00 AM [facility] Inpatient Attender: JERRY RUBIO PAAdmitter: Jonah Lees MD EMERGENCY ROOM-2N 08/15/2017 06:11:00 PM [facility] - 08/16/2017 10:59:00 AM [facility] Medications Medication Brand Name Start Date Product Form Dose Route Admi nistrative Instructions Pharmacy Instructions Status Indications Reaction Description Data Source(s) Folic Acid 1 MG Oral Tablet Folic Acid 1 MG Oral Table t (FOLVITE) Folic Acid 1 MG Oral Tablet (FOLVITE) 06/08/2020 12:00:00 AM EDT 1 mg Oral aborted Take 1 tablet by mouth daily [facility] Thiamine 100 MG Oral Tablet Thiamine HCl 100 MG Oral T ablet (B-1) Thiamine HCl 100 MG Oral Tablet (B-1) 06/08/2020 12:00:00 AM EDT 100 mg Oral aborted Take 1 tablet by mouth daily [facility] Folic Acid 1 MG Oral Tablet Folic Acid 1 MG Oral Table t (FOLVITE) Folic Acid 1 MG Oral Tablet (FOLVITE) 06/08/2020 12:00:00 AM EDT 1 mg Oral active Take 1 tablet by mouth daily [facility] Thiamine 100 MG Oral Tablet Thiamine HCl 100 MG Oral T ablet (B-1) Thiamine HCl 100 MG Oral Tablet (B-1) 06/08/2020 12:00:00 AM EDT 100 mg Oral active Take 1 tablet by mouth daily [facility] NaCl infusion 0.9 % [id number] 06/07/2020 09:00:00 AM EDT Intravenous completed at 125 mL/hr, Intrav enous, Continuous, Starting [place] 06/07/20 at 0900, For 4 hours [facility] Medication administered onsite potassium phosphate infusion 6 mmol/100 mL (premix) 06/07/2020 05:45:00 AM EDT 6 mmol Intravenous completed 6 mmol, Intravenous, at 25 mL/hr, Once, [place] 06/07/20 at 0545, For 1 dose
Slower infusion rates (e.g. over 4 hours) are recommended in patients with renal impairment and/or less severe hypophosphatemia. Product contains 8.8 mEq of potassium.
[facility] Medication administered onsite magnesium sulfate in dextrose 5 % infusion (premix) 1 g [id number] 06/07/2020 05:45:00 AM EDT 1 g Intravenous completed 1 g, Intravenous, Administer over 60 Minutes, Once, [place] 06/07/20 at 0545, For 1 dose [facility] Medication administered onsite Metoprolol Succinate 25 MG Oral Capsule ER 24 Hour Sprinkle [id number] 06/07/2020 12:00:00 AM EDT 12.5 mg Oral aborted Take 1 2.5 mg by mouth daily [facility] Warfarin Sodium 1 MG Oral Tablet Warfarin Sodium 1 MG Oral Tablet (COUMADIN) Warfarin Sodium 1 MG Oral Tablet (COUMADIN) 06/07/2020 12:00:00 AM EDT 2.5 mg Oral aborted Take 2.5 tablets by mouth daily [facility] Docusate Sodium 100 MG Oral Capsule Docu sate Sodium 100 MG Oral Capsule (COLACE) Docusate Sodium 100 MG Oral Capsule (COLACE) 06/07/2020 12:00:00 AM EDT 100 mg Oral aborted Take 1 cap luana by mouth Two times daily as needed for Constipation [facility] Docusate Sodium 100 MG Oral Capsule Docu sate Sodium 100 MG Oral Capsule (COLACE) Docusate Sodium 100 MG Oral Capsule (COLACE) 06/07/2020 12:00:00 AM EDT 100 mg Oral active Take 1 cap luana by mouth Two times daily as needed for Constipation [facility] Metoprolol Succinate 25 MG Oral Capsule ER 24 Hour Sprinkle [id number] 06/07/2020 12:00:00 AM EDT 12.5 mg Oral active Take 12 .5 mg by mouth daily [facility] Warfarin Sodium 1 MG Oral Tablet Warfarin Sodium 1 MG Oral Tablet (COUMADIN) Warfarin Sodium 1 MG Oral Tablet (COUMADIN) 06/07/2020 12:00:00 AM EDT 2.5 mg Oral active Take 2.5 tablets by mouth daily [facility] gabapentin 600 MG Oral Tablet gabapentin (NEURONTIN) t ablet 600 mg gabapentin (NEURONTIN) tablet 600 mg 06/06/2020 09:00:00 PM EDT 600 mg Oral active 600 mg, Oral, Three Times Daily Standar d, First dose on Thu06/06/20 at 2100, For 3 days [facility] Medication administered onsite Warfarin Sodium 2.5 MG Oral Tablet warfarin (COUMADIN) tablet 2.5 mg warfarin (COUMADIN) tablet 2.5 mg 06/06/2020 09:00:00 PM EDT 2.5 mg Oral active Thromboembolic Disease 2.5 mg, Oral, Every evening, Indications: Thromboembolic Disease, First dose (after last modification) on Thu06/06/20 at 2100, For 4 doses [facility] Thromboembolic Disease Medication administered onsite Sodium Chloride 0.111 MEQ/ML Nasal Solut ion sodium chloride (OCEAN) 0.65 % nasal spray 2 spray sodium chloride (OCEAN) 0.65 % nasal spray 2 spray 12:16:32 PM EDT 2 {spray} Each Nare active 2 spray, Each Nare, Every 1 hour PRN, Congestion, Starting Thu06/06/20 at 1216, For 30 days [facility] Medication administered onsite 24 HR metoprolol succinate 25 MG Extende d Release Oral Tablet metoprolol (TOPROL-XL) 24 hr tablet 12.5 mg metoprolol (TOPROL-XL) 24 hr tablet 12.5 mg 06/06/2020 09:00:00 AM EDT 12.5 mg Oral active 12.5 mg, Oral, Daily Standard, First dose (after last modification) on Thu06/06/20 at 0900, For 28 doses [facility] Medication administered onsite POLYETHYLENE GLYCOL 3350 [...] due to potential increased risk for aspiration.
[facility] Medication administered onsite calcium gluconate in NaCl 0.9 % infusion 1 g/50 mL [id number] 06/06/2020 06:00:00 AM EDT 1 g Intravenous completed 1 g, Intravenous, Administer over 1 Hours, Once, Thu06/06/20 at 0600, For 1 dose
1 g calcium gluconate = 90 mg elemental Ca++ = 4.5 mEq Ca++. Dosed on mg of calcium gluconate.
[facility] Medication administered onsite potassium phosphate infusion 6 mmol/100 mL (premix) 06/06/2020 05:15:00 AM EDT 6 mmol Intravenous completed 6 mmol, Intravenous, at 25 mL/hr, Once, Thu06/06/20 at 0515, For 1 dose
Slower infusion rates (e.g. over 4 hours) are recommended in patients with renal impairment and/or less severe hypophosphatemia. Product contains 8.8 mEq of potassium.
[facility] Medication administered onsite magnesium sulfate in dextrose 5 % infusion (premix) 1 g [id number] 06/06/2020 02:15:00 AM EDT 1 g Intravenous completed 1 g, Intravenous, Administer over 60 Minutes, Once, Thu06/06/20 at 0215, For 1 dose [facility] Medication administered onsite sennosides, CUSTODIAL 8.6 MG Oral Tablet senna tablet 2 tablet sen na tablet 2 tablet 06/05/2020 10:00:00 PM EDT 2 {tbl} Oral active 2 tablet, Oral, Nightly, First dose on Thu06/05/20 at 2200, For 30 days [facility] Medication administered onsite Sodium Chloride 1000 MG Oral Tablet sodium chloride ta blet 1 g sodium chloride tablet 1 g 06/05/2020 09:00:00 AM EDT 1 g Oral active 1 g, Oral, 2 Times Daily With Meals, First dose (after last modification) on Thu06/05/20 at 0900, For 59 doses [facility] Medication administered onsite calcium gluconate in NaCl 0.9 % infusion 1 g/50 mL [id number] 06/05/2020 05:15:00 AM EDT 1 g Intravenous completed 1 g, Intravenous, Administer over 1 Hours, Once, Thu06/05/20 at 0515, For 1 dose
1 g calcium gluconate = 90 mg elemental Ca++ = 4.5 mEq Ca++. Dosed on mg of calcium gluconate.
[facility] Medication administered onsite magnesium sulfate in dextrose 5 % infusion (premix) 1 g 0409 -[id number] 06/05/2020 05:15:00 AM EDT 1 g Intravenous completed 1 g, Intravenous, Administer over 60 Minutes, Once, Thu06/05/20 at 0515, For 1 dose [facility] Medication administered onsite calcium gluconate in NaCl 0.9 % infusion 1 g/50 mL [id number] 06/04/2020 05:15:00 PM EDT 1 g Intravenous completed 1 g, Intravenous, Administer over 1 Hours, Once, [facility] 06/04/20 at 1715, For 1 dose
1 g calcium gluconate = 90 mg elemental Ca++ = 4.5 mEq Ca++. Dosed on mg of calcium gluconate.
[facility] Medication administered onsite sodium chloride 0.9 % bolus 250 mL [id number] 06/04/2020 01:30:00 PM EDT 250 mL Intravenous completed 250 mL, Intravenous, Once, Thu06/04/20 at 1330, For 1 dose [facility] Medication administered onsite Sodium Chloride 1000 MG Oral Tablet sodium chloride ta blet 1 g sodium chloride tablet 1 g 06/04/2020 11:00:00 AM EDT 1 g Oral aborted 1 g, Oral, 2 Times Daily With Meals, First dose (after last modification) on Thu06/04/20 at 1100, For 30 days [facility] Medication administered onsite Folic Acid 1 MG Oral Tablet folic acid (FOLVITE) table t 1 mg folic acid (FOLVITE) tablet 1 mg 06/04/2020 11:00:00 AM EDT 1 mg Oral active 1 mg, Oral, Daily Standard, First dose (after last modification) on Thu06/04/20 at 1100, For 30 days [facility] Medication administered onsite Thiamine 100 MG Oral Tablet thiamine (B-1) tablet 100 mg thiamine (B-1) tablet 100 mg 06/04/2020 11:00:00 AM EDT 100 mg Oral active 100 mg, Oral, Daily Standard, First dose on Thu06/04/20 at 1100, For 30 days [facility] Medication administered onsite atorvastatin 40 MG Oral Tablet atorvastatin (LIPITOR) tablet 80 mg atorvastatin (LIPITOR) tablet 80 mg 06/04/2020 09:00:00 AM EDT 80 mg Oral active 80 mg, Oral, Daily Standard, First dose on Thu06/04/20 at 0900, For 30 doses [facility] Medication administered onsite Aspirin 81 MG Chewable Tablet aspirin chewable tablet 81 mg aspirin chewable tablet 81 mg 06/04/2020 09:00:00 AM EDT 81 mg Oral activ e 81 mg, Oral, Daily Standard, First dose on Thu06/04/20 at 0900, For 30 days
Chew tablet before swallowing.
[facility] Medication administered onsite 24 HR metoprolol succinate 25 MG Extende d Release Oral Tablet metoprolol (TOPROL-XL) 24 hr tablet 25 mg metoprolol (TOPROL-XL) 24 hr tablet 25 mg 06/04/2020 09:00:00 AM EDT 25 mg Oral aborted 25 mg, Oral, Daily Standard, First dose on Thu06/04/20 at 0900, For 30 doses [facility] Medication administered onsite sacubitril 24 MG / valsartan 26 MG Oral Tablet sacubitril-valsartan (ENTRESTO) 24-26 MG per tablet 1 tablet sacubitril-valsartan (ENTRESTO) 24-26 MG per tablet 1 tablet 06/04/2020 09:00:00 AM EDT 1 {tbl} Oral active 1 tablet, Oral, 2 Times Daily, First dose on 06/04/20 at 0900, For 30 days [facility] Medication administered onsite warfarin (COUMADIN) partial tablet 1 mg [id number] 06/03/2020 09:45:00 PM EDT 1 mg Oral aborted Thromboembolic Disease 1 mg, Oral, Every evening, Indications: Thromboembolic Disease, First dose (after last modification) on [place] 06/03/20 at 2145, For 7 doses [facility] Thromboembolic Disease Medication administered onsite heparin (porcine) 5000 UNIT/ML injection 5,000 Units [id number] 06/03/2020 09:00:00 PM EDT 5000 U Subcutaneous aborted 5,000 Units, Subcutaneous, 2 Times Daily, First dose on [place] 06/03/20 at 2100, For 30 days [facility] Medication administered onsite NaCl infusion 0.9 % [id number] 06/03/2020 08:30:00 PM EDT Intravenous aborted at 75 mL/hr, Intrave nous, Continuous, Starting [place] 06/03/20 at 2030, For 30 days [facility] Medication administered onsite calcium gluconate in NaCl 0.9 % infusion 2 g/50 mL 06/03/2020 08:04:54 PM EDT 2 g Intravenous aborted 2 g, Intrave nous, Every 1 hour PRN, for ionized calcium < 1.13 mmol/L (4.51 mg/dL), Starting [place] 06/03/20 at 2004, For 7 days
Ionized Calcium 1 - 1.12 mmol/L (4.01 - 4.5 mg/dL): give 2 g q1h x 1
Ionized Calcium less than 1 mmol/L (less than 4.01 mg/dL): give 2 g q1h x2
[facility] Medication administered onsite 50 ML Magnesium [...] 16 mEq (2 g) q1h x 3
[facility] Medication administered onsite cefepime (MAXIPIME) 2 g - vancomycin ([facility] NCOCIN) 1 g in sodium chloride 0.9% 1,000 mL IVPB mixture 06/03/2020 06:30:00 PM EDT 1000 mL Intrave nous completed 1,000 mL, Intravenou s, Administer over 61 Minutes, Once, [place] 06/03/20 at 1830, For 1 dose [facility] Medication administered onsite sacubitril 49 MG / valsartan 51 MG Oral Tablet [Entresto] En tresto 05/20/2020 12:00:00 AM EDT ORAL active M [facility] ([facility]) atorvastatin 80 MG Oral Tablet Atorvastatin Calcium 05/20/2020 1 2:00:00 AM EDT ORAL active [facility] ( [facility]) gabapentin 600 MG Oral Tablet Gabapentin 05/20/2020 12:00:00 AM EDT ORAL active [facility] ([facility]) Spironolactone 25 MG Oral Tablet Spironolactone 05/20/2020 12:00:00 A M EDT ORAL active [facility] ([facility] 24-26 mg 04/11/2020 12:00:00 AM EDT [...] AM EDT ORAL active [facility] ([facility]) 25 mg 02/22/2020 12:00:00 AM EDT [...] AM EDT ORAL completed [facility] ([facility]) Enalapril Maleate 2.5 MG Oral Tablet Enalapril Maleate 12:00:00 AM EDT ORAL active [facility] Enalapril Maleate 5 MG Oral Tablet Enalapril Maleate 12/09/2019 12:00:00 AM EDT ORAL completed [facility] ([facility]) 24 HR metoprolol succinate 25 MG Extended Release Oral Tablet Metoprolol Succinate ER 12/06/2019 12:00:00 AM EDT ORAL completed [facility] ([facility]) sacubitril 24 MG / valsartan 26 MG Oral Tablet [Entresto] En tresto 12/06/2019 12:00:00 AM EDT ORAL completed [facility] ([facility]) 5-325 mg 10/18/2019 12:00:00 AM EST [...] EST ORAL active [facility] ( [facility]) Cholecalciferol 1000 UNT Oral Tablet Vitamin D (Cholecalcife rol) 10/05/2019 12:00:00 AM EST ORAL active M [facility] ([facility]) Vitamin B Complex 10/05/2019 12:00:00 AM EST ORAL active [facility] ([facility]) Tamsulosin hydrochloride 0.4 MG Oral Capsule Tamsulosin HCL 10/05/2019 12:00:00 AM EST ORAL active [facility] Warfarin Sodium 1 MG Oral Tablet Warfarin Sodium 10/05/2019 12:00:00 AM EST ORAL active [facility] ([facility] Aspirin 81 MG Delayed Release Oral Tablet Aspirin 81 2019 12:00:00 AM EST ORAL active [facility] ( [facility]) Simvastatin 40 MG Oral Tablet Simvastatin 10/05/2019 12:00:00 AM EST ORAL active [facility] ([facility]) gabapentin 600 MG Oral Tablet Gabapentin 10/05/2019 12:00:00 AM EST ORAL active [facility] ([facility]) Dexamethasone 0.001 MG/MG / Neomycin 0.0 035 MG/MG / Polymyxin B 10 UNT/MG Ophthalmic Ointment Neomycin/Polymyxin/Dexamethasone 10/05/2019 12:00:00 AM EST OPHTHALMIC active [facility] T ([facility]) Glycerin 3 MG/ML / Propylene glycol 10 MG/ML Ophthalmi c Solution Artificial Tears 10/05/2019 12:00:00 AM EST active [facility] ([facility]) Acetaminophen 325 MG / Hydrocodone Bitartrate 5 MG Oral Tabl et [[place]] [place] 09/23/2019 12:00:00 AM EST ORAL completed [facility] ([facility]) Enalapril Maleate 2.5 MG Oral Tablet Claire lapril Maleate 2.5 MG Oral Tablet (VASOTEC) Enalapril Maleate 2.5 MG Oral Tablet (VASOTEC) 2.5 mg Oral aborted Take 2.[address] [facility] Docusate Sodium 100 MG Oral Capsule Docu sate Sodium 100 MG Oral Capsule (COLACE) Docusate Sodium 100 MG Oral Capsule (COLACE) 100 mg Oral aborted Take 100 mg by mouth Two Times Daily [facility] Spironolactone 25 MG Oral Tablet Spironolactone 25 MG Oral Tablet (ALDACTONE) Spironolactone 25 MG Oral Tablet (ALDACTONE) 25 mg Oral aborted Take 25 mg by mouth daily [facility] Metoprolol Succinate 25 MG Oral Capsule ER 24 Hour Sprinkle [id number] Oral aborted Take by mouth [facility] Warfarin Sodium 1 MG Oral Tablet Warfarin Sodium 1 MG Oral Tablet (COUMADIN) Warfarin Sodium 1 MG Oral Tablet (COUMADIN) 1 mg Oral aborted Take 1 mg by mouth daily [facility] Insurance Providers Payer name Policy type / Coverage type Policy ID Covered libertarian ID Covered libertarian's relationship to heredia Policy He[employer] Plan Information [facility] [id number] SP [id number] MEDICARE [id number] SP [id number] F24 [employer] [id number] S [id number] [place] [id number] S [id number] [employer] [id number] S [id number] [place] [id number] S [id number] [employer] [id number] Self [id number] MEDICARE [id number] Self [id number] [id number] ADMINSTRATION -O/P [id number] 18 [id number] OTHER B [id number] Self [id number] MEDICARE A [id number] Self [id number] [employer] [id number] S [id number] [place] [id number] S [id number] [employer] [id number] S [id number] [place] [id number] S [id number] 'S ADMINISTRATION [id number] SP [id number] [facility] [id number] SP [id number] [facility] O [id number] S [id number] [facility] PART B C [id number] S [id number] [facility] VA CHOICE O [id number] S [id number] MEDICARE [id number] SP [id number] [facility] [id number] S [id number] Problems, Conditions, and Diagnoses Code Display Name Description Problem Type Effective Dates Data Source(s) 370732983 Drug-induced hypotension Drug-induced hypotension Prob alexus 05/15/2020 12:00:00 AM EDT [facility] ([facility]) [id number] Syncope and collapse Syncope and collapse Problem 10/06/2019 12:00:00 AM EST [facility] ([facility]) 42206162 Premature beats Premature beats Problem 10/06/2019 12:0 0:00 AM EST [facility] ([facility]) [id number] 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 Problem 10/06/2019 12:00:00 AM EST [facility] ([facility]) 850607523 Dietary management surveillance Dietary manageme nt surveillance Problem 10/06/2019 12:00:00 AM EST [facility] 639107343 Overweight Overweight Problem 10/06/2019 12:00:00 AM ES T [facility] ([facility]) [id number] Pure hypercholesterolemia Pure hypercholesterolemia Pr oblem 10/06/2019 12:00:00 AM EST [facility] ([facility]) [id number] Preoperative cardiovascular examination Preoperative cardiovascular examination Problem 10/06/2019 12:00:00 AM EST [facility] ([facility]) [id number] Chronic ischemic heart disease Chronic ischemic heart disease Problem 10/06/2019 12:00:00 AM EST [facility] ([facility]) [id number] 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 Problem 10/06/19 20 12:00:00 AM EST [facility] ([facility]) [id number] Old myocardial infarction Old myocardial infarction Pr oblem 10/06/2019 12:00:00 AM EST [facility] ([facility]) [id number] Electrocardiogram abnormal Electrocardiogram abnormal Problem 10/06/2019 12:00:00 AM EST [facility] ([facility]) Z79.01 [facility] (current) use of anticoagulant s [facility] (CURRENT) USE OF ANTICOAGULANTS Diagnosis 09/12/2020 10:13:00 AM EST [facility] I48.0 Paroxysmal atrial fibrillation PAROXYSMAL ATRIAL FIBRI LLATION Diagnosis 09/03/2020 10:31:00 AM [facility] I50.23 Acute on chronic systolic (congestive) h eart failure Acute on chronic systolic (congestive) heart failure Diagnosis 08/27/2020 07:38:26 AM E [facility] Z95.1 Presence of aortocoronary bypass graft P resence of aortocoronary bypass graft Diagnosis 08/12/2020 11:27:25 AM EST [facility] CAD CAD Diagnosis 07/31/2020 10:31:00 AM [facility] I50.20 Unspecified systolic (congestive) heart failure Unspecified systolic (congestive) heart failure Diagnosis 07/31/2020 10:31:00 AM [facility] I50.22 Chronic systolic (congestive) heart fail ure Chronic systolic (congestive) heart failure Diagnosis 07/31/2020 10:31:00 AM [facility] R99 Ill-defined and unknown cause of mortali ty Ill-defined and unknown cause of mortality Diagnosis 07/31/2020 09:58:00 AM [facility] [id number] Encounter for other preprocedural examin ation Encounter for other preprocedural examination Diagnosis 07/13/2020 09:15:00 AM [facility] Follow-up Follow-up Diagnosis 07/12/2020 10:24:19 AM [facility] I21.9 Acute myocardial infarction, unspecified Acute myocardial infarction, unspecified Diagnosis 07/12/2020 10:24:19 AM [facility] Stroke Stroke Diagnosis 06/04/2020 04:25:19 PM ED [facility] I50.22 Chronic systolic (congestive) heart fail ure Chronic systolic (congestive) heart failure Diagnosis 06/04/2020 03:21:42 PM EDT [facility] E87.1 Hypo-osmolality and hyponatremia Hypo-osmolality and hyponatremia Diagnosis 06/03/2020 05:34:00 PM EDT [facility] AMS AMS Diagnosis 06/03/2020 05:34:00 PM ED [facility] Z79.899 Other long term care phlebotomist (current) drug therapy O THER [facility] (CURRENT) DRUG THERAPY Diagnosis 06/03/2020 03:09:00 PM EDT [facility] Z79.82 terminal carman (current) use of aspirin [facility] (CU RRENT) USE OF ASPIRIN Diagnosis 06/03/2020 03:09:00 PM [facility] Z79.2 terminal carman (current) use of antibiotics L KIM TERM (CURRENT) USE OF ANTIBIOTICS Diagnosis 06/03/2020 03:09:00 PM [facility] Z20.828 Contact with and (suspected) exposure to other viral communicable diseases CONTACT W AND EXPOSURE TO OTH VIRAL COMMUNICABLE D Diagnosis 06/03/2020 03:09:00 PM [facility] E78.00 PURE HYPERCHOLESTEROLEMIA, UNSPECIFIED P URE HYPERCHOLESTEROLEMIA, UNSPECIFIED Diagnosis 06/03/2020 03:09:00 PM [facility] I10 Essential (primary) hypertension ESSENTIAL (PRIMARY) H YPERTENSION Diagnosis 06/03/2020 03:09:00 PM [facility] G30.1 Alzheimer's disease with late onset ALZHEIMER'S DISEASE WITH LATE ONSET Diagnosis 06/03/2020 03:09:00 PM [facility] I63.50 Cerebral infarction due to u nspecified occlusion or stenosis of unspecified cerebral artery CEREB INFRC DUE TO UNSP OCCLS OR STENOS OF UNSP CE Diagnosis 06/03/2020 03:09:00 PM [facility] R41.82 Altered mental status, unspecified ALTERED MENTA L STATUS, UNSPECIFIED Diagnosis 06/03/2020 03:09:00 PM [facility] Surgeries/Procedures Procedure Description Date Indications Data Source(s) PROTHROMBIN TIME PROTIME INR Routine 06/07/2020 3:45 AM EDT 06/07/2020 03:45:00 AM [facility] PHOSPHORUS INORGANIC PHOSPHORUS LEVEL Routine 06/07/2020 3:45 AM E DT 06/07/2020 03:45:00 AM [facility] MAGNESIUM MAGNESIUM LEVEL Routine 06/07/2020 3:45 AM EDT 06/07/2020 03:45:00 AM [facility] CALCIUM IONIZED CALCIUM, IONIZED Routine 06/07/2020 3:45 AM EDT 06/07/2020 03:45:00 AM [facility] BASIC METABOLIC PANEL CALCIUM TOTAL BASIC METABOLIC PANEL Routi ne 06/07/2020 3:45 AM EDT 06/07/2020 03:45:00 AM EDT [facility] BASIC METABOLIC PANEL CALCIUM TOTAL BASIC METABOLIC PANEL Timed 06/06/2020 5:45 PM EDT 06/06/2020 05:45:00 PM EDT [facility] PROTHROMBIN TIME PROTIME INR Routine 06/06/2020 4:28 AM EDT 06/06/2020 04:28:00 AM [facility] BLOOD COUNT COMPLETE AUTOMATED CBC Routine 06/06/2020 4:28 A M EDT 06/06/2020 04:28:00 AM [facility] PHOSPHORUS INORGANIC PHOSPHORUS LEVEL Routine 06/06/2020 4:28 AM E DT 06/06/2020 04:28:00 AM [facility] MAGNESIUM MAGNESIUM LEVEL Routine 06/06/2020 4:28 AM EDT 06/06/2020 04:28:00 AM [facility] CALCIUM IONIZED CALCIUM, IONIZED Routine 06/06/2020 4:28 AM EDT 06/06/2020 04:28:00 AM [facility] HEPATIC FUNCTION PANEL HEPATIC FUNCTION PANEL A Routine 06/06/2020 4:28 AM EDT 06/06/2020 04:28:00 AM EDT [facility] PHOSPHORUS INORGANIC PHOSPHORUS LEVEL Routine 06/06/2020 12:35 AM E DT 06/06/2020 12:35:00 AM [facility] MAGNESIUM MAGNESIUM LEVEL Routine 06/06/2020 12:35 AM EDT 06/06/2020 12:35:00 AM [facility] CALCIUM IONIZED CALCIUM, IONIZED Routine 06/06/2020 12:35 AM EDT 06/06/2020 12:35:00 AM [facility] HEPATIC FUNCTION PANEL HEPATIC FUNCTION PANEL A Routine 06/06/2020 12:35 AM EDT 06/06/2020 12:35:00 AM EDT [facility] BASIC METABOLIC PANEL CALCIUM TOTAL BASIC METABOLIC PANEL Timed 06/06/2020 12:35 AM EDT 06/06/2020 12:35:00 AM EDT [facility] PHOSPHORUS INORGANIC PHOSPHORUS LEVEL Routine 06/05/2020 4:19 PM E DT 06/05/2020 04:19:00 PM [facility] MAGNESIUM MAGNESIUM LEVEL Routine 06/05/2020 4:19 PM EDT 06/05/2020 04:19:00 PM [facility] BASIC METABOLIC PANEL CALCIUM TOTAL BASIC METABOLIC PANEL Timed 06/05/2020 4:19 PM EDT 06/05/2020 04:19:00 PM EDT [facility] PHOSPHORUS INORGANIC PHOSPHORUS LEVEL Routine 06/05/2020 9:02 AM E DT 06/05/2020 09:02:00 AM [facility] BASIC METABOLIC PANEL CALCIUM TOTAL BASIC METABOLIC PANEL Timed 06/05/2020 9:02 AM EDT 06/05/2020 09:02:00 AM EDT [facility] PROTHROMBIN TIME PROTIME INR Routine 06/05/2020 4:13 AM EDT 06/05/2020 04:13:00 AM [facility] BLOOD COUNT COMPLETE AUTOMATED CBC Routine 06/05/2020 4:13 A M EDT 06/05/2020 04:13:00 AM [facility] PHOSPHORUS INORGANIC PHOSPHORUS LEVEL Routine 06/05/2020 4:13 AM E DT 06/05/2020 04:13:00 AM [facility] MAGNESIUM MAGNESIUM LEVEL Routine 06/05/2020 4:13 AM EDT 06/05/2020 04:13:00 AM [facility] CALCIUM IONIZED CALCIUM, IONIZED Routine 06/05/2020 4:13 AM EDT 06/05/2020 04:13:00 AM [facility] HEPATIC FUNCTION PANEL HEPATIC FUNCTION PANEL A Routine 06/05/2020 4:13 AM EDT 06/05/2020 04:13:00 AM EDT [facility] BASIC METABOLIC PANEL CALCIUM TOTAL BASIC METABOLIC PANEL Timed 06/05/2020 4:13 AM EDT 06/05/2020 04:13:00 AM EDT [facility] BASIC METABOLIC PANEL CALCIUM TOTAL BASIC METABOLIC PANEL Timed 06/04/2020 9:51 PM EDT 06/04/2020 09:51:00 PM EDT [facility] PHOSPHORUS INORGANIC PHOSPHORUS LEVEL Timed 06/04/2020 4:06 PM E DT 06/04/2020 04:06:00 PM [facility] MAGNESIUM MAGNESIUM LEVEL Timed 06/04/2020 4:06 PM EDT 06/04/2020 04:06:00 PM [facility] BASIC METABOLIC PANEL CALCIUM TOTAL BASIC METABOLIC PANEL Timed 06/04/2020 4:06 PM EDT 06/04/2020 04:06:00 PM EDT [facility] PHOSPHORUS INORGANIC PHOSPHORUS LEVEL Timed 06/04/2020 11:50 AM E DT 06/04/2020 11:50:00 AM [facility] MAGNESIUM MAGNESIUM LEVEL Timed 06/04/2020 11:50 AM EDT 06/04/2020 11:50:00 AM [facility] BASIC METABOLIC PANEL CALCIUM TOTAL BASIC METABOLIC PANEL Timed 06/04/2020 11:50 AM EDT 06/04/2020 11:50:00 AM EDT [facility] UREA NITROGEN URINE UREA NITROGEN, URINE Routine 06/04/2020 11:10 A M EDT 06/04/2020 11:10:00 AM [facility] SODIUM URINE SODIUM, URINE, RANDOM Routine 06/04/2020 11:10 AM EDT 06/04/2020 11:10:00 AM [facility] OSMOLALITY URINE OSMOLALITY, URINE Routine 06/04/2020 11:10 AM EDT 06/04/2020 11:10:00 AM [facility] CREATININE OTHER SOURCE CREATININE, URINE, RANDOM Routine 06/04/2020 11:10 AM EDT 06/04/2020 [facility] CHLORIDE, URINE, RANDOM Routine 06/04/2020 11:10 AM EDT 06/04/2020 11:10:00 AM [facility] PHOSPHORUS INORGANIC PHOSPHORUS LEVEL Timed 06/04/2020 8:22 AM E DT 06/04/2020 08:22:00 AM [facility] MAGNESIUM MAGNESIUM LEVEL Timed 06/04/2020 8:22 AM EDT 06/04/2020 08:22:00 AM [facility] BASIC METABOLIC PANEL CALCIUM TOTAL BASIC METABOLIC PANEL Timed 06/04/2020 8:22 AM EDT 06/04/2020 08:22:00 AM [facility] PROTHROMBIN TIME PROTIME INR Routine 06/04/2020 4:28 AM EDT 06/04/2020 04:28:00 AM [facility] BLOOD COUNT COMPLETE AUTOMATED CBC Routine 06/04/2020 4:28 A M EDT 06/04/2020 04:28:00 AM [facility] PHOSPHORUS INORGANIC PHOSPHORUS LEVEL Timed 06/04/2020 4:28 AM E DT 06/04/2020 04:28:00 AM [facility] MAGNESIUM MAGNESIUM LEVEL Timed 06/04/2020 4:28 AM EDT 06/04/2020 04:28:00 AM [facility] CYANOCOBALAMIN VITAMIN B-12 VITAMIN B12 Routine 06/04/2020 4:28 AM EDT 06/04/2020 04:28:00 AM [facility] CALCIUM IONIZED CALCIUM, IONIZED Routine 06/04/2020 4:28 AM EDT 06/04/2020 04:28:00 AM [facility] HEPATIC FUNCTION PANEL HEPATIC FUNCTION PANEL A Routine 06/04/2020 4:28 AM EDT 06/04/2020 04:28:00 AM EDT [facility] BASIC METABOLIC PANEL CALCIUM TOTAL BASIC METABOLIC PANEL Timed 06/04/2020 4:28 AM EDT 06/04/2020 04:28:00 AM EDT [facility] EKG 12-LEAD - CMAXX REPORT EKG 12-LEAD - CMAXX REPORT 06/04/2020 1:39 AM EDT 06/04/2020 01:39:13 AM EDT [facility] EKG 12-LEAD - CMAXX REPORT EKG 12-LEAD - CMAXX REPORT 06/04/2020 1:39 AM EDT 06/04/2020 01:39:13 AM EDT [facility] EKG 12-LEAD EKG 12-LEAD Routine 06/04/2020 1:39 AM EDT 06/04/2020 01:39:13 AM [facility] EKG 12-LEAD EKG 12-LEAD Routine 06/04/2020 1:39 AM EDT 06/04/2020 01:39:13 AM [facility] HEPATITIS C ANTIBODY HEPATITIS C ANTIBODY Routine 06/03/2020 11:41 PM EDT 06/03/2020 11:41:00 PM [facility] PHOSPHORUS INORGANIC PHOSPHORUS LEVEL Timed 06/03/2020 11:41 PM E DT 06/03/2020 11:41:00 PM [facility] MAGNESIUM MAGNESIUM LEVEL Timed 06/03/2020 11:41 PM EDT 06/03/2020 11:41:00 PM [facility] FOLIC ACID SERUM FOLATE Routine 06/03/2020 11:41 PM EDT 06/03/2020 11:41:00 PM [facility] BASIC METABOLIC PANEL CALCIUM TOTAL BASIC METABOLIC PANEL Timed 06/03/2020 11:41 PM EDT 06/03/2020 11:41:00 PM EDT [facility] CORTISOL TOTAL CORTISOL Routine 06/03/2020 9:47 PM EDT 06/03/2020 09:47:00 PM [facility] BASIC METABOLIC PANEL CALCIUM TOTAL BASIC METABOLIC PANEL Timed 06/03/2020 9:47 PM EDT 06/03/2020 09:47:00 PM EDT [facility] POCT GLUCOSE, DOCKED POCT GLUCOSE, DOCKED Routine 06/03/2020 9:19 PM EDT 06/03/2020 [facility]INE SODIUM, URINE, RANDOM STAT 06/03/2020 6:22 PM EDT 06/03/2020 06:22:00 PM [facility] OSMOLALITY URINE OSMOLALITY, URINE STAT 06/03/2020 6:22 PM EDT 06/03/2020 06:22:00 PM [facility] CREATININE OTHER SOURCE CREATININE, URINE, RANDOM STAT 06/2020 6:22 PM EDT 06/03/2020 06:22:[address] [facility] CHLORIDE URINE CHLORIDE, URINE, RANDOM STAT 06/03/2020 6:22 PM EDT 06/03/2020 06:22:00 PM [facility] CULTURE BACTERIAL BLOOD AEROBIC W/ID ISOLATES BLOOD CULTURE S TAT 06/03/2020 6:22 PM EDT 06/03/2020 06:22:00 PM EDT [facility] CULTURE BACTERIAL BLOOD AEROBIC W/ID ISOLATES BLOOD CULTURE S TAT 06/03/2020 6:22 PM EDT 06/03/2020 06:22:00 PM EDT [facility] URNLS DIP STICK/TABLET REAGENT AUTO MICROSCOPY URINALYSIS W ITH MICROSCOPIC Routine 06/03/2020 6:22 PM EDT 06/03/2020 06:22:00 PM [facility] CULTURE BCT ISOL&PRSMPTV ID ISOLATE EA URINE URINE CULTURE Ro utine 06/03/2020 6:22 PM EDT 06/03/2020 06:22:00 PM EDT [facility] SEPSIS WORKUP SEPSIS WORKUP Routine 06/03/2020 6:14 PM EDT 06/03/2020 06:14:31 PM [facility] TROPONIN QUANTITATIVE POCT ISTAT TROPONIN Routine 06/03/2020 6:03 PM EDT 06/03/2020 06:03:00 PM [facility] LACTATE LACTIC ACID LEVEL, PLASMA STAT 06/03/2020 5:56 PM EDT 06/03/2020 05:56:00 PM [facility] BLOOD COUNT COMPLETE AUTO&AUTO DIFRNTL WBC COUNT CBC AND DIFFER ENTIAL Routine 06/03/2020 5:55 PM EDT 06/03/2020 05:55:00 PM [facility] TROPONIN QUANTITATIVE TROPONIN T Routine 06/03/2020 5:55 PM EDT 06/03/2020 [facility]:55[facility]YROID STIMULATING HORMONE TSH TSH STAT 06/03/2020 5:55 PM EDT 06/03/2020 05:55:[facility] BILIRUBIN DIRECT BILIRUBIN, DIRECT STAT 06/03/2020 5:55 PM EDT 06/03/2020 05:55:[facility] COMPREHENSIVE METABOLIC PANEL COMPREHENSIVE METABOLIC PANEL STA T 06/03/2020 5:55 PM EDT 06/03/2020 05:55:00 PM EDT [facility] XR CHEST FRONTAL ONLY [id number] XR CHEST FRONTAL ONLY [id number] STAT 06/03/2020 5:53 PM EDT 06/03/2020 05:53:00 PM EDT [facility] BASIC METABOLIC PANEL CALCIUM IONIZED POCT ISTAT CHEM8 Routine 06/03/2020 5:52 PM EDT 06/03/2020 05:52:00 PM EDT [facility] BLOOD GASES ANY COMBINATION PH PCO2 PO2 CO2 HCO3 POCT ISTAT VBG /LAC Routine 06/03/2020 5:48 PM EDT 06/03/2020 05:48:00 PM EDT [facility] EKG 12 LEAD (UNSOLICITED COMPUTER ORDER) EKG 12 LEAD (UNSOLICITED COMPUTER ORDER) Routine 06/03/2020 5:41 PM EDT 06/03/2020 05:41 [facility] - CMAXX REPORT EKG 12-LEAD - CMAXX REPORT 06/03/2020 5:41 PM EDT 06/03/2020 05:41:00 PM EDT [facility] EKG 12-LEAD - CMAXX REPORT EKG 12-LEAD - CMAXX REPORT 06/03/2020 5:41 PM EDT 06/03/2020 05:41:00 PM EDT [facility] EKG 12-LEAD - CMAXX REPORT EKG 12-LEAD - CMAXX REPORT 06/03/2020 5:41 PM EDT 06/03/2020 05:41:00 PM EDT [facility] EKG 12-LEAD EKG 12-LEAD STAT 06/03/2020 5:41 PM EDT 06/03/2020 05:41:00 PM [facility] Monitor 48HR-21Days; Recording(Connection+Recording) 05/21/2020 12:00:00 AM EDT [facility] ([employer]) [id number]; review + interpretation 05/21/2020 12:00:00 AM EDT [facility] ([facility]) MYOCRD IMAGE PET PERFUS MULTPL STUDY REST/STRESS 01/03 12:00:00 AM EDT [facility] ([facility]) CV STRS TST XERS&/OR RX CONT ECG I&R ONLY 01/04/2020 1 2:00:00 AM EDT [facility] ([facility]) Lap Repair Vent Umb Spig Epig W/ Mesh, Incarcerated 10/18/2019 12:00:00 AM EST [facility] ([facility], ) Lap Repair Incisional Hernia W/ Mesh, Incarcerated 10/18/2019 12:00:00 AM EST [facility] ([facility], ) ECG ROUTINE ECG W/LEAST 12 LDS W/I&R 10/06/2019 12:00: 00 AM EST [facility] ([facility]) Results ID Date Data Source [id number] 09/12/2020 10:38:00 AM EST [facility] FAX [phone] Name Value Range Interpretation Code Description Data Danuta rce(s) Supporting Document(s) PROTHROMBIN TIME (PATIENT) 39.8 SECONDS 9.1-11.6 H [facility] INR 3.88 0.87-1.06 H [facility] ID Date Data Source [id number] 09/03/2020 11:13:00 AM EST [facility] FAX [facility] Name Value Range Interpretation Code Description Data Danuta rce(s) Supporting Document(s) PROTHROMBIN TIME (PATIENT) 29.7 SECONDS 9.1-11.6 H [facility] INR 2.89 0.87-1.06 H [facility] ID Date Data Source [id number] 08/27/2020 12:33:00 PM EST [facility] Name Value Range Interpretation Code Description Data Danuta rce(s) Supporting Document(s) PROTHROMBIN TIME (PATIENT) 23.9 SECONDS 9.1-11.6 H [facility] INR 2.32 0.87-1.06 H [facility] ID Date Data Source [id number] 08/15/2020 10:38:17 AM [facility] PATIENT INFORMATIONPatient MRN Name Date of [id number] Montana Waller 1945 75 y.o. Weight Gender PT Class 77.1 kg M InpatientPT Location Admission Date/Time Visit ID Attending [id number] 07/31/20 1031 --- --- EPI ID CSN Admitting Provider [id number] Nano Iverson MD([id number])Patient Name: Montana JeanoDOB: 1945MRN: [id number]: [id number] of Admission: 07/31/2020Date of Discharge: 08/12/2020Surgeon: Nano [...] Take by mouth daily. dextran 70-hypromellose (ARTIFICIAL TEARS,[id number],) 0.1-0.3 % Opht DropApply to eye 2 (two) times daily as needed. docusate sodium 100 MG Oral capsule Take 1 capsule by mouth 2 (two) timesdaily. 60 capsule 11 gabapentin 600 MG Oral tablet Take 600 mg by mouth 2 (two) times daily. 1/2tab QAM and 1 tab QHS [id number]-vhivwzljtrxfb Opht ophthalmic ointment Place 0.5 inchesinto the [...] History:Past Medical History:Diagnosis Date Arthritis Atrial fibrillation ([facility] Code) BPH (benign prostatic hyperplasia) Clotting disorder ([facility] Code) Dyslipidemia Ischemic cardiomyopathy EF 40% PAD (peripheral artery disease) ([facility] Code) Smoking hx Varicose vein of [...] file Gets together: Not on file Attends anabaptist service: Not on file Active member of [...] from bypass without difficulty[facility]. [facility] [...] the . He transferred to 4400 on [id number] to continue rehabilitation. On 4400, the patient [...] sinus rhythm and is onroom air.Confirmation # [id number] Medication List: Montana Waller Medication Instructions VIKTORIYA:[id number] Printed on:08/12/20 1142Medication Informationamiodarone 200 MG Oral tabletTake 1 tablet by mouth daily.aspirin 81 MG Oral EC tabletTake 81 mg by mouth daily.atorvastatin (LIPITOR) 80 MG Oral tabletTake 1 tablet by mouth at bedtime.cholecalciferol, Vitamin D3, 1000 Units Oral TabTake by mouth daily.dapagliflozin (FARXIGA) 10 mg Oral TabTake 10 mg by mouth daily.dextran 70-hypromellose (ARTIFICIAL TEARS,[id number],) 0.1-0.3 % Opht DropApply to eye 2 [...] tablets by mouth 2 (two) times a day.jgamntrj-lsucpjsdj-swivcfsmmhgqo Opht ophthalmic ointmentPlace 0.5 inches into the [...] Or as directedFollow UP appiontments:Aimee Resendiz MD[address] [phone] be seen this weekSpecial Considerations:See discharge instructionsCoumadin Information:Last INR date: 08/12/20Last INR result: 2.8Goal INR range: 2.0-3.0Suggested Coumadin (Warfarin) dose: 0.5-1mgAnticipated duration of Coumadin: indefinitelyNext lab draw: 08/13/2020MD to manage Coumadin: Dr. Resendiz Fax#: [phone] Confirmed by: not confirmedDate Dose Coumadin INR Dqujpvy58/11 3mg 1.812/12 3mg 1.712/13 0 2.912/14 0 3.612/15 2mg 2.212/16 2mg 1.912/17 0.5mg 2.812/18 0 4.5 Amiodarone cygtbgr47/19 0 3.9Core Measure Checklist: 1. Aspirin: Yes 2. Beta Jayda: Yes 3. Statin: Yes 4. MARIA DE JESUS-I / ARB: Yes 5. Smoking: N/A Patient is not a smoker 6. Beta Jayda Recieved within 48 hrs of OR: Antonio Coyne NP Name Value Range Interpretation Code Description Data Danuta rce(s) Supporting Document(s) ID Date Data Source [id number] 08/12/2020 03:37:00 AM [facility] Release to patient->[facility] Name Value Range Interpretation Code Description Data Danuta rce(s) Supporting Document(s) PROTIME 10.2-12.9 Above high normal [facility] INR 0.9-1.1 Above high normal [facility] [Therapeutic Range 2 .0-3.0]The INR should be used to monitor patients on long termWarfarin. Selected patients may require higher levels ofanticoagulation.The PT/INR should not be used to monitor the coagulationstatus of patients taking Pradaxa, Eliquis, Xarelto or Savaysa. ID Date Data Source [id number] 08/12/2020 04:03:00 AM [facility] Release to patient->ImmediateUnit [facility] Name Value Range Interpretation Code Description Data Danuta rce(s) Supporting Document(s) MAGNESIUM 1.5-2.4 Normal (applies to non-numeric resul ts) [facility] ID Date Data Source [id number] 08/12/2020 04:03:00 AM EST [facility] Release to patient->ImmediateUnit [facility] t Name Value Range Interpretation Code Description Data Danuta rce(s) Supporting Document(s) SODIUM 135-145 Below low normal [facility] POTASSIUM 3.5-5.1 Normal (applies to non-numeric resul ts) [facility] CHLORIDE 98-108 Below low normal [facility] CO2 22-30 Normal (applies to non-numeric results) [facility] ANION GAP 4-16 Normal (applies to non-numeric resul ts) [facility] BUN 8-20 Above high normal [facility] CREATININE 0.7-1.2 Normal (applies to non-numeric resul ts) [facility] GLUCOSE 65-100 Normal (applies to non-numeric resul ts) [facility] CALCIUM 8.5-10.2 Below low normal [facility] ID Date Data Source [id number] 08/12/2020 04:03:00 AM EST [facility] Release to patient->ImmediateUnit [facility] t Name Value Range Interpretation Code Description Data Danuta rce(s) Supporting Document(s) eGFR [facility] ID Date Data Source [id number] 08/12/2020 04:03:00 AM EST [facility] Release to patient->ImmediateUnit [facility] t Name Value Range Interpretation Code Description Data Danuta rce(s) Supporting Document(s) eGFR BLACK [facility] For both eGFR and eGFR BLACK, the accuracy of theeGFR calculation is contingent on a stable level of serumcreatinine. The eGFR calculation is based on an IDMS-Traceablecreatinine assay and is normalized to 1.73 "meters squared"body surface area. An eGFR less than 60 may alter clinicalmanagement decisions. An eGFR greater than or equal to 60 doesnot exclude kidney disease. ID Date Data Source [id number] 08/12/2020 03:25:00 AM EST [facility] Unit Collect Name Value Range Interpretation Code Description Data Danuta rce(s) Supporting Document(s) PH 7.32-7.42 Above high normal [facility] [place], IONIZED (joe) 4.5-5.3 Below low normal [facility] The Ionized Calcium is normalized to pH 7.40. ID Date Data Source [id number] 08/11/2020 01:54:00 AM EST [facility] Name Value Range Interpretation Code Description Data Danuta rce(s) Supporting Document(s) SARS coronavirus 2 RNA [Presence] in Uns pecified specimen by FARHAT with probe detection [facility] This lab was ordered by [facility] and reported by [facility] ID Date Data Source [id number] 08/11/2020 01:55:00 PM EST [facility] ional [facility] Release to patient->ImmediateUnit [facility] tSource->NasalReason for COVID-19 test- >Previously COVID-19 positivepatientUnit Collect Name Value Range Interpretation Code Description Data Danuta rce(s) Supporting Document(s) SOURCE NASAL [facility] ealth SARS-CoV-2 BY RT-PCR Detected Abnormal (applies to non-n umeric results) [facility] POSITIVE RESULTA negative ("Not detected ") result does not anvzyclwQCRM-PkE-7 infection, and a negative result should not [...] or call 911. For additional information please [email or web address] beachUpdat es: Coronavirus in [email or web address] [email or web address] the latest reopening updates, travel guidelines, and learn howbushammond general hospitales and schools are impacted.https://[email or web address] .health.[place].gov/homeTesting was performed on the [employer] System using the[employer] SARS-CoV-2 Reagents. This is a real-time RT-PCR assaywhich qualitatively detects nucleic acid from severe acuterespiratory syndrome coronavirus 2 (SARS-CoV-2) in suitablerespiratory specimens such as nasopharyngeal swabs.This assay has been approved for use under anEmergency Use Authorization (EUA) by the Food and DrugAdministration (FDA). ID Date Data Source [id number] 08/11/2020 03:15:00 AM [facility] Release to patient->ImmediateUnit Colle tSource->NasalReason for COVID-19 test- >Previously COVID-19 positivepatientUnit Collect Name Value Range Interpretation Code Description Data Danuta rce(s) Supporting Document(s) eGFR BLACK [facility] For both eGFR and eGFR BLACK, the accuracy of theeGFR calculation is contingent on a stable level of serumcreatinine. The eGFR calculation is based on an IDMS-Traceablecreatinine assay and is normalized to 1.73 "meters squared"body surface area. An eGFR less than 60 may alter clinicalmanagement decisions. An eGFR greater than or equal to 60 doesnot exclude kidney disease. ID Date Data Source [id number] 08/11/2020 03:15:00 AM [facility] Release to patient->ImmediateUnit [facility] tSource->NasalReason for COVID-19 test- >Previously COVID-19 positivepatientUnit Collect Name Value Range Interpretation Code Description Data Danuta rce(s) Supporting Document(s) eGFR [facility] ID Date Data Source [id number] 08/11/2020 03:15:00 AM [facility] Release to patient->ImmediateUnit [facility] tSource->NasalReason for COVID-19 test- >Previously COVID-19 positivepatientUnit Collect Name Value Range Interpretation Code Description Data Danuta rce(s) Supporting Document(s) MAGNESIUM 1.5-2.4 Normal (applies to non-numeric resul ts) [facility] ID Date Data Source [id number] 08/11/2020 03:15:00 AM [facility] Release to patient->ImmediateUnit [facility] tSource->NasalReason for COVID-19 test- >Previously COVID-19 positivepatientUnit Collect Name Value Range Interpretation Code Description Data Danuta rce(s) Supporting Document(s) SODIUM 135-145 Below low normal [facility] POTASSIUM 3.5-5.1 Below low normal [facility] CHLORIDE 98-108 Below low normal [facility] CO2 22-30 Above high normal [facility] ANION GAP 4-16 Normal (applies to non-numeric resul ts) [facility] BUN 8-20 Above high normal [facility] CREATININE 0.7-1.2 Normal (applies to non-numeric resul ts) [facility] GLUCOSE 65-100 Normal (applies to non-numeric resul ts) [facility] CALCIUM 8.5-10.2 Below low normal [facility] ID Date Data Source [id number] 08/11/2020 02:30:00 AM EST [facility] Unit Collect Name Value Range Interpretation Code Description Data Danuta rce(s) Supporting Document(s) PROTIME 10.2-12.9 Above high normal [facility] INR 0.9-1.1 Above high normal [facility] [Therapeutic Range 2 .0-3.0]The INR should be used to monitor patients on long termWarfarin. Selected patients may require higher levels ofanticoagulation.The PT/INR should not be used to monitor the coagulationstatus of patients taking Pradaxa, Eliquis, Xarelto or Savaysa. ID Date Data Source [id number] 08/11/2020 02:21:00 AM EST [facility] Unit Collect Name Value Range Interpretation Code Description Data Danuta rce(s) Supporting Document(s) PH 7.32-7.42 Above high normal [facility] CA, IONIZED (joe) 4.5-5.3 Below low normal [facility] The Ionized Calcium is normalized to pH 7.40. ID Date Data Source [id number] 08/11/2020 02:21:00 AM EST [facility] Unit Collect Name Value Range Interpretation Code Description Data Danuta rce(s) Supporting Document(s) WBC 4.0-11.0 Below low normal [facility] RBC 4.40-6.20 Below low normal [facility] HGB 13.0-18.0 Normal (applies to non-numeric resul ts) [facility] HCT 40-52 Below low normal [facility] MCV 80-100 Normal (applies to non-numeric resul ts) [facility] MCH 26.0-34.0 Normal (applies to non-numeric resul ts) [facility] MCHC 32.0-37.5 Normal (applies to non-numeric resul ts) [facility] RDW 0.0-15.2 Above high normal [facility] PLATELET COUNT 150-450 Below low normal [facility] ID Date Data Source [id number] 08/10/2020 06:46:00 AM EST [facility] Release to patient->ImmediateUnit [facility] t Name Value Range Interpretation Code Description Data Danuta rce(s) Supporting Document(s) eGFR BLACK [facility] For both eGFR and eGFR BLACK, the accuracy of theeGFR calculation is contingent on a stable level of serumcreatinine. The eGFR calculation is based on an IDMS-Traceablecreatinine assay and is normalized to 1.73 "meters squared"body surface area. An eGFR less than 60 may alter clinicalmanagement decisions. An eGFR greater than or equal to 60 doesnot exclude kidney disease. ID Date Data Source [id number] 08/10/2020 06:46:00 AM EST [facility] Name Value Range Interpretation Code Description Data Danuta rce(s) Supporting Document(s) SODIUM 135-145 Below low normal [facility] POTASSIUM 3.5-5.1 Normal (applies to non-numeric resul ts) [facility] CHLORIDE 98-108 Below low normal [facility] CO2 22-30 Above high normal [facility] ANION GAP 4-16 Normal (applies to non-numeric resul ts) [facility] BUN 8-20 Above high normal [facility] CREATININE 0.7-1.2 Normal (applies to non-numeric resul ts) [facility] GLUCOSE 65-100 Normal (applies to non-numeric resul ts) [facility] CALCIUM 8.5-10.2 Below low normal [facility] ID Date Data Source [id number] 08/10/2020 06:46:00 AM EST [facility] Release to patient->Immediateit [facility] t Name Value Range Interpretation Code Description Data Danuta rce(s) Supporting Document(s) MAGNESIUM 1.5-2.4 Normal (applies to non-numeric resul ts) [facility] ID Date Data Source [id number] 08/10/2020 06:46:00 AM EST [facility] Release to patient->ImmediateUnit [facility] t Name Value Range Interpretation Code Description Data Danuta rce(s) Supporting Document(s) eGFR [facility] ID Date Data Source [id number] 08/10/2020 06:46:00 AM [facility] Release to patient[facility] t Name Value Range Interpretation Code Description Data Danuta rce(s) Supporting Document(s) PROTIME 10.2-12.9 Above high normal [facility] INR 0.9-1.1 Above high normal [facility] [Therapeutic Range 2 .0-3.0]The INR should be used to monitor patients on long termWarfarin. Selected patients may require higher levels ofanticoagulation.The PT/INR should not be used to monitor the coagulationstatus of patients taking Pradaxa, Eliquis, Xarelto or Savaysa. ID Date Data Source [id number] 08/09/2020 04:01:00 PM [facility] Release to patient->[facility] Name Value Range Interpretation Code Description Data Danuta rce(s) Supporting Document(s) CRP HIGH SENSITIVITY 0.0-3.0 Above high normal [facility] CRP Level Relative Car diac Riskless than 1.0 mg/L Low1.0 to 3.0 mg/L Averagegreater than 3.0 mg/L HighMinor elevations in CRP are associated with risk of myocardialinfarction (DE) in patients with stable and unstable angina,and are an independent risk factor for future DE and ischemicstroke in apparently healthy individuals. The higher the CRPvalue, the greater the risk, starting at about 1.0 mg/L.Values above 10.0 mg/L are indicative of an acuteinflammatory response. ID Date Data Source [id number] 08/09/2020 04:01:00 PM [facility] Release to patient->[facility] t Name Value Range Interpretation Code Description Data Danuta rce(s) Supporting Document(s) LDH 120-246 Above high normal [facility] ID Date Data Source [id number] 08/09/2020 03:55:00 PM [facility] Release to patient->[facility] t Name Value Range Interpretation Code Description Data Danuta rce(s) Supporting Document(s) PROCALCITONIN 0.00-1.99 Normal (applies to non-numeric re sults) [facility] The normal value corresponding to the 99 [...] patient's clinical situation. ID Date Data Source [id number] 08/09/2020 02:34:00 PM EST [facility] Release to patient->ImmediateUnit [facility] t Name Value Range Interpretation Code Description Data Danuta rce(s) Supporting Document(s) SEDIMENTATION RATE 0-23 Normal (applies to non-numer ic results) [facility] ID Date Data Source [id number] 08/09/2020 01:58:00 PM EST [facility] Release to patient->ImmediateUnit [facility] t Name Value Range Interpretation Code Description Data Danuta rce(s) Supporting Document(s) D-DIMER <500 Above high normal [facility] This d-dimer test has been demonstrated to effectively excludevenous thromboembolism (VTE) in outpatients with low andintermediate clinical probability for VTE. Its efficacy hasnot been shown in outpatients with high probability of VTEor in any inpatients. ID Date Data Source [id number] 08/09/2020 02:53:00 AM EST [facility] Release to patient->ImmediateUnit [facility] t Name Value Range Interpretation Code Description Data Danuta rce(s) Supporting Document(s) eGFR [facility] ID Date Data Source [id number] 08/09/2020 02:53:00 AM EST [facility] Release to patient->ImmediateUnit [facility] t Name Value Range Interpretation Code Description Data Danuta rce(s) Supporting Document(s) SODIUM 135-145 Below low normal [facility] POTASSIUM 3.5-5.1 Normal (applies to non-numeric resul ts) [facility] CHLORIDE 98-108 Below low normal [facility] CO2 22-30 Normal (applies to non-numeric results) [facility] ANION GAP 4-16 Normal (applies to non-numeric resul ts) [facility] BUN 8-20 Normal (applies to non-numeric results) [facility] CREATININE 0.7-1.2 Normal (applies to non-numeric resul ts) [facility] GLUCOSE 65-100 Normal (applies to non-numeric resul ts) [facility] CALCIUM 8.5-10.2 Below low normal [facility] ID Date Data Source [id number] 08/09/2020 02:53:00 AM EST [facility] Release to patient->ImmediateUnit [facility] t Name Value Range Interpretation Code Description Data Danuta rce(s) Supporting Document(s) eGFR BLACK [facility] For both eGFR and eGFR BLACK, the accuracy of theeGFR calculation is contingent on a stable level of serumcreatinine. The eGFR calculation is based on an IDMS-Traceablecreatinine assay and is normalized to 1.73 "meters squared"body surface area. An eGFR less than 60 may alter clinicalmanagement decisions. An eGFR greater than or equal to 60 doesnot exclude kidney disease. ID Date Data Source [id number] 08/09/2020 02:53:00 AM [facility] Release to patient->ImmediateUnit [facility] t Name Value Range Interpretation Code Description Data Danuta rce(s) Supporting Document(s) MAGNESIUM 1.5-2.4 Normal (applies to non-numeric resul ts) [facility] ID Date Data Source [id number] 08/09/2020 02:40:00 AM [facility] Release to patient->ImmediateUnit [facility] t Name Value Range Interpretation Code Description Data Danuta rce(s) Supporting Document(s) PROTIME 10.2-12.9 Above high normal [facility] INR 0.9-1.1 Above high normal [facility] [Therapeutic Range 2 .0-3.0]The INR should be used to monitor patients on long termWarfarin. Selected patients may require higher levels ofanticoagulation.The PT/INR should not be used to monitor the coagulationstatus of patients taking Pradaxa, Eliquis, Xarelto or Savaysa. ID Date Data Source [id number] 08/08/2020 04:56:00 PM EST [facility] Unit Collect Name Value Range Interpretation Code Description Data Danuta rce(s) Supporting Document(s) eGFR BLACK [facility] For both eGFR and eGFR BLACK, the accuracy of theeGFR calculation is contingent on a stable level of serumcreatinine. The eGFR calculation is based on an IDMS-Traceablecreatinine assay and is normalized to 1.73 "meters squared"body surface area. An eGFR less than 60 may alter clinicalmanagement decisions. An eGFR greater than or equal to 60 doesnot exclude kidney disease. ID Date Data Source [id number] 08/08/2020 04:56:00 PM EST [facility] Unit Collect Name Value Range Interpretation Code Description Data Danuta rce(s) Supporting Document(s) SODIUM 135-145 Below low normal [facility] POTASSIUM 3.5-5.1 Normal (applies to non-numeric resul ts) [facility] CHLORIDE 98-108 Below low normal [facility] CO2 22-30 Normal (applies to non-numeric results) [facility] ANION GAP 4-16 Normal (applies to non-numeric resul ts) [facility] BUN 8-20 Normal (applies to non-numeric results) [facility] CREATININE 0.7-1.2 Normal (applies to non-numeric resul ts) [facility] GLUCOSE 65-100 Normal (applies to non-numeric resul ts) [facility] CALCIUM 8.5-10.2 Below low normal [facility] ID Date Data Source [id number] 08/08/2020 04:56:00 PM EST [facility] Unit Collect Name Value Range Interpretation Code Description Data Danuta rce(s) Supporting Document(s) eGFR [facility] ID Date Data Source [id number] 08/08/2020 04:56:00 PM EST [facility] Unit Collect Name Value Range Interpretation Code Description Data Danuta rce(s) Supporting Document(s) MAGNESIUM 1.5-2.4 Normal (applies to non-numeric resul ts) [facility] ID Date Data Source [id number] 08/08/2020 04:55:00 PM [facility] Release to patient->ImmediateUnit Collec t Name Value Range Interpretation Code Description Data Danuta rce(s) Supporting Document(s) WBC 4.0-11.0 Normal (applies to non-numeric resul ts) [facility] RBC 4.40-6.20 Below low normal [facility] HGB 13.0-18.0 Normal (applies to non-numeric resul ts) [facility] HCT 40-52 Normal (applies to non-numeric results) [facility] MCV 80-100 Normal (applies to non-numeric resul ts) [facility] MCH 26.0-34.0 Normal (applies to non-numeric resul ts) [facility] MCHC 32.0-37.5 Normal (applies to non-numeric resul ts) [facility] RDW 0.0-15.2 Above high normal [facility] PLATELET COUNT 150-[address] [facility] ID Date Data Source [id number] 08/08/2020 07:49:00 AM EST [facility] Name Value Range Interpretation Code Description Data Danuta rce(s) Supporting Document(s) SARS coronavirus 2 RNA [Presence] in Uns pecified specimen by FAHRAT with probe detection [facility] This lab was ordered by [facility] and reported by [facility] ID Date Data Source [id number] 08/09/2020 12:13:00 AM EST [facility] Release to patient->ImmediateUnit [facility] tSource->NasopharyngealUnit CollectSource->NasopharyngealReason for COVID-19 test->Symptomatic patientUnit Collect Name Value Range Interpretation Code Description Data Danuta rce(s) Supporting Document(s) INFLUENZA A PCR Not detected Not detected Normal (applies to non-numeric results) [facility] Influenza A Sensitivity: >90% Specificit y: >90%The performance characteristics of the PCR assay aredependent on the circulating strain of Influenza virus.The PCR assay compares closely to culture. INFLUENZA B PCR Not detected Not detected Normal (applies to non-numeric results) [facility] Influenza B Sensitivity: >80% Specificit y: >90%The performance characteristics of the PCR assay aredependent on the circulating strain of Influenza virus.The PCR assay compares closely to culture. ID Date Data Source [id number] 08/08/2020 12:12:00 PM EST [facility] Release to patient->ImmediateUnit Colle tSource->NasopharyngealUnit CollectSource->NasopharyngealReason for COVID-19 test->Symptomatic patientUnit Collect Name Value Range Interpretation Code Description Data Danuta rce(s) Supporting Document(s) SOURCE Nasopharyngeal [facility] SARS-CoV-2 BY RT-PCR Detected Abnormal (applies to non-n umeric results) [facility] POSITIVE RESULTA negative ("not detected ") result does not irxlpqgeXPDK-[id number] infection, and a negative result should not [...] or call 911. For additional information please [email or web address] beachUpdat es: Coronavirus in [email or web address]mont [email or web address] the latest reopening updates, travel guidelines, and learn howvencor hospitales and schools are impacted.[email or web address]://[email or web address] .health.[place].gov/homeTesting was performed on the [employer]?COVID-19 Direct real-time RT-PCR assay. This is a beml-ypvqJF-TMP assay which qualitatively detects nucleic acid fromsevere acute respiratory syndrome coronavirus 2 (SARS-CoV-2)in suitable respiratory specimens such as nasopharyngeal swabs.This assay has been approved for use under an Emergency UseAuthorization (EUA) by the Food and Drug Administration (FDA). ID Date Data Source [id number] 08/08/2020 08:31:00 AM EST [facility] Release to patient->ImmediateUnit Colle tSource->NasopharyngealUnit CollectSource->NasopharyngealReason for COVID-19 test->Symptomatic patientUnit Collect Name Value Range Interpretation Code Description Data Danuta rce(s) Supporting Document(s) eGFR [facility] ID Date Data Source [id number] 08/08/2020 08:31:00 AM EST [facility] Release to patient->ImmediateUnit [facility] tSource->NasopharyngealUnit CollectSource->NasopharyngealReason for COVID-19 test->Symptomatic patientUnit Collect Name Value Range Interpretation Code Description Data Danuta rce(s) Supporting Document(s) eGFR BLACK [facility] For both eGFR and eGFR BLACK, the accuracy of theeGFR calculation is contingent on a stable level of serumcreatinine. The eGFR calculation is based on an IDMS-Traceablecreatinine assay and is normalized to 1.73 "meters squared"body surface area. An eGFR less than 60 may alter clinicalmanagement decisions. An eGFR greater than or equal to 60 doesnot exclude kidney disease. ID Date Data Source [id number] 08/08/2020 08:31:00 AM EST [facility] Release to patient->ImmediateUnit Collec tSource->NasopharyngealUnit CollectSource->NasopharyngealReason for COVID-19 test->Symptomatic patientUnit Collect Name Value Range Interpretation Code Description Data Danuta rce(s) Supporting Document(s) SODIUM 135-145 Below low normal [facility] POTASSIUM 3.5-5.1 Normal (applies to non-numeric resul ts) [facility] CHLORIDE 98-108 Normal (applies to non-numeric resul ts) [facility] CO2 22-30 Normal (applies to non-numeric results) [facility] [facility] AN[facility] GAP 4-16 Normal (applies to non-numeric resul ts) [facility] BUN 8-20 Normal (applies to non-numeric results) [facility] CREATININE 0.7-1.2 Normal (applies to non-numeric resul ts) [facility] GLUCOSE 65-100 Normal (applies to non-numeric resul ts) [facility] CALCIUM 8.5-10.2 Below low normal [facility] ID Date Data Source [id number] 08/08/2020 07:28:00 AM EST [facility] 1 hour after packed red blood cell trans fusionRelease to patient->ImmediateUnit Collect Name Value Range Interpretation Code Description Data Danuta rce(s) Supporting Document(s) WBC 4.0-11.0 Normal (applies to non-numeric resul ts) [facility] RBC 4.40-6.20 Below low normal [facility] HGB 13.0-18.0 Below low normal [facility] HCT 40-52 Below low normal [facility] MCV 80-100 Normal (applies to non-numeric resul ts) [facility] MCH 26.0-34.0 Normal (applies to non-numeric resul ts) [facility] MCHC 32.0-37.5 Normal (applies to non-numeric resul ts) [facility] RDW 0.0-15.2 Above high normal [facility] PLATELET COUNT 150-[address] [facility] ID Date Data Source [id number] 08/08/2020 04:51:00 AM [facility] Release to patient->ImmediateUnit Colle t Name Value Range Interpretation Code Description Data Danuta rce(s) Supporting Document(s) PROTIME 10.2-12.9 Above high normal [facility] INR 0.9-1.1 Above high normal [facility] [Therapeutic Range 2 .0-3.0]The INR should be used to monitor patients on long termWarfarin. Selected patients may require higher levels ofanticoagulation.The PT/INR should not be used to monitor the coagulationstatus of patients taking Pradaxa, Eliquis, Xarelto or Savaysa. ID Date Data Source [id number] 08/08/2020 04:39:00 AM [facility] 1 hour after packed red blood cell trans fusionRelease to patient->ImmediateUnit Collect Name Value Range Interpretation Code Description Data Danuta rce(s) Supporting Document(s) HCT 40-52 Below low normal [facility] ID Date Data Source [id number] 08/08/2020 07:04:00 AM [facility] TxHx UNKUnit CollectPRBC's will be held in Blood Bank until a Nursing Order toTransfuse has been placed. In CRISIS (near code) situationBlood Bank will prepare crossmatched if available, or typespecific or un-crossmatched.Reason for Transfusion->Hemoglobin => 8, symptomaticUnit Collect Name Value Range Interpretation Code Description Data Danuta rce(s) Supporting Document(s) BLOOD BANK SEE BELOW Normal (applies to non-numeric resul ts) [facility] Product: RBC LR, Status: Transfused, Uni t: [id number], Type: A Pos, Code:[id number].Product: RBC LR, Status: Transfused, Unit: [id number], Type: A Pos, Code:[id number]. ID Date Data Source [id number] 08/07/2020 09:11:00 AM EST [facility] TxHx UNKUnit CollectPRBC's will be held in Blood Bank until a Nursing Order toTransfuse has been placed. In CRISIS (near code) situationBlood Bank will prepare crossmatched if available, or typespecific or un-crossmatched.Reason for Transfusion->Hemoglobin => 8, symptomaticUnit Collect Name Value Range Interpretation Code Description Data Danuta rce(s) Supporting Document(s) ABO RH A Rh Positive Normal (applies to non-numeric re sults) [facility] ANTIBODY SCREEN Negative Normal (applies to non-numeric results) [facility] ID Date Data Source [id number] 08/07/2020 08:48:00 AM EST [facility] TxHx UNKUnit CollectPRBC's will be held in Blood Bank until a Nursing Order toTransfuse has been placed. In CRISIS (near code) situationBlood Bank will prepare crossmatched if available, or typespecific or un-crossmatched.Reason for Transfusion->Hemoglobin => 8, symptomaticUnit Collect Name Value Range Interpretation Code Description Data Danuta rce(s) Supporting Document(s) PACKED RBC UNITS [facility] DATE REQUIRED, PRBC 08/07/2020 Normal (applies to non-nume heydi results) [facility] ID Date Data Source [id number] 08/08/2020 07:48:00 AM [facility] Release to patient->ImmediateUnit Collec t Name Value Range Interpretation Code Description Data Danuta rce(s) Supporting Document(s) PROCALCITONIN 0.00-1.99 Normal (applies to non-numeric re sults) [facility] The normal value corresponding to the 99 [...] patient's clinical situation. ID Date Data Source [id number] 08/07/2020 05:22:00 AM EST [facility] Name Value Range Interpretation Code Description Data Danuta rce(s) Supporting Document(s) eGFR [facility] ID Date Data Source [id number] 08/07/2020 05:22:00 AM EST [facility] Name Value Range Interpretation Code Description Data Danuta rce(s) Supporting Document(s) eGFR BLACK [facility] For both eGFR and eGFR BLACK, the accuracy of theeGFR calculation is contingent on a stable level of serumcreatinine. The eGFR calculation is based on an IDMS-Traceablecreatinine assay and is normalized to 1.73 "meters squared"body surface area. An eGFR less than 60 may alter clinicalmanagement decisions. An eGFR greater than or equal to 60 doesnot exclude kidney disease. ID Date Data Source [id number] 08/07/2020 05:22:00 AM EST [facility] Release [facility]->[facility] t Name Value Range Interpretation Code Description Data Danuta rce(s) Supporting Document(s) SODIUM 135-145 Below low normal [facility] POTASSIUM 3.5-5.1 Normal (applies to non-numeric resul ts) [facility] CHLORIDE 98-108 Below low normal [facility] CO2 22-30 Normal (applies to non-numeric results) [facility] ANION GAP 4-16 Normal (applies to non-numeric resul ts) [facility] BUN 8-20 Normal (applies to non-numeric results) [facility] CREATININE 0.7-1.2 Normal (applies to non-numeric resul ts) [facility] GLUCOSE 65-100 Normal (applies to non-numeric resul ts) [facility] CALCIUM 8.5-10.2 Below low normal [facility] ID Date Data Source [id number] 08/07/2020 05:04:00 AM EST [facility] Release to patient->ImmediateUnit [facility] t Name Value Range Interpretation Code Description Data Danuta rce(s) Supporting Document(s) PROTIME 10.2-12.9 Above high normal [facility] INR 0.9-1.1 Above high normal [facility] [Therapeutic Range 2 .0-3.0]The INR should be used to monitor patients on long termWarfarin. Selected patients may require higher levels ofanticoagulation.The PT/INR should not be used to monitor the coagulationstatus of patients taking Pradaxa, Eliquis, Xarelto or Savaysa. ID Date Data Source [id number] 08/07/2020 04:52:00 AM [facility] Release to patient->ImmediateUnit [facility] t Name Value Range Interpretation Code Description Data Danuta rce(s) Supporting Document(s) WBC 4.0-11.0 Normal (applies to non-numeric resul ts) [facility] RBC 4.40-6.20 Below low normal [facility] HGB 13.0-18.0 Below low normal [facility] HCT 40-52 Below low normal [facility] MCV 80-100 Normal (applies to non-numeric resul ts) [facility] MCH 26.0-34.0 Normal (applies to non-numeric resul ts) [facility] MCHC 32.0-37.5 Normal (applies to non-numeric resul ts) [facility] RDW 0.0-15.2 Above high normal [facility] PLATELET COUNT 150-[address] [facility] ID Date Data Source [id number] 08/06/2020 05:53:00 AM [facility] Release to patient->ImmediateUnit [facility] t Name Value Range Interpretation Code Description Data Danuta rce(s) Supporting Document(s) eGFR [facility] ID Date Data Source [id number] 08/06/2020 05:53:00 AM [facility] Release to patient->ImmediateUnit [facility] t Name Value Range Interpretation Code Description Data Danuta rce(s) Supporting Document(s) eGFR BLACK [facility] For both eGFR and eGFR BLACK, the accuracy of theeGFR calculation is contingent on a stable level of serumcreatinine. The eGFR calculation is based on an IDMS-Traceablecreatinine assay and is normalized to 1.73 "meters squared"body surface area. An eGFR less than 60 may alter clinicalmanagement decisions. An eGFR greater than or equal to 60 doesnot exclude kidney disease. ID Date Data Source [id number] 08/06/2020 05:53:00 AM EST [facility] Release to patient->ImmediateUnit Colle t Name Value Range Interpretation Code Description Data Danuta rce(s) Supporting Document(s) SODIUM 135-145 Below low normal [facility] POTASSIUM 3.5-5.1 Normal (applies to non-numeric resul ts) [facility] CHLORIDE 98-108 Normal (applies to non-numeric resul ts) [facility] CO2 22-30 Normal (applies to non-numeric results) [facility] ANION GAP 4-16 Normal (applies to non-numeric resul ts) [facility] BUN 8-20 Normal (applies to non-numeric results) [facility] CREATININE 0.7-1.2 Normal (applies to non-numeric resul ts) [facility] GLUCOSE 65-100 Normal (applies to non-numeric resul ts) [facility] CALCIUM 8.5-10.2 Below low normal [facility] ID Date Data Source [id number] 08/06/2020 05:19:00 AM EST [facility] Release to patient->ImmediateUnit [facility] t Name Value Range Interpretation Code Description Data Danuta rce(s) Supporting Document(s) PROTIME 10.2-12.9 Above high normal [facility] INR 0.9-1.1 Above high normal [facility] [Therapeutic Range 2 .0-3.0]The INR should be used to monitor patients on long termWarfarin. Selected patients may require higher levels ofanticoagulation.The PT/INR should not be used to monitor the coagulationstatus of patients taking Pradaxa, Eliquis, Xarelto or Savaysa. ID Date Data Source [id number] 08/06/2020 05:11:00 AM EST [facility] Release to patient->ImmediateUnit [facility] t Name Value Range Interpretation Code Description Data Danuta rce(s) Supporting Document(s) WBC 4.0-11.0 Normal (applies to non-numeric resul ts) [facility] RBC 4.40-6.20 Below low normal [facility] HGB 13.0-18.0 Below low normal [facility] HCT 40-52 Below low normal [facility] MCV 80-100 Normal (applies to non-numeric resul ts) [facility] MCH 26.0-34.0 Normal (applies to non-numeric resul ts) [facility] MCHC 32.0-37.5 Normal (applies to non-numeric resul ts) [facility] RDW 0.0-15.2 Above high normal [facility] PLATELET COUNT 150-450 Below low normal [facility] ID Date Data Source [id number] 08/05/2020 05:38:00 AM EST [facility] Release to patient->ImmediateUnit [facility] t Name Value Range Interpretation Code Description Data Danuta rce(s) Supporting Document(s) eGFR [facility] ID Date Data Source [id number] 08/05/2020 05:38:00 AM EST [facility] Release to patient->ImmediateUnit [facility] t Name Value Range Interpretation Code Description Data Danuta rce(s) Supporting Document(s) eGFR BLACK [facility] For both eGFR and eGFR BLACK, the accuracy of theeGFR calculation is contingent on a stable level of serumcreatinine. The eGFR calculation is based on an IDMS-Traceablecreatinine assay and is normalized to 1.73 "meters squared"body surface area. An eGFR less than 60 may alter clinicalmanagement decisions. An eGFR greater than or equal to 60 doesnot exclude kidney disease. ID Date Data Source [id number] 08/05/2020 05:38:00 AM EST [facility] Release to patient->ImmediateUnit [facility] t Name Value Range Interpretation Code Description Data Danuta rce(s) Supporting Document(s) SODIUM 135-145 Below low normal [facility] POTASSIUM 3.5-5.1 Normal (applies to non-numeric resul ts) [facility] CHLORIDE 98-108 Normal (applies to non-numeric resul ts) [facility] CO2 22-30 Normal (applies to non-numeric results) [facility] ANION GAP 4-16 Normal (applies to non-numeric resul ts) [facility] BUN 8-20 Normal (applies to non-numeric results) [facility] CREATININE 0.7-1.2 Normal (applies to non-numeric resul ts) [facility] GLUCOSE 65-100 Normal (applies to non-numeric resul ts) [facility] CALCIUM 8.5-10.2 Below low normal [facility] ID Date Data Source [id number] 08/05/2020 04:59:00 AM [facility] Release to patient->ImmediateUnit [facility] t Name Value Range Interpretation Code Description Data Danuta rce(s) Supporting Document(s) WBC 4.0-11.0 Normal (applies to non-numeric resul ts) [facility] RBC 4.40-6.20 Below low normal [facility] HGB 13.0-18.0 Below low normal [facility] HCT 40-52 Below low normal [facility] MCV 80-100 Normal (applies to non-numeric resul ts) [facility] MCH 26.0-34.0 Normal (applies to non-numeric resul ts) [facility] MCHC 32.0-37.5 Normal (applies to non-numeric resul ts) [facility] RDW 0.0-15.2 Above high normal [facility] PLATELET COUNT 150-[address] [facility] ID Date Data Source [id number] 08/05/2020 05:15:00 AM [facility] Release to patient->ImmediateUnit [facility] t Name Value Range Interpretation Code Description Data Danuta rce(s) Supporting Document(s) PROTIME 10.2-12.9 Above high normal [facility] INR 0.9-1.1 Above high normal [facility] [Therapeutic Range 2 .0-3.0]The INR should be used to monitor patients on long termWarfarin. Selected patients may require higher levels ofanticoagulation.The PT/INR should not be used to monitor the coagulationstatus of patients taking Pradaxa, Eliquis, Xarelto or Savaysa. ID Date Data Source [id number] 08/06/2020 07:04:00 AM [facility] PRBC's will be held in Blood Bank until a Nursing Order toTransfuse has been placed. In CRISIS (near code) situationBlood Bank will prepare crossmatched if available, or typespecific or un-crossmatched.Reason for Transfusion->Other (specify)Unit Collect Name Value Range Interpretation Code Description Data Danuta rce(s) Supporting Document(s) BLOOD BANK SEE BELOW Normal (applies to non-numeric resul ts) [facility] Product: RBC LR, Status: Transfused, Uni t: [id number], Type: A Pos, Code:[id number]. ID Date Data Source [id number] 08/05/2020 04:21:00 AM [facility] PRBC's will be held in Blood Bank until a Nursing Order toTransfuse has been placed. In CRISIS (near code) situationBlood Bank will prepare crossmatched if available, or typespecific or un-crossmatched.Reason for Transfusion->Other (specify)Unit Collect Name Value Range Interpretation Code Description Data Danuta rce(s) Supporting Document(s) PACKED RBC UNITS Normal (applies to non-numeric results) [facility] DATE REQUIRED, PRBC 08/04/2020 Normal (applies to non-nume heydi results) [facility] ID Date Data Source [id number] 08/04/2020 11:02:08 AM [facility] Indication: SOB; evaluate for pneumotho rax [...] rce(s) Supporting Document(s) ID Date Data Source [id number] 08/04/2020 06:11:00 AM [facility] Release to patient->ImmediateUnit Collec t Name Value Range Interpretation Code Description Data Danuta rce(s) Supporting Document(s) SODIUM 135-145 Below low normal [facility] POTASSIUM 3.5-5.1 Normal (applies to non-numeric resul ts) [facility] CHLORIDE 98-108 Normal (applies to non-numeric resul ts) [facility] CO2 22-30 Normal (applies to non-numeric results) [facility] ANION GAP 4-16 Normal (applies to non-numeric resul ts) [facility] BUN 8-20 Above high normal [facility] CREATININE 0.7-1.2 Normal (applies to non-numeric resul ts) [facility] GLUCOSE 65-100 Normal (applies to non-numeric resul ts) [facility] CALCIUM 8.5-10.2 Below low normal [facility] ID Date Data Source [id number] 08/04/2020 06:11:00 AM EST [facility] Release to patient->ImmediateUnit [facility] t Name Value Range Interpretation Code Description Data Danuta rce(s) Supporting Document(s) MAGNESIUM 1.5-2.4 Normal (applies to non-numeric resul ts) [facility] ID Date Data Source [id number] 08/04/2020 06:11:00 AM EST [facility] Release to patient->ImmediateUnit [facility] t Name Value Range Interpretation Code Description Data Danuta rce(s) Supporting Document(s) eGFR [facility] ID Date Data Source [id number] 08/04/2020 06:11:00 AM EST [facility] Release to patient->ImmediateUnit [facility] t Name Value Range Interpretation Code Description Data Danuta rce(s) Supporting Document(s) eGFR BLACK [facility] For both eGFR and eGFR BLACK, the accuracy of theeGFR calculation is contingent on a stable level of serumcreatinine. The eGFR calculation is based on an IDMS-Traceablecreatinine assay and is normalized to 1.73 "meters squared"body surface area. An eGFR less than 60 may alter clinicalmanagement decisions. An eGFR greater than or equal to 60 doesnot exclude kidney disease. ID Date Data Source [id number] 08/04/2020 05:39:00 AM EST [facility] Release to patient->ImmediateUnit [facility] t Name Value Range Interpretation Code Description Data Danuta rce(s) Supporting Document(s) PROTIME 10.2-12.9 Above high normal [facility] INR 0.9-1.1 Above high normal [facility] [Therapeutic Range 2 .0-3.0]The INR should be used to monitor patients on long termWarfarin. Selected patients may require higher levels ofanticoagulation.The PT/INR should not be used to monitor the coagulationstatus of patients taking Pradaxa, Eliquis, Xarelto or Savaysa. ID Date Data Source [id number] 08/03/2020 04:24:00 PM EST [facility] Name Value Range Interpretation Code Description Data Danuta rce(s) Supporting Document(s) GLUCOSE,METER 65-100 Normal (applies to non-numeric re sults) [facility] ID Date Data Source [id number] 08/03/2020 03:05:00 PM EST [facility] Release to patient->ImmediateUnit Colle t Name Value Range Interpretation Code Description Data Danuta rce(s) Supporting Document(s) HPLT4 PATIENT [facility] HPLT4 CUTOFF [facility] HPLT4 INTERPRETATION NEG [NEGATIVE] Normal (applies to non-nu meric results) [facility] ID Date Data Source [id number] 08/03/2020 09:24:47 AM [facility] Indication: Pulmonary Congestion. Andrew rison: 08/02/2020Technique: [...] rce(s) Supporting Document(s) ID Date Data Source [id number] 08/10/2020 03:26:00 PM EST [facility] Source->SputumRelease to patient->Immedi ateUnit Collect Name Value Range Interpretation Code Description Data Danuta rce(s) Supporting Document(s) LEGIONELLA CULTURE [facility] ID Date Data Source [id number] 08/05/2020 10:20:00 AM EST [facility] Source->SputumRelease to patient->Immedi ateUnit Collect Name Value Range Interpretation Code Description Data Danuta rce(s) Supporting Document(s) RESPIRATORY CULTURE [facility] GRAM STAIN [facility] ID Date Data Source [id number] 08/03/2020 06:37:00 AM EST [facility] Name Value Range Interpretation Code Description Data Danuta rce(s) Supporting Document(s) GLUCOSE,METER 65-100 Normal (applies to non-numeric re sults) [facility] ID Date Data Source [id number] 08/03/2020 03:51:00 AM [facility] 1 hour after packed red blood cell trans fusionRelease to patient->ImmediateUnit Collect Name Value Range Interpretation Code Description Data Danuta rce(s) Supporting Document(s) HCT 40-52 Below low normal [facility] ID Date Data Source [id number] 08/04/2020 07:04:00 AM [facility] PRBC's will be held in Blood Bank until a Nursing Order toTransfuse has been placed. In CRISIS (near code) situationBlood Bank will prepare crossmatched if available, or typespecific or un-crossmatched.Reason for Transfusion->Hemoglobin => 8, symptomaticUnit Collect Name Value Range Interpretation Code Description Data Danuta rce(s) Supporting Document(s) BLOOD BANK SEE BELOW Normal (applies to non-numeric resul ts) [facility] Product: RBC LR, Status: Transfused, Uni t: [id number], Type: A Pos, Code:[id number]. ID Date Data Source [id number] 08/03/2020 07:39:00 AM [facility] PRBC's will be held in Blood Bank until a Nursing Order toTransfuse has been placed. In CRISIS (near code) situationBlood Bank will prepare crossmatched if available, or typespecific or un-crossmatched.Reason for Transfusion->Hemoglobin => 8, symptomaticUnit Collect Name Value Range Interpretation Code Description Data Danuta rce(s) Supporting Document(s) PACKED RBC UNITS Normal (applies to non-numeric results) [facility] DATE REQUIRED, PRBC 08/03/20 Normal (applies to non-nume heydi results) [facility] ID Date Data Source [id number] 08/03/2020 12:53:00 AM EST [facility] For anticoagulation patientsUnit Collect Name Value Range Interpretation Code Description Data Danuta rce(s) Supporting Document(s) eGFR BLACK [facility] For both eGFR and eGFR BLACK, the accuracy of theeGFR calculation is contingent on a stable level of serumcreatinine. The eGFR calculation is based on an IDMS-Traceablecreatinine assay and is normalized to 1.73 "meters squared"body surface area. An eGFR less than 60 may alter clinicalmanagement decisions. An eGFR greater than or equal to 60 doesnot exclude kidney disease. ID Date Data Source [id number] 08/03/2020 12:53:00 AM EST [facility] patients[facility] Collect Name Value Range Interpretation Code Description Data Danuta rce(s) Supporting Document(s) eGFR [facility] ID Date Data Source [id number] 08/03/2020 12:53:00 AM EST [facility] For anticoagulation patientsUnit Collect Name Value Range Interpretation Code Description Data Danuta rce(s) Supporting Document(s) MAGNESIUM 1.5-2.4 Normal (applies to non-numeric resul ts) [facility] ID Date Data Source [id number] 08/03/2020 12:53:00 AM EST [facility] anticoagulation patientsUnit Collect Name Value Range Interpretation Code Description Data Danuta rce(s) Supporting Document(s) SODIUM 135-145 Normal (applies to non-numeric resul ts) [facility] POTASSIUM 3.5-5.1 Normal (applies to non-numeric resul ts) [facility] CHLORIDE 98-108 Normal (applies to non-numeric resul ts) [facility] [facility] CO2 22-30 Normal (applies to non-numeric results) [facility] ANION GAP 4-16 Normal (applies to non-numeric resul ts) [facility] BUN 8-20 Normal (applies to non-numeric results) [facility] CREATININE 0.7-1.2 Normal (applies to non-numeric resul ts) [facility] GLUCOSE 65-100 Above high normal [facility] CALCIUM 8.5-10.2 Below low normal [facility] ID Date Data Source [id number] 08/03/2020 12:40:00 AM EST [facility] For anticoagulation patientsUnit Collect Name Value Range Interpretation Code Description Data Danuta rce(s) Supporting Document(s) PROTIME 10.2-12.9 Above high normal [facility] INR 0.9-1.1 Above high normal [facility] [Therapeutic Range 2 .0-3.0]The INR should be used to monitor patients on long termWarfarin. Selected patients may require higher levels ofanticoagulation.The PT/INR should not be used to monitor the coagulationstatus of patients taking Pradaxa, Eliquis, Xarelto or Savaysa. ID Date Data Source [id number] 08/03/2020 12:27:00 AM [facility] Two hours after potassium supplement inf usion has beencompleted.Release to patient->ImmediateUnit Collect Name Value Range Interpretation Code Description Data Danuta rce(s) Supporting Document(s) POTASSIUM, WHOLE BLOOD 3.2-4.7 Normal (applies to non-n umeric results) [facility] ID Date Data Source [id number] 08/03/2020 12:33:00 AM [facility] For anticoagulation patientsUnit Collect Name Value Range Interpretation Code Description Data Danuta rce(s) Supporting Document(s) WBC 4.0-11.0 Above high normal [facility] RBC 4.40-6.20 Below low normal [facility] HGB 13.0-18.0 Below low normal [facility] HCT 40-52 Below low normal [facility] MCV 80-100 Normal (applies to non-numeric resul ts) [facility] MCH 26.0-34.0 Normal (applies to non-numeric resul ts) [facility] MCHC 32.0-37.5 Normal (applies to non-numeric resul ts) [facility] RDW 0.0-15.2 Above high normal [facility] PLATELET COUNT 150-450 Below low normal [facility] ID Date Data Source [id number] 08/02/2020 08:41:00 PM EST [facility] Name Value Range Interpretation Code Description Data Danuta rce(s) Supporting Document(s) GLUCOSE,METER 65-100 Normal (applies to non-numeric re sults) [facility] ID Date Data Source [id number] 08/02/2020 07:43:00 PM EST [facility] Two hours after magnesium supplement inf usion has beencompletedRelease to patient->ImmediateUnit Collect Name Value Range Interpretation Code Description Data Danuta rce(s) Supporting Document(s) MAGNESIUM 1.5-2.4 Normal (applies to non-numeric resul ts) [facility] ID Date Data Source [id number] 08/02/2020 05:05:00 PM EST [facility] 30 minutes after any ventilator change e xcept after PEEPincrease for bleeding.Unit Collect Name Value Range Interpretation Code Description Data Danuta rce(s) Supporting Document(s) FIO2 1L [facility] ealth DELIVERY MODE [facility] PH 7.36-7.45 Above high normal [facility] PCO2 35-45 Below low normal [facility] PO2 80-100 Below low normal [facility] BICARBONATE 21-28 Normal (applies to non-numeric resu lts) [facility] BASE EXCESS -2.0-3.0 Normal (applies to non-numeric resu lts) [facility] The base excess calculation assumes a he moglobinconcentration of 15.0 g/dL. When hemoglobin concentrationssignificantly vary from 15.0 g/dL, the base excesscalculation may be erroneous. O2 SAT.(calc) 95-99 Normal (applies to non-numeric re sults) [facility] ID Date Data Source [id number] 08/02/2020 04:24:00 PM [facility] Name Value Range Interpretation Code Description Data Danuta rce(s) Supporting Document(s) GLUCOSE,METER 65-100 Above high normal [facility] ID Date Data Source [id number] 08/02/2020 03:12:00 PM EST [facility] Two hours after potassium supplement inf usion has beencompleted.Release to patient->ImmediateUnit CollectTwo hours after magnesium supplement infusion has beencompletedRelease to patient->ImmediateUnit Collect Name Value Range Interpretation Code Description Data Danuta rce(s) Supporting Document(s) MAGNESIUM 1.5-2.4 Normal (applies to non-numeric resul ts) [facility] ID Date Data Source [id number] 08/02/2020 02:46:00 PM EST [facility] Two hours after potassium supplement inf usion has beencompleted.Release to patient->ImmediateUnit CollectTwo hours after magnesium supplement infusion has beencompletedRelease to patient->ImmediateUnit Collect Name Value Range Interpretation Code Description Data Danuta rce(s) Supporting Document(s) POTASSIUM, WHOLE BLOOD 3.2-4.7 Normal (applies to non-n umeric results) [facility] ID Date Data Source [id number] 08/02/2020 12:18:00 PM [facility] Name Value Range Interpretation Code Description Data Danuta rce(s) Supporting Document(s) GLUCOSE,METER 65-100 Above high normal [facility] ID Date Data Source [id number] 08/02/2020 11:08:00 AM [facility] Name Value Range Interpretation Code Description Data Danuta rce(s) Supporting Document(s) GLUCOSE,METER 65-100 Normal (applies to non-numeric re sults) [facility] ID Date Data Source [id number] 08/02/2020 10:13:00 AM [facility] Name Value Range Interpretation Code Description Data Danuta rce(s) Supporting Document(s) GLUCOSE,METER 65-100 Normal (applies to non-numeric re sults) [facility] ID Date Data Source [id number] 08/02/2020 09:06:00 AM [facility] Name Value Range Interpretation Code Description Data Danuta rce(s) Supporting Document(s) GLUCOSE,METER 65-100 Above high normal [facility] ID Date Data Source [id number] 08/02/2020 08:51:00 AM [facility] Name Value Range Interpretation Code Description Data Danuta rce(s) Supporting Document(s) GLUCOSE,METER 65-100 Above high normal [facility] ID Date Data Source [id number] 08/02/2020 08:28:38 AM [facility] PATIENT INFORMATIONPatient MRN Name Date of [id number] [place] Waller 1945 75 y.o. Weight Gender PT Class 78 kg M InpatientPT Location Admission Date/Time Visit ID Attending ProviderCTIC-03 07/31/20 1031 --- Nano Iverson MD([id number]) EPI ID CSN Admitting Provider [id number] Nano Iverson MD([id number])Surgeon:DATE OF SERVICE: 08/01/2020SURGEON: Nano Iverson M.D.SUPERVISOR PLEATING: JOAQUINA Glass and Jagdeep Fink N.P.PREOPERATIVE DIAGNOSES:1. [...] rce(s) Supporting Document(s) ID Date Data Source [id number] 08/02/2020 08:31:00 AM EST [facility] For anticoagulation patientsUnit Collect Name Value Range Interpretation Code Description Data Danuta rce(s) Supporting Document(s) WBC 4.0-11.0 Above high normal [facility] RBC 4.40-6.20 Below low normal [facility] HGB 13.0-18.0 Below low normal [facility] HCT 40-52 Below low normal [facility] MCV 80-100 Normal (applies to non-numeric resul ts) [facility] MCH 26.0-34.0 Normal (applies to non-numeric resul ts) [facility] MCHC 32.0-37.5 Normal (applies to non-numeric resul ts) [facility] RDW 0.0-15.2 Above high normal [facility] PLATELET COUNT 150-450 Below low normal [facility] ID Date Data Source [id number] 08/02/2020 08:06:00 AM [facility] Name Value Range Interpretation Code Description Data Danuta rce(s) Supporting Document(s) GLUCOSE,METER 65-100 Above high normal [facility] ID Date Data Source [id number] 08/02/2020 08:29:41 AM [facility] Indication: Pulmonary Congestion. Andrew rison: Chest radiograph from 08/01/2020.Technique: Single frontal portable chest radiograph is obtained.Findings: There is a right internal jugular line with tip at the cavoatrial junction. There is a right Rumsey-Stephon catheter with tip at the right main [...] with multiple intact sternal wires and surgical dina again seen in placeThere is no acute [...] rce(s) Supporting Document(s) ID Date Data Source [id number] 08/02/2020 06:56:00 AM [facility] Name Value Range Interpretation Code Description Data Danuta rce(s) Supporting Document(s) GLUCOSE,METER 65-100 Above high normal [facility] ID Date Data Source [id number] 08/02/2020 06:39:00 AM [facility] Name Value Range Interpretation Code Description Data Danuta rce(s) Supporting Document(s) GLUCOSE,METER 65-100 Above high normal [facility] ID Date Data Source [id number] 08/02/2020 04:13:00 AM EST [facility] Release to patient->ImmediateUnit [facility] Name Value Range Interpretation Code Description Data Danuta rce(s) Supporting Document(s) HCT 40-52 Below low normal [facility] ID Date Data Source [id number] 08/02/2020 05:05:00 AM [facility] Name Value Range Interpretation Code Description Data Danuta rce(s) Supporting Document(s) GLUCOSE,METER 65-100 Normal (applies to non-[facility] re [facility]) [facility] ID Date Data Source [id number] 08/02/2020 03:34:00 AM EST [facility] Release to patient->ImmediateUnit [facility] Name Value Range Interpretation Code Description Data Danuta rce(s) Supporting Document(s) O2 SAT., CARLOS MX, SVO2 70-80 Below low normal [facility] ID Date Data Source [id number] 08/02/2020 02:21:00 AM EST [facility] Release to patient->ImmediateUnit [facility] t Name Value Range Interpretation Code Description Data Danuta rce(s) Supporting Document(s) O2 SAT., CARLOS MX, SVO2 70-80 Above high normal [facility] ID Date Data Source [id number] 08/02/2020 02:17:00 AM [facility] Name Value Range Interpretation Code Description Data Danuta rce(s) Supporting Document(s) GLUCOSE,METER 65-100 [facility] high [facility] Date Data Source [id number] 08/02/2020 12:25:00 AM [facility] Name Value Range Interpretation Code Description Data Danuta rce(s) Supporting Document(s) GLUCOSE,METER 65-100 Above high normal [facility] ID Date Data Source [id number] 08/02/2020 12:43:00 AM [facility] 30 minutes after any ventilator change e xcept after PEEPincrease for bleeding.Unit CollectTwo hours after potassium supplement infusion has beencompleted.Release to patient->ImmediateUnit Collect Name Value Range Interpretation Code Description Data Danuta rce(s) Supporting Document(s) FIO2 NOT SPECIFIED [facility] DELIVERY MODE NOT SPECIFIED [facility] PH 7.36-7.45 Normal (applies to non-numeric resul ts) [facility] PCO2 35-45 Normal (applies to non-numeric resul ts) [facility] PO2 80-100 Normal (applies to non-numeric resul ts) [facility] BICARBONATE 21-28 Normal (applies to non-numeric resu lts) [facility] BASE EXCESS -2.0-3.0 Normal (applies to non-numeric resu lts) [facility] The base excess calculation assumes a he moglobinconcentration of 15.0 g/dL. When hemoglobin concentrationssignificantly vary from 15.0 g/dL, the base excesscalculation may be erroneous. O2 SAT.(calc) 95-99 Normal (applies to non-numeric re sults) [facility] ID Date Data Source [id number] 08/02/2020 12:43:00 AM EST [facility] 30 minutes after any ventilator change e xcept after PEEPincrease for bleeding.Unit CollectTwo hours after potassium supplement infusion has beencompleted.Release to patient->ImmediateUnit Collect Name Value Range Interpretation Code Description Data Danuta rce(s) Supporting Document(s) POTASSIUM, WHOLE BLOOD 3.2-4.7 Normal (applies to non-n umeric results) [facility] ID Date Data Source [id number] 08/02/2020 01:33:00 AM EST [facility] For anticoagulation patientsUnit Collect Name Value Range Interpretation Code Description Data Danuta rce(s) Supporting Document(s) SODIUM 135-145 Normal (applies to non-numeric resul ts) [facility] POTASSIUM 3.5-5.1 Normal (applies to non-numeric resul ts) [facility] CHLORIDE 98-108 Normal (applies to non-numeric resul ts) [facility] CO2 22-30 Normal (applies to non-numeric results) [facility] ANION GAP 4-16 Normal (applies to non-numeric resul ts) [facility] BUN 8-20 Normal (applies to non-numeric results) [facility] CREATININE 0.7-1.2 Below low normal [facility] GLUCOSE 65-100 Above high normal [facility] CALCIUM 8.5-10.2 Below low normal [facility] ID Date Data Source [id number] 08/02/2020 01:33:00 AM EST [facility] For anticoagulation patientsUnit Collect Name Value Range Interpretation Code Description Data Danuta rce(s) Supporting Document(s) MAGNESIUM 1.5-2.4 Normal (applies to non-numeric resul ts) [facility] ID Date Data Source [id number] 08/02/2020 01:33:00 AM EST [facility] For anticoagulation patientsUnit Collect Name Value Range Interpretation Code Description Data Danuta rce(s) Supporting Document(s) eGFR [facility] ID Date Data Source [id number] 08/02/2020 01:33:00 AM EST [facility] For anticoagulation patientsUnit Collect Name Value Range Interpretation Code Description Data Danuta rce(s) Supporting Document(s) eGFR BLACK [facility] For both eGFR and eGFR BLACK, the accuracy of theeGFR calculation is contingent on a stable level of serumcreatinine. The eGFR calculation is based on an IDMS-Traceablecreatinine assay and is normalized to 1.73 "meters squared"body surface area. An eGFR less than 60 may alter clinicalmanagement decisions. An eGFR greater than or equal to 60 doesnot exclude kidney disease. ID Date Data Source [id number] 08/02/2020 01:11:00 AM [facility] For anticoagulation patientsUnit Collect Name Value Range Interpretation Code Description Data Danuta rce(s) Supporting Document(s) WBC 4.0-11.0 Above high normal [facility] RBC 4.40-6.20 Below low normal [facility] HGB 13.0-18.0 Below low normal [facility] HCT 40-52 Below low normal [facility] MCV 80-100 Normal (applies to non-numeric resul ts) [facility] MCH 26.0-34.0 Normal (applies to non-numeric resul ts) [facility] MCHC 32.0-37.5 Normal (applies to non-numeric resul ts) [facility] RDW 0.0-15.2 Above high normal [facility] PLATELET COUNT 150-450 Below low normal [facility] ID Date Data Source [id number] 08/02/2020 12:37:00 AM EST [facility] For anticoagulation patientsUnit Collect Name Value Range Interpretation Code Description Data Danuta rce(s) Supporting Document(s) PROTIME 10.2-12.9 Above high normal [facility] INR 0.9-1.1 Above high normal [facility] [Therapeutic Range 2 .0-3.0]The INR should be used to monitor patients on long termWarfarin. Selected patients may require higher levels ofanticoagulation.The PT/INR should not be used to monitor the coagulationstatus of patients taking Pradaxa, Eliquis, Xarelto or Savaysa. ID Date Data Source [id number] 08/01/2020 10:16:00 PM [facility] Name Value Range Interpretation Code Description Data Danuta rce(s) Supporting Document(s) GLUCOSE,METER 65-[address] [facility] ID Date Data Source [id number] 08/01/2020 09:02:00 PM [facility] Name Value Range Interpretation Code Description Data Danuta rce(s) Supporting Document(s) GLUCOSE,METER 65-[address] [facility] ID Date Data Source [id number] 08/01/2020 08:14:00 PM [facility] 30 minutes after extubationUnit Collect Name Value Range Interpretation Code Description Data Danuta rce(s) Supporting Document(s) FIO2 4L [facility] ealth DELIVERY MODE Canceled [facility] PH 7.36-7.45 Normal (applies to non-numeric resul ts) [facility] PCO2 35-45 Normal (applies to non-numeric resul ts) [facility] PO2 80-100 Above high normal [facility] BICARBONATE 21-28 Normal (applies to non-numeric resu lts) [facility] BASE EXCESS -2.0-3.0 Normal (applies to non-numeric resu lts) [facility] The base excess calculation assumes a he moglobinconcentration of 15.0 g/dL. When hemoglobin concentrationssignificantly vary from 15.0 g/dL, the base excesscalculation may be erroneous. O2 SAT.(calc) 95-99 Normal (applies to non-numeric re sults) [facility] ID Date Data Source [id number] 08/01/2020 08:14:00 PM [facility] 30 minutes after extubationUnit Collect Name Value Range Interpretation Code Description Data Danuta rce(s) Supporting Document(s) POTASSIUM, WHOLE BLOOD 3.2-4.7 Normal (applies to non-n umeric results) [facility] ID Date Data Source [id number] 08/01/2020 08:40:00 PM EST [facility] Two hours after magnesium supplement inf usion has beencompletedRelease to patient->ImmediateUnit Collect Name Value Range Interpretation Code Description Data Danuta rce(s) Supporting Document(s) MAGNESIUM 1.5-2.4 Normal (applies to non-numeric resul ts) [facility] ID Date Data Source [id number] 08/01/2020 08:31:00 PM EST [facility] Two hours after magnesium supplement inf usion has beencompletedRelease to patient->ImmediateUnit Collect Name Value Range Interpretation Code Description Data Danuta rce(s) Supporting Document(s) WBC 4.0-11.0 Above high normal [facility] RBC 4.40-6.20 Below low normal [facility] HGB 13.0-18.0 Below low normal [facility] HCT 40-52 Below low normal [facility] MCV 80-100 Normal (applies to non-numeric resul ts) [facility] MCH 26.0-34.0 Normal (applies to non-numeric resul ts) [facility] MCHC 32.0-37.5 Normal (applies to non-numeric resul ts) [facility] RDW 0.0-15.2 Above high normal [facility] PLATELET COUNT 150-450 Below low normal [facility] ID Date Data Source [id number] 08/01/2020 06:23:00 PM EST [facility] On admissionUnit Collect Name Value Range Interpretation Code Description Data Danuta rce(s) Supporting Document(s) FIO2 NOT SPECIFIED [facility] DELIVERY MODE NOT SPECIFIED [facility] PH 7.36-7.45 Normal (applies to non-numeric resul ts) [facility] PCO2 35-45 Normal (applies to non-numeric resul ts) [facility] PO2 80-100 Above high normal [facility] BICARBONATE 21-28 Normal (applies to non-numeric resu lts) [facility] BASE EXCESS -2.0-3.0 Normal (applies to non-numeric resu lts) [facility] The base excess calculation assumes a he moglobinconcentration of 15.0 g/dL. When hemoglobin concentrationssignificantly vary from 15.0 g/dL, the base excesscalculation may be erroneous. O2 SAT.(calc) 95-99 Normal (applies to non-numeric re sults) [facility] ID Date Data Source [id number] 08/01/2020 05:41:00 PM [facility] Name Value Range Interpretation Code Description Data Danuta rce(s) Supporting Document(s) GLUCOSE,METER 65-100 Above high normal [facility] ID Date Data Source [id number] 08/01/2020 04:19:00 PM [facility] Name Value Range Interpretation Code Description Data Danuta rce(s) Supporting Document(s) GLUCOSE,METER 65-[address] [facility] ID Date Data Source [id number] 08/01/2020 04:39:00 PM [facility] Two hours after potassium supplement inf usion has beencompleted.Release to patient->ImmediateUnit Collect1 hour after packed red blood cell transfusionRelease to patient->ImmediateUnit [id number] minutes after any ventilator change except after PEEPincrease for bleeding.Unit Collect Name Value Range Interpretation Code Description Data Danuta rce(s) Supporting Document(s) HCT 40-52 Below low normal [facility] ID Date Data Source [id number] 08/01/2020 04:26:00 PM [facility] Two hours after potassium supplement inf usion has beencompleted.Release to patient->ImmediateUnit Collect1 hour after packed red blood cell transfusionRelease to patient->ImmediateUnit [id number] minutes after any ventilator change except after PEEPincrease for bleeding.Unit Collect Name Value Range Interpretation Code Description Data Danuta rce(s) Supporting Document(s) POTASSIUM, WHOLE BLOOD 3.2-4.7 Normal (applies to non-n umeric results) [facility] ID Date Data Source [id number] 08/01/2020 04:26:00 PM [facility] Two hours after potassium supplement inf usion has beencompleted.Release to patient->ImmediateUnit Collect1 hour after packed red blood cell transfusionRelease to patient->ImmediateUnit [id number] minutes after any ventilator change except after PEEPincrease for bleeding.Unit Collect Name Value Range Interpretation Code Description Data Danuta rce(s) Supporting Document(s) FIO2 NOT SPECIFIED [facility] DELIVERY MODE NOT SPECIFIED [facility] PH 7.36-7.45 Normal (applies to non-numeric resul ts) [facility] PCO2 35-45 Normal (applies to non-numeric resul ts) [facility] PO2 80-100 Above high normal [facility] BICARBONATE 21-28 Normal (applies to non-numeric resu lts) [facility] BASE EXCESS -2.0-3.0 Normal (applies to non-numeric resu lts) [facility] The base excess calculation assumes a he moglobinconcentration of 15.0 g/dL. When hemoglobin concentrationssignificantly vary from 15.0 g/dL, the base excesscalculation may be erroneous. O2 SAT.(calc) 95-99 Normal (applies to non-numeric re sults) [facility] ID Date Data Source [id number] 08/01/2020 02:26:00 PM EST [facility] Name Value Range Interpretation Code Description Data Danuta rce(s) Supporting Document(s) GLUCOSE,METER 65-100 Normal ([facility] ID Date Data Source [id number] 08/01/2020 02:00:00 PM [facility] You must also place a Nursing Order to T ransfuse.Reason for Transfusion->50- 100K Active BleedingUnit Collect Name Value Range Interpretation Code Description Data Danuta rce(s) Supporting Document(s) SINGLE DONOR PLATELETS BLOOD BANK Normal (applies to non-n umeric results) [facility] ID Date Data Source [id number] 08/02/2020 07:04:00 AM [facility] You must also place a Nursing Order to T ransfuse.Reason for Transfusion->50- 100K Active BleedingUnit Collect Name Value Range Interpretation Code Description Data Danuta rce(s) Supporting Document(s) BLOOD BANK SEE BELOW Normal (applies to non-numeric resul ts) [facility] Product: SDP PASC LR-2, Status: Transfus ed, Unit: [id number], Type: B Pos,Code: [id number].Product: SDP PASC LR-3, Status: Transfused, Unit: [id number], Type: O Pos,Code: [id number]. ID Date Data Source [id number] 08/01/2020 01:30:00 PM [facility] Release to patient->ImmediateUnit Colle t Name Value Range Interpretation Code Description Data Danuta rce(s) Supporting Document(s) HCT 40-52 Below low normal [facility] ID Date Data Source [id number] 08/01/2020 12:36:00 PM [facility] 30 minutes after any ventilator change e xcept after PEEPincrease for bleeding.Unit Collect Name Value Range Interpretation Code Description Data Danuta rce(s) Supporting Document(s) FIO2 40% [facility] ealt DELIVERY MODE VENT [facility] PH 7.36-7.45 Normal (applies to non-numeric resul ts) [facility] PCO2 35-45 Normal (applies to non-numeric resul ts) [facility] PO2 80-100 Above high normal [facility] BICARBONATE 21-28 Normal (applies to non-numeric resu lts) [facility] BASE EXCESS -2.0-3.[address] [facility] The base excess calculation assumes a he moglobinconcentration of 15.0 g/dL. When hemoglobin concentrationssignificantly vary from 15.0 g/dL, the base excesscalculation may be erroneous. O2 SAT.(calc) 95-99 Normal (applies to non-numeric re sults) [facility] ART/ALVEO RATIO [facility] ID Date Data Source [id number] 08/01/2020 01:03:00 PM EST [facility] Name Value Range Interpretation Code Description Data Danuta rce(s) Supporting Document(s) GLUCOSE,METER 65-100 Normal (applies to non-numeric re sults) [facility] ID Date Data Source [id number] 08/01/2020 11:53:07 AM [facility] On admissionIndication: Line/tube place ment. ET [...] rce(s) Supporting Document(s) ID Date Data Source [id number] 08/01/2020 01:03:00 PM [facility] Name Value Range Interpretation Code Description Data Danuta rce(s) Supporting Document(s) GLUCOSE,METER 65-100 Normal (applies to non-[facility]) [facility] ID Date Data Source [id number] 08/01/2020 11:33:00 AM [facility] Release to patient->ImmediateUnit [facility] t Name Value Range Interpretation Code Description Data Danuta rce(s) Supporting Document(s) APTT 25.1-36.5 Above high normal [facility] Dosage guidelines for full dose heparin are available on theContinuous Intravenous Heparin Anticoagulation Patient CareOrder Form.The aPTT should not be used to monitor the coagulation statusof patients taking Pradaxa, Eliquis, Xarelto or Savaysa. ID Date Data Source [id number] 08/01/2020 11:44:00 AM [facility] After 30 minutes on CPAPUnit CollectOn a dmissionRelease to patient- >ImmediateUnit CollectObtain 6 hours post-opRelease to patient->ImmediateUnit CollectUpon admissionRelease to patient->ImmediateUnit Collect Name Value Range Interpretation Code Description Data Danuta rce(s) Supporting Document(s) MAGNESIUM 1.5-2.4 Normal (applies to non-numeric resul ts) [facility] ID Date Data Source [id number] 08/01/2020 11:44:00 AM EST [facility] After 30 minutes on CPAPUnit CollectOn a dmissionRelease to patient- >ImmediateUnit CollectObtain 6 hours post-opRelease to patient->ImmediateUnit CollectUpon admissionRelease to patient->ImmediateUnit Collect Name Value Range Interpretation Code Description Data Danuta rce(s) Supporting Document(s) GLUCOSE 65-100 Normal (applies to non-numeric resul ts) [facility] SODIUM 135-145 Normal (applies to non-numeric resul ts) [facility] POTASSIUM 3.5-5.1 Normal (applies to non-numeric resul ts) [facility] Slightly Hemolyzed Specimen CHLORIDE 98-108 Above high normal [facility] CO2 22-30 Normal (applies to non-numeric results) [facility] ANION GAP 4-16 Normal (applies to non-numeric resul ts) [facility] BUN 8-20 Normal (applies to non-numeric results) [facility] CREATININE 0.7-1.2 Normal (applies to non-numeric resul ts) [facility] CALCIUM 8.5-10.2 Normal (applies to non-numeric resul ts) [facility] ID Date Data Source [id number] 08/01/2020 11:44:00 AM EST [facility] After 30 minutes on CPAPUnit CollectOn a dmissionRelease to patient- >ImmediateUnit CollectObtain 6 hours post-opRelease to patient->ImmediateUnit CollectUpon admissionRelease to patient->ImmediateUnit Collect Name Value Range Interpretation Code Description Data Danuta rce(s) Supporting Document(s) LDL DIRECT 30-100 Normal (applies to non-numeric resul ts) [facility] ID Date Data Source [id number] 08/01/2020 11:44:00 AM EST [facility] After 30 minutes on CPAPUnit CollectOn a dmissionRelease to patient- >ImmediateUnit CollectObtain 6 hours post-opRelease to patient->ImmediateUnit CollectUpon admissionRelease to patient->ImmediateUnit Collect Name Value Range Interpretation Code Description Data Danuta rce(s) Supporting Document(s) eGFR [facility] ID Date Data Source [id number] 08/01/2020 11:44:00 AM [facility] After 30 minutes on CPAPUnit CollectOn a dmissionRelease to patient- >ImmediateUnit CollectObtain 6 hours post-opRelease to patient->ImmediateUnit CollectUpon admissionRelease to patient->ImmediateUnit Collect Name Value Range Interpretation Code Description Data Danuta rce(s) Supporting Document(s) eGFR BLACK [facility] For both eGFR and eGFR BLACK, the accuracy of theeGFR calculation is contingent on a stable level of serumcreatinine. The eGFR calculation is based on an IDMS-Traceablecreatinine assay and is normalized to 1.73 "meters squared"body surface area. An eGFR less than 60 may alter clinicalmanagement decisions. An eGFR greater than or equal to 60 doesnot exclude kidney disease. ID Date Data Source [id number] 08/01/2020 11:28:00 AM [facility] Release to patient->ImmediateUnit Collec t Name Value Range Interpretation Code Description Data Danuta rce(s) Supporting Document(s) PROTIME 10.2-12.9 Above high normal [facility] INR 0.9-1.1 Above high normal [facility] [Therapeutic Range 2 .0-3.0]The INR should be used to monitor patients on long termWarfarin. Selected patients may require higher levels ofanticoagulation.The PT/INR should not be used to monitor the coagulationstatus of patients taking Pradaxa, Eliquis, Xarelto or Savaysa. ID Date Data Source [id number] 08/01/2020 11:20:00 AM [facility] After 30 minutes on CPAPUnit CollectOn a dmissionRelease to patient- >ImmediateUnit CollectObtain 6 hours post-opRelease to patient->ImmediateUnit CollectUpon admissionRelease to patient->ImmediateUnit Collect Name Value Range Interpretation Code Description Data Danuta rce(s) Supporting Document(s) WBC 4.0-11.0 Above high normal [facility] RBC 4.40-6.20 Normal (applies to non-numeric resul ts) [facility] HGB 13.0-18.0 Normal (applies to non-numeric resul ts) [facility] HCT 40-52 Normal (applies to non-numeric results) [facility] MCV 80-100 Normal (applies to non-numeric resul ts) [facility] MCH 26.0-34.0 Normal (applies to non-numeric resul ts) [facility] MCHC 32.0-37.5 Normal (applies to non-numeric resul ts) [facility] RDW 0.0-15.2 Above high normal [facility] PLATELET COUNT 150-[address] [facility] ID Date Data Source [id number] 08/01/2020 11:11:00 AM EST [facility] After 30 minutes on CPAPUnit CollectOn a dmissionRelease to patient- >ImmediateUnit CollectObtain 6 hours post-opRelease to patient->ImmediateUnit CollectUpon admissionRelease to patient->ImmediateUnit Collect Name Value Range Interpretation Code Description Data Danuta rce(s) Supporting Document(s) POTASSIUM, WHOLE BLOOD 3.2-4.7 Normal (applies to non-n umeric results) [facility] ID Date Data Source [id number] 08/01/2020 11:11:00 AM EST [facility] After 30 minutes on CPAPUnit CollectOn a dmissionRelease to patient- >ImmediateUnit CollectObtain 6 hours post-opRelease to patient->ImmediateUnit CollectUpon admissionRelease to patient->ImmediateUnit Collect Name Value Range Interpretation Code Description Data Danuta rce(s) Supporting Document(s) FIO2 [facility] ealth DELIVERY MODE PRVC [facility] PH 7.36-7.45 Normal (applies to non-numeric resul ts) [facility] PCO2 35-45 Normal (applies to non-numeric resul ts) [facility] PO2 80-100 Above high normal [facility] BICARBONATE 21-28 Normal (applies to non-numeric resu lts) [facility] BASE EXCESS -2.0-3.0 Normal (applies to non-numeric resu lts) [facility] The base excess calculation assumes a he moglobinconcentration of 15.0 g/dL. When hemoglobin concentrationssignificantly vary from 15.0 g/dL, the base excesscalculation may be erroneous. O2 SAT.(calc) 95-99 Normal (applies to non-numeric re sults) [facility] ART/ALVEO RATIO [facility] ID Date Data Source [id number] 08/01/2020 10:14:00 AM [facility] Name Value Range Interpretation Code Description Data Danuta rce(s) Supporting Document(s) HPT [facility] R PERF HPT Pt Prot [facility] ACT Avg [facility] H ealth R PERFHR-ACT (POC) Normal/Therapeutic Re ference Ranges: Cardiac Playback Operator...........................200-300 secs OR Vascular................................200-400 secs OR Pump.................. ...............> or = 400 secs OR Insertion of Impella....................200- 300 secs Interventional Radiology...................200-300 secs Impella Management.........................160-180 secs Sheath Stevan bobby..............................70-170 secs OR Baseline/No OR Therapeutic Heparin On Board.......................................80-180 secs ID Date Data Source [id number] 08/01/2020 10:11:00 AM EST [facility] Name Value Range Interpretation Code Description Data Danuta rce(s) Supporting Document(s) PH -POC 7.36-7.45 Normal (applies to non-numeric resul ts) [facility] PCO2 -POC 35-45 Below low normal [facility] PO2 -POC 80-100 Above high normal [facility] BICARBONATE -POC 21-28 Normal (applies to non-numeric results) [facility] BASE EXCESS -POC -2.0-3.0 Normal (applies to non-numeric results) [facility] OXYHEMOGLOBIN -POC 95.0-99.0 Above high normal [facility] CARBOXYHGB -POC 0.5-1.5 Below low normal [facility] METHEMOGLOBIN, -POC 0.4-1.2 Below low normal [facility] HEMATOCRIT -POC 40-52 Below low normal [facility] HEMOGLOBIN -POC 13.0-18.0 Below low normal [facility] SODIUM, WB -POC 135-145 Normal (applies to non-numeric results) [facility] POTASSIUM, WB -POC 3.2-4.7 Normal (applies to non-numer ic results) [facility] CALCIUM, IONIZED -POC 4.5-5.3 Normal (applies to non-nu meric results) [facility] CHLORIDE, WB -POC 98-108 Normal (applies to non-numeri c results) [facility] GLUCOSE, WB -POC 65-100 Above high normal [facility] LACTATE -POC 0.5-2.2 Above high normal [facility] ID Date Data Source [id number] 08/01/2020 10:01:00 AM EST [facility] Name Value Range Interpretation Code Description Data Danuta rce(s) Supporting Document(s) PH -POC 7.36-7.45 Above high normal [facility] PCO2 -POC 35-45 Below low normal [facility] PO2 -POC 80-100 Above high normal [facility] BICARBONATE -POC 21-28 Normal (applies to non-numeric results) [facility] BASE EXCESS -POC -2.0-3.0 Normal (applies to non-numeric results) [facility] OXYHEMOGLOBIN -POC 95.0-99.0 Normal (applies to non-numer ic results) [facility] CARBOXYHGB -POC 0.5-1.5 Below low normal [facility] METHEMOGLOBIN, -POC 0.4-1.2 Below low normal [facility] HEMATOCRIT -POC 40-52 Below low normal [facility] HEMOGLOBIN -POC 13.0-18.0 Below low normal [facility] SODIUM, WB -POC 135-145 Normal (applies to non-numeric results) [facility] POTASSIUM, WB -POC 3.2-4.7 Normal (applies to non-numer ic results) [facility] CALCIUM, IONIZED -POC 4.5-5.3 Normal (applies to non-nu meric results) [facility] CHLORIDE, WB -POC 98-108 Normal (applies to non-numeri c results) [facility] GLUCOSE, WB -POC 65-100 Above high normal [facility] LACTATE -POC 0.5-2.2 Above high normal [facility] ID Date Data Source [id number] 08/01/2020 09:39:00 AM EST [facility] Name Value Range Interpretation Code Description Data Danuta rce(s) Supporting Document(s) PH -POC 7.36-7.45 Normal (applies to non-numeric resul ts) [facility] PCO2 -POC 35-45 Normal (applies to non-numeric resul ts) [facility] PO2 -POC 80-100 Above high normal [facility] BICARBONATE -POC 21-28 Normal (applies to non-numeric results) [facility] BASE EXCESS -POC -2.0-3.0 Below low normal [facility] OXYHEMOGLOBIN -POC 95.0-99.0 Normal (applies to non-numer ic results) [facility] CARBOXYHGB -POC 0.5-1.5 Below low normal [facility] METHEMOGLOBIN, -POC 0.4-1.2 Below low normal [facility] HEMATOCRIT -POC 40-52 Below low normal [facility] HEMOGLOBIN -POC 13.0-18.0 Below low normal [facility] SODIUM, WB -POC 135-145 Below low normal [facility] POTASSIUM, WB -POC 3.2-4.7 Normal (applies to non-numer ic results) [facility] CALCIUM, IONIZED -POC 4.5-5.3 Below low normal [facility] CHLORIDE, WB -POC 98-108 Normal (applies to non-numeri c results) [facility] GLUCOSE, WB -POC 65-100 Above high normal [facility] LACTATE -POC 0.5-2.2 Above high normal [facility] ID Date Data Source [id number] 08/01/2020 09:36:00 AM [facility] Name Value Range Interpretation Code Description Data Danuta rce(s) Supporting Document(s) ACT Avg [facility] H ealth R PERFHR-ACT (POC) Normal/Therapeutic Re ference Ranges: Cardiac Playback Operator...........................200-300 secs OR Vascular................................200-400 secs OR Pump.................. ...............> or = 400 secs OR Insertion of Impella....................200- 300 secs Interventional Radiology...................200-300 secs Impella Management.........................160-180 secs Sheath Stevan bobby..............................70-170 secs OR Baseline/No OR Therapeutic Heparin On Board.......................................80-180 secs ID Date Data Source [id number] 08/01/2020 09:24:00 AM EST [facility] Name Value Range Interpretation Code Description Data Danuta rce(s) Supporting Document(s) HPT Hep Conc [facility] R PERFError Hep Conc may be < indicated value HPT Pt Prot [facility] ID Date Data Source [id number] 08/01/2020 09:22:00 AM [facility] Name Value Range Interpretation Code Description Data Danuta rce(s) Supporting Document(s) PH -POC 7.36-7.45 Normal (applies to non-numeric resul ts) [facility] PCO2 -POC 35-45 Normal (applies to non-numeric resul ts) [facility] PO2 -POC 80-100 Above high normal [facility] BICARBONATE -POC 21-28 Normal (applies to non-numeric results) [facility] BASE EXCESS -POC -2.0-3.0 Normal (applies to non-numeric results) [facility] OXYHEMOGLOBIN -POC 95.0-99.0 Normal (applies to non-numer ic results) [facility] CARBOXYHGB -POC 0.5-1.5 Below low normal [facility] METHEMOGLOBIN, -POC 0.4-1.2 Below low normal [facility] HEMATOCRIT -POC 40-52 Below low normal [facility] HEMOGLOBIN -POC 13.0-18.0 Below low normal [facility] SODIUM, WB -POC 135-145 Normal (applies to non-numeric results) [facility] POTASSIUM, WB -POC 3.2-4.7 Normal (applies to non-numer ic results) [facility] CALCIUM, IONIZED -POC 4.5-5.3 Below low normal [facility] CHLORIDE, WB -POC 98-108 Normal (applies to non-numeri c results) [facility] GLUCOSE, WB -POC 65-100 Above high normal [facility] LACTATE -POC 0.5-2.2 Above high normal [facility] ID Date Data Source [id number] 08/01/2020 09:20:00 AM EST [facility] Name Value Range Interpretation Code Description Data Danuta rce(s) Supporting Document(s) ACT Avg [facility] H ealth R PERFHR-ACT (POC) Normal/Therapeutic Re ference Ranges: Cardiac Playback Operator...........................200-300 secs OR Vascular................................200-400 secs OR Pump.................. ...............> or = 400 secs OR Insertion of Impella....................200- 300 secs Interventional Radiology...................200-300 secs Impella Management.........................160-180 secs Sheath Stevan bobby..............................70-170 secs OR Baseline/No OR Therapeutic Heparin On Board.......................................80-180 secs ID Date Data Source [id number] 08/01/2020 09:06:00 AM [facility] Name Value Range Interpretation Code Description Data Danuta rce(s) Supporting Document(s) PH -POC 7.36-7.45 Normal (applies to non-numeric resul ts) [facility] PCO2 -POC 35-45 Normal (applies to non-numeric resul ts) [facility] PO2 -POC 80-100 Above high normal [facility] BICARBONATE -POC 21-28 Normal (applies to non-numeric results) [facility] BASE EXCESS -POC -2.0-3.0 Normal (applies to non-numeric results) [facility] OXYHEMOGLOBIN -POC 95.0-99.0 Normal (applies to non-numer ic results) [facility] CARBOXYHGB -POC 0.5-1.5 Below low normal [facility] METHEMOGLOBIN, -POC 0.4-1.2 Below low normal [facility] HEMATOCRIT -POC 40-52 Below low normal [facility] HEMOGLOBIN -POC 13.0-18.0 Below low normal [facility] SODIUM, WB -POC 135-145 Below low normal [facility] POTASSIUM, WB -POC 3.2-4.7 Normal (applies to non-numer ic results) [facility] CALCIUM, IONIZED -POC 4.5-5.3 Below low normal [facility] CHLORIDE, WB -POC 98-108 Normal (applies to non-numeri c results) [facility] GLUCOSE, WB -POC 65-100 Above high normal [facility] LACTATE -POC 0.5-2.2 Above high normal [facility] ID Date Data Source [id number] 08/01/2020 08:51:00 AM EST [facility] Name Value Range Interpretation Code Description Data Danuta rce(s) Supporting Document(s) HR ACT Average [facility] R PERFHR-ACT (POC) Normal/Therapeutic Re ference Ranges: Cardiac Playback Operator...........................200-300 secs OR Vascular................................200-400 secs OR Pump.................. ...............> or = 400 secs OR Insertion of Impella....................200- 300 secs Interventional Radiology...................200-300 secs Impella Management.........................160-180 secs Sheath Stevan bobby..............................70-170 secs OR Baseline/No OR Therapeutic Heparin On Board.......................................80-180 secs ID Date Data Source [id number] 08/01/2020 09:04:00 AM EST [facility] Name Value Range Interpretation Code Description Data Danuta rce(s) Supporting Document(s) ACT Avg [facility] ealth R PERFHR-ACT (POC) Normal/Therapeutic Re ference Ranges: Cardiac Playback Operator...........................200-300 secs OR Vascular................................200-400 secs OR Pump.................. ...............> or = 400 secs OR Insertion of Impella....................200- 300 secs Interventional Radiology...................200-300 secs Impella Management.........................160-180 secs Sheath Stevan bobby..............................70-170 secs OR Baseline/No OR Therapeutic Heparin On Board.......................................80-180 secs ID Date Data Source [id number] 08/01/2020 08:51:00 AM [facility] Name Value Range Interpretation Code Description Data Danuta rce(s) Supporting Document(s) PH -POC 7.36-7.45 Normal (applies to non-numeric resul ts) [facility] PCO2 -POC 35-45 Normal (applies to non-numeric resul ts) [facility] PO2 -POC 80-100 Above high normal [facility] BICARBONATE -POC 21-28 Normal (applies to non-numeric results) [facility] BASE EXCESS -POC -2.0-3.0 Normal (applies to non-numeric results) [facility] OXYHEMOGLOBIN -POC 95.0-99.0 Normal (applies to non-numer ic results) [facility] CARBOXYHGB -POC 0.5-1.5 Below low normal [facility] METHEMOGLOBIN, -POC 0.4-1.2 Below low normal [facility] HEMATOCRIT -POC 40-52 Below low normal [facility] HEMOGLOBIN -POC 13.0-18.0 Below low normal [facility] SODIUM, WB -POC 135-145 Below low normal [facility] POTASSIUM, WB -POC 3.2-4.7 Normal (applies to non-numer ic results) [facility] CALCIUM, IONIZED -POC 4.5-5.3 Below low normal [facility] CHLORIDE, WB -POC 98-108 Normal (applies to non-numeri c results) [facility] GLUCOSE, WB -POC 65-100 Above high normal [facility] LACTATE -POC 0.5-2.2 Above high normal [facility] ID Date Data Source [id number] 08/01/2020 09:06:00 AM [facility] PRBC's will be held in Blood Bank until an Order to Transfusehas been placed. In CRISIS (near code) situation Blood Bankwill prepare crossmatched if available, or type specific orun-crossmatched.Reason for Transfusion->Surgical Blood LossUnit Collect Name Value Range Interpretation Code Description Data Danuta rce(s) Supporting Document(s) PACKED RBC UNITS Normal (applies to non-numeric results) [facility] DATE REQUIRED, PRBC 08/01/2020 Normal (applies to non-nume heydi results) [facility] ID Date Data Source [id number] 08/02/2020 05:54:00 PM EST [facility] PRBC's will be held in Blood Bank until an Order to Transfusehas been placed. In CRISIS (near code) situation Blood Bankwill prepare crossmatched if available, or type specific orun-crossmatched.Reason for Transfusion->Surgical Blood LossUnit Collect Name Value Range Interpretation Code Description Data Danuta rce(s) Supporting Document(s) BLOOD BANK SEE BELOW Normal (applies to non-numeric resul ts) [facility] Product: RBC LR, Status: Canceled, Unit: [id number], Type: A Pos, Code:[id number].Product: RBC LR, Status: Canceled, Unit: [id number], Type: A Pos, Code:[id number].Product: RBC LR, Status: Canceled, Unit: [id number], Type: A Pos, Code:[id number].Product: RBC LR, Status: Transfused, Unit: [id number], Type: A Pos, Code:[id number]. ID Date Data Source [id number] 08/01/2020 08:36:00 AM EST [facility] Name Value Range Interpretation Code Description Data Danuta rce(s) Supporting Document(s) PH -POC 7.36-7.45 Below low normal [facility] PCO2 -POC 35-45 Normal (applies to non-numeric resul ts) [facility] PO2 -POC 80-100 Above high normal [facility] BICARBONATE -POC 21-28 Normal (applies to non-numeric results) [facility] BASE EXCESS -POC -2.0-3.0 Below low normal [facility] OXYHEMOGLOBIN -POC 95.0-99.0 Normal (applies to non-numer ic results) [facility] CARBOXYHGB -POC 0.5-1.5 Below low normal [facility] METHEMOGLOBIN, -POC 0.4-1.2 Below low normal [facility] HEMATOCRIT -POC 40-52 Below low normal [facility] HEMOGLOBIN -POC 13.0-18.0 Below low normal [facility] SODIUM, WB -POC 135-145 Below low normal [facility] POTASSIUM, WB -POC 3.2-4.7 Normal (applies to non-numer ic results) [facility] CALCIUM, IONIZED -POC 4.5-5.3 Below low normal [facility] CHLORIDE, WB -POC 98-108 Normal (applies to non-numeri c results) [facility] GLUCOSE, WB -POC 65-100 Above high normal [facility] LACTATE -POC 0.5-2.2 Above high normal [facility] ID Date Data Source [id number] 08/01/2020 08:23:00 AM EST [facility] Name Value Range Interpretation Code Description Data Danuta rce(s) Supporting Document(s) PH -POC 7.36-7.45 Below low normal [facility] PCO2 -POC 35-45 Normal (applies to non-numeric resul ts) [facility] PO2 -POC 80-100 Above high normal [facility] BICARBONATE -POC 21-28 Normal (applies to non-numeric results) [facility] BASE EXCESS -POC -2.0-3.0 Normal (applies to non-numeric results) [facility] OXYHEMOGLOBIN -POC 95.0-99.0 Above high normal [facility] CARBOXYHGB -POC 0.5-1.5 Below low normal [facility] METHEMOGLOBIN, -POC 0.4-1.2 Below low normal [facility] HEMATOCRIT -POC 40-52 Below low normal [facility] HEMOGLOBIN -POC 13.0-18.0 Below low normal [facility] SODIUM, WB -POC 135-145 Below low normal [facility] POTASSIUM, WB -POC 3.2-4.7 Normal (applies to non-numer ic results) [facility] CALCIUM, IONIZED -POC 4.5-5.3 Below low normal [facility] CHLORIDE, WB -POC 98-108 Normal (applies to non-numeri c results) [facility] GLUCOSE, WB -POC 65-100 Above high normal [facility] LACTATE -POC 0.5-2.2 Above high normal [facility] ID Date Data Source [id number] 08/01/2020 08:20:00 AM [facility] Name Value Range Interpretation Code Description Data Danuta rce(s) Supporting Document(s) PH, MILANA -POC 7.32-7.42 Below low normal [facility] PCO2, MILANA -POC 40-52 Above high normal [facility] PO2, MILANA -POC 40-[address] [facility] BICARBONATE, MILANA -POC 23-28 Normal (applies to non-nu meric results) [facility] BASE EXCESS, MILANA -POC -2.0-3.0 Normal (applies to non-nu meric results) [facility] OXYHEMOGLOBIN, MILANA-POC [facility] There is no established Oxyhemoglobin re ference range for venous samples.Interpretation of results is at the discretion of the ordering physician. CARBOXYHGB, MILANA-POC [facility] There is no established Carboxyhemoglobi n reference range for venoussamples. Interpretation of results is at the discretion of the orderingphysician METHEMOGLOBIN, MILANA-POC [facility] There is no established Methemoglobin re ference range for venous samples.Interpretation of results is at the discretion of the ordering physician. HEMATOCRIT -POC 40-52 Below low normal [facility] HEMOGLOBIN -POC 13.0-18.0 Below low normal [facility] SODIUM, WB -POC 135-145 Below low normal [facility] POTASSIUM, WB -POC 3.2-4.7 Normal (applies to non-numer ic results) [facility] CALCIUM, IONIZED -POC 4.5-5.3 Below low normal [facility] CHLORIDE, WB -POC 98-108 Normal (applies to non-numeri c results) [facility] GLUCOSE, WB -POC 65-100 Above high normal [facility] LACTATE -POC 0.5-2.2 Above high normal [facility] ID Date Data Source [id number] 08/01/2020 08:17:00 AM EST [facility] Name Value Range Interpretation Code Description Data Danuta rce(s) Supporting Document(s) ACT Avg [facility] ealth R PERFHR-ACT (POC) Normal/Therapeutic Re ference Ranges: Cardiac Playback Operator...........................200-300 secs OR Vascular................................200-400 secs OR Pump.................. ...............> or = 400 secs OR Insertion of Impella....................200- 300 secs Interventional Radiology...................200-300 secs Impella Management.........................160-180 secs Sheath Stevan bobby..............................70-170 secs OR Baseline/No OR Therapeutic Heparin On Board.......................................80-180 secs ID Date Data Source [id number] 08/01/2020 07:21:00 AM [facility] Name Value Range Interpretation Code Description Data Danuta rce(s) Supporting Document(s) ACT Avg [facility] ealth R PERFHR-ACT (POC) Normal/Therapeutic Re ference Ranges: Cardiac Playback Operator...........................200-300 secs OR Vascular................................200-400 secs OR Pump.................. ...............> or = 400 secs OR Insertion of Impella....................200- 300 secs Interventional Radiology...................200-300 secs Impella Management.........................160-180 secs Sheath Stevan bobby..............................70-170 secs OR Baseline/No OR Therapeutic Heparin On Board.......................................80-180 secs ID Date Data Source [id number] 08/01/2020 07:19:00 AM [facility] Name Value Range Interpretation Code Description Data Danuta rce(s) Supporting Document(s) PH -POC 7.36-7.45 Normal (applies to non-numeric resul ts) [facility] PCO2 -POC 35-45 Normal (applies to non-numeric resul ts) [facility] PO2 -POC 80-100 Above high normal [facility] BICARBONATE -POC 21-28 Normal (applies to non-numeric results) [facility] BASE EXCESS -POC -2.0-3.0 Below low normal [facility] OXYHEMOGLOBIN -POC 95.0-99.0 Above high normal [facility] CARBOXYHGB -POC 0.5-1.5 Below low normal [facility] METHEMOGLOBIN, -POC 0.4-1.2 Below low normal [facility] HEMATOCRIT -POC 40-52 Below low normal [facility] HEMOGLOBIN -POC 13.0-18.0 Below low normal [facility] SODIUM, WB -POC 135-145 Normal (applies to non-numeric results) [facility] POTASSIUM, WB -POC 3.2-4.7 Normal (applies to non-numer ic results) [facility] CALCIUM, IONIZED -POC 4.5-5.3 Normal (applies to non-nu meric results) [facility] CHLORIDE, WB -POC 98-108 Normal (applies to non-numeri c results) [facility] GLUCOSE, WB -POC 65-100 Normal (applies to non-numeric results) [facility] LACTATE -POC 0.5-2.2 Normal (applies to non-numeric res ults) [facility] ID Date Data Source [id number] 07/31/2020 05:23:00 PM EST [facility] Provider/service name (and contact chaparrita posadas if possible) tocall, if results will be delayed due to need for repeattesting->gino fink [phone] for COVID- 19 test->Surgery or other invasive procedure(Emergent, unscheduled)Unit Collect Name Value Range Interpretation Code Description Data Danuta rce(s) Supporting Document(s) SOURCE Nasopharyngeal [facility] SARS-CoV-2 BY RT-PCR Not Detected Normal (applies to non-n umeric results) [facility] NEGATIVE RESULTA negative ("Not detected ") result does not saweopcaHAOQ-TpS-1 infection, and a negative result should not [...] or call 911. For additional information please [email or web address] es: Coronavirus in [email or web address] the latest reopening updates, travel guidelines, and learn howvencor hospitales and schools are impacted.[email or web address] was performed on the [employer]?COVID-19 Direct real-time RT-PCR assay. This is a ylnp-wwliGZ-JEH assay which qualitatively detects nucleic acid fromsevere acute respiratory syndrome coronavirus 2 (SARS-CoV-2)in suitable respiratory specimens such as nasopharyngeal swabs.This assay has been approved for use under an Emergency UseAuthorization (EUA) by the Food and Drug Administration (FDA). ID Date Data Source [id number] 07/31/2020 03:08:00 PM [facility] Txx NOUnit CollectPRBC's will be held i n Blood Bank until a Nursing Order toTransfuse has been placed. In CRISIS (near code) situationBlood Bank will prepare crossmatched if available, or typespecific or un-crossmatched.Reason for Transfusion->Other (specify)Unit CollectRelease to patient->ImmediateUnit Collect Name Value Range Interpretation Code Description Data Danuta rce(s) Supporting Document(s) FERRITIN 22-322 Normal (applies to non-numeric resul ts) [facility] ID Date Data Source [id number] 07/31/2020 03:00:00 PM [facility] Txx NOUnit CollectPRBC's will be held i n Blood Bank until a Nursing Order toTransfuse has been placed. In CRISIS (near code) situationBlood Bank will prepare crossmatched if available, or typespecific or un-crossmatched.Reason for Transfusion->Other (specify)Unit CollectRelease to patient->ImmediateUnit Collect Name Value Range Interpretation Code Description Data Danuta rce(s) Supporting Document(s) IRON 65-175 Normal (applies to non-numeric resul ts) [facility] IRON and TIBC values may be falsely elev ated in the presence oftherapeutic iron- containing compounds such as iron dextranor in the presence of heparin. TIBC 250-450 Normal (applies to non-numeric resul ts) [facility] IRON SAT 15-55 Normal (applies to non-numeric resul ts) [facility] ID Date Data Source [id number] 07/31/2020 01:50:00 PM EST [facility] Name Value Range Interpretation Code Description Data Danuta rce(s) Supporting Document(s) SARS coronavirus 2 RNA [Presence] in Uns pecified specimen by [facility] with probe detection [facility] This lab was ordered by [facility] and reported by [facility] ID Date Data Source [id number] 08/01/2020 07:04:00 AM EST [facility] Txx NOUnit CollectPRBC's will be held i n Blood Bank until a Nursing Order toTransfuse has been placed. In CRISIS (near code) situationBlood Bank will prepare crossmatched if available, or typespecific or un-crossmatched.Reason for Transfusion->Other (specify)Unit CollectRelease to patient->ImmediateUnit Collect Name Value Range Interpretation Code Description Data Daunta rce(s) Supporting Document(s) BLOOD BANK SEE BELOW Normal (applies to non-numeric resul ts) [facility] Product: RBC LR, Status: Transfused, Uni t: [id number], Type: A Pos, Code:[id number].Product: RBC LR, Status: Transfused, Unit: [id number], Type: A Pos, Code:[id number]. ID Date Data Source [id number] 07/31/2020 01:18:00 PM EST [facility] Txx NOUnit CollectPRBC's will be held i n Blood Bank until a Nursing Order toTransfuse has been placed. In CRISIS (near code) situationBlood Bank will prepare crossmatched if available, or typespecific or un-crossmatched.Reason for Transfusion->Other (specify)Unit CollectRelease to patient->ImmediateUnit Collect Name Value Range Interpretation Code Description Data Danuta rce(s) Supporting Document(s) PACKED RBC UNITS [facility] DATE REQUIRED, PRBC 07/31/2020 Normal (applies to non-nume heydi results) [facility] ID Date Data Source [id number] 07/31/2020 12:00:45 PM EST [facility] If not done in the past [...] rce(s) Supporting Document(s) ID Date Data Source [id number] 08/01/2020 11:44:00 AM [facility] On admission and every Tuesdayspecimen T ype->NasalUnit Collect Name Value Range Interpretation Code Description Data Danuta rce(s) Supporting Document(s) MRSA SURVEILLANCE [facility] ID Date Data Source [id number] 07/31/2020 10:05:00 PM [facility] TxHx NOUnit CollectRelease to patient->I mmediateUnit CollectSpecify reason for transfusion->Pre-opUnit CollectAll patients with congestive heart failureRelease to patient->ImmediateUnit Collect Name Value Range Interpretation Code Description Data Danuta rce(s) Supporting Document(s) eAVERAGE GLUCOSE 68-126 [facility] Testing Performed By:[facility] [employer] [facility] [place] [id number] HEMOGLOBIN A1C 4.2-5.6 [facility] VERIFIED BY REPEAT ANALYSIS.Per ADA 2018 Guidelines, HbA1c values should be interpreted as follows: Normal: less than 5.7% Prediabetes: 5.7%- 6.4% Diabetes: 6.5% or higherSamples containing high amounts of HbF (>7%) may yield lower upwsjxwjkgwfKuC7F results. Additional testing that is not affected by HbF can beconsidered and requested if clinically indicated. Please [id number] for more information.Please note new reference range effective 2018. Previous range4.0% - 6.0% changed to 4.2% - 5.6%. ID Date Data Source [id number] 07/31/2020 12:09:00 PM EST [facility] TxHx NOUnit CollectRelease to patient->I mmediateUnit CollectSpecify reason for transfusion->Pre-opUnit CollectAll patients with congestive heart failureRelease to patient->ImmediateUnit Collect Name Value Range Interpretation Code Description Data Danuta rce(s) Supporting Document(s) ABO RH A Rh Positive Normal (applies to non-numeric re sults) [facility] ANTIBODY SCREEN Negative Normal (applies to non-numeric results) [facility] ID Date Data Source [id number] 07/31/2020 11:50:00 AM [facility] TxHx NOUnit CollectRelease to patient->I mmediateUnit CollectSpecify reason for transfusion->Pre-opUnit CollectAll patients with congestive heart failureRelease to patient->ImmediateUnit Collect Name Value Range Interpretation Code Description Data Danuta rce(s) Supporting Document(s) PREALBUMIN 18.0-35.7 Below low normal [facility] ID Date Data Source [id number] 07/31/2020 11:50:00 AM [facility] Txx NOUnit CollectRelease to patient->I mmediateUnit CollectSpecify reason for transfusion->Pre-opUnit CollectAll patients with congestive heart failureRelease to patient->ImmediateUnit Collect Name Value Range Interpretation Code Description Data Danuta rce(s) Supporting Document(s) eGFR BLACK [facility] For both eGFR and eGFR BLACK, the accuracy of theeGFR calculation is contingent on a stable level of serumcreatinine. The eGFR calculation is based on an IDMS-Traceablecreatinine assay and is normalized to 1.73 "meters squared"body surface area. An eGFR less than 60 may alter clinicalmanagement decisions. An eGFR greater than or equal to 60 doesnot exclude kidney disease. ID Date Data Source [id number] 07/31/2020 11:50:00 AM [facility] TxHx NOUnit CollectRelease to patient->I mmediateUnit CollectSpecify reason for transfusion->Pre-opUnit CollectAll patients with congestive heart failureRelease to patient->ImmediateUnit Collect Name Value Range Interpretation Code Description Data Danuta rce(s) Supporting Document(s) eGFR [facility] ID Date Data Source [id number] 07/31/2020 11:50:00 AM EST [facility] TxHx NOUnit CollectRelease to patient->I mmediateUnit CollectSpecify reason for transfusion->Pre-opUnit CollectAll patients with congestive heart failureRelease to patient->ImmediateUnit Collect Name Value Range Interpretation Code Description Data Danuta rce(s) Supporting Document(s) SODIUM 135-145 Below low normal [facility] POTASSIUM 3.5-5.1 Normal (applies to non-numeric resul ts) [facility] CHLORIDE 98-108 Normal (applies to non-numeric resul ts) [facility] CO2 22-30 Normal (applies to non-numeric results) [facility] ANION GAP 4-16 Normal (applies to non-numeric resul ts) [facility] BUN 8-20 Above high normal [facility] CREATININE 0.7-1.2 Normal (applies to non-numeric resul ts) [facility] GLUCOSE 65-100 Normal (applies to non-numeric resul ts) [facility] CALCIUM 8.5-10.2 Normal (applies to non-numeric resul ts) [facility] TOTAL PROTEIN 5.7-8.2 Normal (applies to non-numeric re sults) [facility] ALBUMIN 3.2-4.8 Normal (applies to non-numeric resul ts) [facility] GLOBULIN 2.4-4.3 Normal (applies to non-numeric resul ts) [facility] A/G RATIO 1.1-1.8 Normal (applies to non-numeric resul ts) [facility] BILI, TOTAL 0.3-1.2 Normal (applies to non-numeric resu lts) [facility] AST 7-37 Normal (applies to non-numeric results) [facility] ALT 10-49 Normal (applies to non-numeric results) [facility] ALK PHOS 46-116 Normal (applies to non-numeric resul ts) [facility] ID Date Data Source [id number] 07/31/2020 11:50:00 AM EST [facility] TxHx NOUnit CollectRelease to patient->I mmediateUnit CollectSpecify reason for transfusion->Pre-opUnit CollectAll patients with congestive heart failureRelease to patient->ImmediateUnit Collect Name Value Range Interpretation Code Description Data Danuta rce(s) Supporting Document(s) LDH 120-246 Normal (applies to non-numeric resul ts) [facility] ID Date Data Source [id number] 07/31/2020 11:46:00 AM [facility] TxHx NOUnit CollectRelease to patient->I mmediateUnit CollectSpecify reason for transfusion->Pre-opUnit CollectAll patients with congestive heart failureRelease to patient->ImmediateUnit Collect Name Value Range Interpretation Code Description Data Danuta rce(s) Supporting Document(s) BNP 0-100 Above high normal [facility] BNP Ref. Range:..pg/mLNegative:......... <=100Positive:........>100High correlation with left heart failure:........>200 ID Date Data Source [id number] 07/31/2020 11:40:00 AM [facility] TxHx NOUnit CollectRelease to patient->I mmediateUnit CollectSpecify reason for transfusion->Pre-opUnit CollectAll patients with congestive heart failureRelease to patient->ImmediateUnit Collect Name Value Range Interpretation Code Description Data Danuta rce(s) Supporting Document(s) PROTIME 10.2-12.9 Above high normal [facility] INR 0.9-1.1 Above high normal [facility] [Therapeutic Range 2 .0-3.0]The INR should be used to monitor patients on long termWarfarin. Selected patients may require higher levels ofanticoagulation.The PT/INR should not be used to monitor the coagulationstatus of patients taking Pradaxa, Eliquis, Xarelto or Savaysa. ID Date Data Source [id number] 07/31/2020 11:40:00 AM [facility] TxHx NOUnit CollectRelease to patient->I mmediateUnit CollectSpecify reason for transfusion->Pre-opUnit CollectAll patients with congestive heart failureRelease to patient->ImmediateUnit Collect Name Value Range Interpretation Code Description Data Danuta rce(s) Supporting Document(s) APTT 25.1-36.5 Below low normal [facility] Dosage guidelines for full dose heparin are available on theContinuous Intravenous Heparin Anticoagulation Patient CareOrder Form.The aPTT should not be used to monitor the coagulation statusof patients taking Pradaxa, Eliquis, Xarelto or Savaysa. ID Date Data Source [id number] 07/31/2020 11:32:00 AM EST [facility] TxHx NOUnit CollectRelease to patient->I mmediateUnit CollectSpecify reason for transfusion->Pre-opUnit CollectAll patients with congestive heart failureRelease to patient->ImmediateUnit Collect Name Value Range Interpretation Code Description Data Danuta rce(s) Supporting Document(s) WBC 4.0-11.0 Normal (applies to non-numeric resul ts) [facility] RBC 4.40-6.20 Below low normal [facility] HGB 13.0-18.0 Below low normal [facility] HCT 40-52 Below low normal [facility] MCV 80-100 Above high normal [facility] MCH 26.0-34.0 Above high normal [facility] MCHC 32.0-37.5 Normal (applies to non-numeric resul ts) [facility] RDW 0.0-15.2 Above high normal [facility] PLATELET COUNT 150-450 Normal (applies to non-numeric r esults) [facility] ID Date Data Source [id number] 07/31/2020 11:30:00 AM EST [facility] TxHx NOUnit CollectRelease to patient->I mmediateUnit CollectSpecify reason for transfusion->Pre-opUnit CollectAll patients with congestive heart failureRelease to patient->ImmediateUnit Collect Name Value Range Interpretation Code Description Data Danuta rce(s) Supporting Document(s) PACKED RBC UNITS Normal (applies to non-numeric results) [facility] DATE REQUIRED, PRBC 08/01/20 Normal (applies to non-nume heydi results) [facility] ID Date Data Source [id number] 08/02/2020 03:09:00 PM EST [facility] TxHx NOUnit CollectRelease to patient->I mmediateUnit CollectSpecify reason for transfusion->Pre-opUnit CollectAll patients with congestive heart failureRelease to patient->ImmediateUnit Collect Name Value Range Interpretation Code Description Data Danuta rce(s) Supporting Document(s) BLOOD BANK SEE BELOW Normal (applies to non-numeric resul ts) [facility] Product: RBC LR, Status: Canceled, Unit: [id number], Type: A Pos, Code:[id number].Product: RBC LR, Status: Transfused, Unit: [id number], Type: A Pos, Code:[id number].Product: RBC LR, Status: Transfused, Unit: [id number], Type: A Pos, Code:[id number].Product: RBC LR, Status: Transfused, Unit: [id number], Type: A Pos, Code:[id number]. ID Date Data Source [id number] 06/13/2020 06:46:38 AM EDT [facility] Name Value Range Interpretation Code Description Data Danuta rce(s) Supporting Document(s) ED Provider Note [facility] GZQCAq0qUqRZVlVg28/EAVjeUDYty3AsLOjwNOv9CNsdVNDfN4TbTAJ1hZ9nVAR3TVzXFvDpEcUxKYHy lbm [file] AgICAgICAgICAgICAgICAgICAgICAgICAgICAgICAgICAgICAgICAgICAgICAgICAgICAgICAgICAgIC AgICAgICAgICAgICAgICAgICAgICAgICAgICAgDQogICAgICAgICAgICAgICAgICAgICAgICAgICAgIC AgICAgICAgICAgICAgICAgICAgICAgICAgICAgICAg ICAgICAgICAgICAgICAgICAgICAgICAgICAgICAgICAgICAgICAgDQogICAgICAgICAgICAgICAgICAg ICAgICAgICAgICAgICAgICAgICAgICAgICAgICAgICAgICAgICAgICAgICAgICAgICAgICAgICAgICAg ICAgICAgICAgICAgICAgICAgICAgDQogICAgICAgIC AgICAgICAgICAgICAgICAgICAgICAgICAgICAgICAgICAgICAgICAgICAgICAgICAgICAgICAgICAgIC AgICAgICAgICAgICAgICAgICAgICAgICAgICAgICAgDQogICAgICAgICAgICAgICAgICAgICAgICAgIC AgICAgICAgICAgICAgICAgICAgICAgICAgICAgICAg ICAgICAgICAgICAgICAgICAgICAgICAgICAgICAgICAgICAgICAgICAgDQogICAgICAgICAgICAgICAg ICAgICAgICAgICAgICAgICAgICAgICAgICAgICAgICAgICAgICAgICAgICAgICAgICAgICAgICAgICAg ICAgICAgICAgICAgICAgICAgICAgICAgDQogICAgIC AgICAgICAgICAgICAgICAgICAgICAgICAgICAgICAgICAgICAgICAgICAgICAgICAgICAgICAgICAgIC AgICAgICAgICAgICAgICAgICAgICAgICAgICAgICAgICAgDQogICAgICAgICAgICAgICAgICAgICAgIC AgICAgICAgICAgICAgICAgICAgICAgICAgICAgICAg ICAgICAgICAgICAgICAgICAgICAgICAgICAgICAgICAgICAgICAgICAgICAgDQogICAgICAgICAgICAg ICAgICAgICAgICAgICAgICAgICAgICAgICAgICAgICAgICAgICAgICAgICAgICAgICAgICAgICAgICAg ICAgICAgICAgICAgICAgICAgICAgICAgICAgDQogIC AgICAgICAgICAgICAgICAgICAgICAgICAgICAgICAgICAgICAgICAgICAgICAgICAgICAgICAgICAgIC MlOTGiXIVeJFMfMFDzYBWcQYBvTBUzOTOkPQZxUOVyVJCdESGoZZu9U2agGWZnXQQmIR7jIJc9Fl8+DQ oVLvJfJGY2puZtoC2YLJ5te1IsIIapXNPrs8RmACv3 WB7UKLJnPYliEK7HGDcxeh3XSWCxSQEpdATHo9cbLoKeQYD1RCKbJrolTW3KMFOhX3fzerRgZMYeNFQB XZhyFXIKNDuoNALVQDPeBAIrIkRbGtQlPIJhNCKsCZHABLW1WARtSqFfGCBzZJPbZoChOYBBZENqWHKd DkFgXOYcJGVnBjckBPUTEBL6JQGlUaNxPOxnUJ0Ef8 KapUAtKs7PGz0QTrQfDY0eeh4DTEywOAJbJelKFgf1MUjdSV2GpJAzhLK2LDUrNTUYMjEwE7vbo2QgNq FcENMWNEcoTC6Xh4GmdSBhFB1AKe6UJyPsYZ7tyc8KECZkVIQeYmdPHyy4JAafKG4TjDKsPOpEEFJWvh 78gKZtdrTFt4OoftHcaZJZLNGghPGbYJHjVZUyk7Ru OLKCXDHkaINzIE7sCZ7cUWBtUIN0DpR6ZDBBYF1NZRWaMFUwcIFcHADuXISQJW9DDNgxEVQ1EsSnekUe qSStZTfeYP1CWXEjcnUfEDggECEYRDsrXJ8QnOXyfJY9DBOzZHJSYaShG2uij5DqXXEdAWLVSEzxZG0G t4HkwZCrLJ9PRUYoPdG0nVQ5DqSzYZDFUi8+DQplbm RdEylMJxYwBPWkh5XlAQm1AB9KMAWlWSt4rASrWgWxi6wkstEoLH8YTOGsXAHgpYFyBRMxRFBnTrFaZS pyKWTjYwI8LU85aKxjDE3EMHDeMZVtES50HNNuHIAqAp0ZVk8GCiAyVR5ihf9DUWXcPUUkLpfPGaf8IJ oxIN4AqTMqOCwPXKYEbo07wUFciyXLi6HrwuKcpPCS ZNHakQErMAAiPWXjv8ZfESFKNKMfiKDcOO8fBA5wWJEoTCN8XrT1BWZHJH0GWJNpLBIslPKxEDN6SYEr IyTcZNgwGQEaLmv7EB37lFolLG2PUHHyCOJtFF79BNB3GRMpDj1JRIZaFUGnxcT0IOFnOWYPJcKyU66q eHQgNTMgMCBSDQo+Jc7DMW4nt7SfETw7ZuRlLO9eci 4QHLmZEzYbU9SjrAuzYGIHWM7eeRQlIVM8XUsdhi3bBxZgDZlvOxYaDS8hvvebSo5pIHHsWCZsVNZoGk CvPVIqHZniGIWWLRdETlSkW9Fym8JwGrVjVlLqVTWxN2uORsLhJQN6BrKpdEjjLR9KEiMiK2UrkjLcuZ D0OGEfZZTNRnInH0AhVUEfEKVvOLYESJgbIP2WRAm1 SPM6COAjIh8KQk4TVhUhUB5cvr5TGVOtKPSmVmkSXgv3RCdxFY0YfZNmALuLJVFHj4MytxTfsGBKAC8l nLNxueSJYWBkCITqXM3cOZGJIFN8HWFjJtCxIgGsFzElVXa7PLNxRD4lYIafIY0IXFQ9OTooNrjaFCQA TD9JRZsiSAMkWNnjpiQmeTVnMZluXU1JAJBwnmTmYK faVIBKXXmqTA0BxbI4BYTuKOPpGw8FPWKdOlG8qGQ6BMHmFEDTAx8+TMikhyPiJvxCZzI4MWPbm1FnWX g7EP7ROCWnSVl5qBJwWRFoKg35LVQcFvohRvPvsmbgPWGyJDIQjbSfiNJkKDNMZaOywZAaBB1tTX0eOH NrSKL8WnG2UFTEYC7ROFFgYQPzvQVrWFY4UIBtLcJm FGhwTVSfOvPbJL42pGfiNC7GLMWlFHKfBZ35NRC7GNMcVa8POVRuNEHwtuH8ICJpMPRKLlSiA49loBKp NTYgMCBSDQo+Ua3FMJ1na2OwZXa9GxAoZG0uvv7AWClLNnOfV5DmoXeeMRKKAK9gwVWeSHG2ZDtptw3r FuOlULdqNiAlFH9vutoaNi9aQTLgLFTuFFQsBySpDU WoWczkVXHFWEnJQdAiY7Zuf7BkJlOpTqNiGAOcX8xQLrXzOGW7ZXJeiJtiLQ9SJxZcN8CmpfYmtXP4OC GkIJCIQaNdX9UlHCKzZZTyRBQCCIksDL4XERu0MXY5UUDaQm8HGp6ZOpCtCP1uqv4ZBGgaSNQeAwmWGk s3GItsOD6VsMHjIXiGXWKIs4JyhuDodAJPXQ1atNOd vxVSGGNlKGQyMO3jSOTBOQL4VXQaBeLiNjAmBgRlNNg7MFKxNI9gLCnjVZ8ZNVU9ZJqpLadnZBLKKF8B FPgxTMR7ZISexWwlOI3UGyVpL3SpdmZgbFT3IBCjCRVQZhVdL1AwKINeUCIvBIQZDNjmXM2FXQg7YVL1 OGKuXo4VIf3XQrOyAS6pgx9DXRyvXAGiQmhFQin2TK ayTD8HwDBjBYqAWKILs0VgqtWgcDSSHU1ljjRjQZJPnSIviJtsualqLc2nVTMqJLEfOCArJvVnWNUqAu icJGUADEyAOeGwU2Qwa2VxNeMxFHEhSSEhN7aBNkRxDKBqTFEsrMaaSW5HTnDcP3PfrqTriCZ4IUUwHK CZTsEcM7WtXUEvSTsiJSAFJTztDL7TOOs5INB7WAJs Ub9VZk8WJaIsPW0lwx1CXItfJLXzBuaKXuy1ROkpWN9QbBQwESiFZEJApijzC7MkEs92FFBeJshaBFdm tDQlfZCdUMrhiWOdTKXHDtZupQBbTB4mPF4iZYYkRBY0PkC1KVWPKZ8MNYUhYDDtsJHdWQH5GFHkQpJb AWueHCTeTSP3DF01yKlxDQ9LGHNfCSElYP21WBR9WO McIo8CBPFbEXTecbI4AQApVAOLXeDaI47sbAWyDzFvFTIIIPb+Qd3AGK5lt8ThLMv8QXDkIR7vso0EFD fJPbSyF1WpmYdxVHPIPK5skWJwONO3UTfjuMYqAVLrhXXty2tyklwrJw7dIPKsAIAjWABmEtReRFBcXV agBLFGFFfVHmIxI6Yiv2TiJuEaFOGtJMJmP7sUKbQi VIF3IKHecTdrEL3KUlLfM3OtfyOifRC6CHTyONKDKfGlF0EpEAFyADiyPAOPSTp+Kt4EDP8xe9BjZGs0 GNAhBV4xef3EESxBHdWdZ2F5hFShV1J3DTtwVc3NEMCmWVVfYPrsIKKXTCqjWB4MAW2gmxX5NP4ImVDh PIYgTJRxmEEcMFv7A69muNRiINygVU2KZIC+Gian+Pg 9GTEUvQSAzYIIbAgFtMPDIHuZxI0LfW9VFl5WxZ1DkSR01uHjyflQyBRlyGU4TRU0fNKAeSKRHUY9FfJ OxoW3srbF1JOJoBUBCGuTzJ67rrYSiNVXmQCA0RONiAs8ZYZCpT1VulqZgwMdzfaElNKLyJYHFHY9XLP ysasBibJMkcDqwIN84bYqhOR9TYh9BVcXwKB6ctb5N yUZcKl2SCYR3Xx9UZNTjALFuHVAfAQX6HXJgQqIdQJhfWCPxOHAdCZA1PSOoSBIjRP2ICzAsRTRyQiYb LVVtTVFnLHTswp0UWSDkVNS9YlZmGTOxTMLdDFGqGWgcJAUpEHGfSJC4EJFjPQEsKW0POqSpLYHtIES6 ByYbLZFqHHToap2OMNCoWNIhOfNcRjHmUYKaEIBxJM tfTCRwCJZ5DpD0KZTxOYQyMZ5TCiRkTGFsZXW0YhXnIWZhVCOcsg5ZJJTlILOdSBM4AbFlYGXuWTRtUY euUGGaBXIrOZe0LTBwMNShHN5UVjPsMOVnILY1RbBoHKYdKBPdox9SDJLuWEXhHnb0JFXsCTXxYPJyRZ peACTnNCC9JoI1VOKmBVUmZJ9RMeHaWFLuZGV3OqMk VJYcURSrim5EBSPkQVMkRNJhSSHbWAWdXKGnPVegIEPfAOXkMTS7UXSiZADkNW1GMpPdKAKyAcT4CPSj YXIxFVOhwu3UQZWiMJUmDJCpCdQwYXCgCUReYZguIXOtQCM9RTc8KIXxCMQqQH8DAjRwWJWgWnj0EMVh JSHeMDAzhs8HPKCyGRMxFJM5NFTpPAHvBVIgWGojBC MkAVBhVck6GLDhJKOrHB3GMoHyHIQmZxY6IrZuGPPlPOHwto9DQSTdNZBgFsI8GAFtXJHhJGKbRVjvVF DsVXQ7YBq7UTByYMMiUV9GKmYoIYKcFeA4QJLiBSSaAYClah3IUKVeYGQbQCT1NNQnMXWyVYZpVAzzNP VhSOV9KTD5BBErPCUbGH8XRuVfYSYtTFZ3JcRlEBOo FQToxy0LMAGhRXM3AxZ1GnCnDQArOEKsXHgqAIDkSWNgFrB6SZUpDGJrFD2OIwPxMHPvBIG7AdTmNWMe COAnfc0KOUQdUIK6NUIfCwChHTJrHLLoYJpeTSBaDMS4IHr0JZBpJMDwVT2RQlDoXORwDDJwAzqmODRk LFWvcr2GGLYwOAN7SIC8SiZsMKCnLWBsIPzmBKRhVH G3Udv4MHNfNBFoVT8XYaJsHGKnDFqaUgTwONRdQGRyqy2KCEXwEGY1PgFpCSTeTQWdBSCoPZtnDOHzAF P6ICipNJQgGOUlEB1ANbQuORGrKHs5LkAaWPCtAAGlle5EDDMbUFX4WTM1MCTdBBHwUXSkUZbyBIVrQO V5BTMkHMVrIWSoJQ9TElDaCGGoHXnnRkRaRIAkMVGu fd9DGLJhTFV5ROt7WpYkOBHnDZQuMZrvGYQhTNHlQVM2GRKfISFwHA0JThWnAIFuRjViLcVsJSYsFPOu rz7QNHEsSDR9TGr9XFZwWXOeQYOkKFwqWOYgKANfJiq6KTRuRQOaOG0ZKrGzWQDsVnFyTLugQNJjZYBx tu9MAEJsWIE8LfR2FAQfTLWkGKAdELwcSTRfUNRdHu y8QKUfFDMrVD0QZvUnVSYdYwA7MpDhEKDtBSJils8GUYPrOAB2IbH8RRSfQZEdTDZtUBmxCBOhORPxTi B8UYWdVLTkXC9AXwEwFKDwEkL5YWtvBZKwLZPqgt3SUFQgJTB6QsE4ZJCbZQCoZSDpHEdkFYAdAJEuXs J3EFCkTUDoXS0NYeNfMRNtBlH5BYowMUQbILPdtc4K UYDmWIG6LDDdHlSzIWStCZJpPManQZUqVKE4Fqo9WMKfEOWvNS4YNqHoMPacCQAGDdm6TWmcN7h7WDQ5 Vh6JX3Kae7NnBcWmBIHYWWeyDT9rwzNeINBjGz2GT5jOSkziPLeuYWGgDSt5XirsZcV9VxB2XHqnOZX6 FOA7DRtnTi2uRRCtWfUeG8A1OBz5CGLdQiDhWuOaH0 Y2PmUnFtK2HZF6JeTaJF8AIw2QZzP9CQZ5qCYbUf7SXuB9AldEKwHeHB9RQLk= ID Date Data Source [id number] 06/08/2020 06:01:10 PM EDT [facility] Name Value Range Interpretation Code Description Data Danuta rce(s) Supporting Document(s) Discharge Summary [facility] TPBVTx0wKpVTDiFi04/OCDtfWUXsp5WoSZyeSCv4SWzbTHYxQ7UgSJN5fH4kBUP2VInRBdUhFpItKZD5 lbm [file] BLr8mn+lqU/F2ou9fXWzeqdhznR4iqhfyLt+ [file] DQogICAgICAgICAgICAgICAgICAgICAgICAgICAgICAgICAgICAgICAgICAgICAgICAgICAgICAgICAg ICAgICAgICAgICAgICAgICAgICAgICAgICAgICAgIC AgICAgICAgICAgDQogICAgICAgICAgICAgICAgICAgICAgICAgICAgICAgICAgICAgICAgICAgICAgIC AgICAgICAgICAgICAgICAgICAgICAgICAgICAgICAgICAgICAgICAgICAgICAgICAgICAgDQogICAgIC AgICAgICAgICAgICAgICAgICAgICAgICAgICAgICAg ICAgICAgICAgICAgICAgICAgICAgICAgICAgICAgICAgICAgICAgICAgICAgICAgICAgICAgICAgICAg ICAgDQogICAgICAgICAgICAgICAgICAgICAgICAgICAgICAgICAgICAgICAgICAgICAgICAgICAgICAg ICAgICAgICAgICAgICAgICAgICAgICAgICAgICAgIC AgICAgICAgICAgICAgDQogICAgICAgICAgICAgICAgICAgICAgICAgICAgICAgICAgICAgICAgICAgIC AgICAgICAgICAgICAgICAgICAgICAgICAgICAgICAgICAgICAgICAgICAgICAgICAgICAgICAgDQogIC AgICAgICAgICAgICAgICAgICAgICAgICAgICAgICAg ICAgICAgICAgICAgICAgICAgICAgICAgICAgICAgICAgICAgICAgICAgICAgICAgICAgICAgICAgICAg ICAgICAgDQogICAgICAgICAgICAgICAgICAgICAgICAgICAgICAgICAgICAgICAgICAgICAgICAgICAg ICAgICAgICAgICAgICAgICAgICAgICAgICAgICAgIC AgICAgICAgICAgICAgICAgDQogICAgICAgICAgICAgICAgICAgICAgICAgICAgICAgICAgICAgICAgIC AgICAgICAgICAgICAgICAgICAgICAgICAgICAgICAgICAgICAgICAgICAgICAgICAgICAgICAgICAgDQ ogICAgICAgICAgICAgICAgICAgICAgICAgICAgICAg ICAgICAgICAgICAgICAgICAgICAgICAgICAgICAgICAgICAgICAgICAgICAgICAgICAgICAgICAgICAg ICAgICAgICAgDQogICAgICAgICAgICAgICAgICAgICAgICAgICAgICAgICAgICAgICAgICAgICAgICAg ICAgICAgICAgICAgICAgICAgICAgICAgICAgICAgIC ZrERIsKZZrRDOsWLNoUJNgVVRkFSc1R3eqAHAcIKSiXQ9sXOm3Bs4+DKuZZtUfNRR8nhEwkZ5NNN3od0 ZuBIxtFIFta0CbZKg2MI8OQXLnUAuhYJ1PXOsntv1PYAWeVADfiGBJf5sdTxJgMIY9ZDVnIwjnXB4LCE OlC0oyrcBpAJUbIPEWVDkdCZJCIItsMWFVFGJnXZFb FuImCfAoPBPqXH6NLNEeA118jmUxPJ3BHy9NAqSvLE8fmn3OHyKkZEJsTbhPTnd6KGziYS1CbXAtvBEb BxFtELFWXtBoE4kms1MpNgqlHCBUAJrlIM0Dw6OmjGKrICu+Au6VPP8yw1WmZWihDkWrZY2nkn6KZHiV EqQeK0XemZzvELJjt7CuVQOqTHYAuG6gJOW5POW3EY Ywm7M2wLPRTZDfyNTxICKcKNZDCfEVZGU7VABfRxH4IiTuXiMwEJE9HDArOY3rEUzqXO5HCTC1RHtzRS WiVAOiI7pBSiEfHADqIkZhrVfwSB0AUtLgH5HvacSytWHiSdLxIIAXFw3+RWracsBwAywJQiM9BBOgo5 LqXEg9WM3XYAItLHcvRB2MLOGmkJ1oNRywNS8XZvEp WJKeDDWQEqBoL16zlEJrZOr8T1WyRfEmTXZhDxqwKNWiPDliXpRiKTPfDtElYBzdLY4+ID4+GCyoBU5Q CSncmpUsNSSkVj1EDUCjHDXxUC8kJHXcNESbA7B4xTreEGZBJjOrW1rckstqEN1qNUYwJ792nWniopLi SOC5TSWpHt0VCPMnARW5ENRxyYZjJgRcABZSYMibPU 6AuJDiDED9eB3nZLlwAGDvJLRkA8rSFuCexLdnPT34kYstcmPwiTZqNJg+Za9WMM5hv1BeKZq6orXmHN waVUV2DUsrUOCzRPZyKTOyCJB8MTV9IGOSPtOsROPbWMWdOWhnZGWwCHQgje0YCEIaQRM0DXChHuGrHJ GkUEQcUErwFSKhYXF5DnfyNBVrVFDuBF3QWpZiZCBr UFZgBBtgBFUgKHAazl7RBQAnETSfGrG4ZEOfLTLsHKAsBWxzPJIiYLEwAvE3QRNgJXSgQA4NAhSjZKBz TRoiGJYlABIeEZTmmm6HFBGwFJEwXrZrHNYlRFXsOHFyZClyKKJbGITcExG0SYNrSNBoEX8NXmDaLRMa KGZ2IJNzMKZmVDAiwy4AGMHuWTEvYFW3VgGmVKZoFU FoLYtqGCIpMUM3TlYtFHDvAWVnLB9MJwIaNHAaSUK2ZzCcNIHrMKDrop5AORMdGANnNalyEqYwZJJyGB JtPQoyGDKyHCN4ZCg1IXPsEKCnGH9HIsYyTTEuCSxlUJScSUDnHTCxdg1FMJDdBOXjKWK7UaMiYFMsWB FcQQwuPGVrWKN2VcU5MISpFXZuZY6IKjQgXADnEZn5 YlvcEMCaXTGlkj1DLNYtESMwNKBfUeDlUYZzPNPoYWpaTOEzPPHwBMo2PDHxBVLjRU5LPaDxAYJdYlE0 KDvoLDCmTURwah3OBTXqGPLuHXm8GAPoRTJsDVKaGNrnXFVbYCIpECU1KBGkEIZnQZ4MRuNvGRWdBqUg JhZpEYDbQIDzkw0DTDDzIJTwHqNuYDPoPHMpHGAmKJ aiPTTqEYTfKof4PFBjRJHaEJ4WYmGoIZPaVgZ8ZizlJRGgBMBvyr1RUJVnLLOsUhK4WWFgFGMfXRKhVA xzDAAhQEEvCzbbCNGkHKNkPW7CIaCmBXCqMRStGLCcRKJuGMIaga8CSYItMKE2HdI8XiGdFABwCOVnEA qjHIBtXNJ5GmK1BLPnJBVzSM2VRhWuLRQiWUS8WDGs MQJbKFBzub8DAAFxRBM5VMgwCYHoQUTlGBGwJHklLRMjLNE7Eag5IZFyUKCxQA2KNuBqRUDjUAP4MsDw SIIaOIGsos0SDYZmRKU1DwWgScHmSBFiJYJnZGb2ipCvyMTgNHg4ZP9EI6VkjjToNbiUFg3Bs570ZJM3 UHKbRg8GH8gkHt5wVNHtXKLWZa6EHTr6QgCrAOf4P4 TyNGDpIWJeZOLiPNTdVXNzOiX0N4B7EFp+AJn0CZA8LdImEzOaOgQ2ErA2EiV0QzKeLxT1TGc1OTT2NO 7kWARXMp4+[id number] ID Date Data Source [id number] 06/07/2020 04:38:36 AM EDT [facility] Name Value Range Interpretation Code Description Data Danuta rce(s) Supporting Document(s) Prothrombin time (PT) 17.4 s 12.5-14.9 [facility] INR in Platelet poor plasma by Coagulation assay 1.40 [facility] Routine intensity oral anticoagulation I NR is typically 2.0-3.0. Target INR must be clinically individualized. ID Date Data Source [id number] 06/07/2020 04:47:24 AM EDT [facility] Name Value Range Interpretation Code Description Data Danuta rce(s) Supporting Document(s) Magnesium [Mass/volume] in Serum or Plasma 1.6 mg/dL 1.6-2.4 [facility] ID Date Data Source [id number] 06/07/2020 04:47:24 AM [facility] Name Value Range Interpretation Code Description Data Danuta rce(s) Supporting Document(s) Phosphate [Mass/volume] in Serum or Plasma 2.6 mg/dL 2.5-4.5 [facility] ID Date Data Source [id number] 06/07/2020 09:34:15 AM [facility] Name Value Range Interpretation Code Description Data Danuta rce(s) Supporting Document(s) Bicarbonate [Moles/volume] in Serum 21 mmol/L 22-29 L [facility] Chloride [Moles/volume] in Serum or Plasma 94 mmol/L 98-107 [facility] Creatinine [Mass/volume] in Serum or Plasma 0.62 mg/dL 0.70-1.20 [facility] Glucose [Mass/volume] in Serum or Plasma 95 mg/dL 70-140 [facility] Potassium [Moles/volume] in Serum or Plasma 4.4 mmol/L 3.4-5.1 [facility] Sodium [Moles/volume] in Serum or Plasma 123 mmol/L 136-145 [facility] Urea nitrogen [Mass/volume] in Serum or Plasma 7 mg/dL 8-23 [facility] Anion gap 3 in Serum or Plasma 8 mmol/L 8-15 [facility] Osmolality of Serum or Plasma by calculation 254 mosm/kg 275-300 [facility] Creatinine/Urea nitrogen [Mass Ratio] in Serum or Plasma 11 [facility] Calcium [Mass/volume] in Serum or Plasma 7.8 mg/dL 8.8-10.2 [facility] Glomerular filtration rate/1.73 sq M pre dicted among non-blacks [Volume Rate/Area] in Serum or Plasma by Creatinine-based formula (MDRD) >6 0 [facility] Glomerular filtration rate/1.73 sq M pre dicted among blacks [Volume Rate/Area] in Serum or Plasma by Creatinine-based formula (MDRD) >60 [facility] ID Date Data Source [id number] 06/07/2020 04:37:58 AM [facility] Name Value Range Interpretation Code Description Data Danuta rce(s) Supporting Document(s) Calcium.ionized [Moles/volume] in Arterial blood 1.12 mmol/L 1.13-1.3 2 L [facility] ID Date Data Source [id number] 06/06/2020 06:45:12 PM [facility] Name Value Range Interpretation Code Description Data Danuta rce(s) Supporting Document(s) Bicarbonate [Moles/volume] in Serum 22 mmol/L 22-29 [facility] Chloride [Moles/volume] in Serum or Plasma 93 mmol/L 98-107 [facility] Creatinine [Mass/volume] in Serum or Plasma 0.69 mg/dL 0.70-1.20 [facility] Glucose [Mass/volume] in Serum or Plasma 121 mg/dL 70-140 [facility] Potassium [Moles/volume] in Serum or Plasma 4.2 mmol/L 3.4-5.1 [facility] Hemolyzed Sodium [Moles/volume] in Serum or Plasma 124 mmol/L 136-145 [facility] Urea nitrogen [Mass/volume] in Serum or Plasma 6 mg/dL 8-23 [facility] Anion gap 3 in Serum or Plasma 9 mmol/L 8-15 [facility] Osmolality of Serum or Plasma by calculation 257 mosm/kg 275-300 [facility] Creatinine/Urea nitrogen [Mass Ratio] in Serum or Plasma 9 [facility] Calcium [Mass/volume] in Serum or Plasma 7.8 mg/dL 8.8-10.2 [facility] Glomerular filtration rate/1.73 sq M pre dicted among non-blacks [Volume Rate/Area] in Serum or Plasma by Creatinine-based formula (MDRD) >6 0 [facility] Glomerular filtration rate/1.73 sq M pre dicted among blacks [Volume Rate/Area] in Serum or Plasma by Creatinine-based formula (MDRD) >60 [facility] ID Date Data Source [id number] 06/06/2020 05:11:35 AM [facility] Name Value Range Interpretation Code Description Data Danuta rce(s) Supporting Document(s) Leukocytes [#/volume] in Blood by Automated count 9.6 10*3/uL 4-10 [facility] Erythrocytes [#/volume] in Blood by Automated count 2.29 10*6/uL 4.6- 6.1 [facility] Hemoglobin [Mass/volume] in Blood 8.1 g/dL 13.5-18 L [facility] Hematocrit [Volume Fraction] of Blood by Automated count 22.8 % 4 1-53 [facility] Erythrocyte mean corpuscular volume [Entitic volume] b y Automated count 100.0 fL 80-96 [facility] Erythrocyte mean corpuscular hemoglobin [Entitic mass] by Automated count 35.5 pg 27-33 [facility] Erythrocyte mean corpuscular hemoglobin concentration [Mass/volume] by Automated count 35.5 g/dL 32.0-36.0 [facility] Erythrocyte distribution width [Ratio] by Automated count 16.3 % 11.5-14.5 [facility] Platelets [#/volume] in Blood by Automated count 135 10*3/uL 150-400 [facility] ID Date Data Source [id number] 06/06/2020 05:18:11 AM [facility] Name Value Range Interpretation Code Description Data Danuta rce(s) Supporting Document(s) Prothrombin time (PT) 16.9 s 12.5-14.9 [facility] INR in Platelet poor plasma by Coagulation assay 1.35 [facility] Routine intensity oral anticoagulation I NR is typically 2.0-3.0. Target INR must be clinically individualized. ID Date Data Source [id number] 06/06/2020 05:28:[address] [facility] Value Range Interpretation Code Description Data Danuta rce(s) Supporting Document(s) Albumin [Mass/volume] in Serum or Plasma by Bromocresol green (BCG) dye binding method 3.4 g/dL 3.5-5.2 L [facility] Bilirubin.total [Mass/volume] in Serum or Plasma 1.1 mg/dL <1.2 [facility] Bilirubin.direct [Mass/volume] in Serum or Plasma 0.2 mg/dL <0.3 [facility] Hemolyzed Alkaline phosphatase [Enzymatic activity/volume] in Serum or Plasma 48 U/L 40-129 [facility] Aspartate aminotransferase [Enzymatic activity/volume] in Serum or Plasma 29 U/L <40 [facility] Hemolyzed Alanine aminotransferase [Enzymatic activity/volume] in Seru m or Plasma 16 U/L <41 [facility] Hemolyzed Protein [Mass/volume] in Serum or Plasma 6.2 g/dL 6.4-8.3 [facility] ID Date Data Source [id number] 06/06/2020 05:28:23 AM [facility] Name Value Range Interpretation Code Description Data Danuta rce(s) Supporting Document(s) Phosphate [Mass/volume] in Serum or Plasma 2.5 mg/dL 2.5-4.5 [facility] ID Date Data Source [id number] 06/06/2020 05:28:[address] [facility] Value Range Interpretation Code Description Data Danuta rce(s) Supporting Document(s) Magnesium [Mass/volume] in Serum or Plasma 2.1 mg/dL 1.6-2.4 [facility] ID Date Data Source [id number] 06/06/2020 05:03:[address] [facility] Value Range Interpretation Code Description Data Danuta rce(s) Supporting Document(s) Calcium.ionized [Moles/volume] in Arterial blood 1.05 mmol/L 1.13-1.3 2 L [facility] ID Date Data Source [id number] 06/06/2020 01:14:[address] [facility] Value Range Interpretation Code Description Data Danuta rce(s) Supporting Document(s) Albumin [Mass/volume] in Serum or Plasma by Bromocresol green (BCG) dye binding method 3.4 g[facility] Bil[facility].total [Mass/volume] in Serum or Plasma 1.1 mg/dL <1.2 [facility] Bilirubin.direct [Mass/volume] in Serum or Plasma 0.3 mg/dL <0.3 H [facility] Alkaline phosphatase [Enzymatic activity/volume] in Serum or Plasma 49 U/L 40-129 [facility] Aspartate aminotransferase [Enzymatic activity/volume] in Serum or Plasma 21 U/L <40 [facility] Alanine aminotransferase [Enzymatic activity/volume] in Seru m or Plasma 14 U/L <41 [facility] Protein [Mass/volume] in Serum or Plasma 5.6 g/dL 6.4-8.3 L [facility] ID Date Data Source [id number] 06/06/2020 01:14:[address] [facility] Value Range Interpretation Code Description Data Danuta rce(s) Supporting Document(s) Phosphate [Mass/volume] in Serum or Plasma 2.5 mg/dL 2.5-4.5 [facility] ID Date Data Source [id number] 06/06/2020 01:14:[address] [facility] Value Range Interpretation Code Description Data Danuta rce(s) Supporting Document(s) Bicarbonate [Moles/volume] in Serum 23 mmol/L 22-29 [facility] Chloride [Moles/volume] in Serum or Plasma 93 mmol/L 98-107 L [facility] Creatinine [Mass/volume] in Serum or Plasma 0.58 mg/dL 0.70-1.20 L [facility] Glucose [Mass/volume] in Serum or Plasma 106 mg/dL 70-140 [facility] Potassium [Moles/volume] in Serum or Plasma 4.1 mmol/L 3.4-5.1 [facility] Sodium [Moles/volume] in Serum or Plasma 123 mmol/L 136-145 L [facility] Urea nitrogen [Mass/volume] in Serum or Plasma 5 mg/dL 8-23 L [facility] Anion gap 3 in Serum or Plasma 7 mmol/L 8-15 L [facility] Osmolality of Serum or Plasma by calculation 254 mosm/kg 275-300 L [facility] Creatinine/Urea nitrogen [Mass Ratio] in Serum or Plasma 9 [facility] Calcium [Mass/volume] in Serum or Plasma 7.7 mg/dL 8.8-10.2 L [facility] Glomerular filtration rate/1.73 sq M pre dicted among non-blacks [Volume Rate/Area] in Serum or Plasma by Creatinine-based formula (MDRD) >6 0 [facility] Glomerular filtration rate/1.73 sq M pre dicted among blacks [Volume Rate/Area] in Serum or Plasma by Creatinine-based formula (MDRD) >60 [facility] ID Date Data Source [id number] 06/06/2020 01:14:57 AM [facility] Name Value Range Interpretation Code Description Data Danuta rce(s) Supporting Document(s) Magnesium [Mass/volume] in Serum or Plasma 1.6 mg/dL 1.6-2.4 [facility] ID Date Data Source [id number] 06/06/2020 12:53:[address] [facility] Value Range Interpretation Code Description Data Danuta rce(s) Supporting Document(s) Calcium.ionized [Moles/volume] in Arterial blood 1.07 mmol/L 1.13-1.3 2 [facility] ID Date Data Source [id number] 06/05/2020 05:25:29 PM [facility] Name Value Range Interpretation Code Description Data Danuta rce(s) Supporting Document(s) Bicarbonate [Moles/volume] in Serum 22 mmol/L 22-29 [facility] Chloride [Moles/volume] in Serum or Plasma 95 mmol/L 98-107 L [facility] Creatinine [Mass/volume] in Serum or Plasma 0.59 mg/dL 0.70-1.20 [facility] Glucose [Mass/volume] in Serum or Plasma 105 mg/dL 70-140 [facility] Potassium [Moles/volume] in Serum or Plasma 3.8 mmol/L 3.4-5.1 [facility] Sodium [Moles/volume] in Serum or Plasma 127 mmol/L 136-145 [facility] Urea nitrogen [Mass/volume] in Serum or Plasma 5 mg/dL 8-23 [facility] Anion gap 3 in Serum or Plasma 10 mmol/L 8-15 [facility] Osmolality of Serum or Plasma by calculation 261 mosm/kg 275-300 [facility] Creatinine/Urea nitrogen [Mass Ratio] in Serum or Plasma 8 [facility] Calcium [Mass/volume] in Serum or Plasma 8.0 mg/dL 8.8-10.2 [facility] Glomerular filtration rate/1.73 sq M pre dicted among non-blacks [Volume Rate/Area] in Serum or Plasma by Creatinine-based formula (MDRD) >6 0 [facility] Glomerular filtration rate/1.73 sq M pre dicted among blacks [Volume Rate/Area] in Serum or Plasma by Creatinine-based formula (MDRD) >60 [facility] ID Date Data Source [id number] 06/05/2020 06:42:[address] [facility] Value Range Interpretation Code Description Data Danuta rce(s) Supporting Document(s) Magnesium [Mass/volume] in Serum or Plasma 1.6 mg/dL 1.6-2.4 [facility] ID Date Data Source [id number] 06/05/2020 06:42:[address] [facility] Value Range Interpretation Code Description Data Danuta rce(s) Supporting Document(s) Phosphate [Mass/volume] in Serum or Plasma 2.7 mg/dL 2.5-4.5 [facility] ID Date Data Source [id number] 06/05/2020 01:28:13 PM EDT [facility] Name Value Range Interpretation Code Description Data Danuta rce(s) Supporting Document(s) Consultation [facility] [id number]/[id number]W4cE7xUAV9CFkWGsXeMmBiVWHg lbm [file] [id number] ID Date Data Source [id number] 06/05/2020 10:07:[address] [facility] Name Value Range Interpretation Code Description Data Danuta rce(s) Supporting Document(s) [facility] [id number]T6ChOWIfQTHTYP8BfODx jb2 [file] pAkl1NdXkEwU+z3/cy+7X/j6//nxzSvazF6N++y+[employer] HE[employer] pP/0Xf7+vfW/dr9/vd6NQtgirD1rn+JrKx20O/H8jEdP+v0hrCTX75IfdrcxZCjM/aPnz/i1EJ/X0TfG j1I5ylD16Rxth+PasjveLb/h4Eb2Uxyg+cTzGH+jDRh/F/RdR9+zaW7SmfsmZ1+88t4t15vR+9433ry9 ++1fu99+tMftX/wyf2kOcsUxkOJ3kwqXvkt++uZv5h 7g2pS3X409yz/3+TlDnuWcI+RZ/jlBnrqfA+Rpk3N+PG11jo+nDc/y3XyD66Mcy61pC/lP6vl6F6Zvm4 4U25ojyqDoqR6thIl9wQSn/H2+46d2Xyv/eQ+/etNvnDynxZ+8Im8/PWfFbxq/6ijrf8T2rEV/2nz41Z S7ok1pmH/fdh5+9aSh7+MPQ92D3pnyo+d0+P4g02hh 2gvtcZ86qqc5s9+cJKkRl7CuFAugEK5O9sX2xJCD00Ze0DgA+fv0anrT90/wLMveH4xgaFs9d2pxkyjG tH7xNmX5/Op5Lq//h5Ejx118cuy6RRH++CaBE2h6h1v/F893yG4ZFi/83qfaI02+0Z47/sgew0fe+977 llwu5Yk08bm50zekq7EhyFEkgY9H3Vz83vC3iqo3+N Wbxu/rvbOizUqO2SOFQ0QrRycp4ule0x7fKfB+c5j4baaNzeMqxywtlPFTl6/9ztadoilXrzOcveiXU6 5w+Ps24u8udLXxR+bO37R6ew4yffbPgqvTp/7pO0ec/o8dV2AcK6+K+bd24d1o/cu5lKi93rmdbzB8/C aHkLoqM84Y7Y9fT2N900fDyg9+1Z9z3b/qp6ydi9np 85++G6ucRR99ue14/SUvCkQp6RlB445i4L4Vxc4/ivnjOcCd4+85v/8079Ij0e824g/hV+kbh1+lPxx+ tcImh1+18fu27Me2s6hieO9mf55iwc2Hpf/nesuZeus9/So4kP26eZOfahPi5M4U/hrky6DcDsceY5n1 ifbM42/ACzfibz8egtI7NFnpgg/wq/Srw6/Srw6/et Jy/iWua6c2rt7k/fIlBb/S4Fdhh+BXlumrb/OtuVMEgqdPCK5Mw2nez5388XoWmCr9eUkZcqJ7gj7mi9 Joni+gV40O4pu51Vy8k+FXmPfxq5+lnueUffhUc+diHtfIaZUxg52s+v55yc8DFq+BKyv1fjazlP01hez abdjx3/P7o+8EioFU0Czo9aRDB8+/62b9b9ZNGg+f7 hZX8DOD0/I1eATuc9+E516c1Z/ei0Zbas4cZBB0014Ak0pv5pV++WebRN+sl2Gy8JtR0yQxCqRcIj+cW 5W883/j76y50Lm7Lkm1h7OhozGfi2zbyxdmh2l8li3f733H75VguB22mnC/LnQ/95EaIr0sfprwJPivd TqbKennXOVad/aKDX/KgOjfIzB02vHe/XpXK8wl/6s Be2e2JblsnecmCawkgmZ9fzRD4epByu1M2LQzi1/tHK00O1w/4VuWwTFNg4rTsvW5U+89uJwkN9Em2Iu pZbnvt8iIek8rjx2/69RqU6s9+puP3A+ReeaLXmeu7LG7+9vTkbJE9hjBIgs+0Z6Od+a7ips8Th27K5e D3D55dcEpdd/7bg1/Fuwh+mszmhx7g/ZdrG3tPbsCD Hn/5cA9+weU5N1p+4OY0Cw1j7/P8Uw4u4OZ+UAtvxPSl4S7Yws3V36+V7RpT024vEl/xfg3v9/CrtK3d +e85C/02E5fioL31x34zD9H+/Dskt014fdHaXZ/cjqaW2p/6ZI/1qyd9y/p7JiyGh260a/VG8eRAJ26q wdd3h3Plg/OJ39/5Qg9+Fe89+FW8R7/z/e53vt/nnS +g678mRq5vx5i+2AKzYD4Gr34ijrP2i+4ZTyhPSk6J6RvUxoqMgoD/MfNqBI5Tt7Z2Ced8Rky2Aun1Fs f8Arh9BE+TEfj4Am0F+wS/CpuvO98/P4kfs5T72KXC+961x4trC/079zr4xhyz4JB+OzjC8MnAMHw/3/ lXj/NfPYd55OJHk+b061sGl/HjfP6Oe+oGh0zq7Oxt 93c+2LehXrtxbF/+5ZB1FeJzfnAlwbOCrQRu0eROtIo07skzeKc97FziaXNjc2H1r0+cA7pn/crPezwH zh1FtUq9d3m80jrB6yE5ca3tPY83fs/mR3m6+Kfv8+fAf/r2GfX+9E4mEvor7yRf8u02l7E0y+849j+H aV3joByRC+M00Fm/4edWhV000v0NC8W82Se+NfNA8u 73fNh4nwVfe1/Oux5y+pRWcuKYreLW66fy4xoD/GpF+lIpMqkv22a/ZQS/inSQ4kht3/nCkIXn++XV5z Stc7B3zaxzd4yG0i7/eisKA3BWc1/FvGDE+mO7qn48rFBdN3malvF5rmU06OjhAeA+rfrf0Pn/B9avht 00iSY7s0n87Mjlslu+MmJ/ACb66L0Zvgaif920cO01 OvSN/yMW9l2u3jvc7iD17/h96fi1i0cH/qBm+eILd7Ag4UssZ/2u141+97Lpt88uAZ/Y6GgrY28P761E BlxKCcgLawWBN4f7+2MsWE86/Q3Kn8Vc+p3Pryvu166/l3XQbeJcrbkIefaN+l6nO6Ru4o/GuHxyjMsn h10+MfHjsm632uY4/G5Va798iN/wqzNejOBXoWPwqx TDq4018wNOy9t5M54qrt/cGsJgT21nx2/bFg8M94ZRs4/p4Yzt5/VuvhMQ6tWX2krs9Eb+63Uj+FX+/q 1ztSJTpl862rD98DjOOYV6KvT0wf/9gBQ5mgBXK2U89ihP651vr/1qzDs/RhEiIb49Whyh823yyfxFrC UCVv20byqKE066h66xE73aE+8X/GrMu/79yz38fDdD P0/03+XR6VkMhvQ34tt5zEuzY/Ks9YqkG9xRRHy78lkzo/y7/jxi/Ag5pcAyH97ch100QZ/W5GGmul9F 3wV9F/wj9elI7j8bDs0oozz1vu/GvvuhI/sSNEpl5h/El2PBqn654vwogx6yv2u9W+3x12NfOAxwnb18 X3i+2gteV7bJB4r2qZVmv0Wm+tXLYn/wSb/tNOwPGv VSQmuI8zzbU5+2dt+vtTv/giJ6UcW07jp1fwasQ5g6c/3h8yntfW3/mjQ8v/Mjk+vIBp3a3Fk/45dhf9 IphoMAZ62Waxf7xk2VkYn5r9oa3ZHlES/tCnoc0RwZ5c/Uec769q9dPN/6RBs9LkR+oGF/0LA/aKoop+ P3/bZf7/vsvj7wSB6hEQg+jgfog9rqxlV9O2Qmcqj6 g+GTsT+S4fbRnwu/Wr/jr/U7/loXPBf8/s6MJbOBOhiHja4Xp/Wr+M1dr7N+28LqT385jaglTeinlQ0/ Z7B+x1/rG/Wi/o9327G+O+73hDbu+OeL8wp17bvKz/Ayagr565aYhaq/HWjoby3fQJHRu+tV9fZ4EgwL 7YepksX5g+ishF2lOzTq2dswSVi1+2X3LG5+E3iO4v zemLomh0MvPB398x7Ui+0QS3yUf0TAl71vyl1Wa//dH8xk9tugI+dcY0bE2JtHVjoonlATczF+4JlHGN avLL6/mu/I77tAl6/9nmcx6oI2dpoZ3e19j0T2d/V27ByyH5u0n19/yol6z/ni9en6t8/gHLnN+d05cZ ik7EeXgt04ltes20fqwD5M5/1ZF44V34c/xfX3na5c GazgEX4v/IcC42596Vu/O6buhS8o/wqzkj6tuED8l9F4bd0Jt8ddb5GEyzrfqM83ccS9xtr3HepzjlNK 6Wbaz3AtdxuokijksEonY1ASQ+muA37LbTp/P7kadqtJL03/y21369uwLl/6Tor41Ttc6M8Tt2Snci/X /E0R3t4auBv9TTw85bFte0vFbOUIcfmn3yk8V3enpp 6ox17dsl9TL9H4+qXrt22lEUwwzN83f76n/cz73mjBlkI/S68QUr8T/v88G2a2hDyM8Bh+4Wjw4i02JA O/xw7H408Z5220X8ww6zbS34wC/JwQc0e4XyBnU1c5fdpzal8oae1UgFV1bkjw7TwV1gfsg3uQwjq19J 78KtP4/wIFLp1yqeT4l5+3+2099plytf5ruh70C+dM yVo7HIv37ptD5/5Qj02EngQon71Fg4j7VVTpzr0/bc9+wor67wd3g+OLI7c736OA2rpFi8/lc0N7/Lbz 8RvunYfpP8x//uzBr+IvOwa/BloPh2t15Dxd/fYvx/8kR56rLf4glwuIk0rklep5k1m8n4mfmntG786k Jsqf+H0T4bltpps/bII97ClrW04R5917p1gi/TLvd/ 7rwa+e9LUb+JXn/mCk4c+9Hkgov8QH76w7l//5fequ2z/24upiD44S98A/V/Rj78JEx4iEoI95/f1+ww o4SmrHtq+yRkph3OqaCri57BcNc798pwMp+uAN5X9TjMzf50xdMj24xi2wV+h2x1+N3bnffn6UUeB3ae j93V/lYD3w0Tg1G0MlPihEf3uYdl3FKc6wkzklpHvE 3N380P131tlm+4Oe+4Maabtpub+E00sxmMbz+O6yY0SjU6e2218/Jxj98gyL0+547S5VJr0Qk846ci/7 [file] pAPv7Lr1BomeM1fgPyHhr2OGX5IeAzQD1Q ID Date Data Source [id number] 06/05/2020 10:07:[address] 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//hf/2iKe/sT [file] T99r6y8n67C2/jJ52Ox3B6JtFIawn+s2pqH2d2/X99 ++r7D+++/Qo/9BKn+ctvvvqirrs+2jNmjj08ce9F+8D8U959we/rwDhVR4O/prison//xq5Fn7/w28+/O7t N7/+4dO7T+/fvnv/7Lgwjgv66Evyknpa+48/gIAdp05NF1+9vX38/jefvvnw/u3j+08fv3n/23ff/qw1 tzN7n+9nO8q0qokd+JW++fCbH94+ld85F77/91d+dn +AvZUf/v79x+9/7x5zth1+esIzatr16gogtr/w9s//9qlcOp6/6u11+P3Ht1+9//vvP75//fnT3n/+27 9y2hLt/PD9hx9+/f7Lb/7+my/efit85q9HL4+c4n3u1M/ut8682KzhE8332lzKw9/+78417/77X79/99 /fn7/56c71l8/71etP3/Slv7250/Gbdx8+qV929vZT 7z+9ffzNt+/fXjZ7+/p3v37/8b+/+/b9d9+8+sbyu90U++ZrCo6bv/kPf+Vndze/f/ZPX7//8Pbl99/9 +o8E72017aqsdh6/5M66s1zP2ib0goJ/+vPTeFFameLth2/+4cNtCr/nr999+If3f+X3t3tz//7LP//p 337/lz/+9K9v/+N/v/3293/4w49/+ctPP/7h1WF//N Pvf/mM77iM5n5/+/enC368/S9L/jAs7iqscr//6b589802qabZ9ga1/sc//yYfidI3HeAoqaZ//C3wul 1r5KA72+v/D6BHdA+4/+14G69iaePUq8OikqQmEiiodR4Y8y1qz3eL1+xP71b6he0xZh2Nt//g40//9t TEGxq1hdp4+2/vfvjufnd+eHW5r3/zWWvrZ3+WZv7V /Rrq5JQ0/3Tc6gAR+pSunGCyGYBd8vYH++yd/O1Pf/qXi6s6h6//0jFvQ0258s2X1Qv+0R/2aWzbZCv1 27Rr0Oqc433/p//46S//73+6eZ3+1ESsls34UOY6+ekP+D2mo2y86//5uvnf//lPPz+/56x02lb2sui4 x0+//MdP/5ONiV0YAth6hx7JlthNs7cJI1Bo+8z0L0 8lkU5CVkHNt+Kum4MdG//i4y8+qw05j3488//80rlA8be/+G+/+bDO18e4byXseb///stn49/nT+K7H/ /n2QErx8Hm/vg//+XHf//9j3/42b7sI0/x+5+Bj5E+/vnPf/zi9qcT5eApgWX6++d/+LBusjueA9tKNC 799C//959+/y+vW/qwOvOBlp9sn754qi/++3+8+tW/ nsWn6Hnk/+7Ldx+/+ozp1Rx1B+NN+/01047/+PTDF/ys3h/r//NN7xCR9nAH+3/2t241T33//tk0PaKh EmltnXF82i19UTpje/nzlgnWn63jlBhyt//xq/wnC7X6nfYkJ/fdl19+/5sPr9++itS5AhitXpos//9R WRB2WfTrPRJ2urThfUxoseKzClsYHZoqBCEcNib6EH 9EgOLnSBGtD7T8STBqna7cHEYpCYYidFRnTmNbRUCINK9EsSQkSM2LVMo3ZLVgCBRlAyTfTFDfdpV8VW CyOPVlUDPsU7UsxdChfAQkYEZiIp9+KS6jl8JpWoKuNLTzZje2FA0QvYAlUE2YqGJpcP6txoJbX030wn LqJXJuRazyi9UgBEgyNYLMMZ1RRUC5ZJJ5BQYbHq4+ VL6rd7HlDfFaPCKwHrs7OM1IrKVzm5GjZY3QC6DcKKGeJPCOMKA0v9RcZKJaunaobgxtO1YrJSQ7sP8s JWF6NBKgZWadNOZmCAXaPxSpNOcfTMyfDSBjAVRmXLAmYDWtYIi0jNEaOZ8DI2YiNLXpRXNPMDPsedIz Sk4uRU0SDeDCRmLZHSHUX85IRWFpWzs9MrB2RuxsD7 U9HruvZ2NvNG1IG1EyLXRkGWMVFIPkxpCqRN0FvlLbrY9xFAgWNKAETPjVVZlsUlS4e74ubbQKPUSaUW LyJMswLARtOHEpIOZuSPXsYWOrNQMpXDMgQM8DK3AoVKUlFQVVIHN9r9WnGJQwmouxojgvJs0tjfXgYq o+DnomPTDaf9JyZIdrG9A7wBMfT3KgN0SzOZ8EbKFq SPcoORJjFHZvSDAfI770enNqBE1+EU6bg1LnPfzhIKXDAEBtLSReIDDjJMC8ItViMZMvGXCyFILbWmO0 IjLkVoLQWWRiYTV7NQN9NeDdVTYsHESkSWulMBUkVCU1AmG4CSTvTAZoRO0qNjTvKFDrFsjwTMYqYHCc FHZvpmKKZTJpBMDeFXHgYNR7YSJnVLTtAVueVENzKG YyYRL0RHGzBPVdXR4wMvRfUHOpRVPxInwpNLHeXWEsrgSDSWOkNIAgMWE3JkByWFYtQUStPEduSIMdMX IsFmx1TOPtDYPrGQ1eJlXgMUUvKGU9ECuaTQJhUGFfriPYSPCdRKSwVGJxYvJaEKYyMOLdUJpbELGiMP JpSdPzSFUlTXXhWV9iNoZaLLBuILZ8JUVtIPPfKQLg skPGNDTtCMWnKNy0TGBrBMGdCEIeVZqhVJOzZXFtXXH9CYOfAKXkSS6xGoVqHMHhCBJnBXJmKCJmFZNh isPRQAIpBYXrTQB0NPLpVWGbYXWcYNryPDAhYECaGyz8RZWuMMFrHC3bVkLdOGVbKZS1RBDmDKLyKSUq ipCUTXPlHYZ5HCBxZCUlMWHhUJEvDWckDNEdZRBfIb O8RJJrTLPhHY7jLqVjJTAqEPR4LeMvLVHmOVGhndINKBExZQBhNDW3EaEtCWNnTNJnPKiyLVJfCIQsQH RkQNG1UMD7AARnIoWzGZhwIISNVWlAW1GrisElFgONE5yoNb5zFpFmJZBQR2Psv0ZwUVOxFJSJAl2+Cn J0HEB4nZTeQsb5HOlcAWjvYUIOUg== ID Date Data Source [id number] [facility]2020 [facility] Value Range Interpretation Code Description Data Danuta rce(s) Supporting Document(s) Bicarbonate [Moles/volume] in Serum 21 mmol/L 22-29 [facility] Chloride [Moles/volume] in Serum or Plasma 94 mmol/L 98-107 [facility] Creatinine [Mass/volume] in Serum or Plasma 0.64 mg/dL 0.70-1.20 L [facility] Glucose [Mass/volume] in Serum or Plasma 157 mg/dL 70-140 [facility] Potassium [Moles/volume] in Serum or Plasma 4.0 mmol/L 3.4-5.1 [facility] Sodium [Moles/volume] in Serum or Plasma 124 mmol/L 136-145 [facility] Urea nitrogen [Mass/volume] in Serum or Plasma 5 mg/dL 8-23 [facility] Anion gap 3 in Serum or Plasma 9 mmol/L 8-15 [facility] Osmolality of Serum or Plasma by calculation 259 mosm/kg 275-300 [facility] Creatinine/Urea nitrogen [Mass Ratio] in Serum or Plasma 8 [facility] Calcium [Mass/volume] in Serum or Plasma 7.6 mg/dL 8.8-10.2 L [facility] Glomerular filtration rate/1.73 sq M pre dicted among non-blacks [Volume Rate/Area] in Serum or Plasma by Creatinine-based formula (MDRD) >6 0 [facility] Glomerular filtration rate/1.73 sq M pre dicted among blacks [Volume Rate/Area] in Serum or Plasma by Creatinine-based formula (MDRD) >60 [facility] ID Date Data Source [id number] 06/05/2020 11:46:45 AM [facility] Name Value Range Interpretation Code Description Data Danuta rce(s) Supporting Document(s) Phosphate [Mass/volume] in Serum or Plasma 2.0 mg/dL 2.5-4.5 [facility] ID Date Data Source [id number] 06/05/2020 04:39:[address] [facility] Value Range Interpretation Code Description Data Danuta rce(s) Supporting Document(s) Leukocytes [#/volume] in Blood by Automated count 9.0 10*3/uL 4-10 [facility] Erythrocytes [#/volume] in Blood by Automated count 2.23 10*6/uL 4.6- 6.1 [facility] Hemoglobin [Mass/volume] in Blood 7.9 g/dL 13.5-18 L [facility] Hematocrit [Volume Fraction] of Blood by Automated count 22.3 % 4 1-53 [facility] Erythrocyte mean corpuscular volume [Entitic volume] b y Automated count 100.2 fL 80-96 [facility] Erythrocyte mean corpuscular hemoglobin [Entitic mass] by Automated count 35.3 pg 27-33 [facility] Erythrocyte mean corpuscular hemoglobin concentration [Mass/volume] by Automated count 35.2 g/dL 32.0-36.0 [facility] Erythrocyte distribution width [Ratio] by Automated count 15.9 % 11.5-14.5 [facility] Platelets [#/volume] in Blood by Automated count 95 10*3/uL 150-400 [facility] ID Date Data Source [id number] 06/05/2020 04:50:[address] [facility] Value Range Interpretation Code Description Data Danuta rce(s) Supporting Document(s) Prothrombin time (PT) 19.4 s 12.5-14.9 [facility] INR in Platelet poor plasma by Coagulation assay 1.61 [facility] Routine intensity oral anticoagulation I NR is typically 2.0-3.0. Target INR must be clinically individualized. ID Date Data Source [id number] 06/05/2020 05:00:[address] [facility] Value Range Interpretation Code Description Data Danuta rce(s) Supporting Document(s) Albumin [Mass/volume] in Serum or Plasma by Bromocresol green (BCG) dye binding method 3.1 g/dL 3.5-5.2 [facility] Bilirubin.total [Mass/volume] in Serum or Plasma 1.1 mg/dL <1.2 [facility] Bilirubin.direct [Mass/volume] in Serum or Plasma 0.3 mg/dL <0.3 [facility] Alkaline phosphatase [Enzymatic activity/volume] in Serum or Plasma 47 U/L 40-129 [facility] Aspartate aminotransferase [Enzymatic activity/volume] in Serum or Plasma 22 U/L <40 [facility] Alanine aminotransferase [Enzymatic activity/volume] in Seru m or Plasma 15 U/L <41 [facility] Protein [Mass/volume] in Serum or Plasma 5.6 g/dL 6.4-8.3 L [facility] ID Date Data Source [id number] 06/05/2020 05:00:22 AM [facility] Name Value Range Interpretation Code Description Data Danuta rce(s) Supporting Document(s) Magnesium [Mass/volume] in Serum or Plasma 1.7 mg/dL 1.6-2.4 [facility] ID Date Data Source [id number] 06/05/2020 05:00:22 AM [facility] Name Value Range Interpretation Code Description Data Danuta rce(s) Supporting Document(s) Bicarbonate [Moles/volume] in Serum 21 mmol/L 22-29 [facility] Chloride [Moles/volume] in Serum or Plasma 93 mmol/L 98-107 [facility] Creatinine [Mass/volume] in Serum or Plasma 0.60 mg/dL 0.70-1.20 [facility] Glucose [Mass/volume] in Serum or Plasma 100 mg/dL 70-140 [facility] Potassium [Moles/volume] in Serum or Plasma 4.2 mmol/L 3.4-5.1 [facility] Sodium [Moles/volume] in Serum or Plasma 122 mmol/L 136-145 [facility] Urea nitrogen [Mass/volume] in Serum or Plasma 6 mg/dL 8-23 [facility] Anion gap 3 in Serum or Plasma 8 mmol/L 8-15 [facility] Osmolality of Serum or Plasma by calculation 252 mosm/kg 275-300 [facility] Creatinine/Urea nitrogen [Mass Ratio] in Serum or Plasma 10 [facility] Calcium [Mass/volume] in Serum or Plasma 8.0 mg/dL 8.8-10.2 [facility] Glomerular filtration rate/1.73 sq M pre dicted among non-blacks [Volume Rate/Area] in Serum or Plasma by Creatinine-based formula (MDRD) >6 0 [facility] Glomerular filtration rate/1.73 sq M pre dicted among blacks [Volume Rate/Area] in Serum or Plasma by Creatinine-based formula (MDRD) >60 [facility] ID Date Data Source [id number] 06/05/2020 05:00:22 AM [facility] Name Value Range Interpretation Code Description Data Danuta rce(s) Supporting Document(s) Phosphate [Mass/volume] in Serum or Plasma 2.7 mg/dL 2.5-4.5 [facility] ID Date Data Source [id number] 06/05/2020 04:34:39 AM [facility] Name Value Range Interpretation Code Description Data Danuta rce(s) Supporting Document(s) Calcium.ionized [Moles/volume] in Arterial blood 1.05 mmol/L 1.13-1.3 2 L [facility] ID Date Data Source [id number] 06/04/2020 10:25:20 PM [facility] Name Value Range Interpretation Code Description Data Danuta rce(s) Supporting Document(s) Bicarbonate [Moles/volume] in Serum 23 mmol/L 22-29 [facility] Chloride [Moles/volume] in Serum or Plasma 92 mmol/L 98-107 [facility] Creatinine [Mass/volume] in Serum or Plasma 0.60 mg/dL 0.70-1.20 [facility] Glucose [Mass/volume] in Serum or Plasma 103 mg/dL 70-140 [facility] Potassium [Moles/volume] in Serum or Plasma 4.3 mmol/L 3.4-5.1 [facility] Sodium [Moles/volume] in Serum or Plasma 122 mmol/L 136-145 [facility] Urea nitrogen [Mass/volume] in Serum or Plasma 7 mg/dL 8-23 [facility] Anion gap 3 in Serum or Plasma 7 mmol/L 8-15 [facility] Osmolality of Serum or Plasma by calculation 252 mosm/kg 275-300 [facility] Creatinine/Urea nitrogen [Mass Ratio] in Serum or Plasma 12 [facility] Calcium [Mass/volume] in Serum or Plasma 7.5 mg/dL 8.8-10.2 L [facility] Glomerular filtration rate/1.73 sq M pre dicted among non-blacks [Volume Rate/Area] in Serum or Plasma by Creatinine-based formula (MDRD) >6 0 [facility] Glomerular filtration rate/1.73 sq M pre dicted among blacks [Volume Rate/Area] in Serum or Plasma by Creatinine-based formula (MDRD) >60 [facility] ID Date Data Source [id number] 06/04/2020 07:00:13 PM EDT [facility] Name Value Range Interpretation Code Description Data [place] [facility](s) Supporting Document(s) History and Physical [facility] [id number] [facility] [file] DQo= ID Date Data Source [id number] 06/04/2020 04:52:40 PM EDT [facility] Name Value Range Interpretation Code Description Data Danuta e(s) Supporting Document(s) Bicarbonate [Moles/volume] in Serum 21 mmol/L 22-29 L [facility] Chloride [Moles/volume] in Serum or Plasma 95 mmol/L 98-107 [facility] Creatinine [Mass/volume] in Serum or Plasma 0.64 mg/dL 0.70-1.20 L [facility] Glucose [Mass/volume] in Serum or Plasma 113 mg/dL 70-140 [facility] Potassium [Moles/volume] in Serum or Plasma 4.4 mmol/L 3.4-5.1 [facility] Sodium [Moles/volume] in Serum or Plasma 123 mmol/L 136-145 [facility] Urea nitrogen [Mass/volume] in Serum or Plasma 7 mg/dL 8-23 [facility] Anion gap 3 in Serum or Plasma 7 mmol/L 8-15 [facility] Osmolality of Serum or Plasma by calculation 255 mosm/kg 275-300 [facility] Creatinine/Urea nitrogen [Mass Ratio] in Serum or Plasma 11 [facility] Calcium [Mass/volume] in Serum or Plasma 7.4 mg/dL 8.8-10.2 L [facility] Glomerular filtration rate/1.73 sq M pre dicted among non-blacks [Volume Rate/Area] in Serum or Plasma by Creatinine-based formula (MDRD) >6 0 [facility] Glomerular filtration rate/1.73 sq M pre dicted among blacks [Volume Rate/Area] in Serum or Plasma by Creatinine-based formula (MDRD) >60 [facility] ID Date Data Source [id number] 06/04/2020 04:52:40 PM [facility] Name Value Range Interpretation Code Description Data Danuta rce(s) Supporting Document(s) Magnesium [Mass/volume] in Serum or Plasma 2.1 mg/dL 1.6-2.4 [facility] ID Date Data Source [id number] 06/04/2020 04:52:40 PM [facility] Name Value Range Interpretation Code Description Data Danuta rce(s) Supporting Document(s) Phosphate [Mass/volume] in Serum or Plasma 3.1 mg/dL 2.5-4.5 [facility] ID Date Data Source [id number] 06/04/2020 12:33:57 PM [facility] Name Value Range Interpretation Code Description Data Danuta rce(s) Supporting Document(s) Bicarbonate [Moles/volume] in Serum 21 mmol/L 22-29 L [facility] Chloride [Moles/volume] in Serum or Plasma 96 mmol/L 98-107 [facility] Creatinine [Mass/volume] in Serum or Plasma 0.60 mg/dL 0.70-1.20 L [facility] Glucose [Mass/volume] in Serum or Plasma 94 mg/dL 70-140 [facility] Potassium [Moles/volume] in Serum or Plasma 4.4 mmol/L 3.4-5.1 [facility] Sodium [Moles/volume] in Serum or Plasma 124 mmol/L 136-145 L [facility] Urea nitrogen [Mass/volume] in Serum or Plasma 8 mg/dL 8-23 [facility] Anion gap 3 in Serum or Plasma 7 mmol/L 8-15 [facility] Osmolality of Serum or Plasma by calculation 256 mosm/kg 275-300 [facility] Creatinine/Urea nitrogen [Mass Ratio] in Serum or Plasma 14 [facility] Calcium [Mass/volume] in Serum or Plasma 7.9 mg/dL 8.8-10.2 L [facility] Glomerular filtration rate/1.73 sq M pre dicted among non-blacks [Volume Rate/Area] in Serum or Plasma by Creatinine-based formula (MDRD) >6 0 [facility] Glomerular filtration rate/1.73 sq M pre dicted among blacks [Volume Rate/Area] in Serum or Plasma by Creatinine-based formula (MDRD) >60 [facility] ID Date Data Source [id number] 06/04/2020 12:33:[address] [facility] Value Range Interpretation Code Description Data Danuta rce(s) Supporting Document(s) Magnesium [Mass/volume] in Serum or Plasma 2.4 mg/dL 1.6-2.4 [facility] ID Date Data Source [id number] 06/04/2020 12:33:[address] [facility] Value Range Interpretation Code Description Data Danuta rce(s) Supporting Document(s) Phosphate [Mass/volume] in Serum or Plasma 2.3 mg/dL 2.5-4.5 [facility] ID Date Data Source [id number] 06/04/2020 11:52:[address] [facility] Value Range Interpretation Code Description Data Danuta rce(s) Supporting Document(s) Osmolality of Urine 439 mosm/kg 300-1000 [facility] ID Date Data Source [id number] 06/04/2020 12:13:[address] [facility] Value Range Interpretation Code Description Data Danuta rce(s) Supporting Document(s) Creatinine [Mass/volume] in Urine 50.0 mg/dl [facility] ID Date Data Source [id number] 06/04/2020 12:13:[address] [facility] Value Range Interpretation Code Description Data Danuta rce(s) Supporting Document(s) Sodium [Moles/volume] in Urine 110 mmol/L [facility] ID Date Data Source [id number] 06/04/2020 12:13:07 PM [facility] Name Value Range Interpretation Code Description Data Danuta rce(s) Supporting Document(s) Chloride [Moles/volume] in Urine 130 mmol/L [facility] ID Date Data Source [id number] 06/04/2020 12:13:07 PM [facility] Name Value Range Interpretation Code Description Data Danuta rce(s) Supporting Document(s) Urea nitrogen [Mass/volume] in Urine 307 mg/dL [facility] ID Date Data Source [id number] 06/04/2020 09:14:17 AM [facility] Name Value Range Interpretation Code Description Data Danuta rce(s) Supporting Document(s) Bicarbonate [Moles/volume] in Serum 20 mmol/L 22-29 L [facility] Chloride [Moles/volume] in Serum or Plasma 92 mmol/L 98-107 L [facility] Creatinine [Mass/volume] in Serum or Plasma 0.60 mg/dL 0.70-1.20 [facility] Glucose [Mass/volume] in Serum or Plasma 90 mg/dL 70-140 [facility] Potassium [Moles/volume] in Serum or Plasma 4.5 mmol/L 3.4-5.1 [facility] Hemolyzed Sodium [Moles/volume] in Serum or Plasma 121 mmol/L 136-145 L [facility] Urea nitrogen [Mass/volume] in Serum or Plasma 6 mg/dL 8-23 [facility] Anion gap 3 in Serum or Plasma 9 mmol/L 8-15 [facility] Osmolality of Serum or Plasma by calculation 249 mosm/kg 275-300 L [facility] Creatinine/Urea nitrogen [Mass Ratio] in Serum or Plasma 10 [facility] Calcium [Mass/volume] in Serum or Plasma 7.4 mg/dL 8.8-10.2 L [facility] Glomerular filtration rate/1.73 sq M pre dicted among non-blacks [Volume Rate/Area] in Serum or Plasma by Creatinine-based formula (MDRD) >6 0 [facility] Glomerular filtration rate/1.73 sq M pre dicted among blacks [Volume Rate/Area] in Serum or Plasma by Creatinine-based formula (MDRD) >60 [facility] ID Date Data Source [id number] 06/04/2020 09:14:17 AM [facility] Name Value Range Interpretation Code Description Data Danuta rce(s) Supporting Document(s) Magnesium [Mass/volume] in Serum or Plasma 2.8 mg/dL 1.6-2.4 H [facility] ID Date Data Source [id number] 06/04/2020 09:14:[address] [facility] Value Range Interpretation Code Description Data Danuta rce(s) Supporting Document(s) Phosphate [Mass/volume] in Serum or Plasma 2.8 mg/dL 2.5-4.5 [facility] ID Date Data Source [id number] 06/04/2020 04:51:[address] [facility] Value Range Interpretation Code Description Data Danuta rce(s) Supporting Document(s) Leukocytes [#/volume] in Blood by Automated count 15.2 10*3/uL 4-10 H [facility] Erythrocytes [#/volume] in Blood by Automated count 2.31 10*6/uL 4.6- 6.1 L [facility] Hemoglobin [Mass/volume] in Blood 8.1 g/dL 13.5-18 L [facility] Hematocrit [Volume Fraction] of Blood by Automated count 23.2 % 4 1-53 [facility] Erythrocyte mean corpuscular volume [Entitic volume] b y Automated count 100.7 fL 80-96 [facility] Erythrocyte mean corpuscular hemoglobin [Entitic mass] by Automated count 35.0 pg 27-33 H [facility] Erythrocyte mean corpuscular hemoglobin concentration [Mass/volume] by Autom[facility] 34.8 g/[facility].0[facility] width [Ratio] by Automated count 15.5 % 11.5-14.5 [facility] Platelets [#/volume] in Blood by Automated count 95 10*3/uL 150-400 L [facility] ID Date Data Source [id number] 06/04/2020 05:00:[address] [facility] Value Range Interpretation Code Description Data Danuta rce(s) Supporting Document(s) Prothrombin time (PT) 22.8 s 12.5-14.9 H [facility] INR in Platelet poor plasma by Coagulation assay 1.97 [facility] Routine intensity oral anticoagulation I NR is typically 2.0-3.0. Target INR must be clinically individualized. ID Date Data Source [id number] 06/04/2020 05:10:[address] [facility] Value Range Interpretation Code Description Data Danuta rce(s) Supporting Document(s) Albumin [Mass/volume] in Serum or Plasma by Bromocresol green (BCG) dye binding method 3.3 g/dL 3.5-[facility].2 [facility] Bilirubin.total [Mass/volume] in Serum or Plasma 1.2 mg/dL <1.2 H [facility] Bilirubin.direct [Mass/volume] in Serum or Plasma 0.4 mg/dL <0.3 H [facility] Alkaline phosphatase [Enzymatic activity/volume] in Serum or Plasma 49 U/L 40-129 [facility] Aspartate aminotransferase [Enzymatic activity/volume] in Serum or Plasma 27 U/L <40 [facility] Alanine aminotransferase [Enzymatic activity/volume] in Seru m or Plasma 14 U/L <41 [facility] Protein [Mass/volume] in Serum or Plasma 5.5 g/dL 6.4-8.3 L [facility] ID Date Data Source [id number] 06/04/2020 05:10:[address] [facility] Value Range Interpretation Code Description Data Danuta rce(s) Supporting Document(s) Phosphate [Mass/volume] in Serum or Plasma 2.7 mg/dL 2.5-4.5 [facility] ID Date Data Source [id number] 06/04/2020 05:10:[address] [facility] Value Range Interpretation Code Description Data Danuta rce(s) Supporting Document(s) Bicarbonate [Moles/volume] in Serum 19 mmol/L 22-29 L [facility] Chloride [Moles/volume] in Serum or Plasma 92 mmol/L 98-107 L [facility] Creatinine [Mass/volume] in Serum or Plasma 0.62 mg/dL 0.70-1.20 L [facility] Glucose [Mass/volume] in Serum or Plasma 90 mg/dL 70-140 [facility] Potassium [Moles/volume] in Serum or Plasma 4.8 mmol/L 3.4-5.1 [facility] Hemolyzed Sodium [Moles/volume] in Serum or Plasma 120 mmol/L 136-145 L [facility] Urea nitrogen [Mass/volume] in Serum or Plasma 7 mg/dL 8-23 L [facility] Anion gap 3 in Serum or Plasma 9 mmol/L 8-15 [facility] Osmolality of Serum or Plasma by calculation 247 mosm/kg 275-300 L [facility] Creatinine/Urea nitrogen [Mass Ratio] in Serum or Plasma 12 [facility] Calcium [Mass/volume] in Serum or Plasma 7.9 mg/dL 8.8-10.2 L [facility] Glomerular filtration rate/1.73 sq M pre dicted among non-blacks [Volume Rate/Area] in Serum or Plasma by Creatinine-based formula (MDRD) >6 0 [facility] Glomerular filtration rate/1.73 sq M pre dicted among blacks [Volume Rate/Area] in Serum or Plasma by Creatinine-based formula (MDRD) >60 [facility] ID Date Data Source [id number] 06/04/2020 05:10:55 AM [facility] Name Value Range Interpretation Code Description Data Danuta rce(s) Supporting Document(s) Magnesium [Mass/volume] in Serum or Plasma 3.9 mg/dL 1.6-2.4 H [facility] ID Date Data Source [id number] 06/04/2020 07:23:[address] [facility] Value Range Interpretation Code Description Data Danuta rce(s) Supporting Document(s) Cobalamin (Vitamin B12) [Mass/volume] in Serum or Plasma 649 pg/ml 2 11-946 [facility] ID Date Data Source [id number] 06/04/2020 04:47:[address] [facility] Value Range Interpretation Code Description Data Danuta rce(s) Supporting Document(s) Calcium.ionized [Moles/volume] in Arterial blood 1.04 mmol/L 1.13-1.3 2 L [facility] ID Date Data Source [id number] 06/04/2020 09:52:[address] [facility] Value Range Interpretation Code Description Data Danuta rce(s) Supporting Document(s) Folate [Mass/volume] in Serum or Plasma 19.40 ng/mL >4.77 [facility] ID Date Data Source [id number] 06/04/2020 12:22:[address] [facility] Value Range Interpretation Code Description Data Danuta rce(s) Supporting Document(s) Hepatitis C virus Ab [Presence] in Serum or Plasma by Immuno assay Non Reactive [facility] No serological evidence of active infect ion. If recent exposure is suspected, test for HCV RNA. ID Date Data Source [id number] 06/04/2020 12:13:43 AM [facility] Name Value Range Interpretation Code Description Data Danuta rce(s) Supporting Document(s) Bicarbonate [Moles/volume] in Serum 19 mmol/L 22-29 L [facility] Chloride [Moles/volume] in Serum or Plasma 95 mmol/L 98-107 L [facility] Creatinine [Mass/volume] in Serum or Plasma 0.55 mg/dL 0.70-1.20 L [facility] Glucose [Mass/volume] in Serum or Plasma 89 mg/dL 70-140 [facility] Potassium [Moles/volume] in Serum or Plasma 4.8 mmol/L 3.4-5.1 [facility] Sodium [Moles/volume] in Serum or Plasma 121 mmol/L 136-145 L [facility] Urea nitrogen [Mass/volume] in Serum or Plasma 7 mg/dL 8-23 [facility] Anion gap 3 in Serum or Plasma 7 mmol/L 8-15 [facility] Osmolality of Serum or Plasma by calculation 249 mosm/kg 275-300 [facility] Creatinine/Urea nitrogen [Mass Ratio] in Serum or Plasma 13 [facility] Calcium [Mass/volume] in Serum or Plasma 7.0 mg/dL 8.8-10.2 [facility] Glomerular filtration rate/1.73 sq M pre dicted among non-blacks [Volume Rate/Area] in Serum or Plasma by Creatinine-based formula (MDRD) >6 0 [facility] Glomerular filtration rate/1.73 sq M pre dicted among blacks [Volume Rate/Area] in Serum or Plasma by Creatinine-based formula (MDRD) >60 [facility] ID Date Data Source [id number] 06/04/2020 12:13:[address] [facility] Value Range Interpretation Code Description Data Danuta rce(s) Supporting Document(s) Phosphate [Mass/volume] in Serum or Plasma 2.6 mg/dL 2.5-4.5 [facility] ID Date Data Source [id number] 06/04/2020 12:13:43 AM [facility] Name Value Range Interpretation Code Description Data Danuta rce(s) Supporting Document(s) Magnesium [Mass/volume] in Serum or Plasma 1.4 mg/dL 1.6-2.4 L [facility] ID Date Data Source [id number] 06/03/2020 10:38:43 PM [facility] Name Value Range Interpretation Code Description Data Danuta rce(s) Supporting Document(s) Cortisol [Mass/volume] in Serum or Plasma 16.3 ug/dL [facility] Ref range for 6-10 am samples: 6.0-18.4 ug/dLRef range for 4-8 pm samples: 2.7- 10.5 ug/dLRef range not established for other times. ID Date Data Source [id number] 06/03/2020 10:38:[address] [facility] Value Range Interpretation Code Description Data Danuta rce(s) Supporting Document(s) Bicarbonate [Moles/volume] in Serum 20 mmol/L 22-29 L [facility] Chloride [Moles/volume] in Serum or Plasma 92 mmol/L 98-107 [facility] Creatinine [Mass/volume] in Serum or Plasma 0.58 mg/dL 0.70-1.20 [facility] Glucose [Mass/volume] in Serum or Plasma 94 mg/dL 70-140 [facility] Potassium [Moles/volume] in Serum or Plasma 4.9 mmol/L 3.4-5.1 [facility] Sodium [Moles/volume] in Serum or Plasma 120 mmol/L 136-145 L [facility] Urea nitrogen [Mass/volume] in Serum or Plasma 8 mg/dL 8-23 [facility] Anion gap 3 in Serum or Plasma 8 mmol/L 8-15 [facility] Osmolality of Serum or Plasma by calculation 248 mosm/kg 275-300 L [facility] Creatinine/Urea nitrogen [Mass Ratio] in Serum or Plasma 14 [facility] Calcium [Mass/volume] in Serum or Plasma 7.5 mg/dL 8.8-10.2 L [facility] Glomerular filtration rate/1.73 sq M pre dicted among non-blacks [Volume Rate/Area] in Serum or Plasma by Creatinine-based formula (MDRD) >6 0 [facility] Glomerular filtration rate/1.73 sq M pre dicted among blacks [Volume Rate/Area] in Serum or Plasma by Creatinine-based formula (MDRD) >60 [facility] ID Date Data Source [id number] 06/03/2020 09:32:17 PM T [facility] Value Range Interpretation Code Description Data Danuta rce(s) Supporting Document(s) Glucose [Mass/volume] in Capillary blood by Glucometer 97 mg/dL 70- 140 [facility] ID Date Data Source [id number] 06/08/2020 11:47:42 AM EDT [facility] Service Cmnt XXX-Imp : R HANDMicroorgani sm XXX Cult : No growth 5 days Name Value Range Interpretation Code Description Data Danuta rce(s) Supporting Document(s) ID Date Data Source [id number] 06/08/2020 11:47:42 AM [facility] Cmnt XXX-Imp : L ARMMicroorganis m XXX Cult : No growth 5 days Name Value Range Interpretation Code Description Data Danuta rce(s) Supporting Document(s) ID Date Data Source [id number] 06/03/2020 09:31:[address] [facility] Value Range Interpretation Code Description Data Danuta rce(s) Supporting Document(s) Creatinine [Mass/volume] in Urine 11.0 mg/dl [facility] ID Date Data Source [id number] 06/03/2020 08:10:[address] [facility] Value Range Interpretation Code Description Data Danuta rce(s) Supporting Document(s) Osmolality of Urine 175 mosm/kg 300-1000 L [facility] ID Date Data Source [id number] 06/03/2020 09:31:[address] [facility] Value Range Interpretation Code Description Data Danuta rce(s) Supporting Document(s) Sodium [Moles/volume] in Urine 55 mmol/L [facility] Confirmed ID Date Data Source [id number] 06/03/2020 09:31:[address] [facility] Value Range Interpretation Code Description Data Danuta rce(s) Supporting Document(s) Chloride [Moles/volume] in Urine 63 mmol/L [facility] ID Date Data Source [id number] 06/03/2020 07:09:[address] [facility] Value Range Interpretation Code Description Data Danuta rce(s) Supporting Document(s) Color of Urine [facility] Clarity of Urine [facility] Specific gravity of Urine by Refractometry automated 1.003 1.003 -1.030 [facility] pH of Urine by Automated test strip 5.0 5.0-8.0 [facility] Protein [Mass/volume] in Urine by Automated test strip Neg [facility] Glucose [Mass/volume] in Urine by Automated test strip Neg [facility] Ketones [Mass/volume] in Urine by Automated test strip 5 [facility] Bilirubin.total [Presence] in Urine by Automated test strip Negative [facility] Hemoglobin [Presence] in Urine by Automated test strip Neg [facility] Leukocyte esterase [Presence] in Urine by Automated test strip Negative [facility] Nitrite [Presence] in Urine by Automated test strip Negati ve [facility] Leukocytes [#/area] in Urine sediment by Automated count 0 -5 [facility] Erythrocytes [#/area] in Urine sediment by Automated count 0-3 [facility] Bacteria [#/area] in Urine sediment by Automated count Non e A [facility] ID Date Data Source [id number] 06/05/2020 07:46:21 AM [facility] Service Cmnt XXX-Imp : NoneMicroorganism XXX Cult : No growth 1 day Name Value Range Interpretation Code Description Data Danuta rce(s) Supporting Document(s) ID Date Data Source [id number] 06/03/2020 07:13:[address] [facility] Value Range Interpretation Code Description Data Danuta rce(s) Supporting Document(s) Bilirubin.direct [Mass/volume] in Serum or Plasma 0.4 mg/dL <0.3 H [facility] ID Date Data Source [id number] 06/03/2020 07:07:53 PM [facility] Name Value Range Interpretation Code Description Data Danuta rce(s) Supporting Document(s) Leukocytes [#/volume] in Blood by Automated count 16.5 10*3/uL 4-10 H [facility] Erythrocytes [#/volume] in Blood by Automated count 2.53 10*6/uL 4.6- 6.1 L [facility] Hemoglobin [Mass/volume] in Blood 8.9 g/dL 13.5-18 L [facility] Hematocrit [Volume Fraction] of Blood by Automated count 25.4 % 4 1-53 L [facility] Erythrocyte mean corpuscular volume [Entitic volume] b y Automated count 100.3 fL 80-96 H [facility] Erythrocyte mean corpuscular hemoglobin [Entitic mass] by Automated count 35.3 pg 27-33 H [facility] Erythrocyte mean corpuscular hemoglobin concentration [Mass/volume] by Automated count 35.2 g/dL 32.0-36.0 [facility] Erythrocyte distribution width [Ratio] by Automated count 15.8 % 11.5-14.5 H [facility] Platelets [#/volume] in Blood by Automated count 106 10*3/uL 150-400 L [facility] Differential cell count method - Blood [facility] Neutrophils/100 leukocytes in Blood by Automated count 91 % [facility] Lymphocytes/100 leukocytes in Blood by Automated count 2 % [facility] Monocytes/100 leukocytes in Blood by Automated count 7 % [facility] Eosinophils/100 leukocytes in Blood by Automated count 0 % [facility] Basophils/100 leukocytes in Blood by Automated count 0 % [facility] Neutrophils [#/volume] in Blood by Automated count 14.95 10*3/uL 1.8- 7.0 H [facility] Lymphocytes [#/volume] in Blood by Automated count 0.35 10*3/uL 1.2-4 .0 L [facility] Monocytes [#/volume] in Blood by Automated count 1.16 10*3/uL 0-0.8 H [facility] Eosinophils [#/volume] in Blood by Automated count 0.00 10*3/uL 0-0.5 [facility] Basophils [#/volume] in Blood by Automated count 0.03 10*3/uL 0-0.2 [facility] Nucleated erythrocytes/100 leukocytes [Ratio] in Blood by Automated count 0 /100{WBCs} 0-0 [facility] ID Date Data Source [id number] 06/03/2020 07:13:02 PM EDT [facility] Name Value Range Interpretation Code Description Data Danuta rce(s) Supporting Document(s) Albumin [Mass/volume] in Serum or Plasma by Bromocresol green (BCG) dye binding method 3.9 g/dL 3.5-5.2 [facility] al Bilirubin.total [Mass/volume] in Serum or Plasma 1.3 mg/dL <1.2 H [facility] Calcium [Mass/volume] in Serum or Plasma 8.0 mg/dL 8.8-10.2 L [facility] QA FLAGS AND/OR RANGES MODIFIED BY DEMOG RAPHIC UPDATE ON 06/03 AT 2116 Chloride [Moles/volume] in Serum or Plasma 87 mmol/L 98-107 L [facility] Creatinine [Mass/volume] in Serum or Plasma 0.65 mg/dL 0.70-1.20 L [facility] Glucose [Mass/volume] in Serum or Plasma 96 mg/dL 70-140 [facility] Alkaline phosphatase [Enzymatic activity/volume] in Serum or Plasma 56 U/L 40-129 [facility] Potassium [Moles/volume] in Serum or Plasma 5.3 mmol/L 3.4-5.1 H [facility] Protein [Mass/volume] in Serum or Plasma 6.1 g/dL 6.4-8.3 [facility] Sodium [Moles/volume] in Serum or Plasma 116 mmol/L 136-145 [facility] Results called to and read back by SILVERWARE ASSEMBLERMELISSA FERNANDES AT [phone]. [phone] Aspartate aminotransferase [Enzymatic activity/volume] in Serum or Plasma 29 U/L <40 [facility] Urea nitrogen [Mass/volume] in Serum or Plasma 8 mg/dL 8-23 [facility] Osmolality of Serum or Plasma by calculation 240 mosm/kg 275-300 [facility] Creatinine/Urea nitrogen [Mass Ratio] in Serum or Plasma 12 [facility] Bicarbonate [Moles/volume] in Serum 20 mmol/L 22-29 [facility] Alanine aminotransferase [Enzymatic activity/volume] in Seru m or Plasma 16 U/L <41 [facility] Anion gap 3 in Serum or Plasma 9 mmol/L 8-15 [facility] Glomerular filtration rate/1.73 sq M pre dicted among non-blacks [Volume Rate/Area] in Serum or Plasma by Creatinine-based formula (MDRD) >6 0 [facility] Glomerular filtration rate/1.73 sq M pre dicted among blacks [Volume Rate/Area] in Serum or Plasma by Creatinine-based formula (MDRD) >60 [facility] ID Date Data Source [id number] 06/03/2020 07:13:[address] [facility] Name Value Range Interpretation Code Description Data Danuta rce(s) Supporting Document(s) Troponin T.cardiac [Mass/volume] in Serum or Plasma <0.01 [facility] ID Date Data Source [id number] 06/03/2020 08:20:00 PM EDT [facility] Name Value Range Interpretation Code Description Data Danuta rce(s) Supporting Document(s) Thyrotropin [Units/volume] in Serum or Plasma 3.040 u[IU]/mL 0.270-4. 200 [facility] ID Date Data Source [id number] 06/03/2020 04:24:00 PM EDT [facility] Patient: [place] WALLER n Report - Physicians/Mid Levels . [facility].VisitID: [id number] [place] [address] [phone], MRegistration Date/Time: 06/03/2020 14:30 Weight:78.9 kg (E). Height/Length:66 inches (E). BMI:28.1 FAMILY HISTORYUnable to obtain family medical history. (Electronically signed by Guerda Moyer MD 06/03/2020 16:03) Name Value Range Interpretation Code Description Data [facility] rce(s) Supporting Document(s) ID Date Data Source [id number] 06/03/2020 04:21:00 PM EDT [facility] TSYSORDER [id number] Name Value Range Interpretation Code Description Data [facility] rce(s) Supporting Document(s) URINE AMPHETAMINES NEGATIVE <1000 ng/mL [facility] pital THC,URINE POSITIVE <50 ng/mL H [facility] URINE BARBITURATES NEGATIVE <300 ng/mL [facility] ital PCP,URINE NEGATIVE <25 ng/mL [facility] COCAINE, URINE NEGATIVE <300 ng/mL [facility] URINE,OPIATES NEGATIVE <300 ng/mL [facility] URINE,TCA NEGATIVE <1000 ng/mL [facility] IF A NEGATIVE RESULT IS OBTAINED AND ING ESTION OF TRICYCLICANTIDEPRESSANTS IS SUSPECTED, A SERUM SAMPLE SHOULD BEOBTAINED AND TESTED USING AN APPROPRIATE METHOD. URINE BENZODIAZEPINES NEGATIVE <300 ng/mL [facility] ospital THESE TESTS ARE PERFORMED USING AN IMMU NOASSAY FOR THEQUALITATIVE DETERMINATION OF THE PRESENCE OF THE MAJORMETABOLITES OF DRUGS OF ABUSE. THESE TESTS ARE ONLY ASCREENING AND NOT CONFIRMATORY. CLINICAL CONSIDERATION ANDPROFESSIONAL JUDGMENT MUST BE APPLIED TO ANY DRUG OF ABUSETEST RESULT. ID Date Data Source [id number] 06/03/2020 04:12:00 PM EDT [facility] ital TSYSORDER [id number] Name Value Range Interpretation Code Description Data Danuta rce(s) Supporting Document(s) URINE COLOR. YELLOW [facility] URINE APPEARANCE CLEAR [facility] l URINE GLUCOSE (UA) NEGATIVE mg/dL NEGATIVE [facility] URINE BILIRUBIN NEGATIVE NEGATIVE [facility] URINE KETONE NEGATIVE mg/dL [facility]IVE [facility] SPE[facility]IFIC GRAV[facility],URINE 1.015 1.001-1.035 [facility] URINE BLOOD NEGATIVE NEGATIVE [facility] PH,URINE 5.5 5.0-9.0 [facility] URINE PROTEIN NEGATIVE mg/dL NEGATIVE [facility] yan URINE UROBILINOGEN NORMAL(0.2-1) mg/dL 0-1 [facility] URINE NITRATE NEGATIVE NEGATIVE [facility] URINE LEUKOCYTE ESTERASE NEGATIVE NEGATIVE [facility] ID Date Data Source [id number] 06/03/2020 03:18:00 PM EDT [facility] Name Value Range Interpretation Code Description Data Danuta rce(s) Supporting Document(s) SARS COV2 TRP [facility] This lab was ordered by [facility] and reported by [facility]. ID Date Data Source [id number] 06/03/2020 04:14:00 PM EDT [facility] TSYSORDER [id number] Name Value Range Interpretation Code Description Data Danuta rce(s) Supporting Document(s) Adenovirus Not Detected Detected Not [facility]spital Coronavirus 229E Not Detected Detected Not [facility] Coronavirus HKU1 Not Detected Detected Not [facility] Coronavirus NL63 Not Detected Detected Not [facility] Coronavirus OC43 Not Detected Detected Not [facility] Sars Cov 2 Not Detect[address] Detected Not [facility] Metapneumovirus Not Detected Detected [facility] Human Rhinovirus Not Detected Detected Not [facility] Influenza A Not Detected Detected [facility] Influenza B Not Detected Detected [facility] Parainfluenza Virus [address] [facility] Parainfluenza Virus [address] [facility] Parainfluenza Virus [address] [facility] Parainfluenza Virus [address] [facility] Respiratory Syncytial Virus Not Detected Detected Not [facility] Bordetella parapertus ([id number]) Not Detected Detected Not [facility] Bordetella pertussis (ptxP) Not Detected Detected Not [facility] Chlamydia pneumoniae Not Detected Detected Not [facility] Mycoplasma pneumoniae Not Detected Detected Not [facility] The Above results have been determined b y using the [facility] [employer] system.FilmArray is an automated in vitro diagnostic system thatutilizes nested multiplex Polymerase Chain Reaction (PCR)and high-resolution melting analysis to detect and identifymultiple nucleic acid targets from clinical specimens. ID Date Data Source [id number] 06/03/2020 02:53:00 PM EDT [facility] [...] rce(s) Supporting Document(s) ID Date Data Source [id number] 06/03/2020 03:53:00 PM EDT [facility] [id number] Name Value Range Interpretation Code Description Data Danuta rce(s) Supporting Document(s) ETHYL ALCOHOL 0.00 % 0-0.01 [facility] ID Date Data Source [id number] 06/03/2020 03:31:00 PM EDT [facility] TSYSORDER [id number] Name Value Range Interpretation Code Description Data Danuta rce(s) Supporting Document(s) TROPONIN I 0.026 ng/mL 0.0-0.056 [facility] ID Date Data Source [id number] 06/03/2020 03:31:00 PM EDT [facility] TSYSORDER [id number] Name Value Range Interpretation Code Description Data Danuta rce(s) Supporting Document(s) CKMB 3.4 ng/ml 0.0-3.6 [facility] ID Date Data Source [id number] 06/03/2020 03:31:00 PM EDT [facility] TSYSORDER [id number] Name Value Range Interpretation Code Description Data Danuta rce(s) Supporting Document(s) CREATINE PHOSPHOKINASE 209 U/L 39-308 [facility] ID Date Data Source [id number] 06/03/2020 03:23:00 PM EDT [facility] TSYSORDER [id number] Name Value Range Interpretation Code Description Data Danuta rce(s) Supporting Document(s) LIPASE 96 U/L 73-393 [facility] ID Date Data Source [id number] 06/03/2020 03:23:00 PM EDT [facility] TSYSORDER [id number] Name Value Range Interpretation Code Description Data Danuta rce(s) Supporting Document(s) AST 31 U/L 15-37 [facility] ALT 28 U/L 12-78 [facility] ALKALINE PHOSPHATASE 66 U/L 46-116 [facility] pital TOTAL BILIRUBIN 1.3 mg/dL 0.2-1.0 H [facility] TOTAL PROTEIN 7.6 g/dl 6.4-8.2 [facility] ALBUMIN 4.5 gm/dL 3.4-5.0 [facility] ID Date Data Source [id number] 06/03/2020 03:23:00 PM EDT [facility] TSYSORDER [id number] Name Value Range Interpretation Code Description Data Danuta rce(s) Supporting Document(s) AMYLASE 109 U/L 25-115 [facility] ID Date Data Source [id number] 06/03/2020 03:23:00 PM [facility]T [facility] [id number] Name Value Range Interpretation Code Description Data Danuta rce(s) Supporting Document(s) MAGNESIUM 1.6 mg/dL 1.8-2.4 L [facility] ID Date Data Source [id number] 06/03/2020 03:23:00 PM EDT [facility] l TSYSORDER [id number] Name Value Range Interpretation Code Description Data Danuta rce(s) Supporting Document(s) GLUCOSE 152 mg/dL 74-106 H [facility] BLOOD UREA NITROGEN 9 mg/dL 7-18 [facility] ital CREATININE 1.2 mg/dL 0.7-1.3 [facility] SODIUM 119 mmol/L 136-145 *L [facility] CALLED TO ER (VERENA), BY Sena Alvarez, AT 1523. POTASSIUM 5.1 mmol/L 3.5-5.1 [facility] CHLORIDE 86 mmol/L 98-107 *L [facility] CO2 19 mmol/L 21-32 L [facility] CALCIUM 8.7 mg/dL 8.5-10.1 [facility] ANION GAP 14.0 mmol/L 5-12 H [facility] GLOMERULAR FILTRATION RATE 59 mL/min [facility] GFR IS CALCULATED IN mL/min/1.73m2 YAEL L FUNCTION: >90MILDLY DECREASED: 60-89MILDY TO MODERATELY DECREASED: 45-59 MODERATELY TO SEVERELY DECREASED: 30-44SEVERELY DECREASED: 15-29RENAL FAILURE: <15 ID Date Data Source [id number] 06/03/2020 03:13:00 PM EDT [facility] [id number] Name Value Range Interpretation Code Description Data Danuta rce(s) Supporting Document(s) AMMONIA 22 umol/L 11-32 [facility] ID Date Data Source [id number] 06/03/2020 03:13:00 PM EDT [facility] [id number] Name Value Range Interpretation Code Description Data Danuta rce(s) Supporting Document(s) PARTIAL THROMBOPLASTIN TIME 30.5 SECONDS 21.4-30.2 H [facility] ID Date Data Source [id number] 06/03/2020 03:13:00 PM EDT [facility] [id number] Name Value Range Interpretation Code Description Data Danuta rce(s) Supporting Document(s) PROTHROMBIN TIME (PATIENT) 22.5 SECONDS 9.2-11.6 H [facility] INR 2.21 0.87-1.06 H [facility] ID Date Data Source [id number] 06/03/2020 02:58:00 PM EDT [facility] l [id number] Name Value Range Interpretation Code Description Data Danuta rce(s) Supporting Document(s) WHITE BLOOD COUNT 11.1 K/mm3 4.0-10.0 [facility] RED BLOOD COUNT 2.71 M/mm3 4.50-6.00 L [facility] HEMOGLOBIN 9.4 gm/dL 14.0-18.0 L [facility] HEMATOCRIT 25.4 % 42.0-54.0 L [facility] MEAN CELL VOLUME 93.7 fl 80-96 [facility] MEAN CORPUSCULAR HEMOGLOBIN 34.7 pg 27.0-31.0 H [facility] MEAN CORPUSCULAR HGB CONC 37.0 g/dl 32.0-36.0 H [facility] RED CELL DISTRIBUTION WIDTH 14.2 % 10.0-14.5 [facility] PLATELET COUNT 132 K/mm3 172-450 L [facility] MEAN PLATELET VOLUME 11.7 fl 9.0-13.0 [facility] pital GRAN % 84.0 % 50-80.0 H [facility] IG% 1.4 % 0.0-0.2 *H [facility] LYMPH % 5.2 % 25.0-50.0 L [facility] MONO % 8.8 % 2.0-10.0 [facility] EOS % 0.1 % 0-5.0 [facility] BASO % 0.5 % 0.0-2.0 [facility] GRAN # 9.3 K/mm3 2.0-8.00 H [facility] IG# 0.2 K/mm3 0.0-0.2 [facility] LYMPH # 0.6 K/mm3 1.0-5.0 L [facility] MONO # 1.0 K/mm3 0.10-1.20 [facility] EOS # 0.0 K/mm3 0.0-0.5 [facility] BASO # 0.1 K/mm3 0.0-0.2 [facility] ID Date Data Source [id number] 06/03/2020 12:00:00 AM EDT [facility] l Name Value Range Interpretation Code Description Data Danuta rce(s) Supporting Document(s) 2019 Novel Coronavirus RNA [facility] This lab was ordered by [facility] L aboratory and reported by [facility]. ID Date Data Source [id number] 04/05/2020 01:02:00 PM EDT [facility] ([facility]) Name Value Range Interpretation Code Description Data Danuta rce(s) Supporting Document(s) Laboratory test finding (navigational concept) Laboratory test result [facility] ([facility]) ID Date Data Source [id number] 04/05/2020 01:02:00 PM EDT [facility] ([facility]) Name Value Range Interpretation Code Description Data Danuta rce(s) Supporting Document(s) Bilirubin.total [Mass/volume] in Serum or Plasma 0.9 mg/dL 0.0-1.2 [facility] ([facility]) Bilirubin.direct [Mass/volume] in Serum or Plasma 0.33 mg/dL 0.00-0.4 0 [facility] ([facility]) Bilirubin.indirect [Mass/volume] in Serum or Plasma 0.57 mg/dL 0.10-0 .80 [facility] ([facility]) ID Date Data Source [id number] 04/05/2020 01:02:00 PM EDT [facility] ([facility]) Name Value Range Interpretation Code Description Data Danuta rce(s) Supporting Document(s) Magnesium [Mass/volume] in Serum or Plasma 1.9 mg/dL 1.6-2.3 [facility] ([facility]) ID Date Data Source [id number] 04/05/2020 01:02:00 PM EDT [facility] ([facility]) Name Value Range Interpretation Code Description Data Danuta rce(s) Supporting Document(s) Glucose 84 mg/dL 65-99 [facility] ([facility]) Creatinine 0.77 mg/dL 0.76-1.27 [facility] ([facility]) Urea nitrogen [Mass/volume] in Serum or Plasma 8 mg/dL 8-27 [facility] ([facility]) eGFR If NonAfricn Am 89 mL/min/1.73 MEDE NT ([facility]) eGFR If Africn Am 103 mL/min/1.73 [facility] ([facility]) Sodium 127 mmol/L 134-144 [facility] ([facility]) Urea nitrogen/Creatinine [Mass Ratio] in Serum or Plasma 10 1 0-24 [facility] ([facility]) Chloride [Moles/volume] in Serum or Plasma 91 mmol/L 96-106 [facility] ([facility]) Carbon dioxide, total [Moles/volume] in Serum or Plasma 19 mmol/L 20 -29 [facility] ([facility]) Potassium [Moles/volume] in Serum or Plasma 5.2 mmol/L 3.5-5.2 [facility] ([facility]) Albumin [Mass/volume] in Serum or Plasma 4.7 g/dL 3.7-4.7 [facility] ([facility]) Calcium [Mass/volume] in Serum or Plasma 9.0 mg/dL 8.6-10.2 [facility] ([facility]) Phosphate [Moles/volume] in Serum or Plasma 3.8 mg/dL 2.8-4.1 [facility] ([facility]) ID Date Data Source [id number] 04/05/2020 01:02:00 PM EDT [facility] ([facility]) Name Value Range Interpretation Code Description Data Danuta rce(s) Supporting Document(s) Natriuretic peptide.B prohormone N-Terminal [Mass/volu me] in Serum or Plasma 2777 pg/mL 0-376 [facility] ([employer]) <content>The following cut-points have b een [...] 300 pg/mL</content>
<content></content> ID Date Data Source [id number] 04/06/2020 08:06:00 AM EDT [facility] Name Value [...] g/dL 3.7-4.7 [facility] ID Date Data Source [id number] 04/07/2020 06:05:00 AM EDT [facility] Name Value [...] independent 300 pg/mL ID Date Data Source [id number] 04/06/2020 08:06:00 AM EDT [facility] Name Value Range Interpretation Code Description Data [facility] rce(s) Supporting Document(s) Bilirubin, Total 0.9 mg/dL 0.0-1.2 [facility] Bilirubin, Direct 0.33 mg/dL 0.00-0.40 [facility] Bilirubin, Indirect 0.57 mg/dL 0.10-0.80 [facility] ID Date Data Source [id number] 04/06/2020 08:06:00 AM EDT [facility] Name Value Range Interpretation Code Description Data Danuta e(s) Supporting Document(s) Magnesium 1.9 mg/dL 1.6-2.3 [facility] ID Date Data Source [id number] 10/18/2019 09:38:00 AM EST [facility] ([facility], ) Name Value Range Interpretation Code Description Data Danuta rce(s) Supporting Document(s) Prothrombin Time 16.1 s 11.8-14.0 Above high normal M EDENT ([facility], ) Inr 1.32 Normal (applies to non-numeric resul ts) [facility] ([facility]) THERAPUTIC HUMAN INR VALUES INDICATIONS NORMAL RANGES PROPHYLAXIS/TREATMENT OF: VENOUS THROMBOSIS 2.0-3.0 PULMONARY EMBOLISM 2.0-3.0 PREVENTION OF SYSTEMIC EMBOLISM FROM: TISSUE HEART VALVES 2.0-3.0 ACUTE MYOCARDIAL INFARCTION 2.0-3.0 VALVULAR HEART DISEASE 2.0-3.0 ATRIAL FIBRILLATION 2.0-3.0 MECHANICAL VALVES(HIGH RISK) 2.5-3.5 RECURRENT MYOCARDIAL INFARCTION 2.5-3.5 ID Date Data Source [id number] 10/03/2019 10:23:00 AM EST [facility] ([facility]) Name Value Range Interpretation Code Description Data Danuta rce(s) Supporting Document(s) Albumin [Mass/volume] in Serum or Plasma 2.8 [facility] ([facility]) Alanine aminotransferase [Enzymatic activity/volume] in Serum or Pl asma 25 [facility] ([facility]) Carbon dioxide, total [Moles/volume] in Serum or Plasma 25 [facility] ([facility]) Chloride [Moles/volume] in Serum or Plasma 98 [facility] ([facility]) Calcium [Mass/volume] in Serum or Plasma 8.9 [facility] ([facility]) Potassium [Moles/volume] in Serum or Plasma 4.1 [facility] ([facility]) Alkaline phosphatase [Enzymatic activity/volume] in Serum or Plasma 6 3 [facility] ([facility]) Sodium 132 [facility] ([facility] Protein [Mass/volume] in Serum or Plasma 7.4 [facility] ([facility]) Urea nitrogen [Mass/volume] in Serum or Plasma 5 [facility] ([facility]) Aspartate aminotransferase [Enzymatic activity/volume] in Serum or Plasma 27 [facility] ([facility]) Glucose 75 [facility] ([facility] Creatinine For GFR 0.7 [facility] ([facility]) ID Date Data Source [id number] 10/03/2019 10:23:00 AM EST [facility] ([facility]) Name Value Range Interpretation Code Description Data Danuta rce(s) Supporting Document(s) Red Blood Count 3.30 [facility] ([facility]) White Blood Count 6.9 [facility] ([facility]) Hematocrit 33.8 [facility] ([facility]) Platelets 196 [facility] ([facility] Hemoglobin 11.6 [facility] ([facility]) ID Date Data Source [id number] 08/20/2019 09:30:00 PM EST [facility] ([facility], ) Name Value Range Interpretation Code Description Data Danuta rce(s) Supporting Document(s) Lactate [Mass/volume] in Serum or Plasma 0.9 mmol/L 0.4-2.0 Normal (applies to non-numeric results) MEDKATHARINE ([facility], ) Comments: now please Comments: now please Y/N query for Sepsis Lactate Rule: Y ID Date Data Source [id number] 07/22/2019 10:30:00 AM EST [facility] ([facility]) Name Value Range Interpretation Code Description Data Danuta rce(s) Supporting Document(s) Triglycerides 66 [facility] ([facility]) Cholesterol 169 [facility] ([facility]) Cholesterol in LDL [Mass/volume] in Serum or Plasma by calculation 67 .8 [facility] ([facility]) HDL 88 [facility] Chol/HDL Ratio Laboratory test result [facility] ([facility]) ID Date Data Source [id number] 07/22/2019 10:30:00 AM EST [facility] ([facility]) Name Value Range Interpretation Code Description Data Danuta rce(s) Supporting Document(s) Thyroid Stimulating Hormone 4.05 ME DENT ([facility]) Procedure Social History Code Duration Value Status Description Data Source(s ) Alcohol intake 06/03/2020 12:00:00 AM EDT Current drinker of al cohol (finding) completed Current drinker of alcohol (finding) [facility] Tobacco use and exposure 06/03/2020 12:00:00 AM EDT Never used co mpleted Never used [facility] Smoking 06/03/2020 12:00:00 AM EDT Unknown if ever smoked comp leted Unknown if ever smoked [facility] Smoking 05/15/2020 12:00:00 AM EDT Patient is a former smoker completed Patient is a former smoker [facility] ([facility]) Vital Signs ID Date Data Source [id number] Name Value Range Interpretation Code Description Data Source(s) Diastolic blood pressure--standing 51 mm[Hg] 5 1 mm[Hg] [facility] ([facility]) Omron large cuff, Ra Systolic blood pressure--standing 72 mm[Hg] 72 mm[Hg] [facility] ([facility]) Omron large cuff, Ra Diastolic blood pressure--supine 58 mm[Hg] 58 mm[Hg] [facility] ([facility]) Omron large cuff, Ra Systolic blood pressure--supine 101 mm[Hg] 101 mm[Hg] [facility] ([facility]) Omron large cuff, Ra Diastolic blood pressure--sitting 57 mm[Hg] 57 mm[Hg] [facility] ([facility]) Omron large cuff, Ra Systolic blood pressure--sitting 112 mm[Hg] 112 mm[Hg] [facility] ([facility]) Omron large cuff, Ra Heart rate 67 /min 67 /min [facility] ([facility]) Body mass index (BMI) [Ratio] 27.3 kg/m2 27.3 k g/m2 [facility] ([facility]) Body height 66 [in_i] 66 [in_i] [facility] ([facility]) 5'6" Body weight 169.00 [lb_av] 169.00 [lb_av] MEDEN T ([facility]) Diastolic blood pressure--standing 62 mm[Hg] 6 2 mm[Hg] [facility] ([facility]) Omron, adult cuff/Ra HR: 78 bpm Systolic blood pressure--standing 105 mm[Hg] 10 5 mm[Hg] [facility] ([facility]) Omron, adult cuff/Ra HR: 78 bpm Diastolic blood pressure--supine 66 mm[Hg] 66 mm[Hg] [facility] ([facility]) Omron, adult cuff/Ra HR: 75 bpm Systolic blood pressure--supine 118 mm[Hg] 118 mm[Hg] [facility] ([facility]) Omron, adult cuff/Ra HR: 75 bpm Diastolic blood pressure--sitting 66 mm[Hg] 66 mm[Hg] [facility] ([facility]) Omron, adult cuff/Ra HR: 73 bpm Systolic blood pressure--sitting 117 mm[Hg] 117 mm[Hg] [facility] ([facility]) Omron, adult cuff/Ra HR: 73 bpm Heart rate 73 /min 73 /min [facility] ([facility]) Body mass index (BMI) [Ratio] 27.0 kg/m2 27.0 k g/m2 [facility] ([facility]) Body height 66 [in_i] 66 [in_i] [facility] 5'6" Body weight 167.00 [lb_av] 167.00 [lb_av] MEDEN T ([facility]) Diastolic blood pressure--standing 50 mm[Hg] 5 0 mm[Hg] [facility] ([facility]) Omron adult cuff, [place] HR 101 Systolic blood pressure--standing 69 mm[Hg] 69 mm[Hg] [facility] ([facility]) Omron adult cuff, [place] HR 101 Diastolic blood pressure--supine 62 mm[Hg] 62 mm[Hg] [facility] ([facility]) Omron adult cuff, [place] HR 87 Systolic blood pressure--supine 102 mm[Hg] 102 mm[Hg] [facility] ([facility]) Omron adult cuff, [place] HR 87 Diastolic blood pressure--sitting 75 mm[Hg] 75 mm[Hg] [facility] ([facility]) Omron adult cuff, [place] Systolic blood pressure--sitting 113 mm[Hg] 113 mm[Hg] [facility] ([facility]) Omron adult cuff, [place] Heart rate 83 /min 83 /min [facility] Body mass index (BMI) [Ratio] 27.0 kg/m2 27.0 k g/m2 [facility] ([facility]) Body height 66 [in_i] 66 [in_i] [facility] ([facility]) 5'6" Body weight 167.00 [lb_av] 167.00 [lb_av] MEDEN T ([facility]) Diastolic blood pressure--sitting 70 mm[Hg] 70 mm[Hg] [facility] ([facility]) Omron adult cuff, [place] Systolic blood pressure--sitting 112 mm[Hg] 112 mm[Hg] [facility] ([facility]) Omron adult cuff, [place] Heart rate 69 /min 69 /min [facility] Body mass index (BMI) [Ratio] 28.4 kg/m2 28.4 k g/m2 [facility] ([facility]) Body height 66 [in_i] 66 [in_i] [facility] ([facility]) 5'6" Body weight 176.00 [lb_av] 176.00 [lb_av] MEDEN T ([facility]) Body weight 79.097 kg 79.097 kg [facility] ([facility]) Body mass index (BMI) [Ratio] 26.5 kg/m2 26.5 k g/m2 [facility] ([facility]) Body weight 174.38 [lb_av] 174.38 [lb_av] MEDEN T ([facility]) Body height 68 [in_i] 68 [in_i] [facility] ([facility]) 5'8" Diastolic blood pressure 80 mm[Hg] 80 mm[Hg] [facility] ([facility]) Systolic blood pressure 120 mm[Hg] 120 mm[Hg] M EDENT ([facility]) Diastolic blood pressure--sitting 71 mm[Hg] 71 mm[Hg] [facility] ([facility]) Omron adult cuff, [place] Systolic blood pressure--sitting 119 mm[Hg] 119 mm[Hg] [facility] ([facility]) Omron adult cuff, [place] Heart rate 64 /min 64 /min [facility] ([facility]) Body mass index (BMI) [Ratio] 28.2 kg/m2 28.2 k g/m2 [facility] ([facility]) Body height 66 [in_i] 66 [in_i] [facility] ([facility]) 5'6" Body weight 175.00 [lb_av] 175.00 [lb_av] MEDEN T ([facility]) Body weight 80.344 kg 80.344 kg [facility] ([facility]) Body mass index (BMI) [Ratio] 26.9 kg/m2 26.9 k g/m2 [facility] ([facility]) Body weight 177.12 [lb_av] 177.12 [lb_av] MEDEN T ([facility]) Body height 68 [in_i] 68 [in_i] [facility] ([facility]) 5'8" Diastolic blood pressure 64 mm[Hg] 64 mm[Hg] [facility] ([facility]) Systolic blood pressure 112 mm[Hg] 112 mm[Hg] M MICHAELA ([facility]) ID Date Data Source [id number] 06/04/2020 04:25:19 PM [facility] Name Value Range Interpretation Code Description Data Source(s) TRANSFER FROM [facility] ID Date Data Source [id number] 06/13/2020 06:46:38 AM [facility] Name Value Range Interpretation Code Description Data Source(s) WEIGHT RECORDED 173.94 lb 173.94 lb [facility] Body height Measured 66 in 66 in [facility] TRANSFER FROM [facility] ID Date Data Source [id number] 06/03/2020 03:09:00 PM [facility] Name Value Range Interpretation Code Description Data Source(s) WEIGHT 79.1 kilos 79.1 [facility] HEIGHT 168.91 centimeters 168.91 centimeter [facility] WEIGHT 79.1 kilos 79.1 [facility] HEIGHT 168.91 centimeters 168.91 centimeter [facility] Patient Treatment Plan of Care Planned Activity Planned Date Details Description Data Source (s) Thiamine 100 MG Oral Tablet 06/08/2020 12:00:00 AM [facility] Folic Acid 1 MG Oral Tablet 06/08/2020 12:00:00 AM [facility] Thiamine 100 MG Oral Tablet 06/08/2020 12:00:00 AM [facility] Folic Acid 1 MG Oral Tablet 06/08/2020 12:00:00 AM [facility] Warfarin Sodium 1 MG Oral Tablet 06/07/2020 12:00:00 AM [facility] Metoprolol Succinate 25 MG Oral Capsule ER 24 Hour Spr inkle 06/07/2020 12:00:00 AM [facility] Docusate Sodium 100 MG Oral Capsule 06/07/2020 12:00:00 AM [facility] Warfarin Sodium 1 MG Oral Tablet 06/07/2020 12:00:00 AM [facility] Metoprolol Succinate 25 MG Oral Capsule ER 24 Hour Spr inkle 06/07/2020 12:00:00 AM [facility] Docusate Sodium 100 MG Oral Capsule 06/07/2020 12:00:00 AM [facility] Warfarin Sodium 1 MG Oral Tablet [facility] Spironolactone 25 MG Oral Tablet [facility] Metoprolol Succinate 25 MG Oral Capsule ER 24 Hour Sprinkle [facility] Enalapril Maleate 2.5 MG Oral Tablet [facility] Docusate Sodium 100 MG Oral Capsule [facility]
[2020-09-13 20:30] VITALS: BP 106/67
== END 2020-09-13 20:47 | disposition short-term general hospital (02) ==
LOC: M ED 15:58
DX: I73.9 Peripheral vascular disease, unspecified (principal); I48.91 Unspecified atrial fibrillation; I25.10 Atherosclerotic heart disease of native coronary artery without angina pectoris; E78.5 Hyperlipidemia, unspecified; N40.0 Benign prostatic hyperplasia without lower urinary tract symptoms; Z95.1 Presence of aortocoronary bypass graft; Z87.891 Personal history of nicotine dependence; Z79.82 Long term (current) use of aspirin; Z79.899 Other long term (current) drug therapy; Z79.01 Long term (current) use of anticoagulants